=== PATIENT | female | born 1950 | race Caucasian/White ===

== ENCOUNTER → 2016-11-09 | Outpatient (CLI) | payer MEDICARE, MEDICAID ==
[2016-11-09 10:45] LABS: CHLORIDE,CL 104 mmol/L (98-110); SODIUM,NA 141 mmol/L (136-146)
--- NOTE | 2016-11-09 10:47 | CR ---
EXAMINATION: Two-view chest (PA and Lateral views). HISTORY: Shortness of breath. FINDINGS: The trachea is midline. The cardiomediastinal silhouette is within normal limits. No pulmonary infil trates, effusions or pneumothorax. Scoliosis hardware is noted. Previous right rib resection changes also present. IMPRESSION: No acute cardiopulmonary process.
== END | disposition home or self-care (01) ==
LOC: MW.CHFP 09:22
PROVIDERS: ATTEND Student in an Organized Health Care Education/Training Program
DX: R06.02 Shortness of breath (principal); R60.0 Localized edema; R07.89 Other chest pain
CPT/HCPCS: 36415; 71020; 71020-26; 80048; 93005; 99214

== ENCOUNTER → 2016-11-25 | Outpatient (CLI) | payer MEDICARE, MEDICAID | LOC: MW.CHIM 11:01 | PROVIDERS: ATTEND Internal Medicine | DX: I50.9 Heart failure, unspecified (principal); R32 Unspecified urinary incontinence; R60.0 Localized edema; J44.9 Chronic obstructive pulmonary disease, unspecified; E78.00 Pure hypercholesterolemia, unspecified; I10 Essential (primary) hypertension; Z72.0 Tobacco use | CPT/HCPCS: 81001; 99204; 99407 ==

== ENCOUNTER → 2016-12-07 | Outpatient (CLI) | payer MEDICARE, MEDICAID ==
--- NOTE | 2016-12-07 16:06 | US ---
EXAMINATION: CARLA HISTORY: Heart failure COMPARISON: None TECHNIQUE: Pressures obtained in the upper and lower extremities bilaterally. FINDINGS/IMPRESSION: Both the left and right CARLA are normal at 0.99.
--- NOTE | 2016-12-08 16:17 | ECHO ---
The echocardiogram report can be seen in this patient's EMR in the Reports section. JOY
== END ==
LOC: MW.US 13:24
PROVIDERS: ATTEND Internal Medicine
DX: I50.9 Heart failure, unspecified (principal); C81.90 Hodgkin lymphoma, unspecified, unspecified site
CPT/HCPCS: 93306; 93922; 93922-26

== ENCOUNTER → 2016-12-08 | Outpatient (CLI) | payer MEDICARE, MEDICAID | LOC: MW.CHNEURO 08:00 | PROVIDERS: ATTEND Psychiatry & Neurology Neuromuscular Medicine | DX: G60.3 Idiopathic progressive neuropathy (principal); G89.4 Chronic pain syndrome | CPT/HCPCS: 99214 ==

== ENCOUNTER → 2016-12-09 | Outpatient (CLI) | payer MEDICARE, MEDICAID ==
--- NOTE | 2016-12-09 13:49 | NM ---
EXAMINATION: Nuclear medicine myocardial perfusion study HISTORY: Shortness of breath. PROCEDURE: Following intravenous administration of 0.4 mg of Lexiscan and 27.4 mCi of technetium 99m sestamib i, stress SPECT images including gating imaging was performed. FINDINGS: Stress myocardial SPECT images demonstrates mildly decreased perfusion along the inferior wall. Review of gated images demonstrates normal wall motion, contractility and wall thickening. The left ventricular ejection fraction is 77 %. The left ventricular chamber size is normal. IMPRESSION: 1. Mildly decreased perfusion along the inferior wall, correlation with rest imaging may be benefici al. 2. Normal ventricular chamber size and function with ejection fraction of 77 %.
--- NOTE | 2016-12-10 17:51 | PCM.PRNOTE ---
- Free Text/Narrative Note: Lexiscan Indication chest pain Patient was supervised today during infusion portion of the stress test. The patient received Regadenoson 0.4 mg IV and nuclear agent using standard protocol. Sestamibi Tm99 25 Mci was gievn afterwards Baseline blood pressure is 119/54 with a heart rate 69 EKG sinus rhythm without ST abnormalities Vital signs at injection: Peak blood pressure 115/53 with a heart rate of 76 Vital signs at 4 minutes post injection: Peak blood pressure 121/52 with a heart rate of 77 EKG sinus rhythm without further ST changes Patient complains of abdominal cramps and headaches spontaneously resolved Adverse effects from Charlene scan none Test done due to end of protocol Impression 1. electrocardiographically nondiagnostic for ischemia due to chemical protocol 2. nuclear imaging pending
== END ==
LOC: MW.NM 07:18
PROVIDERS: ATTEND Internal Medicine
DX: R06.02 Shortness of breath (principal); R07.9 Chest pain, unspecified
CPT/HCPCS: 78451; 93017; A9500; J2785

== ENCOUNTER → 2016-12-13 | Outpatient (CLI) | payer MEDICARE, MEDICAID ==
[2016-12-13 09:58] LABS: CHLORIDE,CL 111 mmol/L (98-110); SODIUM,NA 144 mmol/L (136-146)
== END ==
LOC: MW.CHIM 09:07
PROVIDERS: ATTEND Internal Medicine
DX: I50.9 Heart failure, unspecified (principal); Z86.39 Personal history of other endocrine, nutritional and metabolic disease; E05.00 Thyrotoxicosis with diffuse goiter without thyrotoxic crisis or storm; R07.9 Chest pain, unspecified; E78.5 Hyperlipidemia, unspecified; R00.2 Palpitations; I10 Essential (primary) hypertension; Z71.6 Tobacco abuse counseling; F17.210 Nicotine dependence, cigarettes, uncomplicated
CPT/HCPCS: 36415; 80053; 80061; 83036; 83880; 84443; 99407; G0463

== ENCOUNTER 2016-12-17 10:28 | Emergency (ER) | payer MEDICARE, MEDICAID ==
--- NOTE | 2016-12-17 11:02 | EDM.PDOC ---
ED HPI GENERAL MEDICAL PROBLEM - General Chief Complaint: Headache Stated Complaint: AMBULANCE Time Seen by Provider: 12/17/16 10:40 Source of Information: Reports: Patient History Limitations: Reports: No limitations - History of Present Illness INITIAL COMMENTS - FREE TEXT/NARRATIVE: History of present illness: [66 show female presents with acute onset status post fall with a blow to her left forehead. Patient indicates that she doesn't know sure of consciousness, she doesn't exactly understand what happened, indicating that she does sometimes have numbness and loss of sensation to her bilateral lower extremities. Patient does have a history of several significant back surgery for kyphosis and has had chronic back issues with subsequent neuropathies.] Review of systems: As per history of present illness and below otherwise all systems reviewed and negative. Past medical history: As per history of present illness and as reviewed below otherwise noncontributory. Surgical history: As per history of present illness and as reviewed below otherwise noncontributory. Social history: No reported history of drug or alcohol abuse. Family history: As per history of present illness and as reviewed below otherwise noncontributory. Physical exam: HEENT: Atraumatic, normocephalic, pupils reactive, negative for conjunctival pallor or scleral icterus, mucous membranes moist, throat clear, neck supple, nontender, trachea midline. Lungs: Clear to auscultation, breath sounds equal bilaterally, chest nontender. Heart: S1S2, regular, negative for clicks, rubs, or JVD. Abdomen: Soft, nondistended, nontender. Negative for masses or hepatosplenomegaly. Negative for costovertebral tenderness. Pelvis: Stable nontender. Genitourinary: Deferred. Rectal: Deferred. Extremities: Atraumatic, negative for cords or calf pain. Neurovascular unremarkable. Neuro: Awake, alert, oriented. Cranial nerves II through XII unremarkable. Cerebellum unremarkable. Motor and sensory unremarkable throughout. Exam nonfocal. Global assessment was benign save an 80 hematoma to left present of scalp and forehead region. Localized swelling of approximately 2-3 cm x 3-4 cm Diagnostics: [BC, CMP, CT of head without contrast] Therapeutics: [] Impression: [contusion] Plan: [] Definitive disposition and diagnosis as appropriate pending reevaluation and review of above. back Pain Score (Numeric/FACES): 2 - Related Data Allergies Allergy/AdvReac Type Severity Reaction Status Date / Time cyclobenzaprine HCl Allergy Anaphylactic Verified 12/17/16 10:56 [From Flexeril] Shock ketorolac tromethamine Allergy Hives Verified 12/17/16 10:56 [From Toradol] Home Meds: Home Meds traZODone 150 mg PO BEDTIME 11/03/15 [History] Paliperidone [Invega] 6 mg PO DAILY 01/11/16 [History] DULoxetine [Cymbalta] 60 mg PO DAILY 06/07/16 [History] Pravastatin [Pravachol] 40 mg PO BEDTIME 06/07/16 [History] Pregabalin [Lyrica] 150 mg PO BID 06/07/16 [History] Propranolol [Inderal LA] 60 mg PO DAILY 06/07/16 [History] Furosemide [Lasix] 20 mg PO BID 12/17/16 [History] Prazosin [Minpress] 1 mg PO BEDTIME 12/17/16 [History] traMADol [Ultram] 50 mg PO BID 12/17/16 [History] Past Medical History HEENT History: Reports: Hard of hearing Other HEENT History: wears glasses, top and bottom partial Cardiovascular History: Reports: Heart Failure, Hypertension, Other (see below) Other Cardiovascular History: Mitral Valve Prolapse Respiratory History: Reports: COPD Other Respiratory History: hx TB at 18 yrs old Gastrointestinal History: Reports: None Genitourinary History: Reports: Other (see below) Other Genitourinary History: occasional urinary incontinence BRAZER RESISTANCE History: Reports: Other (see below) Other OB/BYN 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 Musculoskeletal History: Reports: None Other Musculoskeletal History: chronic neck pain Other Neuro History: possible MS Psychiatric History: Reports: Bipolar, Depression Other Psychiatric History: multiple personalities Hematologic History: Reports: Blood transfusion(s) Other Hematologic History: states had blood transfusion after back surgery Oncologic (Cancer) History: Reports: Cervix Other Oncologic History: had hysterectomy for cervix CA - Infectious Disease History Infectious Disease History: Reports: Measles, Mumps, Shingles, TB - Past Surgical History Head Surgeries/Procedures: Reports: None HEENT Surgical History: Reports: Tonsillectomy GI Surgical History: Reports: Appendectomy, Cholecystectomy Female Surgical History: Reports: Hysterectomy Other Musculoskeletal Surgeries/Procedures:: rouse alayna in back Social & Family History - Family History Family Medical History: Noncontributory HEENT: Reports: Macular degeneration Cardiac: Reports: None Respiratory: Reports: Asthma, COPD GI: Reports: None : Reports: None Musculoskeletal: Reports: Back pain, chronic Neurological: Reports: None Oncologic: Reports: Breast, Lung Other Oncologic Family History: parents both had Cancer - Tobacco Use Smoking Status *Q: Current Every Day Smoker Years of Tobacco use: 45 Packs/Tins Daily: 1 Used Tobacco, but Quit: No Month Tobacco Last Used: october Second Hand Smoke Exposure: Yes - Caffeine Use Caffeine Use: Reports: Coffee - Alcohol Use Days Per Week of Alcohol Use: 0 - Recreational Drug Use Recreational Drug Use: Yes Drug Use in Last 12 Months: Yes Recreational Drug Type: Reports: Xanax Recreational Drug Use Frequency: Daily ED ROS GENERAL - Review of Systems Review Of Systems: See Below (See history of present illness) ED EXAM, GENERAL - Physical Exam Exam: See Below (See history of present illness) Course - Vital Signs Last Recorded V/S: Last Vital Signs Temp 36.4 C 12/17/16 10:56 Pulse 93 12/17/16 10:56 Resp 20 12/17/16 10:56 BP 87/64 L 12/17/16 10:56 Pulse Ox 94 L 12/17/16 10:56 - Orders/Labs/Meds Labs: Laboratory Tests 12/17/16 12/17/16 Range/Units 11:14 11:14 WBC 9.01 (4.0-11.0) K/uL RBC 4.30 (4.30-5.90) M/uL Hgb 13.3 (12.0-16.0) g/dL Hct 40.2 (36.0-46.0) % MCV 93.5 (80.0-98.0) fL MCH 30.9 (27.0-32.0) pg MCHC 33.1 (31.0-37.0) g/dL RDW Std Deviation 43.3 (28.0-62.0) fl RDW Coeff of Jannette 13 (11.0-15.0) % Plt Count 154 (150-400) K/uL MPV 11.00 (7.40-12.00) fL Neut % (Auto) 74.1 (48.0-80.0) % Lymph % (Auto) 16.0 (16.0-40.0) % Andrews % (Auto) 9.0 (0.0-15.0) % Eos % (Auto) 0.6 (0.0-7.0) % Baso % (Auto) 0.3 (0.0-1.5) % Neut # (Auto) 6.7 H (1.4-5.7) K/uL Lymph # (Auto) 1.4 (0.6-2.4) K/uL Andrews # (Auto) 0.8 (0.0-0.8) K/uL Eos # (Auto) 0.1 (0.0-0.7) K/uL Baso # (Auto) 0.0 (0.0-0.1) K/uL Nucleated RBC % 0.0 /100WBC Nucleated RBCs # 0 K/uL Sodium 141 (136-146) mmol/L Potassium 4.0 (3.5-5.1) mmol/L Chloride 102 (98-110) mmol/L Carbon Dioxide 30 (21-31) mmol/L BUN 24 H (6.0-23.0) mg/dL Creatinine 1.1 (0.6-1.5) mg/dL Est Cr Clr Drug Dosing 43.44 mL/min Estimated GFR (MDRD) 49.7 ml/min Glucose 100 (60-110) mg/dL Calcium 9.2 (8.8-10.8) mg/dL Total Bilirubin 0.6 (0.1-1.5) mg/dL AST 20 (5-40) IU/L ALT 20 (8-54) IU/L Alkaline Phosphatase 134 (40-150) Total Protein 6.5 (6.0-8.0) g/dL Albumin 3.9 (3.4-4.8) g/dL Globulin 2.6 (2.0-3.5) g/dL Albumin/Globulin Ratio 1.5 (1.3-2.8) Departure - Departure Time of Disposition: 11:47 Disposition: Home, Self-Care 01 Condition: good Clinical Impression: Contusion Qualifiers: Encounter type: initial encounter Contusion area: head Contusion of head detail : scalp Qualified Code(s): S00.03XA - Contusion of scalp, initial encounter Referrals: PCP,None [Primary Care Provider] - Additional Instructions: The following information is given to patients seen in the emergency department who are being discharged to home. This information is to outline your options for follow-up care. We provide all patients seen in our emergency department with a follow-up referral. The need for follow-up, as well as the timing and circumstances, are variable depending upon the specifics of your emergency department visit. If you don't have a primary care physician on staff, we will provide you with a referral. We always advise you to contact your personal physician following an emergency department visit to inform them of the circumstance of the visit and for follow-up with them and/or the need for any referrals to a consulting specialist. The emergency department will also refer you to a specialist when appropriate. This referral assures that you have the opportunity for follow-up care with a specialist. All of these measure are taken in an effort to provide you with optimal care, which includes your follow-up. Under all circumstances we always encourage you to contact your private physician who remains a resource for coordinating your care. When calling for follow-up care, please make the office aware that this follow-up is from your recent emergency room visit. If for any reason you are refused follow-up, please contact the [facility] Emergency Department at and asked to speak to the emergency department charge nurse. Followup with primary care 1-2 days Turned ED as needed as discussed
--- NOTE | 2016-12-17 11:14 | CT ---
EXAMINATION: Non contrast CT head. Coronal and sagittal reformats. HISTORY: Pain FINDINGS: No evidence of intra or extra axial hemorrhage, mass, midline shift, hydrocephalus or edema. No hypoattenuation changes in the major vascular territories to suggest acute infarct. No abnormal intracranial calcifications are detected. No evidence of substantial vascular calcifica tions. The orbits and globes appear normal. Paranasal sinuses and mastoid air cells are well aerated without substantial findings. Pituitary fossa appears unremarkable. Degenerative changes are noted within the temporomandibular waldo ints. Calvarium is intact. No evidence of skull fracture. Small area of left supraorbital subcutaneous swe lling. IMPRESSION: 1. No acute intracranial findings.
[2016-12-17 12:14] VITALS: BP 119/53
== END 2016-12-17 12:13 | disposition home or self-care (01) ==
LOC: MW.ED 10:28
DX: S00.03XA Contusion of scalp, initial encounter (principal); I50.9 Heart failure, unspecified; I10 Essential (primary) hypertension; F31.9 Bipolar disorder, unspecified; F32.9 Major depressive disorder, single episode, unspecified; F17.210 Nicotine dependence, cigarettes, uncomplicated; Z85.41 Personal history of malignant neoplasm of cervix uteri; Z90.49 Acquired absence of other specified parts of digestive tract; Z98.890 Other specified postprocedural states; Z90.710 Acquired absence of both cervix and uterus; Z79.899 Other long term (current) drug therapy; Z88.8 Allergy status to other drugs, medicaments and biological substances; W19.XXXA Unspecified fall, initial encounter
CPT/HCPCS: 36415; 70450; 70450-26; 80053; 85025; 99282; 99284-25

== ENCOUNTER → 2017-01-04 | Outpatient (CLI) | payer MEDICARE, MEDICAID | LOC: MW.CHFP 08:00 | PROVIDERS: ATTEND Student in an Organized Health Care Education/Training Program | DX: I10 Essential (primary) hypertension (principal); M54.9 Dorsalgia, unspecified; G89.29 Other chronic pain; F41.8 Other specified anxiety disorders | CPT/HCPCS: 99214 ==

== ENCOUNTER → 2017-01-05 | Outpatient (CLI) | payer MEDICARE, MEDICAID | LOC: MW.CHIM 08:00 | PROVIDERS: ATTEND Internal Medicine | DX: J44.9 Chronic obstructive pulmonary disease, unspecified (principal); I10 Essential (primary) hypertension; E78.00 Pure hypercholesterolemia, unspecified; I50.9 Heart failure, unspecified; F17.210 Nicotine dependence, cigarettes, uncomplicated; Z71.6 Tobacco abuse counseling | CPT/HCPCS: 99214; 99407 ==

== ENCOUNTER → 2017-01-06 | Outpatient (CLI) | payer MEDICARE, MEDICAID ==
--- NOTE | 2017-02-15 18:06 | NM ---
EXAM DATE: 01/06/17 PATIENT'S AGE: 66 REPORT ADDENDUM Addendum: Additional images were obtained at rest following the administration of 25.6 mCi of technetium 99m labeled sestamibi. FINDINGS/IMPRESSION: The uptake pattern at rest is similar to the stress images. There is no definite evidence of myocardial ischemia. Ejection fraction at rest is 80%. Wall motion is otherwise normal. Addendum Dictated by: Ananth Castillo MD <Electronically signed by Ananth Castillo MD in OV> 01/06/17 1505 , 1504 , 1504 EXAMINATION: Nuclear medicine myocardial perfusion study HISTORY: Shortness of breath. PROCEDURE: Following intravenous administration of 0.4 mg of Lexiscan and 27.4 mCi of technetium 99m sestamibi, stress SPECT images including gating imaging was performed. FINDINGS: Stress myocardial SPECT images demonstrates mildly decreased perfusion along the inferior wall. Review of gated images demonstrates normal wall motion, contractility and wall thickening. The left ventricular ejection fraction is 77 %. The left ventricular chamber size is normal. IMPRESSION: 1. Mildly decreased perfusion along the inferior wall, correlation with rest imaging may be beneficial. 2. Normal ventricular chamber size and function with ejection fraction of 77 %. Dictated by: Ananth Castillo MD <Electronically signed by Ananth Castillo MD in OV> 12/09/16 at 1346 , 1345 , 1345 Doc Number: [id number] Copies To: María Bell MD; PCP,None~ MTDD
== END ==
LOC: MW.NM 08:02
PROVIDERS: ATTEND Internal Medicine
DX: I50.9 Heart failure, unspecified (principal)
CPT/HCPCS: 78451; A9500

== ENCOUNTER → 2017-01-13 | Outpatient (CLI) | payer MEDICARE, MEDICAID | LOC: MW.CHFP 10:55 | PROVIDERS: ATTEND Student in an Organized Health Care Education/Training Program | DX: R39.15 Urgency of urination (principal); R30.0 Dysuria; R35.8 Other polyuria | CPT/HCPCS: 81001; G0463 ==

== ENCOUNTER → 2017-01-31 | Outpatient (CLI) | payer MEDICARE, MEDICAID | LOC: MW.CHFP 08:00 | PROVIDERS: ATTEND Student in an Organized Health Care Education/Training Program | DX: J01.90 Acute sinusitis, unspecified (principal) | CPT/HCPCS: G0463 ==

== ENCOUNTER 2017-03-30 00:16 | Emergency (ER) | payer MEDICARE, MEDICAID ==
--- NOTE | 2017-03-30 00:26 | EDM.PDOC ---
ED HPI GENERAL MEDICAL PROBLEM - General Chief Complaint: Genitourinary Problem Stated Complaint: UTI? Time Seen by Provider: 03/30/17 00:25 Source of Information: Reports: Patient, EMS - History of Present Illness INITIAL COMMENTS - FREE TEXT/NARRATIVE: HISTORY AND PHYSICAL: History of present illness: Patient presents by ambulance with complaint of urinary retention no fever nausea vomiting chills sweats She states last urination was also 700 in the am, however immediately upon arrival she went to the bathroom and urinated without any difficulty however only 200 mL came out, bladder is either very large on exam or some bowel/ abdomen distention Again no fever nausea vomiting chills sweats Review of systems: As per history of present illness and below otherwise all systems reviewed and negative. Past medical history: As per history of present illness and as reviewed below otherwise noncontributory. Surgical history: As per history of present illness and as reviewed below otherwise noncontributory. Social history: No reported history of drug or alcohol abuse. Family history: As per history of present illness and as reviewed below otherwise noncontributory. Physical exam: HEENT: Atraumatic, normocephalic, pupils reactive, negative for conjunctival pallor or scleral icterus, mucous membranes moist, throat clear, neck supple, nontender, trachea midline. Lungs: Clear to auscultation, breath sounds equal bilaterally, chest nontender. Heart: S1S2, regular, negative for clicks, rubs, or JVD. Abdomen: Soft, patient has protruding protuberant abdomen with possible slight distention, nontender. Negative for masses or hepatosplenomegaly. Negative for costovertebral tenderness. Pelvis: Stable nontender. Genitourinary: Deferred. Rectal: Deferred. Extremities: Atraumatic, negative for cords or calf pain. Neurovascular unremarkable. Neuro: Awake, alert, oriented. Cranial nerves II through XII unremarkable. Cerebellum unremarkable. Motor and sensory unremarkable throughout. Exam nonfocal. Diagnostics: []CBC, CMP, UA Flat and upright Bladder scan bladder scan reveals 999 mL postvoid bladder contents, 1100 mL postvoid obtained in Valles bag Therapeutics: Indwelling catheter with leg bag Follow-up with urology ER referral sent Impression: []Urine retention- Chronic history of baseline Definitive disposition and diagnosis as appropriate pending reevaluation and review of above. lower abdominal area Pain Score (Numeric/FACES): 9 - Related Data Allergies Allergy/AdvReac Type Severity Reaction Status Date / Time cyclobenzaprine HCl Allergy Anaphylactic Verified 03/30/17 00:22 [From Flexeril] Shock ketorolac tromethamine Allergy Hives Verified 03/30/17 00:22 [From Toradol] Home Meds: Home Meds traZODone 150 mg PO BEDTIME 11/03/15 [History] Paliperidone [Invega] 6 mg PO DAILY 01/11/16 [History] DULoxetine [Cymbalta] 60 mg PO DAILY 06/07/16 [History] Pravastatin [Pravachol] 40 mg PO BEDTIME 06/07/16 [History] Pregabalin [Lyrica] 150 mg PO BID 06/07/16 [History] Propranolol [Inderal LA] 60 mg PO DAILY 06/07/16 [History] Furosemide [Lasix] 20 mg PO BID 12/17/16 [History] Prazosin [Minpress] 1 mg PO BEDTIME 12/17/16 [History] traMADol [Ultram] 50 mg PO BID 12/17/16 [History] Past Medical History - Past Health History Medical/Surgical History: Denies Medical/Surgical History HEENT History: Reports: Hard of Hearing Other HEENT History: wears glasses, top and bottom partial Cardiovascular History: Reports: Angina, Heart Failure, Hypertension, Other ( See Below) Other Cardiovascular History: Mitral Valve Prolapse Respiratory History: Reports: COPD Other Respiratory History: hx TB at 18 yrs old Gastrointestinal History: Reports: None Genitourinary History: Reports: Other (See Below) Other Genitourinary History: occasional urinary incontinence [employer] 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 Musculoskeletal History: Reports: Arthritis, Back Pain, Chronic, Fibromyalgia, Osteoarthritis Other Musculoskeletal History: chronic neck pain Other Neuro History: possible MS Psychiatric History: Reports: Bipolar, Depression Other Psychiatric History: multiple personalities Endocrine/Metabolic History: Reports: Hyperthyroidism Hematologic History: Reports: Blood Transfusion(s), Other (See Below) Other Hematologic History: states had blood transfusion after back surgery Oncologic (Cancer) History: Reports: Cervix Other Oncologic History: had hysterectomy for cervix CA - Infectious Disease History Infectious Disease History: Reports: Measles, Mumps, Shingles, TB - Past Surgical History Musculoskeletal Surgical History: Reports: Other (See Below) Social & Family History - Family History Family Medical History: Noncontributory HEENT: Reports: Macular Degeneration Cardiac: Reports: None Respiratory: Reports: Asthma, COPD GI: Reports: None : Reports: None Musculoskeletal: Reports: Back pain, Chronic Neurological: Reports: None Oncologic: Reports: Breast, Lung Other Oncologic Family History: parents both had Cancer - Tobacco Use Smoking Status *Q: Current Every Day Smoker Years of Tobacco use: 45 Packs/Tins Daily: 1 Used Tobacco, but Quit: No Month Tobacco Last Used: october Second Hand Smoke Exposure: Yes - Caffeine Use Caffeine Use: Reports: Coffee - Alcohol Use Days Per Week of Alcohol Use: 0 - Recreational Drug Use Recreational Drug Use: Yes Drug Use in Last 12 Months: Yes Recreational Drug Type: Reports: Xanax Recreational Drug Use Frequency: Daily ED ROS GENERAL - Review of Systems Review Of Systems: ROS reveals no pertinent complaints other than HPI. ED EXAM, GENERAL - Physical Exam Exam: See Below Course - Vital Signs Last Recorded V/S: Last Vital Signs Temp 36.1 C 03/30/17 00:24 Pulse 77 03/30/17 00:24 Resp 20 03/30/17 00:24 BP 112/56 L 03/30/17 00:24 Pulse Ox 94 L 03/30/17 00:24 - Orders/Labs/Meds Orders: Active Orders 24 hr Category Date Time Status Abdomen 2V AP Flat Upright [CR] Stat Exams 03/30/17 01:13 Ordered Labs: Laboratory Tests 03/30/17 03/30/17 03/30/17 Range/Units 00:46 00:46 00:50 WBC 7.89 (4.0-11.0) K/uL RBC 4.19 L (4.30-5.90) M/uL Hgb 12.8 (12.0-16.0) g/dL Hct 38.3 (36.0-46.0) % MCV 91.4 (80.0-98.0) fL MCH 30.5 (27.0-32.0) pg MCHC 33.4 (31.0-37.0) g/dL RDW Std Deviation 41.9 (28.0-62.0) fl RDW Coeff of Jannette 13 (11.0-15.0) % Plt Count 180 (150-400) K/uL MPV 10.50 (7.40-12.00) fL Neut % (Auto) 63.4 (48.0-80.0) % Lymph % (Auto) 26.2 (16.0-40.0) % [place] % (Auto) 9.3 (0.0-15.0) % Eos % (Auto) 0.8 (0.0-7.0) % Baso % (Auto) 0.3 (0.0-1.5) % Neut # (Auto) 5.0 (1.4-5.7) K/uL Lymph # (Auto) 2.1 (0.6-2.4) K/uL Gosper # (Auto) 0.7 (0.0-0.8) K/uL Eos # (Auto) 0.1 (0.0-0.7) K/uL Baso # (Auto) 0.0 (0.0-0.1) K/uL Sodium 136 (136-146) mmol/L Potassium 3.5 (3.5-5.1) mmol/L Chloride 101 (98-110) mmol/L Carbon Dioxide 28 (21-31) mmol/L BUN 19 (6.0-23.0) mg/dL Creatinine 1.0 (0.6-1.5) mg/dL Est Cr Clr Drug Dosing 45.78 mL/min Estimated GFR (MDRD) 55.5 ml/min Glucose 141 H (60-110) mg/dL Calcium 8.9 (8.8-10.8) mg/dL Total Bilirubin 0.5 (0.1-1.5) mg/dL AST 106 H (5-40) IU/L ALT 118 H (8-54) IU/L Alkaline Phosphatase 240 H (40-150) Total Protein 6.7 (6.0-8.0) g/dL Albumin 4.0 (3.4-4.8) g/dL Globulin 2.7 (2.0-3.5) g/dL Albumin/Globulin Ratio 1.5 (1.3-2.8) Urine Color YELLOW Urine Appearance CLEAR Urine pH 5.5 (5.0-8.0) Ur Specific [place] 1.010 (1.001-1.035) Urine Protein NEGATIVE (NEGATIVE) mg/dL Urine Glucose (UA) NEGATIVE (NEGATIVE) mg/dL Urine Ketones NEGATIVE (NEGATIVE) mg/dL Urine Occult Blood NEGATIVE (NEGATIVE) Urine Nitrite NEGATIVE (NEGATIVE) Urine Bilirubin NEGATIVE (NEGATIVE) Urine Urobilinogen 0.2 (<2.0) EU/dL Ur Leukocyte Esterase NEGATIVE (NEGATIVE) Urine RBC 0-1 (0-2/HPF) Urine WBC 0-2 (0-5/HPF) Ur Epithelial Cells FEW (NONE-FEW) Urine Bacteria FEW (NEGATIVE) Departure - Departure Time of Disposition: 01:01 Disposition: Home, Self-Care 01 Condition: Good Clinical Impression: Urine retention Clinical Impression: (Ruled Out): Worried well - Discharge Information Referrals: PCP,None [Primary Care Provider] - Forms: ED Department Discharge Additional Instructions: Indwelling catheter placed, leave in place until follow-up Follow-up with urologist ER referral provided Return if symptoms persist or worsen or fever nausea vomiting chills sweats should they develop Follow-up with urology as scheduled [facility] - [facility]rology [address] [place] [id number] The following information is given to patients seen in the emergency department who are being discharged to home. This information is to outline your options for follow-up care. We provide all patients seen in our emergency department with a follow-up referral. The need for follow-up, as well as the timing and circumstances, are variable depending upon the specifics of your emergency department visit. If you don't have a primary care physician on staff, we will provide you with a referral. We always advise you to contact your personal physician following an emergency department visit to inform them of the circumstance of the visit and for follow-up with them and/or the need for any referrals to a consulting specialist. The emergency department will also refer you to a specialist when appropriate. This referral assures that you have the opportunity for follow-up care with a specialist. All of these measure are taken in an effort to provide you with optimal care, which includes your follow-up. Under all circumstances we always encourage you to contact your private physician who remains a resource for coordinating your care. When calling for follow-up care, please make the office aware that this follow-up is from your recent emergency room visit. If for any reason you are refused follow-up, please contact the [facility] emergency department at and asked to speak to the emergency department charge nurse. - My Orders Last 24 Hours: My Active Orders 03/30/17 01:13 Abdomen 2V AP Flat Upright [CR] Stat - Assessment/Plan Last 24 Hours: My Active Orders 03/30/17 01:13 Abdomen 2V AP Flat Upright [CR] Stat
[2017-03-30 02:52] VITALS: BP 136/78
--- NOTE | 2017-03-30 10:57 | CR ---
EXAM DATE: 03/30/17 PATIENT'S AGE: 66 Patient: PORSCHE PATEL Facility: [place], [place] Site . Site : 1950 Study: XRay Abdomen/Pelvis [id number]/12/2017 2:05:36 AM Ordering Physician: Cedric Ventura Final Report: INDICATION: Urine retention. TECHNIQUE: Upright and supine views of the abdomen, total of 4 images. IMPRESSION : Thoracolumbar spinal hardware. Cholecystectomy surgical clips in right upper abdomen. Imaged lung bases clear. No free air. Moderate stool in the ascending colon. Bowel gas appears to extend distally to the rectum. No abnormal calcifications. No underlying bowel obstruction. Dictated by Rosas Rod MD @ 03/30/2017 2:33:44 AM Dictated by: Rosas Rod MD @ 03/30/2017 02:33:50 (Electronic Signature) Report Signed by Proxy. [id number]
== END 2017-03-30 02:45 | disposition home or self-care (01) ==
LOC: MW.ED 00:16
DX: R33.9 Retention of urine, unspecified (principal); I11.0 Hypertensive heart disease with heart failure; I50.9 Heart failure, unspecified; F17.210 Nicotine dependence, cigarettes, uncomplicated; J44.9 Chronic obstructive pulmonary disease, unspecified; M19.90 Unspecified osteoarthritis, unspecified site; E05.90 Thyrotoxicosis, unspecified without thyrotoxic crisis or storm; F32.9 Major depressive disorder, single episode, unspecified; Z90.710 Acquired absence of both cervix and uterus; Z79.899 Other long term (current) drug therapy; Z88.6 Allergy status to analgesic agent; Z88.8 Allergy status to other drugs, medicaments and biological substances
CPT/HCPCS: 36415; 51702; 74020; 74020-26; 80053; 81001; 85025; 99282; 99284; G0463

== ENCOUNTER 2017-04-01 18:14 | Emergency (ER) | payer MEDICARE, MEDICAID ==
[2017-04-01] MEDS ORDERED: Sodium Chloride 0.9% 10 ML Syringe FLUSH PRN (18:21)
[2017-04-01] MEDS ORDERED: Sodium Chloride 0.9% 2.5 ML Syringe FLUSH PRN (18:21)
--- NOTE | 2017-04-01 18:29 | EDM.PDOC ---
ED HPI GENERAL MEDICAL PROBLEM - General Chief Complaint: Genitourinary Problem Stated Complaint: PT HAS BLOOD IN URINE Time Seen by Provider: 04/01/17 18:15 Source of Information: Reports: Patient History Limitations: Reports: No Limitations - History of Present Illness INITIAL COMMENTS - FREE TEXT/NARRATIVE: History of present illness: [66 year old female comes in status post catheter placement by Dr. Guerrero. Patient indicates that starting this morning she started having bloody urine and was concerned and subsequently called 911] Review of systems: As per history of present illness and below otherwise all systems reviewed and negative. Past medical history: As per history of present illness and as reviewed below otherwise noncontributory. Surgical history: As per history of present illness and as reviewed below otherwise noncontributory. Social history: No reported history of drug or alcohol abuse. Family history: As per history of present illness and as reviewed below otherwise noncontributory. Physical exam: HEENT: Atraumatic, normocephalic, pupils reactive, negative for conjunctival pallor or scleral icterus, mucous membranes moist, throat clear, neck supple, nontender, trachea midline. Lungs: Clear to auscultation, breath sounds equal bilaterally, chest nontender. Heart: S1S2, regular, negative for clicks, rubs, or JVD. Abdomen: Soft, nondistended, nontender. Negative for masses or hepatosplenomegaly. Negative for costovertebral tenderness. Pelvis: Stable nontender. Genitourinary: Deferred. Rectal: Deferred. Extremities: Atraumatic, negative for cords or calf pain. Neurovascular unremarkable. Neuro: Awake, alert, oriented. Cranial nerves II through XII unremarkable. Cerebellum unremarkable. Motor and sensory unremarkable throughout. Exam nonfocal. Patient comes complaining of bloody urine status post Valles placement, and is short of breath. Diagnostics: [CBC, CMP, UA, chest x-ray] Therapeutics: [Duo neb] Impression: [UTI, COPD exacerbation secondary to med noncompliance] Plan: [Antibiotics] Definitive disposition and diagnosis as appropriate pending reevaluation and review of above. back Pain Score (Numeric/FACES): 7 - Related Data Allergies Allergy/AdvReac Type Severity Reaction Status Date / Time cyclobenzaprine HCl Allergy Anaphylactic Verified 04/01/17 18:19 [From Flexeril] Shock ketorolac tromethamine Allergy Hives Verified 04/01/17 18:19 [From Toradol] Home Meds: Home Meds traZODone 150 mg PO BEDTIME 11/03/15 [History] Paliperidone [Invega] 0 mg PO DAILY 01/11/16 [History] DULoxetine [Cymbalta] 60 mg PO DAILY 06/07/16 [History] Pravastatin [Pravachol] 40 mg PO BEDTIME 06/07/16 [History] Pregabalin [Lyrica] 150 mg PO BID 06/07/16 [History] Propranolol [Inderal LA] 60 mg PO DAILY 06/07/16 [History] Furosemide [Lasix] 20 mg PO BID 12/17/16 [History] Prazosin [Minpress] 1 mg PO BEDTIME 12/17/16 [History] traMADol [Ultram] 50 mg PO BID 12/17/16 [History] Lidocaine Patch DAILY 04/01/17 [History] Nitrofurantoin Monohyd/M-Cryst [Macrobid 100 mg Capsule] 100 mg PO BID #20 capsule 04/01/17 [Rx] Sulfamethoxazole/Trimethoprim [Bactrim Ds Tablet] 1 tab PO BID 04/01/17 [History ] Past Medical History - Past Health History Medical/Surgical History: Denies Medical/Surgical History HEENT History: Reports: Hard of Hearing Other HEENT History: wears glasses, top and bottom partial Cardiovascular History: Reports: Angina, Heart Failure, Hypertension, Other ( See Below) Other Cardiovascular History: Mitral Valve Prolapse Respiratory History: Reports: COPD Other Respiratory History: hx TB at 18 yrs old Gastrointestinal History: Reports: None Genitourinary History: Reports: Other (See Below) Other Genitourinary History: occasional urinary incontinence ASSOCIATE TRAINER 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 Musculoskeletal History: Reports: Arthritis, Back Pain, Chronic, Fibromyalgia, Osteoarthritis Other Musculoskeletal History: chronic neck pain Neurological History: Reports: MS Other Neuro History: possible MS Psychiatric History: Reports: Bipolar, Depression Other Psychiatric History: multiple personalities Endocrine/Metabolic History: Reports: Hyperthyroidism Hematologic History: Reports: Blood Transfusion(s), Other (See Below) Other Hematologic History: states had blood transfusion after back surgery Oncologic (Cancer) History: Reports: Cervix Other Oncologic History: had hysterectomy for cervix CA Dermatologic History: Reports: None - Infectious Disease History Infectious Disease History: Reports: Measles, Mumps, Shingles, TB - Past Surgical History Musculoskeletal Surgical History: Reports: Other (See Below) Social & Family History - Family History Family Medical History: Noncontributory HEENT: Reports: Macular Degeneration Cardiac: Reports: None Respiratory: Reports: Asthma, COPD GI: Reports: None : Reports: None Musculoskeletal: Reports: Back pain, Chronic Neurological: Reports: None Oncologic: Reports: Breast, Lung Other Oncologic Family History: parents both had Cancer - Tobacco Use Smoking Status *Q: Current Every Day Smoker Years of Tobacco use: 45 Packs/Tins Daily: 1 Used Tobacco, but Quit: No Month Tobacco Last Used: october Second Hand Smoke Exposure: Yes - Caffeine Use Caffeine Use: Reports: Coffee - Alcohol Use Days Per Week of Alcohol Use: 0 - Recreational Drug Use Recreational Drug Use: Yes Drug Use in Last 12 Months: Yes Recreational Drug Type: Reports: Xanax Recreational Drug Use Frequency: Daily ED ROS GENERAL - Review of Systems Review Of Systems: See Below (See history of present illness) ED EXAM, RENAL/ - Physical Exam Exam: See Below (See history of present illness) Course - Vital Signs Last Recorded V/S: Last Vital Signs Temp 36.4 C 04/01/17 20:22 Pulse 65 04/01/17 20:22 Resp 20 04/01/17 20:22 BP 133/59 L 04/01/17 20:22 Pulse Ox 95 04/01/17 20:22 - Orders/Labs/Meds Orders: Active Orders 24 hr Category Date Time Status EKG Documentation Completion [RC] STAT Care 04/01/17 18:21 Active RT Aerosol Therapy [RC] ASDIRECTED Care 04/01/17 18:44 Active Chest 1V Frontal [CR] Stat Exams 04/01/17 18:21 Taken CULTURE URINE [RM] Stat Lab 04/01/17 20:25 Uncollected Sodium Chloride 0.9% [Saline Flush] Med 04/01/17 18:21 Active 10 ml FLUSH ASDIRECTED PRN Sodium Chloride 0.9% [Saline Flush] Med 04/01/17 18:21 Active 2.5 ml FLUSH ASDIRECTED PRN Saline Lock Insert [OM.PC] Stat Oth 04/01/17 18:21 Ordered Medication Orders Sodium Chloride (Saline Flush) 10 ml FLUSH ASDIRECTED PRN PRN Reason: Keep Vein Open Last Admin: 04/01/17 19:22 Dose: 10 ml Sodium Chloride (Saline Flush) 2.5 ml FLUSH ASDIRECTED PRN PRN Reason: Keep Vein Open Last Admin: 04/01/17 19:23 Dose: 2.5 ml Labs: Laboratory Tests 04/01/17 04/01/17 04/01/17 Range/Units 18:28 18:28 18:28 WBC 7.15 (4.0-11.0) K/uL RBC 3.78 L (4.30-5.90) M/uL Hgb 11.5 L (12.0-16.0) g/dL Hct 34.2 L (36.0-46.0) % MCV 90.5 (80.0-98.0) fL MCH 30.4 (27.0-32.0) pg MCHC 33.6 (31.0-37.0) g/dL RDW Std Deviation 45.1 (28.0-62.0) fl RDW Coeff of Jannette 14 (11.0-15.0) % Plt Count 182 (150-400) K/uL MPV 10.60 (7.40-12.00) fL Neut % (Auto) 64.8 (48.0-80.0) % Lymph % (Auto) 24.5 (16.0-40.0) % [place] % (Auto) 9.7 (0.0-15.0) % Eos % (Auto) 0.6 (0.0-7.0) % Baso % (Auto) 0.4 (0.0-1.5) % Neut # (Auto) 4.6 (1.4-5.7) K/uL Lymph # (Auto) 1.8 (0.6-2.4) K/uL [place] # (Auto) 0.7 (0.0-0.8) K/uL Eos # (Auto) 0.0 (0.0-0.7) K/uL Baso # (Auto) 0.0 (0.0-0.1) K/uL Nucleated RBC % 0.0 /100WBC Nucleated RBCs # 0 K/uL Sodium 139 (136-146) mmol/L Potassium 3.6 (3.5-5.1) mmol/L Chloride 105 (98-110) mmol/L Carbon Dioxide 27 (21-31) mmol/L BUN 15 (6.0-23.0) mg/dL Creatinine 0.9 (0.6-1.5) mg/dL Est Cr Clr Drug Dosing TNP Estimated GFR (MDRD) > 60.0 ml/min Glucose 154 H (60-110) mg/dL Calcium 8.5 L (8.8-10.8) mg/dL Total Bilirubin 0.4 (0.1-1.5) mg/dL AST 26 (5-40) IU/L ALT 48 (8-54) IU/L Alkaline Phosphatase 183 H (40-150) Troponin I < 0.10 (0.0-0.29) NG/ML Total Protein 5.9 L (6.0-8.0) g/dL Albumin 3.5 (3.4-4.8) g/dL Globulin 2.4 (2.0-3.5) g/dL Albumin/Globulin Ratio 1.5 (1.3-2.8) Amylase 16 (10-90) U/L Lipase 26 (7-80) U/L Urine Color Urine Appearance Urine pH (5.0-8.0) Ur Specific [place] (1.001-1.035) Urine Protein (NEGATIVE) mg/dL Urine Glucose (UA) (NEGATIVE) mg/dL Urine Ketones (NEGATIVE) mg/dL Urine Occult Blood (NEGATIVE) Urine Nitrite (NEGATIVE) Urine Bilirubin (NEGATIVE) Urine Ictotest Urine Urobilinogen (<2.0) EU/dL Ur Leukocyte Esterase (NEGATIVE) Urine RBC (0-2/HPF) Urine WBC (0-5/HPF) Ur Epithelial Cells (NONE-FEW) Calcium Oxalate Crystal (NEGATIVE) Urine Bacteria (NEGATIVE) 04/01/17 Range/Units 19:45 WBC (4.0-11.0) K/uL RBC (4.30-5.90) M/uL Hgb (12.0-16.0) g/dL Hct (36.0-46.0) % MCV (80.0-98.0) fL MCH (27.0-32.0) pg MCHC (31.0-37.0) g/dL RDW Std Deviation (28.0-62.0) fl RDW Coeff of Jannette (11.0-15.0) % Plt Count (150-400) K/uL MPV (7.40-12.00) fL Neut % (Auto) (48.0-80.0) % Lymph % (Auto) (16.0-40.0) % [place] % (Auto) (0.0-15.0) % Eos % (Auto) (0.0-7.0) % Baso % (Auto) (0.0-1.5) % Neut # (Auto) (1.4-5.7) K/uL Lymph # (Auto) (0.6-2.4) K/uL [place] # (Auto) (0.0-0.8) K/uL Eos # (Auto) (0.0-0.7) K/uL Baso # (Auto) (0.0-0.1) K/uL Nucleated RBC % /100WBC Nucleated RBCs # K/uL Sodium (136-146) mmol/L Potassium (3.5-5.1) mmol/L Chloride (98-110) mmol/L Carbon Dioxide (21-31) mmol/L BUN (6.0-23.0) mg/dL Creatinine (0.6-1.5) mg/dL Est Cr Clr Drug Dosing Estimated GFR (MDRD) ml/min Glucose (60-110) mg/dL Calcium (8.8-10.8) mg/dL Total Bilirubin (0.1-1.5) mg/dL AST (5-40) IU/L ALT (8-54) IU/L Alkaline Phosphatase (40-150) Troponin I (0.0-0.29) NG/ML Total Protein (6.0-8.0) g/dL Albumin (3.4-4.8) g/dL Globulin (2.0-3.5) g/dL Albumin/Globulin Ratio (1.3-2.8) Amylase (10-90) U/L Lipase (7-80) U/L Urine Color BROWN Urine Appearance CLOUDY Urine pH 6.5 (5.0-8.0) Ur Specific [place] 1.025 (1.001-1.035) Urine Protein >=300 (NEGATIVE) mg/dL Urine Glucose (UA) NEGATIVE (NEGATIVE) mg/dL Urine Ketones TRACE H (NEGATIVE) mg/dL Urine Occult Blood LARGE H (NEGATIVE) Urine Nitrite POSITIVE H (NEGATIVE) Urine Bilirubin MODERATE H (NEGATIVE) Urine Ictotest NEGATIVE Urine Urobilinogen 2.0 H (<2.0) EU/dL Ur Leukocyte Esterase MODERATE (NEGATIVE) Urine RBC TOO NUMBEROUS TO CT H (0-2/HPF) Urine WBC 2-6 (0-5/HPF) Ur Epithelial Cells OCCASIONAL (NONE-FEW) Calcium Oxalate Crystal RARE (NEGATIVE) Urine Bacteria FEW (NEGATIVE) Meds: Medications Generic Name Dose Route Start Last Admin Trade Name Freq PRN Reason Stop Dose Admin Sodium Chloride 10 ml 04/01/17 18:21 04/01/17 19:22 Saline Flush FLUSH 10 ml ASDIRECTED PRN Administration Keep Vein Open Sodium Chloride 2.5 ml 04/01/17 18:21 04/01/17 19:23 Saline Flush FLUSH 2.5 ml ASDIRECTED PRN Administration Keep Vein Open Discontinued Medications Generic Name Dose Route Start Last Admin Trade Name Freq PRN Reason Stop Dose Admin Albuterol/Ipratropium 3 ml 04/01/17 18:44 04/01/17 18:50 Duoneb 3.0-0.5 Mg/3 Ml NEB 04/01/17 18:45 3 ml ONETIME ONE Administration Albuterol/Ipratropium Confirm 04/01/17 18:46 04/01/17 19:17 Duoneb 3.0-0.5 Mg/3 Ml Administered 04/01/17 18:47 Not Given Dose 3 ml .ROUTE .STK-MED ONE Sodium Chloride 1,000 mls @ 999 mls/hr 04/01/17 19:36 04/01/17 19:45 Normal Saline IV 04/01/17 20:36 999 mls/hr STAT ONE Administration Methylprednisolone Sodium Succinate 125 mg 04/01/17 19:11 04/01/17 19:20 Solu-Medrol IVPUSH 04/01/17 19:12 125 mg ONETIME ONE Administration Departure - Departure Time of Disposition: 20:44 Disposition: Home, Self-Care 01 Condition: Good Clinical Impression: UTI, Urinary tract infectious disease - Discharge Information Prescriptions: Nitrofurantoin Monohyd/M-Cryst [Macrobid 100 mg Capsule] 100 mg PO BID #20 capsule Forms: ED Department Discharge Additional Instructions: The following information is given to patients seen in the emergency department who are being discharged to home. This information is to outline your options for follow-up care. We provide all patients seen in our emergency department with a follow-up referral. The need for follow-up, as well as the timing and circumstances, are variable depending upon the specifics of your emergency department visit. If you don't have a primary care physician on staff, we will provide you with a referral. We always advise you to contact your personal physician following an emergency department visit to inform them of the circumstance of the visit and for follow-up with them and/or the need for any referrals to a consulting specialist. The emergency department will also refer you to a specialist when appropriate. This referral assures that you have the opportunity for follow-up care with a specialist. All of these measure are taken in an effort to provide you with optimal care, which includes your follow-up. Under all circumstances we always encourage you to contact your private physician who remains a resource for coordinating your care. When calling for follow-up care, please make the office aware that this follow-up is from your recent emergency room visit. If for any reason you are refused follow-up, please contact the Emergency Department at and asked to speak to the emergency department charge nurse. Take medication as directed Follow-up with PCP 1-2 days return to ED as needed as discussed - My Orders Last 24 Hours: My Active Orders 04/01/17 18:21 EKG Documentation Completion [RC] STAT Chest 1V Frontal [CR] Stat Sodium Chloride 0.9% [Saline Flush] 10 ml FLUSH ASDIRECTED PRN Sodium Chloride 0.9% [Saline Flush] 2.5 ml FLUSH ASDIRECTED PRN Saline Lock Insert [OM.PC] Stat 04/01/17 18:44 RT Aerosol Therapy [RC] ASDIRECTED 04/01/17 20:25 CULTURE URINE [RM] Stat - Assessment/Plan Last 24 Hours: My Active Orders 04/01/17 18:21 EKG Documentation Completion [RC] STAT Chest 1V Frontal [CR] Stat Sodium Chloride 0.9% [Saline Flush] 10 ml FLUSH ASDIRECTED PRN Sodium Chloride 0.9% [Saline Flush] 2.5 ml FLUSH ASDIRECTED PRN Saline Lock Insert [OM.PC] Stat 04/01/17 18:44 RT Aerosol Therapy [RC] ASDIRECTED 04/01/17 20:25 CULTURE URINE [RM] Stat
[2017-04-01] MEDS ORDERED: Albuterol/Ipratropium 3.0-0.5 MG/3 ML Neb Soln NEB ONE (18:44)
[2017-04-01] MEDS ORDERED: Albuterol/Ipratropium 3.0-0.5 MG/3 ML Neb Soln ONE (18:46)
[2017-04-01 19:04] LABS: CHLORIDE,CL 105 mmol/L (98-110); SODIUM,NA 139 mmol/L (136-146)
[2017-04-01] MEDS ORDERED: methylPREDNISolone Sodium Succinate 125 MG/2 ML SDV IVPUSH ONE (19:11)
[2017-04-01] MEDS ORDERED: Sodium Chloride 0.9% 1,000 ML IV ONE (19:36)
--- NOTE | 2017-04-01 20:29 | PCM.SN ---
- Free Text/Narrative Note: Called to ER for PIV and lab draw. 24g PIV started to Rt hand and 5mL blood obtained for lab.
[2017-04-01 20:51] VITALS: BP 142/61
--- NOTE | 2017-04-04 09:51 | CR ---
EXAM DATE: 04/01/17 PATIENT'S AGE: 66 Patient: PORSCHE PATEL Facility: [place], [place] Site . Site : 1950 Study: XRay Chest [id number]/14/2017 6:50:36 PM Ordering Physician: Doctor Becker Final Report: INDICATION: chest pain TECHNIQUE: Chest radiograph 1 view COMPARISON: 11/09/16 FINDINGS: Cardiovascular and mediastinum: The cardiac silhouette is normal in appearance and size. Mediastinum is within normal limits. Lungs and pleural space: Both lungs are unremarkable in appearance. No sign of pleural effusion. No pneumothorax is seen. Bones and soft tissues: No significant findings. Spinal stabilization surgery noted without change. IMPRESSION: 1. No acute cardiopulmonary disease seen. Dictated by: Sinan Guerin MD @ 04/01/2017 18:55:39 (Electronic Signature) Report Signed by Proxy. [facility]ona
== END 2017-04-01 21:01 | disposition home or self-care (01) ==
LOC: MW.ED 18:14
DX: N39.0 Urinary tract infection, site not specified (principal); J44.1 Chronic obstructive pulmonary disease with (acute) exacerbation; Z91.14 Patient's other noncompliance with medication regimen; I11.0 Hypertensive heart disease with heart failure; I50.9 Heart failure, unspecified; M19.90 Unspecified osteoarthritis, unspecified site; F31.9 Bipolar disorder, unspecified; G35 Multiple sclerosis; E05.90 Thyrotoxicosis, unspecified without thyrotoxic crisis or storm; F17.210 Nicotine dependence, cigarettes, uncomplicated; Z85.41 Personal history of malignant neoplasm of cervix uteri; Z90.710 Acquired absence of both cervix and uterus; Z79.899 Other long term (current) drug therapy; Z88.6 Allergy status to analgesic agent; Z88.8 Allergy status to other drugs, medicaments and biological substances
CPT/HCPCS: 36415; 71010; 80053; 81001; 82150; 83690; 84484; 85025; 87086; 93005; 94664; 96361; 96374; 99284; J2930; J7040; 36410

== ENCOUNTER 2017-04-21 09:01 | Observation (INO) | payer MEDICARE, MEDICAID ==
[2017-04-21] MEDS ORDERED: Sodium Chloride 0.9% 500 ML IV SCH (09:15)
[2017-04-21 09:58] LABS: CHLORIDE,CL 98 mmol/L (98-110); SODIUM,NA 141 mmol/L (136-146)
--- NOTE | 2017-04-21 10:12 | PCM.SN ---
- Free Text/Narrative Note: Please see T-sheet template for history physical and initial hospital course. 1025: Please note that on nursing performing straight catheter urine patient was able to bend knees and move about the bed and gently with equal strength. On my initial evaluation patient had lower extremity weakness which was equal bilaterally and she could not hold up her legs but dorsi and plantar flexion was 4/5 inclusive of the great toe bilaterally. Her burner technician strength is 4/5 and she had no drift in her upper extremities bilaterally. When the patient smiles she has a slight drop of the corner of her left mouth but when she is laying in bed sleeping it looks like the right side of her mouth has a slight droop. She also has a slight lid lag on the left. According to the cath lab radiology technician who draws or blood in outpatient lab she does have a history of a slight droop of the left face. The patient here does not act like anything is more weak than usual. The patient's mucous membranes are very dry and she says she is having difficulty speaking because of the dryness. The patient does live alone. I will reevaluate once I get the CAT scan of the head and the chest x-ray but all labs at this time are within normal limits including the drug screen. It is noted that when he called [facility] about this patient and to get her medication list he said that she was at their office 2 days ago and seemed very sluggish and somewhat diminished in mental status but she did not want to come to the hospital then. 1055: Patient's vitals are stable and she is breathing spontaneously with an O2 sat 98% on room air. She is very sluggish and arouses to voice and stimulation but is unclear the etiology of her drowsiness. Her labs are all within normal limits as is her CAT scan. She is not febrile. I will perform an ABG and plan on admission for further evaluation and care. 1104: Case was discussed with Dr. Tran/Lucia and they will come down to evaluate the patient for admission. The patient is aware that she is being admitted and is currently getting her ABG. 1112: Dr Tran is here and upon his arrival in the room the patient was smiling and very interactive with his questions.. 1124: Dr. Tran and Dr. Myers our here evaluating the patient. They would like telemetry observation admission and are going to hold her Vistaril and Lasix. I will follow-up in the ABG results and plan admission. Impression: Altered mental status, clinical dehydration Critical care time excluding procedures:31min
--- NOTE | 2017-04-21 10:37 | CT ---
EXAMINATION: Non contrast CT head. Coronal and sagittal reformats. HISTORY: Altered mental status FINDINGS: No evidence of intra or extra axial hemorrhage, mass, midline shift, hydrocephalus or edema. Mild s ubcortical white matter hypodensities noted. No hypoattenuation changes in the major vascular territories to suggest acute infarct. No abnormal intracranial calcifications are detected. No evidence of substantial vascular calcifica tions. Paranasal sinuses and mastoid air cells are well aerated without substantial findings. Pituitary fossa appears unremarkable. The orbits and globes are symmetric. Calvarium is intact. No evidence of skull fracture. IMPRESSION: 1. No acute intracranial findings. 2. Mild small vessel ischemic changes.
--- NOTE | 2017-04-21 10:45 | CR ---
EXAMINATION: Portable chest radiograph. HISTORY: Altered mental status. Comparison: 04/12/2017. FINDINGS: The trachea is midline. The cardiomediastinal silhouette is within normal limits. No pulmonary infil trates, effusions or pneumothorax. Scoliosis hardware again noted. IMPRESSION: No acute cardiopulmonary process.
[2017-04-21] MEDS: Sodium Chloride 0.9% 1,000 ML IV SCH ×2 (11:03→22:54)
[2017-04-21] MEDS ORDERED: Acetaminophen 325 MG Tab PO PRN (11:36)
[2017-04-21] MEDS ORDERED: Ondansetron 4 MG Tab.DIS PO PRN (11:36)
[2017-04-21] MEDS ORDERED: Docusate Sodium 100 MG Cap PO PRN (11:36)
[2017-04-21] MEDS ORDERED: Bisacodyl 5 MG Tab PO PRN (11:36)
[2017-04-21] MEDS ORDERED: Sodium Chloride 0.9% 1,000 ML IV SCH (11:45)
[2017-04-21] MEDS ORDERED: DICLOFENAC SODIUM TP SCH (12:00)
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
[2017-04-21] MEDS: Enoxaparin 40 MG/0.4 ML Syringe SUBCUT SCH (13:00)
[2017-04-21] MEDS: DICLOFENAC SODIUM TOP SCH (18:12)
[2017-04-21] MEDS ORDERED: Prazosin 1 MG Cap PO SCH (21:00)
[2017-04-21] MEDS ORDERED: Pravastatin 40 MG Tab PO SCH (21:00)
[2017-04-21] MEDS ORDERED: traMADol 50 MG Tab PO SCH (21:00)
[2017-04-21] MEDS: Pregabalin 75 MG Cap PO SCH (21:09)
[2017-04-21] MEDS: Ibuprofen 600 MG Tab PO PRN (22:34)
[2017-04-22] MEDS: DICLOFENAC SODIUM TOP SCH ×3 (00:30→13:43)
[2017-04-22 05:53] LABS: CHLORIDE,CL 108 mmol/L (98-110); SODIUM,NA 144 mmol/L (136-146)
[2017-04-22] MEDS: Sodium Chloride 0.9% 1,000 ML IV SCH (06:37)
[2017-04-22] MEDS: Pregabalin 75 MG Cap PO SCH (08:42)
[2017-04-22] MEDS: Enoxaparin 40 MG/0.4 ML Syringe SUBCUT SCH (08:43)
[2017-04-22] MEDS ORDERED: DULoxetine 60 MG Cap PO SCH (09:00)
[2017-04-22] MEDS ORDERED: Propranolol 60 MG Cap.ER PO SCH (09:00)
[2017-04-22] MEDS: Ibuprofen 600 MG Tab PO PRN (10:29)
--- NOTE | 2017-04-22 10:43 | PCM.DCSUM1 ---
<Julius Tran - Last Filed: 04/22/17 10:35> Discharge Summary - Hospital Course Free Text/Narrative:: Admission diagnoses: #1. Decreased level of consciousness #2. Clinical dehydration Discharge diagnoses: #1. Decreased level of consciousness, improved #2. Clinical dehydration, improved 66 year old female with a history of schizophrenia that was admitted with worsening decreased level of consciousness and clinical dehydration. CBC, BMP, urinalysis, urine drug screen, ethanol level, TSH, T4, head CT, chest x-ray were all unremarkable or within normal limits. Vital signs are stable during admission. Patient started on IV fluids secondary to clinical dehydration. Her home medication of Vistaril was held secondary to decreased level of consciousness. Home medication of Lasix was held secondary to clinical dehydration. Patient was placed on telemetry secondary to decreased level of consciousness and showed first degree AV block with a heart rate between 60-90. Patient has chronic low back pain and this bothered her during admission but she complained of no acute, new-onset pain. Secondary to the patient's decreased level of consciousness and history of taking other peoples medications apart from which she receives at [facility], I did speak with our psychiatrist Dr. North on the phone. He gave recommendations of stopping the patient's Vistaril and stopping her trazodone. He recommended continuing all other medications. Patient is being assessed by [facility] for placement at [facility] for a longer term stay. Dr. North agreed with this. The patient's guardian, Nathaly Pandya, also agrees with placement at [facility]. [facility] has accepted the patient. At the time of discharge, the patient was ambulating without assistance, voiding appropriately, tolerating oral intake, afebrile. She was alert and oriented x3. She was afebrile. Vital signs were normal. - Discharge Data Discharge Date: 04/22/17 Discharge Disposition: DC/Tfer to Psych Hosp/Unit 65 Condition: Fair - Discharge Diagnosis/Problem(s) (1) Decreased level of consciousness SNOMED Code(s): 679633057 ICD Code: R40.4 - TRANSIENT ALTERATION OF AWARENESS Status: Acute Priority: High Current Visit: Yes (2) Dehydration SNOMED Code(s): 10144572 ICD Code: E86.0 - DEHYDRATION Status: Acute Current Visit: Yes - Patient Summary/Data Consults: Consultations 04/21/17 11:36 Consult to Physician [CONS] Routine - Patient Instructions Diet: Usual Diet as Tolerated Activity: As Tolerated Driving: Do Not Drive Showering/Bathing: May Shower Notify Provider of: Fever, Increased Pain, Nausea and/or Vomiting - Discharge Plan Home Medications: Home Meds DULoxetine [Cymbalta] 60 mg PO DAILY 06/07/16 [History] Pravastatin [Pravachol] 40 mg PO BEDTIME 06/07/16 [History] Pregabalin [Lyrica] 150 mg PO BID 06/07/16 [History] Propranolol [Inderal LA] 60 mg PO DAILY 06/07/16 [History] Furosemide [Lasix] 20 mg PO BID 12/17/16 [History] Prazosin [Minpress] 1 mg PO BEDTIME 12/17/16 [History] traMADol [Ultram] 50 mg PO BID 12/17/16 [History] Diclofenac Sodium [Voltaren 1% Gel] 2 - 4 gm TP QID 04/21/17 [History] Paliperidone [Invega] 6 mg PO BEDTIME 04/21/17 [History] Patient Handouts: Dehydration, Adult, [id number] Referrals: PCP,None [Primary Care Provider] - - Discharge Summary/Plan Comment DC Time >30 min.: No Discharge Summary/Plan Comment: Admission diagnoses: #1. Decreased level of consciousness #2. Clinical dehydration Discharge diagnoses: #1. Decreased level of consciousness, improved #2. Clinical dehydration, improved 66 year old female with a history of schizophrenia that was admitted with worsening decreased level of consciousness and clinical dehydration. CBC, BMP, urinalysis, urine drug screen, ethanol level, TSH, T4, head CT, chest x-ray were all unremarkable or within normal limits. Vital signs are stable during admission. Patient started on IV fluids secondary to clinical dehydration. Her home medication of Vistaril was held secondary to decreased level of consciousness. Home medication of Lasix was held secondary to clinical dehydration. Patient was placed on telemetry secondary to decreased level of consciousness and showed first degree AV block with a heart rate between 60-90. Patient has chronic low back pain and this bothered her during admission but she complained of no acute, new-onset pain. Secondary to the patient's decreased level of consciousness and history of taking other peoples medications apart from which she receives at [facility], I did speak with our psychiatrist Dr. North on the phone. He gave recommendations of stopping the patient's Vistaril and stopping her trazodone. He recommended continuing all other medications. Patient was assessed by [facility] for placement at [facility] for a longer term stay. Dr. North agreed with this. The patient's guardian, Nathaly Pandya, also agrees with placement at [facility]. [facility] has accepted the patient. At the time of discharge, the patient was ambulating without assistance, voiding appropriately, tolerating oral intake, afebrile. She was alert and oriented x3. She was afebrile. Vital signs were normal. Discharge plan: #1. Patient is being discharged to [facility]. This is recommended by [facility], Dr. North (psychiatrist), and the patient's guardian, Nathaly Pandya. #2. Trazodone, Vistaril are being discontinued at the time of discharge. All other home medications are being resumed. - Patient Data Vitals - Most Recent: Last Vital Signs Temp 96.5 F 04/22/17 08:00 Pulse 71 04/22/17 08:00 Resp 22 H 04/22/17 08:00 BP 167/73 H 04/22/17 08:00 Pulse Ox 99 04/22/17 08:00 Weight - Most Recent: 95.1 kg I&O - Last 24 hours: Intake & Output 04/21/17 04/22/17 04/22/17 22:59 06:59 14:59 Intake Total 1000 1000 Balance 1000 1000 Lab Results - Last 24 hrs: Laboratory Results - last 24 hr 04/22/17 04/22/17 Range/Units 04:49 04:49 WBC 5.17 (4.0-11.0) K/uL RBC 4.07 L (4.30-5.90) M/uL Hgb 12.1 (12.0-16.0) g/dL Hct 38.4 (36.0-46.0) % MCV 94.3 (80.0-98.0) fL MCH 29.7 (27.0-32.0) pg MCHC 31.5 (31.0-37.0) g/dL RDW Std Deviation 48.5 (28.0-62.0) fl RDW Coeff of Jannette 14 (11.0-15.0) % Plt Count 188 (150-400) K/uL MPV 10.60 (7.40-12.00) fL Neut % (Auto) 52.0 (48.0-80.0) % Lymph % (Auto) 31.3 (16.0-40.0) % [place] % (Auto) 14.7 (0.0-15.0) % Eos % (Auto) 1.2 (0.0-7.0) % Baso % (Auto) 0.8 (0.0-1.5) % Neut # (Auto) 2.7 (1.4-5.7) K/uL Lymph # (Auto) 1.6 (0.6-2.4) K/uL [place] # (Auto) 0.8 (0.0-0.8) K/uL Eos # (Auto) 0.1 (0.0-0.7) K/uL Baso # (Auto) 0.0 (0.0-0.1) K/uL Nucleated RBC % 0.0 /100WBC Nucleated RBCs # 0 K/uL Sodium 144 (136-146) mmol/L Potassium 4.3 (3.5-5.1) mmol/L Chloride 108 (98-110) mmol/L Carbon Dioxide 28 (21-31) mmol/L BUN 16 (6.0-23.0) mg/dL Creatinine 0.7 (0.6-1.5) mg/dL Est Cr Clr Drug Dosing 65.40 mL/min Estimated GFR (MDRD) > 60.0 ml/min Glucose 119 H (60-110) mg/dL Calcium 8.5 L (8.8-10.8) mg/dL Med Orders - Current: Current Medications Acetaminophen (Tylenol) 650 mg PO Q4H PRN PRN Reason: Pain (Mild 1-3)/fever Bisacodyl (Dulcolax) 5 mg PO DAILY PRN PRN Reason: Constipation Docusate Sodium (Colace) 100 mg PO BID PRN PRN Reason: Constipation Last Admin: 04/21/17 13:01 Dose: 100 mg Duloxetine HCl (Cymbalta) 60 mg PO DAILY [facility] Last Admin: 04/22/17 08:42 Dose: 60 mg Enoxaparin Sodium (Lovenox) 40 mg SUBCUT DAILY [facility] Last Admin: 04/22/17 08:43 Dose: 40 mg Sodium Chloride (Normal Saline) 500 mls @ 500 mls/hr IV .BOLUS [facility] Last Admin: 04/21/17 10:31 Dose: 500 mls/hr Sodium Chloride (Normal Saline) 1,000 mls @ 125 mls/hr IV ASDIRECTED [facility] Last Admin: 04/22/17 06:37 Dose: 125 mls/hr Ibuprofen (Motrin) 600 mg PO Q4H PRN PRN Reason: Pain Last Admin: 04/22/17 10:29 Dose: 600 mg Ondansetron HCl (Zofran Odt) 4 mg PO Q4H PRN PRN Reason: nausea, able to take PO Paliperidone [Invega (] 6 Mg) 1 each PO BEDTIME [facility] Last Admin: 04/21/17 21:15 Dose: Not Given Diclofenac Sodium 0 (Gm (Voltaren Gel)) 2 - 4 each TOP QID [facility] Last Admin: 04/22/17 05:58 Dose: Not Given Pravastatin Sodium (Pravachol) 40 mg PO BEDTIME [facility] Last Admin: 04/21/17 21:09 Dose: 40 mg Prazosin HCl (Minpress) 1 mg PO BEDTIME [facility] Last Admin: 04/21/17 22:20 Dose: 1 mg Pregabalin (Lyrica) 150 mg PO BID [facility] Last Admin: 04/22/17 08:42 Dose: 150 mg Propranolol HCl (Inderal La) 60 mg PO DAILY [facility] Last Admin: 04/22/17 08:43 Dose: 60 mg Discontinued Medications Sodium Chloride (Normal Saline) 1,000 mls @ 125 mls/hr IV ASDIRECTED [facility] Last Admin: 04/21/17 14:47 Dose: 125 mls/hr Non-Formulary Medication (Diclofenac Sodium) 2 - 4 gm TP QID [facility] Last Admin: 04/21/17 14:16 Dose: Not Given Tramadol HCl (Ultram) 50 mg PO BID [facility] *Q Meaningful Use (DIS) - VTE *Q VTE Criteria *Q: - Stroke *Q Stroke Criteria *Q: - AMI *Q AMI Criteria *Q: <Stefan Orantes - Last Filed: 04/22/17 11:06> Discharge Summary - Patient Summary/Data Consults: Consultations 04/21/17 11:36 Consult to Physician [CONS] Routine - Patient Data Vitals - Most Recent: Last Vital Signs Temp 35.8 C 04/22/17 08:00 Pulse 71 04/22/17 08:00 Resp 22 H 04/22/17 08:00 BP 167/73 H 04/22/17 08:00 Pulse Ox 99 04/22/17 08:00 I&O - Last 24 hours: Intake & Output 04/21/17 04/22/17 04/22/17 22:59 06:59 14:59 Intake Total 1000 1000 Balance 1000 1000 Lab Results - Last 24 hrs: Laboratory Results - last 24 hr 04/22/17 04/22/17 Range/Units 04:49 04:49 WBC 5.17 (4.0-11.0) K/uL RBC 4.07 L (4.30-5.90) M/uL Hgb 12.1 (12.0-16.0) g/dL Hct 38.4 (36.0-46.0) % MCV 94.3 (80.0-98.0) fL MCH 29.7 (27.0-32.0) pg MCHC 31.5 (31.0-37.0) g/dL RDW Std Deviation 48.5 (28.0-62.0) fl RDW Coeff of Jannette 14 (11.0-15.0) % Plt Count 188 (150-400) K/uL MPV 10.60 (7.40-12.00) fL Neut % (Auto) 52.0 (48.0-80.0) % Lymph % (Auto) 31.3 (16.0-40.0) % [place] % (Auto) 14.7 (0.0-15.0) % Eos % (Auto) 1.2 (0.0-7.0) % Baso % (Auto) 0.8 (0.0-1.5) % Neut # (Auto) 2.7 (1.4-5.7) K/uL Lymph # (Auto) 1.6 (0.6-2.4) K/uL [place] # (Auto) 0.8 (0.0-0.8) K/uL Eos # (Auto) 0.1 (0.0-0.7) K/uL Baso # (Auto) 0.0 (0.0-0.1) K/uL Nucleated RBC % 0.0 /100WBC Nucleated RBCs # 0 K/uL Sodium 144 (136-146) mmol/L Potassium 4.3 (3.5-5.1) mmol/L Chloride 108 (98-110) mmol/L Carbon Dioxide 28 (21-31) mmol/L BUN 16 (6.0-23.0) mg/dL Creatinine 0.7 (0.6-1.5) mg/dL Est Cr Clr Drug Dosing 65.40 mL/min Estimated GFR (MDRD) > 60.0 ml/min Glucose 119 H (60-110) mg/dL Calcium 8.5 L (8.8-10.8) mg/dL Med Orders - Current: Current Medications Acetaminophen (Tylenol) 650 mg PO Q4H PRN PRN Reason: Pain (Mild 1-3)/fever Bisacodyl (Dulcolax) 5 mg PO DAILY PRN PRN Reason: Constipation Docusate Sodium (Colace) 100 mg PO BID PRN PRN Reason: Constipation Last Admin: 04/21/17 13:01 Dose: 100 mg Duloxetine HCl (Cymbalta) 60 mg PO DAILY [facility] Last Admin: 04/22/17 08:42 Dose: 60 mg Enoxaparin Sodium (Lovenox) 40 mg SUBCUT DAILY [facility] Last Admin: 04/22/17 08:43 Dose: 40 mg Sodium Chloride (Normal Saline) 500 mls @ 500 mls/hr IV .BOLUS [facility] Last Admin: 04/21/17 10:31 Dose: 500 mls/hr Sodium Chloride (Normal Saline) 1,000 mls @ 125 mls/hr IV ASDIRECTED [facility] Last Admin: 04/22/17 06:37 Dose: 125 mls/hr Ibuprofen (Motrin) 600 mg PO Q4H PRN PRN Reason: Pain Last Admin: 04/22/17 10:29 Dose: 600 mg Ondansetron HCl (Zofran Odt) 4 mg PO Q4H PRN PRN Reason: nausea, able to take PO Paliperidone [Invega (] 6 Mg) 1 each PO BEDTIME [facility] Last Admin: 08/03/17 21:15 Dose: Not Given Diclofenac Sodium 0 (Gm (Voltaren Gel)) 2 - 4 each TOP QID [facility] Last Admin: 04/22/17 05:58 Dose: Not Given Pravastatin Sodium (Pravachol) 40 mg PO BEDTIME [facility] Last Admin: 04/21/17 21:09 Dose: 40 mg Prazosin HCl (Minpress) 1 mg PO BEDTIME [facility] Last Admin: 04/21/17 22:20 Dose: 1 mg Pregabalin (Lyrica) 150 mg PO BID [facility] Last Admin: 04/22/17 08:42 Dose: 150 mg Propranolol HCl (Inderal La) 60 mg PO DAILY [facility] Last Admin: 04/22/17 08:43 Dose: 60 mg Discontinued Medications Sodium Chloride (Normal Saline) 1,000 mls @ 125 mls/hr IV ASDIRECTED [facility] Last Admin: 04/21/17 14:47 Dose: 125 mls/hr Non-Formulary Medication (Diclofenac Sodium) 2 - 4 gm TP QID [facility] Last Admin: 04/21/17 14:16 Dose: Not Given Tramadol HCl (Ultram) 50 mg PO BID [facility] *Q Meaningful Use (DIS) - VTE *Q VTE Criteria *Q: - Stroke *Q Stroke Criteria *Q: - AMI *Q AMI Criteria *Q: - Free Text/Narrative Note: I have witnessed conversation between the patient and Dr. Tran. We have discussed her condition and her progress and Dr. North's recommendations. I concur with Dr. Tran's plan and the transfer to [facility].
[2017-04-22 13:43] VITALS: BP 128/78
== END 2017-04-22 16:18 ==
LOC: MW.ED 09:01 → MW.MS 11:22 → UNDOADMOB 11:22
PROVIDERS: ADMIT Internal Medicine; ATTEND Internal Medicine
DX: R40.4 Transient alteration of awareness (principal); E86.0 Dehydration; I11.0 Hypertensive heart disease with heart failure; I50.9 Heart failure, unspecified; I34.1 Nonrheumatic mitral (valve) prolapse; J44.9 Chronic obstructive pulmonary disease, unspecified; M19.90 Unspecified osteoarthritis, unspecified site; M79.7 Fibromyalgia; F31.9 Bipolar disorder, unspecified; Z86.11 Personal history of tuberculosis; Z85.41 Personal history of malignant neoplasm of cervix uteri; Z86.19 Personal history of other infectious and parasitic diseases; Z79.899 Other long term (current) drug therapy; Z88.6 Allergy status to analgesic agent; Z88.8 Allergy status to other drugs, medicaments and biological substances; Z90.710 Acquired absence of both cervix and uterus
CPT/HCPCS: 36415; 36600; 70450; 71010; 80048; 80053; 80305; 81001; 82803; 84439; 84443; 84484; 85025; 85610; 93005; 96360; 96361; 96372; 99285; A9270; G0378; G0480; J1650; J7040; 99291

== ENCOUNTER 2017-07-19 17:01 | Emergency (ER) | payer MEDICARE, MEDICAID ==
[2017-07-19] MEDS ORDERED: Naloxone 0.4 MG/ML Syringe IVPUSH ONE (17:05)
[2017-07-19] MEDS ORDERED: Sodium Chloride 0.9% 10 ML Syringe FLUSH PRN (17:06)
[2017-07-19] MEDS ORDERED: Sodium Chloride 0.9% 2.5 ML Syringe FLUSH PRN (17:06)
[2017-07-19 18:54] LABS: CHLORIDE,CL 106 mmol/L (98-110); SODIUM,NA 133 mmol/L (136-146)
[2017-07-19] MEDS ORDERED: Sodium Chloride 0.9% 1,000 ML IV ONE ×3 (18:59→20:11)
--- NOTE | 2017-07-19 20:22 | EDM.PDOC ---
ED HPI GENERAL MEDICAL PROBLEM - General Chief Complaint: General Stated Complaint: LOSS OF CONSCIOUSNESS Time Seen by Provider: 07/19/17 17:17 Source of Information: Reports: Patient History Limitations: Reports: No Limitations - History of Present Illness INITIAL COMMENTS - FREE TEXT/NARRATIVE: History of present illness: [67-year-old female comes in with altered level of consciousness. 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 Patient lives in an adult home setting with her own apartment and she has a visiting nurse who medicates her secondary to patient's chronic history of overdosing on her own medication. Patient comes in slightly hypotensive arousable to noxious stimuli can communicate her needs and then falls back to sleep quite readily. Patient was given 2 doses of Narcan with minimal impaction noted.] Review of systems: As per history of present illness and below otherwise all systems reviewed and negative. Past medical history: As per history of present illness and as reviewed below otherwise noncontributory. Surgical history: As per history of present illness and as reviewed below otherwise noncontributory. Social history: No reported history of drug or alcohol abuse. Family history: As per history of present illness and as reviewed below otherwise noncontributory. Physical exam: HEENT: Atraumatic, normocephalic, pupils reactive, negative for conjunctival pallor or scleral icterus, mucous membranes moist, throat clear, neck supple, nontender, trachea midline. Lungs: Clear to auscultation, breath sounds equal bilaterally, chest nontender. Heart: S1S2, regular, negative for clicks, rubs, or JVD. Abdomen: Soft, nondistended, nontender. Negative for masses or hepatosplenomegaly. Negative for costovertebral tenderness. Pelvis: Stable nontender. Genitourinary: Deferred. Rectal: Deferred. Extremities: Atraumatic, negative for cords or calf pain. Neurovascular unremarkable. Neuro: Awake, alert, oriented. Cranial nerves II through XII unremarkable. Cerebellum unremarkable. Motor and sensory unremarkable throughout. Exam nonfocal. Diagnostics: [CBC, CMP, Actiq acid, blood cultures, UA, drug screen] Therapeutics: [2 L of normal saline bolus, Narcan 20.4 mg] Impression: [Mental status] Plan: [Transfer] Definitive disposition and diagnosis as appropriate pending reevaluation and review of above. - Related Data Allergies Allergy/AdvReac Type Severity Reaction Status Date / Time cyclobenzaprine HCl Allergy Anaphylactic Verified 05/20/17 12:57 [From Flexeril] Shock ketorolac tromethamine Allergy Hives Verified 05/20/17 12:57 [From Toradol] Home Meds: Home Meds DULoxetine [Cymbalta] 60 mg PO DAILY 06/07/16 [History] Pravastatin [Pravachol] 40 mg PO BEDTIME 06/07/16 [History] Pregabalin [Lyrica] 150 mg PO BID 06/07/16 [History] Propranolol [Inderal LA] 60 mg PO DAILY 06/07/16 [History] Furosemide [Lasix] 20 mg PO BID 12/17/16 [History] Prazosin [Minpress] 1 mg PO BEDTIME 12/17/16 [History] traMADol [Ultram] 50 mg PO BID 12/17/16 [History] Diclofenac Sodium [Voltaren 1% Gel] 2 - 4 gm TP QID 04/21/17 [History] Paliperidone [Invega] 6 mg PO BEDTIME 04/21/17 [History] Past Medical History - Past Health History Medical/Surgical History: Denies Medical/Surgical History HEENT History: Reports: Hard of Hearing Other HEENT History: wears glasses, top and bottom partial Cardiovascular History: Reports: Angina, Heart Failure, Hypertension, Other ( See Below) Other Cardiovascular History: Mitral Valve Prolapse Respiratory History: Reports: COPD Other Respiratory History: hx TB at 18 yrs old Gastrointestinal History: Reports: None Genitourinary History: Reports: Other (See Below) Other Genitourinary History: occasional urinary incontinence FINISHED [employer] 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 Musculoskeletal History: Reports: Arthritis, Back Pain, Chronic, Fibromyalgia, Osteoarthritis Other Musculoskeletal History: chronic neck pain Neurological History: Reports: MS Other Neuro History: possible MS Psychiatric History: Reports: Bipolar, Depression Other Psychiatric History: multiple personalities Endocrine/Metabolic History: Reports: Hyperthyroidism Hematologic History: Reports: Blood Transfusion(s), Other (See Below) Other Hematologic History: states had blood transfusion after back surgery Oncologic (Cancer) History: Reports: Cervix Other Oncologic History: had hysterectomy for cervix CA Dermatologic History: Reports: None - Infectious Disease History Infectious Disease History: Reports: Measles, Mumps, Shingles, TB - Past Surgical History Head Surgeries/Procedures: Reports: None Musculoskeletal Surgical History: Reports: Other (See Below) Social & Family History - Family History Family Medical History: Noncontributory HEENT: Reports: Macular Degeneration Cardiac: Reports: None Respiratory: Reports: Asthma, COPD GI: Reports: None : Reports: None Musculoskeletal: Reports: Back pain, Chronic Neurological: Reports: None Oncologic: Reports: Breast, Lung Other Oncologic Family History: parents both had Cancer - Tobacco Use Smoking Status *Q: Current Status Unknown Years of Tobacco use: 45 Packs/Tins Daily: 1 Used Tobacco, but Quit: No Month Tobacco Last Used: october Second Hand Smoke Exposure: Yes - Caffeine Use Caffeine Use: Reports: Other - Alcohol Use Days Per Week of Alcohol Use: 0 - Recreational Drug Use Recreational Drug Use: No Drug Use in Last 12 Months: Yes Recreational Drug Type: Reports: Xanax Recreational Drug Use Frequency: Daily ED ROS GENERAL - Review of Systems Review Of Systems: See Below (History of present illness) ED EXAM, GENERAL - Physical Exam Exam: See Below (History of present illness) Course - Vital Signs Last Recorded V/S: Last Vital Signs Temp Pulse 76 07/19/17 19:55 Resp 19 07/19/17 19:55 BP 98/45 L 07/19/17 19:55 Pulse Ox 100 07/19/17 19:55 - Orders/Labs/Meds Orders: Active Orders 24 hr Category Date Time Status Patient Status [ADT] Stat ADT 07/19/17 20:15 Ordered Cardiac Monitoring [RC] . DIRECTED Care 07/19/17 17:06 Active EKG Documentation Completion [RC] STAT Care 07/19/17 17:06 Active Chest 1V Frontal [CR] Stat Exams 07/19/17 17:06 Taken CULTURE BLOOD [BC] Stat Lab 07/19/17 20:11 Ordered CULTURE BLOOD [BC] Stat Lab 07/19/17 20:11 Ordered LACTIC ACID,WHOLE BLOOD [BG] Stat Lab 07/19/17 20:09 Ordered Sodium Chloride 0.9% [Normal Saline] 1,000 ml Med 07/19/17 20:11 Active IV .Bolus Sodium Chloride 0.9% [Saline Flush] Med 07/19/17 17:06 Active 10 ml FLUSH ASDIRECTED PRN Sodium Chloride 0.9% [Saline Flush] Med 07/19/17 17:06 Active 2.5 ml FLUSH ASDIRECTED PRN Blood Culture x2 Reflex Set [OM.PC] Stat Oth 07/19/17 20:11 Ordered Saline Lock Insert [OM.PC] Stat Ot 07/19/17 17:06 Ordered Medication Orders Sodium Chloride (Normal Saline) 1,000 mls @ 999 mls/hr IV .Bolus ONE Stop: 07/19/17 21:11 Last Admin: 07/19/17 20:12 Dose: 999 mls/hr Sodium Chloride (Saline Flush) 10 ml FLUSH ASDIRECTED PRN PRN Reason: Keep Vein Open Sodium Chloride (Saline Flush) 2.5 ml FLUSH ASDIRECTED PRN PRN Reason: Keep Vein Open Labs: Laboratory Tests 07/19/17 07/19/17 07/19/17 Range/Units 18:11 18:11 18:32 WBC 13.76 H (4.0-11.0) K/uL RBC 3.94 L (4.30-5.90) M/uL Hgb 12.0 (12.0-16.0) g/dL Hct 35.7 L (36.0-46.0) % MCV 90.6 (80.0-98.0) fL MCH 30.5 (27.0-32.0) pg MCHC 33.6 (31.0-37.0) g/dL RDW Std Deviation 47.3 (28.0-62.0) fl RDW Coeff of Jannette 14 (11.0-15.0) % Plt Count 216 (150-400) K/uL MPV 10.80 (7.40-12.00) fL Neut % (Auto) 69.0 (48.0-80.0) % Lymph % (Auto) 18.3 (16.0-40.0) % [place] % (Auto) 12.6 (0.0-15.0) % Eos % (Auto) 0.0 (0.0-7.0) % Baso % (Auto) 0.1 (0.0-1.5) % Neut # (Auto) 9.5 H (1.4-5.7) K/uL Lymph # (Auto) 2.5 H (0.6-2.4) K/uL [place] # (Auto) 1.7 H (0.0-0.8) K/uL Eos # (Auto) 0.0 (0.0-0.7) K/uL Baso # (Auto) 0.0 (0.0-0.1) K/uL Nucleated RBC % 0.0 /100WBC Nucleated RBCs # 0 K/uL Sodium 133 L (136-146) mmol/L Potassium 4.2 (3.5-5.1) mmol/L Chloride 106 (98-110) mmol/L Carbon Dioxide 17 L (21-31) mmol/L BUN 41 H (6.0-23.0) mg/dL Creatinine 2.3 H (0.6-1.5) mg/dL Est Cr Clr Drug Dosing TNP Estimated GFR (MDRD) 21.2 ml/min Glucose 115 H (60-110) mg/dL Calcium 8.3 L (8.8-10.8) mg/dL Total Bilirubin 0.8 (0.1-1.5) mg/dL AST 16 (5-40) IU/L ALT 9 (8-54) IU/L Alkaline Phosphatase 114 (40-150) Troponin I < 0.10 (0.0-0.29) NG/ML Total Protein 5.8 L (6.0-8.0) g/dL Albumin 3.4 (3.4-4.8) g/dL Globulin 2.4 (2.0-3.5) g/dL Albumin/Globulin Ratio 1.4 (1.3-2.8) Amylase 15 (10-90) U/L Lipase 11 (7-80) U/L Urine Color YELLOW Urine Appearance CLEAR Urine pH 5.0 (5.0-8.0) Ur Specific [place] 1.025 (1.001-1.035) Urine Protein NEGATIVE (NEGATIVE) mg/dL Urine Glucose (UA) NEGATIVE (NEGATIVE) mg/dL Urine Ketones TRACE H (NEGATIVE) mg/dL Urine Occult Blood NEGATIVE (NEGATIVE) Urine Nitrite NEGATIVE (NEGATIVE) Urine Bilirubin NEGATIVE (NEGATIVE) Urine Urobilinogen 0.2 (<2.0) EU/dL Ur Leukocyte Esterase NEGATIVE (NEGATIVE) Urine RBC 0-2 (0-2/HPF) Urine WBC 0-2 (0-5/HPF) Ur Epithelial Cells FEW (NONE-FEW) Calcium Oxalate Crystal MODERATE (NEGATIVE) Urine Bacteria FEW (NEGATIVE) Hyaline Casts 0-2 (0-2/LPF) Urine Mucus LIGHT (NONE-MOD) Urine Opiates Screen (NEGATIVE) Ur Oxycodone Screen (NEGATIVE) Urine Methadone Screen (NEGATIVE) Ur Barbiturates Screen (NEGATIVE) Ur Phencyclidine Scrn (NEGATIVE) Ur Amphetamine Screen (NEGATIVE) U Methamphetamines Scrn (NEGATIVE) U Benzodiazepines Scrn (NEGATIVE) U Cocaine Metab Screen (NEGATIVE) U Marijuana (THC) Screen (NEGATIVE) 07/19/17 Range/Units 18:32 WBC (4.0-11.0) K/uL RBC (4.30-5.90) M/uL Hgb (12.0-16.0) g/dL Hct (36.0-46.0) % MCV (80.0-98.0) fL MCH (27.0-32.0) pg MCHC (31.0-37.0) g/dL RDW Std Deviation (28.0-62.0) fl RDW Coeff of Jannette (11.0-15.0) % Plt Count (150-400) K/uL MPV (7.40-12.00) fL Neut % (Auto) (48.0-80.0) % Lymph % (Auto) (16.0-40.0) % [place] % (Auto) (0.0-15.0) % Eos % (Auto) (0.0-7.0) % Baso % (Auto) (0.0-1.5) % Neut # (Auto) (1.4-5.7) K/uL Lymph # (Auto) (0.6-2.4) K/uL [place] # (Auto) (0.0-0.8) K/uL Eos # (Auto) (0.0-0.7) K/uL Baso # (Auto) (0.0-0.1) K/uL Nucleated RBC % /100WBC Nucleated RBCs # K/uL Sodium (136-146) mmol/L Potassium (3.5-5.1) mmol/L Chloride (98-110) mmol/L Carbon Dioxide (21-31) mmol/L BUN (6.0-23.0) mg/dL Creatinine (0.6-1.5) mg/dL Est Cr Clr Drug Dosing Estimated GFR (MDRD) ml/min Glucose (60-110) mg/dL Calcium (8.8-10.8) mg/dL Total Bilirubin (0.1-1.5) mg/dL AST (5-40) IU/L ALT (8-54) IU/L Alkaline Phosphatase (40-150) Troponin I (0.0-0.29) NG/ML Total Protein (6.0-8.0) g/dL Albumin (3.4-4.8) g/dL Globulin (2.0-3.5) g/dL Albumin/Globulin Ratio (1.3-2.8) Amylase (10-90) U/L Lipase (7-80) U/L Urine Color Urine Appearance Urine pH (5.0-8.0) Ur Specific [place] (1.001-1.035) Urine Protein (NEGATIVE) mg/dL Urine Glucose (UA) (NEGATIVE) mg/dL Urine Ketones (NEGATIVE) mg/dL Urine Occult Blood (NEGATIVE) Urine Nitrite (NEGATIVE) Urine Bilirubin (NEGATIVE) Urine Urobilinogen (<2.0) EU/dL Ur Leukocyte Esterase (NEGATIVE) Urine RBC (0-2/HPF) Urine WBC (0-5/HPF) Ur Epithelial Cells (NONE-FEW) Calcium Oxalate Crystal (NEGATIVE) Urine Bacteria (NEGATIVE) Hyaline Casts (0-2/LPF) Urine Mucus (NONE-MOD) Urine Opiates Screen NEGATIVE (NEGATIVE) Ur Oxycodone Screen NEGATIVE (NEGATIVE) Urine Methadone Screen NEGATIVE (NEGATIVE) Ur Barbiturates Screen NEGATIVE (NEGATIVE) Ur Phencyclidine Scrn NEGATIVE (NEGATIVE) Ur Amphetamine Screen NEGATIVE (NEGATIVE) U Methamphetamines Scrn NEGATIVE (NEGATIVE) U Benzodiazepines Scrn NEGATIVE (NEGATIVE) U Cocaine Metab Screen NEGATIVE (NEGATIVE) U Marijuana (THC) Screen NEGATIVE (NEGATIVE) Meds: Medications Generic Name Dose Route Start Last Admin Trade Name Freq PRN Reason Stop Dose Admin Sodium Chloride 1,000 mls @ 999 mls/hr 07/19/17 20:11 07/19/17 20:12 Normal Saline IV 07/19/17 21:11 999 mls/hr .Bolus ONE Administration Sodium Chloride 10 ml 07/19/17 17:06 Saline Flush FLUSH ASDIRECTED PRN Keep Vein Open Sodium Chloride 2.5 ml 07/19/17 17:06 Saline Flush FLUSH ASDIRECTED PRN Keep Vein Open Discontinued Medications Generic Name Dose Route Start Last Admin Trade Name Stevenson PRN Reason Stop Dose Admin Sodium Chloride 1,000 mls @ 999 mls/hr 07/19/17 18:59 07/19/17 17:10 Normal Saline IV 07/19/17 19:59 999 mls/hr .BOLUS ONE Administration Sodium Chloride 1,000 mls @ 999 mls/hr 07/19/17 19:09 07/19/17 19:15 Normal Saline IV 07/19/17 20:09 999 mls/hr .Bolus ONE Administration Naloxone HCl 0.4 mg 07/19/17 17:05 07/19/17 17:10 Narcan IVPUSH 07/19/17 17:06 0.4 mg ONETIME ONE Administration Departure - Departure Time of Disposition: 20:22 Disposition: DC/Tfer to Acute Hospital 02 Condition: Good Clinical Impression: Altered mental status Qualifiers: Altered mental status type: unspecified Qualified Code(s): R41.82 - Altered mental status, unspecified - Discharge Information Referrals: PCP,None [Primary Care Provider] - - My Orders Last 24 Hours: My Active Orders 07/19/17 17:06 Cardiac Monitoring [RC] . DIRECTED EKG Documentation Completion [RC] STAT Chest 1V Frontal [CR] Stat Sodium Chloride 0.9% [Saline Flush] 10 ml FLUSH ASDIRECTED PRN Sodium Chloride 0.9% [Saline Flush] 2.5 ml FLUSH ASDIRECTED PRN Saline Lock Insert [OM.PC] Stat 07/19/17 20:09 LACTIC ACID,WHOLE BLOOD [BG] Stat 07/19/17 20:11 CULTURE BLOOD [BC] Stat CULTURE BLOOD [BC] Stat Sodium Chloride 0.9% [Normal Saline] 1,000 ml IV .Bolus Blood Culture x2 Reflex Set [OM.PC] Stat 07/19/17 20:15 Patient Status [ADT] Stat - Assessment/Plan Last 24 Hours: My Active Orders 07/19/17 17:06 Cardiac Monitoring [RC] . DIRECTED EKG Documentation Completion [RC] STAT Chest 1V Frontal [CR] Stat Sodium Chloride 0.9% [Saline Flush] 10 ml FLUSH ASDIRECTED PRN Sodium Chloride 0.9% [Saline Flush] 2.5 ml FLUSH ASDIRECTED PRN Saline Lock Insert [OM.PC] Stat 07/19/17 20:09 LACTIC ACID,WHOLE BLOOD [BG] Stat 07/19/17 20:11 CULTURE BLOOD [BC] Stat CULTURE BLOOD [BC] Stat Sodium Chloride 0.9% [Normal Saline] 1,000 ml IV .Bolus Blood Culture x2 Reflex Set [OM.PC] Stat 07/19/17 20:15 Patient Status [ADT] Stat
[2017-07-19 21:25] VITALS: BP 89/43
--- NOTE | 2017-07-20 10:54 | CR ---
EXAM DATE: 07/19/17 PATIENT'S AGE: 67 Patient: PORSCHE PATEL Facility: [place], [place] Site . Site : [id number] Study: XRay Chest [id number]/31/2017 6:33:05 PM Ordering Physician: Doctor Becker Final Report: Indication: Chest pain Technique: Chest 1 view Comparison: 04/21/2017. Findings/Impression: Cardiovascular and mediastinum: Stable cardiomediastinal silhouette. Lungs and pleural space: Expiratory study. No consolidation or pleural effusions. Bones and soft tissues: Spinal rods again seen. Dictated by Trevor Merrill MD @ 07/19/2017 7:20:03 PM Dictated by: Trevor Merrill MD @ 07/19/2017 19:20:36 (Electronic Signature) Report Signed by Proxy. [email or web address]
== END 2017-07-19 21:22 ==
LOC: MW.ED 17:01
DX: R41.82 Altered mental status, unspecified (principal); I11.0 Hypertensive heart disease with heart failure; I50.9 Heart failure, unspecified; F32.9 Major depressive disorder, single episode, unspecified; Z85.41 Personal history of malignant neoplasm of cervix uteri; Z90.710 Acquired absence of both cervix and uterus; Z79.899 Other long term (current) drug therapy; Z88.6 Allergy status to analgesic agent; Z88.8 Allergy status to other drugs, medicaments and biological substances; K92.1 Melena; R10.9 Unspecified abdominal pain
CPT/HCPCS: 36415; 71010; 80053; 80305; 81001; 82150; 83605; 83690; 84484; 85025; 87040; 93005; 96361; 96374; 99285; A9270; G0463; J7040; 99284

== ENCOUNTER 2018-01-07 12:38 | Emergency (ER) | payer MEDICARE, MEDICAID ==
--- NOTE | 2018-01-07 12:57 | EDM.PDOC ---
ED HPI GENERAL MEDICAL PROBLEM - General Chief Complaint: General Stated Complaint: AMBULANCE Time Seen by Provider: 01/07/18 12:56 Source of Information: Reports: Patient History Limitations: Reports: No Limitations - History of Present Illness INITIAL COMMENTS - FREE TEXT/NARRATIVE: HISTORY AND PHYSICAL: []67-year-old female brought in by ambulance History of Present Illness: []She was found with a bottle next to her cyclobenzaprine and they're not sure if she took this/patient is well-known to the emergency room staff She is acting appropriate for her general mentation. Over the bottle of medications brought in a cyclobenzaprine which is listed as an allergy, with anaphylactic shock. Review of Systems: As per history of present illness and below otherwise all systems reviewed and negative. Past medical history: As per history of present illness and as reviewed below otherwise noncontributory. Surgical history: As per history of present illness and as reviewed below otherwise noncontributory. Social history: No reported history of drug or alcohol abuse. Family history: As per history of present illness and as reviewed below otherwise noncontributory. Physical exam: HEENT: Atraumatic, normocehpalic, pupils reactive, negative for conjunctival pallor or scleral icterus, mucous membranes moist, throat clear, neck supple, nontender, trachea midline. Lungs: Clear to auscultation, breath sounds equal bilaterally, chest non tender. Heart: S1S2, regular, negative for clicks, rubs, or JVD. Abdomen: Soft, nondistended, nontender. Negative for masses or hepatossplenmegaly. Negative for costovertebral tenderness. Pelvis: Stable nontender. Genitourinary: Deferred. Rectal: Deferred Extremities: Atraumatic, negative for cords or calf pain. Neurovascular unremarkable. Neuro: Awake, alert, oriented. Cranial nerves II through XII unremarkable. Cerebellum unremarkable. Motor and sensory unremarkable throughout. Exam nonfocal. Patient tolerated all her procedures well has had normal vital signs and spontaneousresponds to her normal mentation Diagnostics: []CBC CMP UA urine drug screen Therapeutics: []1 L normal saline Oxygen per nasal cannula Impression: []Worried well Plan: []Discharge home Follow up with your primary care Definitive disposition and diagnosis as appropriate pending reevaluation and review of above. Onset: Unknown/Unsure back Pain Score (Numeric/FACES): 6 - Related Data Allergies Allergy/AdvReac Type Severity Reaction Status Date / Time cyclobenzaprine HCl Allergy Anaphylactic Verified 01/07/18 12:49 [From Flexeril] Shock ketorolac tromethamine Allergy Hives Verified 01/07/18 12:49 [From Toradol] Home Meds: Home Meds DULoxetine [Cymbalta] 60 mg PO DAILY 06/07/16 [History] Pregabalin [Lyrica] 150 mg PO BID 06/07/16 [History] Paliperidone [Invega] 6 mg PO BEDTIME 04/21/17 [History] Furosemide [Lasix] 40 mg PO DAILY 01/07/18 [History] OLANZapine [Olanzapine] 10 mg PO BID 01/07/18 [History] Olopatadine [Pataday 0.2% Ophth Soln] 1 drop OP DAILY 01/07/18 [History] Pravastatin Sodium 10 mg PO BEDTIME 01/07/18 [History] Propranolol [Inderal] 20 mg PO DAILY 01/07/18 [History] hydrOXYzine Pamoate [Hydroxyzine Pamoate] 25 mg PO BEDTIME 01/07/18 [History] tiZANidine [Zanaflex] 4 mg PO BID PRN 01/07/18 [History] traZODone HCl [Trazodone HCl] 150 mg PO BEDTIME 01/07/18 [History] Past Medical History - Past Health History Medical/Surgical History: Denies Medical/Surgical History HEENT History: Reports: Hard of Hearing Other HEENT History: wears glasses, top and bottom partial Cardiovascular History: Reports: Angina, Heart Failure, Hypertension, Other ( See Below) Other Cardiovascular History: Mitral Valve Prolapse Respiratory History: Reports: COPD Other Respiratory History: hx TB at 18 yrs old Gastrointestinal History: Reports: None Genitourinary History: Reports: Other (See Below) Other Genitourinary History: occasional urinary incontinence 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 Musculoskeletal History: Reports: Arthritis, Back Pain, Chronic, Fibromyalgia, Osteoarthritis Other Musculoskeletal History: chronic neck pain Neurological History: Reports: MS Other Neuro History: possible MS Psychiatric History: Reports: Bipolar, Depression Other Psychiatric History: multiple personalities Endocrine/Metabolic History: Reports: Hyperthyroidism Hematologic History: Reports: Blood Transfusion(s), Other (See Below) Other Hematologic History: states had blood transfusion after back surgery Oncologic (Cancer) History: Reports: Cervix Other Oncologic History: had hysterectomy for cervix CA Dermatologic History: Reports: None - Infectious Disease History Infectious Disease History: Reports: Measles, Mumps, Shingles, TB - Past Surgical History Head Surgeries/Procedures: Reports: None Musculoskeletal Surgical History: Reports: Other (See Below) Social & Family History - Family History Family Medical History: Noncontributory HEENT: Reports: Macular Degeneration Cardiac: Reports: None Respiratory: Reports: Asthma, COPD GI: Reports: None : Reports: None Musculoskeletal: Reports: Back pain, Chronic Neurological: Reports: None Oncologic: Reports: Breast, Lung Other Oncologic Family History: parents both had Cancer - Tobacco Use Smoking Status *Q: Unknown Ever Smoked Years of Tobacco use: 45 Packs/Tins Daily: 1 Used Tobacco, but Quit: No Month/Year Tobacco Last Used: october Second Hand Smoke Exposure: No - Caffeine Use Caffeine Use: Reports: None - Alcohol Use Days Per Week of Alcohol Use: 0 - Recreational Drug Use Recreational Drug Use: No Drug Use in Last 12 Months: Yes Recreational Drug Type: Reports: Xanax Recreational Drug Use Frequency: Daily ED ROS GENERAL - Review of Systems Review Of Systems: ROS reveals no pertinent complaints other than HPI. ED EXAM, GENERAL - Physical Exam Exam: See Below (See dictation) Course - Vital Signs Last Recorded V/S: Last Vital Signs Temp 36.0 C 01/07/18 12:42 Pulse 65 01/07/18 14:52 Resp 18 01/07/18 14:52 BP 125/60 01/07/18 14:52 Pulse Ox 98 01/07/18 14:52 - Orders/Labs/Meds Orders: Active Orders 24 hr Category Date Time Status EKG Documentation Completion [RC] STAT Care 01/07/18 13:05 Active DRUG SCREEN, URINE [URCHEM] Stat Lab 01/07/18 15:12 Ordered UA W/MICROSCOPIC [URIN] Stat Lab 01/07/18 15:12 Ordered Sodium Chloride 0.9% [Saline Flush] Med 01/07/18 13:03 Active 10 ml FLUSH ASDIRECTED PRN Sodium Chloride 0.9% [Saline Flush] Med 01/07/18 13:03 Active 2.5 ml FLUSH ASDIRECTED PRN Saline Lock Insert [OM.PC] Stat [facility] 01/07/18 13:03 Ordered Medication Orders Sodium Chloride (Saline Flush) 10 ml FLUSH ASDIRECTED PRN PRN Reason: Keep Vein Open Sodium Chloride (Saline Flush) 2.5 ml FLUSH ASDIRECTED PRN PRN Reason: Keep Vein Open Labs: Laboratory Tests 01/07/18 01/07/18 01/07/18 Range/Units 13:44 13:44 15:12 WBC 7.71 (4.0-11.0) K/uL RBC 4.38 (4.30-5.90) M/uL Hgb 13.4 (12.0-16.0) g/dL Hct 39.4 (36.0-46.0) % MCV 90.0 (80.0-98.0) fL MCH 30.6 (27.0-32.0) pg MCHC 34.0 (31.0-37.0) g/dL RDW Std Deviation 45.4 (28.0-62.0) fl RDW Coeff of Jannette 14 (11.0-15.0) % Plt Count 210 (150-400) K/uL MPV 10.30 (7.40-12.00) fL Neut % (Auto) 69.9 (48.0-80.0) % Lymph % (Auto) 23.5 (16.0-40.0) % [place] % (Auto) 6.5 (0.0-15.0) % Eos % (Auto) 0.0 (0.0-7.0) % Baso % (Auto) 0.1 (0.0-1.5) % Neut # (Auto) 5.4 (1.4-5.7) K/uL Lymph # (Auto) 1.8 (0.6-2.4) K/uL [place] # (Auto) 0.5 (0.0-0.8) K/uL Eos # (Auto) 0.0 (0.0-0.7) K/uL Baso # (Auto) 0.0 (0.0-0.1) K/uL Nucleated RBC % 0.0 /100WBC Nucleated RBCs # 0 K/uL Sodium 142 (136-145) mmol/L Potassium 3.5 (3.5-5.1) mmol/L Chloride 106 (98-107) mmol/L Carbon Dioxide 29.2 (21.0-32.0) mmol/L BUN 18 (7.0-18.0) mg/dL Creatinine 0.9 (0.6-1.0) mg/dL Est Cr Clr Drug Dosing 58.99 mL/min Estimated GFR (MDRD) > 60.0 ml/min Glucose 98 (74-106) mg/dL Calcium 9.0 (8.5-10.1) mg/dL Total Bilirubin 0.7 (0.2-1.0) mg/dL AST 29 (15-37) IU/L ALT 22 (14-63) IU/L Alkaline Phosphatase 140 H (46-116) U/L Total Protein 6.8 (6.4-8.2) g/dL Albumin 3.6 (3.4-5.0) g/dL Globulin 3.2 (2.0-3.5) g/dL Albumin/Globulin Ratio 1.1 L (1.3-2.8) Urine Color YELLOW Urine Appearance CLEAR Urine pH 5.5 (5.0-8.0) Ur Specific [place] >= 1.030 (1.001-1.035) Urine Protein NEGATIVE (NEGATIVE) mg/dL Urine Glucose (UA) NEGATIVE (NEGATIVE) mg/dL Urine Ketones NEGATIVE (NEGATIVE) mg/dL Urine Occult Blood NEGATIVE (NEGATIVE) Urine Nitrite NEGATIVE (NEGATIVE) Urine Bilirubin NEGATIVE (NEGATIVE) Urine Urobilinogen 1.0 (<2.0) EU/dL Ur Leukocyte Esterase NEGATIVE (NEGATIVE) Urine RBC 2-4 (0-2/HPF) Urine WBC 1-3 (0-5/HPF) Ur Epithelial Cells FEW (NONE-FEW) Urine Bacteria FEW (NEGATIVE) Urine Mucus MODERATE (NONE-MOD) Urine Opiates Screen (NEGATIVE) Ur Oxycodone Screen (NEGATIVE) Urine Methadone Screen (NEGATIVE) Ur Barbiturates Screen (NEGATIVE) Ur Phencyclidine Scrn (NEGATIVE) Ur Amphetamine Screen (NEGATIVE) U Methamphetamines Scrn (NEGATIVE) U Benzodiazepines Scrn (NEGATIVE) U Cocaine Metab Screen (NEGATIVE) U Marijuana (THC) Screen (NEGATIVE) 01/07/18 Range/Units 15:12 WBC (4.0-11.0) K/uL RBC (4.30-5.90) M/uL Hgb (12.0-16.0) g/dL Hct (36.0-46.0) % MCV (80.0-98.0) fL MCH (27.0-32.0) pg MCHC (31.0-37.0) g/dL RDW Std Deviation (28.0-62.0) fl RDW Coeff of Jannette (11.0-15.0) % Plt Count (150-400) K/uL MPV (7.40-12.00) fL Neut % (Auto) (48.0-80.0) % Lymph % (Auto) (16.0-40.0) % [place] % (Auto) (0.0-15.0) % Eos % (Auto) (0.0-7.0) % Baso % (Auto) (0.0-1.5) % Neut # (Auto) (1.4-5.7) K/uL Lymph # (Auto) (0.6-2.4) K/uL [place] # (Auto) (0.0-0.8) K/uL Eos # (Auto) (0.0-0.7) K/uL Baso # (Auto) (0.0-0.1) K/uL Nucleated RBC % /100WBC Nucleated RBCs # K/uL Sodium (136-145) mmol/L Potassium (3.5-5.1) mmol/L Chloride (98-107) mmol/L Carbon Dioxide (21.0-32.0) mmol/L BUN (7.0-18.0) mg/dL Creatinine (0.6-1.0) mg/dL Est Cr Clr Drug Dosing mL/min Estimated GFR (MDRD) ml/min Glucose (74-106) mg/dL Calcium (8.5-10.1) mg/dL Total Bilirubin (0.2-1.0) mg/dL AST (15-37) IU/L ALT (14-63) IU/L Alkaline Phosphatase (46-116) U/L Total Protein (6.4-8.2) g/dL Albumin (3.4-5.0) g/dL Globulin (2.0-3.5) g/dL Albumin/Globulin Ratio (1.3-2.8) Urine Color Urine Appearance Urine pH (5.0-8.0) Ur Specific [place] (1.001-1.035) Urine Protein (NEGATIVE) mg/dL Urine Glucose (UA) (NEGATIVE) mg/dL Urine Ketones (NEGATIVE) mg/dL Urine Occult Blood (NEGATIVE) Urine Nitrite (NEGATIVE) Urine Bilirubin (NEGATIVE) Urine Urobilinogen (<2.0) EU/dL Ur Leukocyte Esterase (NEGATIVE) Urine RBC (0-2/HPF) Urine WBC (0-5/HPF) Ur Epithelial Cells (NONE-FEW) Urine Bacteria (NEGATIVE) Urine Mucus (NONE-MOD) Urine Opiates Screen POSITIVE (NEGATIVE) Ur Oxycodone Screen NEGATIVE (NEGATIVE) Urine Methadone Screen NEGATIVE (NEGATIVE) Ur Barbiturates Screen NEGATIVE (NEGATIVE) Ur Phencyclidine Scrn NEGATIVE (NEGATIVE) Ur Amphetamine Screen NEGATIVE (NEGATIVE) U Methamphetamines Scrn NEGATIVE (NEGATIVE) U Benzodiazepines Scrn NEGATIVE (NEGATIVE) U Cocaine Metab Screen NEGATIVE (NEGATIVE) U Marijuana (THC) Screen NEGATIVE (NEGATIVE) Meds: Medications Generic Name Dose Route Start Last Admin Trade Name Freq PRN Reason Stop Dose Admin Sodium Chloride 10 ml 01/07/18 13:03 Saline Flush FLUSH ASDIRECTED PRN Keep Vein Open Sodium Chloride 2.5 ml 01/07/18 13:03 Saline Flush FLUSH ASDIRECTED PRN Keep Vein Open Discontinued Medications Generic Name Dose Route Start Last Admin Trade Name Freq PRN Reason Stop Dose Admin Diphenhydramine HCl 50 mg 01/07/18 13:06 Benadryl IVPUSH 01/07/18 13:07 ONETIME ONE Sodium Chloride 1,000 mls @ 999 mls/hr 01/07/18 13:05 01/07/18 13:25 Normal Saline IV 01/07/18 14:05 999 mls/hr STAT ONE Administration Departure - Departure Time of Disposition: 16:12 Disposition: Home, Self-Care 01 Condition: Good Clinical Impression: Worried well - Discharge Information Forms: ED Department Discharge Additional Instructions: The following information is given to patients seen in the emergency department who are being discharged to home. This information is to outline your options for follow-up care. We provide all patients seen in our emergency department with a follow-up referral. The need for follow-up, as well as the timing and circumstances, are variable depending upon the specifics of your emergency department visit. If you don't have a primary care physician on staff, we will provide you with a referral. We always advise you to contact your personal physician following an emergency department visit to inform them of the circumstance of the visit and for follow-up with them and/or the need for any referrals to a consulting specialist. The emergency department will also refer you to a specialist when appropriate. This referral assures that you have the opportunity for followup care with a specialist. All of these measure are taken in an effort to provide you with optimal care, which includes your followup. Under all circumstances we always encourage you to contact your private physician who remains a resource for coordinating your care. When calling for followup care, please make the office aware that this follow-up is from your recent emergency room visit. If for any reason you are refused follow-up, please contact the [facility] emergency department at and asked to speak to the emergency department charge nurse. No gross abnormalities were noted on your examination today please follow-up with your primary care provider in 2 days - My Orders Last 24 Hours: My Active Orders 01/07/18 13:03 Sodium Chloride 0.9% [Saline Flush] 10 ml FLUSH ASDIRECTED PRN Sodium Chloride 0.9% [Saline Flush] 2.5 ml FLUSH ASDIRECTED PRN Saline Lock Insert [OM.PC] Stat 01/07/18 13:05 EKG Documentation Completion [RC] STAT 01/07/18 15:12 DRUG SCREEN, URINE [URCHEM] Stat UA W/MICROSCOPIC [URIN] Stat - Assessment/Plan Last 24 Hours: My Active Orders 01/07/18 13:03 Sodium Chloride 0.9% [Saline Flush] 10 ml FLUSH ASDIRECTED PRN Sodium Chloride 0.9% [Saline Flush] 2.5 ml FLUSH ASDIRECTED PRN Saline Lock Insert [OM.PC] Stat 01/07/18 13:05 EKG Documentation Completion [RC] STAT 01/07/18 15:12 DRUG SCREEN, URINE [URCHEM] Stat UA W/MICROSCOPIC [URIN] Stat
[2018-01-07] MEDS ORDERED: Sodium Chloride 0.9% 2.5 ML Syringe FLUSH PRN (13:03)
[2018-01-07] MEDS ORDERED: Sodium Chloride 0.9% 10 ML Syringe FLUSH PRN (13:03)
[2018-01-07] MEDS ORDERED: Sodium Chloride 0.9% 1,000 ML IV ONE (13:05)
[2018-01-07] MEDS ORDERED: diphenhydrAMINE 50 MG/ML SDV IVPUSH ONE (13:06)
[2018-01-07 14:14] LABS: CHLORIDE,CL 106 mmol/L (98-107); SODIUM,NA 142 mmol/L (136-145)
[2018-01-07 20:28] VITALS: BP 108/61
== END 2018-01-07 19:50 | disposition home or self-care (01) ==
LOC: MW.ED 12:38
DX: Z71.1 Person with feared health complaint in whom no diagnosis is made (principal); I11.0 Hypertensive heart disease with heart failure; I50.9 Heart failure, unspecified; J44.9 Chronic obstructive pulmonary disease, unspecified; Z79.899 Other long term (current) drug therapy; Z88.6 Allergy status to analgesic agent; Z88.8 Allergy status to other drugs, medicaments and biological substances
CPT/HCPCS: 36415; 80053; 80305; 81001; 85025; 93005; 99284; J7040; 99283

== ENCOUNTER 2018-01-12 09:02 | Emergency (ER) | payer MEDICARE, MEDICAID ==
[~2018-01-12 09:02] MED LIST: Etomidate 2 MG/ML 20 ML SDV IVPUSH ONE
[2018-01-12] MEDS ORDERED: Sodium Chloride 0.9% 2.5 ML Syringe FLUSH PRN (09:20)
[2018-01-12] MEDS ORDERED: Sodium Chloride 0.9% 10 ML Syringe FLUSH PRN (09:20)
[2018-01-12] MEDS ORDERED: Sodium Chloride 0.9% 1,000 ML IV ONE ×2 (09:20)
[2018-01-12] MEDS ORDERED: Rocuronium 10 MG/ML 10 ML Syringe IVPUSH ONE (09:27)
--- NOTE | 2018-01-12 09:36 | CR ---
EXAMINATION: Portable chest radiograph. HISTORY: Shortness of breath. FINDINGS: The trachea is midline. The cardiomediastinal silhouette is within normal limits. No pulmonary infilt rates, effusions or pneumothorax. Prominence of the central vasculature. Scoliosis hardware is noted. IMPRESSION: Prominence of the central vasculature, this may suggest pulmonary vascular congestion.
--- NOTE | 2018-01-12 09:40 | PCM.SN ---
- Free Text/Narrative Note: Anesthesia Note: Called to ER for a suspected overdose arriving per EMS. Upon arrival, pt has a Haider airway in place with positive etCO2. Belly is grossly distended. Emesis surrounding her on bedding. After attaching to ER monitors, pt's vitals noted as stable (see nurses charting) and report of ketamine and 100mg of Rocuronium in the field. Pt given 16mg Etomidate via IO line. Haider airway removed and pt aggressively suctioned as a pool of vomit is resting in her throat. DL x1 Grade I +etCO2 +BBS (although course throughout). 7.0 ETT secured at 21cm. OG placed with copious amounts of brown emesis removed. Inline suction removes the same emesis from lungs - saline used to lavage and sat's improve from 92% to 99%. RT and nursing staff in attendance until flight team arrives for transport. Vitals have been stable throughout - see nursing notes.
--- NOTE | 2018-01-12 09:40 | EDM.PDOC ---
ED HPI GENERAL MEDICAL PROBLEM - General Stated Complaint: AMBULANCE Time Seen by Provider: 01/12/18 09:19 - History of Present Illness INITIAL COMMENTS - FREE TEXT/NARRATIVE: HISTORY AND PHYSICAL: History of present illness: The patient is a 67-year-old female who is well known to our emergency department for psychiatric issues and polypharmacy issues and arrives via EMS after they were called to her assisted living residential for unresponsiveness. According to EMS she was last seen at 1 AM no one is entirely sure if she took in overdose or something else happened. [place] to EMS no pills or bottles were found in the surround and the patient did have some vomiting during their transport but it looked like food and did not like any pills were present. According to the history in the computer the patient was seen here on Tuesday for possibly taking an overdose of Flexeril that was not her pills and she was observed and discharged home. She denied that at that time. The patient here in the ED is unable to offer any history. Because of her agonal respirations EMS placed a Haider airway prior to arrival and interosseous line in her right shoulder. Patient was unresponsive here and has no spontaneous movements or spontaneous breathing and cannot offer any history. The only history we have is as above. Please also note that EMS gave Narcan 4 mg because of a history of potential access to Suboxone and that did not change her mental status. The patient has a long list of medications which have been reviewed by me and again it is unclear if she was able to access any of these medications or took any of these medications. According to EMS there was no trauma with this event that they could identify on their arrival. Review of systems: As per history of present illness and below otherwise all systems reviewed and negative. Past medical history: As per history of present illness and as reviewed below otherwise noncontributory. Surgical history: As per history of present illness and as reviewed below otherwise noncontributory. Social history: No reported history of drug or alcohol abuse. Family history: As per history of present illness and as reviewed below otherwise noncontributory. Physical exam: General: On arrival the patient is a Haider airway and is being bagged and her abdomen is grossly distended. The patient has no spontaneous movements or spontaneous breath sounds and vital signs are noted by me. The patient is warm throughout all extremities and the core HEENT: Atraumatic, normocephalic, pupils are mid range about 4 mm and sluggish negative for conjunctival pallor or scleral icterus, mucous membranes are dry and there is some vomit seen at the mouth area throat clear, neck supple, nontender, trachea midline. Please note that the patient's corneas were very dry appearing Lungs: Clear to auscultation with scattered coarse breath sounds with bagging via the Haider airway, breath sounds equal bilaterally, chest nontender. There are old scars seen on the patient's breasts Heart: S1S2, regular, negative for clicks, rubs, or JVD. Abdomen: Soft, abdomen was initially distended due to the intubation attempts in the field nontender. Negative for masses or hepatosplenomegaly. Bowel sounds are hypoactive. After the abdomen was decompressed it is soft and nondistended Pelvis: Stable nontender. Genitourinary: Deferred. Rectal: Deferred. Extremities: Atraumatic appearing without any soft tissue swelling bony deformities or bruising or ecchymosis . An intraosseous line is identified at the right upper humerus area Neuro: Unable to be assessed as the patient is unresponsive and exam cannot be performed Back: There are no midline step-offs or defects of the cervical thoracic or lumbar spine and there is no evidence of any bruising abrasions ecchymosis erythema or breakdown appreciated. Skin: There is no evidence of any overt rashes or lesions and no traumatic injuries are grossly identified. Turgor is within normal limits and she is not diaphoretic Diagnostics: EKG ABG CBC CMP INR Tylenol and aspirin levels alcohol level troponin TSH UA UDS chest x-ray I will defer CT to the receiving facility Therapeutics: IV O2 monitor IV fluids 0921: Case was discussed with Dr. Cortes in the ER at [facility] who accepts the patient. We were subsequently called after this conversation and were told that the patient would go to the ICU directly with Dr. Coello as the ICU physician. Anesthesia was present on patient's arrival and after decompression of the abdomen the Haider airway was replaced with an ET tube without any difficulty. Good breath sounds were appreciated and a chest x-ray was performed. The patient was given medication both by EMS prior to arrival for Haider airway placement and by anesthesia here but the patient was not having any spontaneous breathing or movements. See anesthesia's note for further details of this procedure. Procedure note: A triple-lumen central line was placed in the right femoral vein as the intraosseous line was tenuous on arrival. The area was prepped with Betadine and draped in a semi-sterile fashion and the right femoral vein was accessed on the first attempt. Using modified Seldinger technique a triple lumen line was placed without difficulty and flushed easily. Was sutured in place by me. Dressing was applied. There are no complications and the patient tolerated the procedure well. Flight team is here at bedside at 09 37 to transport patient to [facility]. I will follow-up on all lab tests results and refer that information to the receiving hospital. Portable chest x-ray has a ready been performed and reviewed by me which shows airway in good position and no evidence of any pneumothorax and NG tube is in the stomach. I will follow-up on the formal reading. Patient currently is stable with stable vitals and will be transferred to [facility]. Please note that when I discussed this case with Dr. Cortes in the ER he was physically told that a CT scan of the head was not performed and that that will need to be addressed on arrival to their hospital as the circumstances around this case are unclear. Critical care time excluding procedures:31min Impression: Altered mental status/obtundation etiology unclear suspected overdose Definitive disposition and diagnosis as appropriate pending reevaluation and review of above. - Related Data Allergies Allergy/AdvReac Type Severity Reaction Status Date / Time cyclobenzaprine HCl Allergy Anaphylactic Verified 01/07/18 12:49 [From Flexeril] Shock ketorolac tromethamine Allergy Hives Verified 01/07/18 12:49 [From Toradol] Home Meds: Home Meds DULoxetine [Cymbalta] 60 mg PO DAILY 06/07/16 [History] Pregabalin [Lyrica] 150 mg PO BID 06/07/16 [History] Paliperidone [Invega] 6 mg PO BEDTIME 04/21/17 [History] Furosemide [Lasix] 40 mg PO DAILY 01/07/18 [History] OLANZapine [Olanzapine] 10 mg PO BID 01/07/18 [History] Olopatadine [Pataday 0.2% Ophth Soln] 1 drop OP DAILY 01/07/18 [History] Pravastatin Sodium 10 mg PO BEDTIME 01/07/18 [History] Propranolol [Inderal] 20 mg PO DAILY 01/07/18 [History] hydrOXYzine Pamoate [Hydroxyzine Pamoate] 25 mg PO BEDTIME 01/07/18 [History] tiZANidine [Zanaflex] 4 mg PO BID PRN 01/07/18 [History] traZODone HCl [Trazodone HCl] 150 mg PO BEDTIME 01/07/18 [History] Past Medical History - Past Health History Medical/Surgical History: Denies Medical/Surgical History HEENT History: Reports: Hard of Hearing Other HEENT History: wears glasses, top and bottom partial Cardiovascular History: Reports: Angina, Heart Failure, Hypertension, Other ( See Below) Other Cardiovascular History: Mitral Valve Prolapse Respiratory History: Reports: COPD Other Respiratory History: hx TB at 18 yrs old Gastrointestinal History: Reports: None Genitourinary History: Reports: Other (See Below) Other Genitourinary History: occasional urinary incontinence 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 Musculoskeletal History: Reports: Arthritis, Back Pain, Chronic, Fibromyalgia, Osteoarthritis Other Musculoskeletal History: chronic neck pain Neurological History: Reports: MS Other Neuro History: possible MS Psychiatric History: Reports: Bipolar, Depression Other Psychiatric History: multiple personalities Endocrine/Metabolic History: Reports: Hyperthyroidism Hematologic History: Reports: Blood Transfusion(s), Other (See Below) Other Hematologic History: states had blood transfusion after back surgery Oncologic (Cancer) History: Reports: Cervix Other Oncologic History: had hysterectomy for cervix CA Dermatologic History: Reports: None - Infectious Disease History Infectious Disease History: Reports: Measles, Mumps, Shingles, TB - Past Surgical History Head Surgeries/Procedures: Reports: None Musculoskeletal Surgical History: Reports: Other (See Below) Social & Family History - Family History Family Medical History: Noncontributory HEENT: Reports: Macular Degeneration Cardiac: Reports: None Respiratory: Reports: Asthma, COPD GI: Reports: None : Reports: None Musculoskeletal: Reports: Back pain, Chronic Neurological: Reports: None Oncologic: Reports: Breast, Lung Other Oncologic Family History: parents both had Cancer - Tobacco Use Smoking Status *Q: Unknown Ever Smoked Years of Tobacco use: 45 Packs/Tins Daily: 1 Used Tobacco, but Quit: No Month/Year Tobacco Last Used: october Second Hand Smoke Exposure: No - Caffeine Use Caffeine Use: Reports: None - Alcohol Use Days Per Week of Alcohol Use: 0 - Recreational Drug Use Recreational Drug Use: No Drug Use in Last 12 Months: Yes Recreational Drug Type: Reports: Xanax Recreational Drug Use Frequency: Daily ED ROS GENERAL - Review of Systems Review Of Systems: ROS reveals no pertinent complaints other than HPI. ED EXAM, GENERAL - Physical Exam Exam: See Below (See dictation) Course - Orders/Labs/Meds Orders: Active Orders 24 hr Category Date Time Status Blood Glucose Check, Bedside [RC] ONETIME Care 01/12/18 09:19 Active Cardiac Monitoring [RC] . DIRECTED Care 01/12/18 09:19 Active EKG Documentation Completion [RC] STAT Care 01/12/18 09:19 Active Oxygen Therapy, ED [RC] ASDIRECTED Care 01/12/18 09:19 Active Pulse Oximetry [RC] ASDIRECTED Care 01/12/18 09:19 Active Chest 1V Frontal [CR] Stat Exams 01/12/18 09:20 Ordered ACETAMINOPHEN [CHEM] Stat Lab 01/12/18 09:19 Ordered BLOOD GAS ARTERIAL [BG] Stat Lab 01/12/18 09:20 Ordered CBC WITH AUTO DIFF [HEME] Stat Lab 01/12/18 09:19 Ordered COMPREHENSIVE METABOLIC PN,CMP [CHEM] Stat Lab 01/12/18 09:19 Ordered DRUG SCREEN, URINE [URCHEM] Stat Lab 01/12/18 09:20 Ordered ETHANOL BLOOD MEDICAL [CHEM] Stat Lab 01/12/18 09:19 Ordered INR,PT,PROTHROMBIN TIME [COAG] Stat Lab 01/12/18 09:19 Ordered SALICYLATE [CHEM] Stat Lab 01/12/18 09:19 Ordered TROPONIN I [CHEM] Stat Lab 01/12/18 09:19 Ordered TSH [CHEM] Stat Lab 01/12/18 09:19 Ordered UA W/MICROSCOPIC [URIN] Stat Lab 01/12/18 09:20 Ordered Sodium Chloride 0.9% [Normal Saline] 1,000 ml Med 01/12/18 09:20 Active IV STAT Sodium Chloride 0.9% [Saline Flush] Med 01/12/18 09:20 Active 10 ml FLUSH ASDIRECTED PRN Sodium Chloride 0.9% [Saline Flush] Med 01/12/18 09:20 Active 2.5 ml FLUSH ASDIRECTED PRN Saline Lock Insert [OM.PC] Stat Oth 01/12/18 09:19 Ordered Medication Orders Sodium Chloride (Normal Saline) 1,000 mls @ 999 mls/hr IV STAT ONE Stop: 01/12/18 10:20 Sodium Chloride (Saline Flush) 10 ml FLUSH ASDIRECTED PRN PRN Reason: Keep Vein Open Sodium Chloride (Saline Flush) 2.5 ml FLUSH ASDIRECTED PRN PRN Reason: Keep Vein Open Meds: Medications Generic Name Dose Route Start Last Admin Trade Name Freq PRN Reason Stop Dose Admin Sodium Chloride 1,000 mls @ 999 mls/hr 01/12/18 09:20 Normal Saline IV 01/12/18 10:20 STAT ONE Sodium Chloride 10 ml 01/12/18 09:20 Saline Flush FLUSH ASDIRECTED PRN Keep Vein Open Sodium Chloride 2.5 ml 01/12/18 09:20 Saline Flush FLUSH ASDIRECTED PRN Keep Vein Open Departure - Departure Time of Disposition: 09:40 Disposition: DC/Tfer to Acute Hospital 02 Condition: Fair Clinical Impression: Altered mental status Qualifiers: Altered mental status type: coma Overdose Qualifiers: Encounter type: subsequent encounter Injury intent: undetermined intent Qualified Code(s): T50.904D - Poisoning by unspecified drugs, medicaments and biological substances, undetermined, subsequent encounter - Discharge Information Referrals: PCP,None [Primary Care Provider] - - My Orders Last 24 Hours: My Active Orders 01/12/18 09:19 Blood Glucose Check, Bedside [RC] ONETIME Cardiac Monitoring [RC] . DIRECTED EKG Documentation Completion [RC] STAT Oxygen Therapy, ED [RC] ASDIRECTED Pulse Oximetry [RC] ASDIRECTED ACETAMINOPHEN [CHEM] Stat CBC WITH AUTO DIFF [HEME] Stat COMPREHENSIVE METABOLIC PN,CMP [CHEM] Stat ETHANOL BLOOD MEDICAL [CHEM] Stat INR,PT,PROTHROMBIN TIME [COAG] Stat SALICYLATE [CHEM] Stat TROPONIN I [CHEM] Stat TSH [CHEM] Stat Saline Lock Insert [OM.PC] Stat 01/12/18 09:20 Chest 1V Frontal [CR] Stat BLOOD GAS ARTERIAL [BG] Stat DRUG SCREEN, URINE [URCHEM] Stat UA W/MICROSCOPIC [URIN] Stat Sodium Chloride 0.9% [Normal Saline] 1,000 ml IV STAT Sodium Chloride 0.9% [Saline Flush] 10 ml FLUSH ASDIRECTED PRN Sodium Chloride 0.9% [Saline Flush] 2.5 ml FLUSH ASDIRECTED PRN - Assessment/Plan Last 24 Hours: My Active Orders 01/12/18 09:19 Blood Glucose Check, Bedside [RC] ONETIME Cardiac Monitoring [RC] . DIRECTED EKG Documentation Completion [RC] STAT Oxygen Therapy, ED [RC] ASDIRECTED Pulse Oximetry [RC] ASDIRECTED ACETAMINOPHEN [CHEM] Stat CBC WITH AUTO DIFF [HEME] Stat COMPREHENSIVE METABOLIC PN,CMP [CHEM] Stat ETHANOL BLOOD MEDICAL [CHEM] Stat INR,PT,PROTHROMBIN TIME [COAG] Stat SALICYLATE [CHEM] Stat TROPONIN I [CHEM] Stat TSH [CHEM] Stat Saline Lock Insert [OM.PC] Stat 01/12/18 09:20 Chest 1V Frontal [CR] Stat BLOOD GAS ARTERIAL [BG] Stat DRUG SCREEN, URINE [URCHEM] Stat UA W/MICROSCOPIC [URIN] Stat Sodium Chloride 0.9% [Normal Saline] 1,000 ml IV STAT Sodium Chloride 0.9% [Saline Flush] 10 ml FLUSH ASDIRECTED PRN Sodium Chloride 0.9% [Saline Flush] 2.5 ml FLUSH ASDIRECTED PRN
[2018-01-12 09:56] LABS: CHLORIDE,CL 105 mmol/L (98-107); SODIUM,NA 145 mmol/L (136-145)
== END 2018-01-12 10:38 ==
LOC: MW.ED 09:02
DX: R40.20 Unspecified coma (principal); T50.904D Poisoning by unspecified drugs, medicaments and biological substances, undetermined, subsequent encounter; J44.9 Chronic obstructive pulmonary disease, unspecified; Z88.6 Allergy status to analgesic agent; Z88.8 Allergy status to other drugs, medicaments and biological substances; Z79.899 Other long term (current) drug therapy
CPT/HCPCS: 36415; 36600; 71045; 80053; 80305; 81001; 82803; 82962; 83605; 84443; 84484; 85025; 85610; 87086; 93005; 96360; 99291; 99292; G0480; J7040

== ENCOUNTER 2018-06-05 14:43 | Emergency (ER) | payer MEDICARE, MEDICAID ==
--- NOTE | 2018-06-05 15:08 | EDM.PDOC ---
ED HPI GENERAL MEDICAL PROBLEM - General Stated Complaint: WOUND REOPEN Time Seen by Provider: 06/05/18 14:59 Source of Information: Reports: Patient History Limitations: Reports: No Limitations - History of Present Illness INITIAL COMMENTS - FREE TEXT/NARRATIVE: HISTORY AND PHYSICAL: []68-year-old female well-known to the emergency department presents with a wound that is open History of Present Illness: []Admission has an area in the abdominal fold that has a duodenum and old dressing Patient has been seen in the security specialist at [facility]. The security specialist has been off for this last week. Wound has not been taking care of Review of Systems: As per history of present illness and below otherwise all systems reviewed and negative. Past medical history: As per history of present illness and as reviewed below otherwise noncontributory. Surgical history: As per history of present illness and as reviewed below otherwise noncontributory. Social history: No reported history of drug or alcohol abuse. Family history: As per history of present illness and as reviewed below otherwise noncontributory. Physical exam: HEENT: Atraumatic, normocehpalic, pupils reactive, negative for conjunctival pallor or scleral icterus, mucous membranes moist, throat clear, neck supple, nontender, trachea midline. Lungs: Clear to auscultation, breath sounds equal bilaterally, chest non tender. Heart: S1S2, regular, negative for clicks, rubs, or JVD. Abdomen: Soft, nondistended, Quite malodorous Skin surrounding the 2.5 cm opening is mildly erythematous. Granulations skin is present wound actually looks quite clean. mildly tender. Negative for masses or hepatossplenmegaly. Negative for costovertebral tenderness. Pelvis: Stable nontender. Genitourinary: Deferred. Rectal: Deferred Extremities: Atraumatic, negative for cords or calf pain. Neurovascular unremarkable. Neuro: Awake, alert, oriented. Cranial nerves II through XII unremarkable. Cerebellum unremarkable. Motor and sensory unremarkable throughout. Exam nonfocal. Diagnostics: [] Therapeutics: []Washed the wound Wet-to-dry dressings Change dressing daily Worsening of symptoms return to the emergency department Follow-up with your primary care provider in 3 days Impression: []Wound dressing changed Plan: []Discharge Change wet-to-dry dressings daily Washed the wound Wet-to-dry dressings Change dressing daily Worsening of symptoms return to the emergency department Follow-up with your primary care provider in 3 days Definitive disposition and diagnosis as appropriate pending reevaluation and review of above. Onset: Today, Sudden - Related Data Allergies Allergy/AdvReac Type Severity Reaction Status Date / Time cyclobenzaprine HCl Allergy Anaphylactic Verified 06/05/18 15:05 [From Flexeril] Shock ketorolac tromethamine Allergy Hives Verified 06/05/18 15:05 [From Toradol] Home Meds: Home Meds DULoxetine [Cymbalta] 60 mg PO DAILY 06/07/16 [History] Pregabalin [Lyrica] 150 mg PO BID 06/07/16 [History] Paliperidone [Invega] 6 mg PO BEDTIME 04/21/17 [History] Furosemide [Lasix] 40 mg PO DAILY 01/07/18 [History] OLANZapine [Olanzapine] 10 mg PO BID 01/07/18 [History] Olopatadine [Pataday 0.2% Ophth Soln] 1 drop OP DAILY 01/07/18 [History] Pravastatin Sodium 10 mg PO BEDTIME 01/07/18 [History] Propranolol [Inderal] 20 mg PO DAILY 01/07/18 [History] hydrOXYzine pamoate [Hydroxyzine Pamoate] 25 mg PO BEDTIME 01/07/18 [History] tiZANidine [Zanaflex] 4 mg PO BID PRN 01/07/18 [History] traZODone HCl [Trazodone HCl] 150 mg PO BEDTIME 01/07/18 [History] Past Medical History - Past Health History Medical/Surgical History: Denies Medical/Surgical History HEENT History: Reports: Hard of Hearing Other HEENT History: wears glasses, top and bottom partial Cardiovascular History: Reports: Angina, Heart Failure, Hypertension, Other ( See Below) Other Cardiovascular History: Mitral Valve Prolapse Respiratory History: Reports: COPD Other Respiratory History: hx TB at 18 yrs old Gastrointestinal History: Reports: None Genitourinary History: Reports: Other (See Below) Other Genitourinary History: occasional urinary incontinence 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 Musculoskeletal History: Reports: Arthritis, Back Pain, Chronic, Fibromyalgia, Osteoarthritis Other Musculoskeletal History: chronic neck pain Neurological History: Reports: MS Other Neuro History: possible MS Psychiatric History: Reports: Bipolar, Depression Other Psychiatric History: multiple personalities Endocrine/Metabolic History: Reports: Hyperthyroidism Hematologic History: Reports: Blood Transfusion(s), Other (See Below) Other Hematologic History: states had blood transfusion after back surgery Oncologic (Cancer) History: Reports: Cervix Other Oncologic History: had hysterectomy for cervix CA Dermatologic History: Reports: None - Infectious Disease History Infectious Disease History: Reports: Measles, Mumps, Shingles, TB - Past Surgical History Head Surgeries/Procedures: Reports: None Musculoskeletal Surgical History: Reports: Other (See Below) Social & Family History - Family History Family Medical History: Noncontributory HEENT: Reports: Macular Degeneration Cardiac: Reports: None Respiratory: Reports: Asthma, COPD GI: Reports: None : Reports: None Musculoskeletal: Reports: Back pain, Chronic Neurological: Reports: None Oncologic: Reports: Breast, Lung Other Oncologic Family History: parents both had Cancer - Caffeine Use Caffeine Use: Reports: None ED ROS GENERAL - Review of Systems Review Of Systems: ROS reveals no pertinent complaints other than HPI. ED EXAM, SKIN/RASH Exam: See Below (See dictation) Course - Vital Signs Last Recorded V/S: Last Vital Signs Temp 36.1 C 06/05/18 15:01 Pulse 88 06/05/18 15:01 Resp 18 06/05/18 15:01 BP 165/75 H 06/05/18 15:01 Pulse Ox 98 06/05/18 15:01 Departure - Departure Time of Disposition: 15:10 Disposition: Home, Self-Care 01 Condition: Good Clinical Impression: Encounter for wound care - Discharge Information Referrals: PCP,None [Primary Care Provider] - Additional Instructions: The following information is given to patients seen in the emergency department who are being discharged to home. This information is to outline your options for follow-up care. We provide all patients seen in our emergency department with a follow-up referral. The need for follow-up, as well as the timing and circumstances, are variable depending upon the specifics of your emergency department visit. If you don't have a primary care physician on staff, we will provide you with a referral. We always advise you to contact your personal physician following an emergency department visit to inform them of the circumstance of the visit and for follow-up with them and/or the need for any referrals to a consulting specialist. The emergency department will also refer you to a specialist when appropriate. This referral assures that you have the opportunity for followup care with a specialist. All of these measure are taken in an effort to provide you with optimal care, which includes your followup. Under all circumstances we always encourage you to contact your private physician who remains a resource for coordinating your care. When calling for followup care, please make the office aware that this follow-up is from your recent emergency room visit. If for any reason you are refused follow-up, please contact the [facility] emergency department at and asked to speak to the emergency department charge nurse. Discharge Change wet-to-dry dressings daily Washed the wound Wet-to-dry dressings Change dressing daily Worsening of symptoms return to the emergency department Follow-up with your primary care provider in 3 days
[2018-06-05 15:45] VITALS: BP 153/65
== END 2018-06-05 15:25 | disposition home or self-care (01) ==
LOC: MW.ED 14:43
DX: Z48.00 Encounter for change or removal of nonsurgical wound dressing (principal); I11.0 Hypertensive heart disease with heart failure; I50.9 Heart failure, unspecified; J44.9 Chronic obstructive pulmonary disease, unspecified; F31.9 Bipolar disorder, unspecified; Z88.8 Allergy status to other drugs, medicaments and biological substances; Z79.899 Other long term (current) drug therapy
CPT/HCPCS: 99282

== ENCOUNTER 2018-09-28 11:38 | Emergency (ER) | payer MEDICARE, MEDICAID ==
[2018-09-28] MEDS ORDERED: Sodium Chloride 0.9% 1,000 ML IV ONE ×2 (11:41→14:22)
[2018-09-28] MEDS ORDERED: Sodium Chloride 0.9% 2.5 ML Syringe FLUSH PRN (11:41)
[2018-09-28] MEDS ORDERED: Sodium Chloride 0.9% 10 ML Syringe FLUSH PRN (11:41)
--- NOTE | 2018-09-28 11:52 | EDM.PDOC ---
ED HPI GENERAL MEDICAL PROBLEM - General Stated Complaint: CHEST PAIN Time Seen by Provider: 09/28/18 11:39 Source of Information: Reports: Patient History Limitations: Reports: No Limitations - History of Present Illness INITIAL COMMENTS - FREE TEXT/NARRATIVE: History of present illness: []She was playing [employer] at 9:00 developed substernal chest pain associated with sweatiness and chills. She denies any shortness of breath, dizziness, lightheadedness or syncope. Patient also states that she has had 13 days of mucousy, orange diarrhea approximately 5 episodes per day for the last 13 days. He denies any vomiting, fevers or abdominal pain. She does not like to drink water and only drinks energy drinks. Review of systems: As per history of present illness and below otherwise all systems reviewed and negative. Past medical history: As per history of present illness and as reviewed below otherwise noncontributory. Surgical history: As per history of present illness and as reviewed below otherwise noncontributory. Social history: No reported history of drug or alcohol abuse. Family history: As per history of present illness and as reviewed below otherwise noncontributory. Physical exam: General: Well developed, well nourished in NAD HEENT: Atraumatic, normocephalic, pupils reactive, negative for conjunctival pallor or scleral icterus, mucous membranes moist, throat clear, neck supple, nontender, trachea midline. Lungs: Clear to auscultation, breath sounds equal bilaterally, chest nontender. Heart: S1S2, regular, negative for clicks, rubs, or JVD. Abdomen: NABS, Soft, nondistended, nontender. Negative for masses or hepatosplenomegaly. Negative for costovertebral tenderness. Pelvis: Stable nontender. Genitourinary: Deferred. Rectal: Deferred. Extremities: Atraumatic, negative for cords or calf pain. Neurovascular unremarkable. Neuro: Awake, alert, oriented. Cranial nerves II through XII unremarkable. Cerebellum unremarkable. Motor and sensory unremarkable throughout. Exam nonfocal. Skin:warm and dry Diagnostics: CBC, chemistry, troponin Therapeutics: IV hydration 2 L and tolerated a meal ED Course: Improved Impression: Dehydration Prescriptions: None Plan: Patient was going to be admitted for observation for chest pain but refused. She is alert and oriented and understands the risk of possible and still wishes to go home. Definitive disposition and diagnosis as appropriate pending reevaluation and review of above. - Related Data Allergies Allergy/AdvReac Type Severity Reaction Status Date / Time cyclobenzaprine HCl Allergy Anaphylactic Verified 09/28/18 12:13 [From Flexeril] Shock ketorolac tromethamine Allergy Hives Verified 09/28/18 12:13 [From Toradol] Home Meds: Home Meds DULoxetine [Cymbalta] 60 mg PO BID 06/07/16 [History] Paliperidone [Invega] 6 mg PO BEDTIME 04/21/17 [History] Furosemide [Lasix] 40 mg PO DAILY 01/07/18 [History] OLANZapine [Olanzapine] 10 mg PO BEDTIME 01/07/18 [History] Pravastatin Sodium 10 mg PO BEDTIME 01/07/18 [History] Propranolol [Inderal] 20 mg PO BID 01/07/18 [History] hydrOXYzine pamoate [Hydroxyzine Pamoate] 25 mg PO BEDTIME 01/07/18 [History] Gabapentin [Neurontin] 600 mg PO TID 09/28/18 [History] Mirtazapine 15 mg PO BEDTIME 09/28/18 [History] OLANZapine [Olanzapine] 10 mg PO BEDTIME 09/28/18 [History] Potassium Chloride [Klor-Con M20] 20 meq PO DAILY 09/28/18 [History] metFORMIN [Glucophage] 500 mg PO BIDMEALS 09/28/18 [History] Past Medical History - Past Health History Medical/Surgical History: Denies Medical/Surgical History HEENT History: Reports: Hard of Hearing Other HEENT History: wears glasses, top and bottom partial Cardiovascular History: Reports: Angina, Heart Failure, Hypertension, Other ( See Below) Other Cardiovascular History: Mitral Valve Prolapse Respiratory History: Reports: COPD Other Respiratory History: hx TB at 18 yrs old Gastrointestinal History: Reports: None Genitourinary History: Reports: Other (See Below) Other Genitourinary History: occasional urinary incontinence ENGINEERING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 Musculoskeletal History: Reports: Arthritis, Back Pain, Chronic, Fibromyalgia, Osteoarthritis Other Musculoskeletal History: chronic neck pain Neurological History: Reports: MS Other Neuro History: possible MS Psychiatric History: Reports: Bipolar, Depression Other Psychiatric History: multiple personalities Endocrine/Metabolic History: Reports: Hyperthyroidism Hematologic History: Reports: Blood Transfusion(s), Other (See Below) Other Hematologic History: states had blood transfusion after back surgery Oncologic (Cancer) History: Reports: Cervix Other Oncologic History: had hysterectomy for cervix CA Dermatologic History: Reports: None - Infectious Disease History Infectious Disease History: Reports: Measles, Mumps, Shingles, TB - Past Surgical History Head Surgeries/Procedures: Reports: None Musculoskeletal Surgical History: Reports: Other (See Below) Social & Family History - Family History Family Medical History: Noncontributory HEENT: Reports: Macular Degeneration Cardiac: Reports: None Respiratory: Reports: Asthma, COPD GI: Reports: None : Reports: None Musculoskeletal: Reports: Back pain, Chronic Neurological: Reports: None Oncologic: Reports: Breast, Lung Other Oncologic Family History: parents both had Cancer - Caffeine Use Caffeine Use: Reports: None ED ROS GENERAL - Review of Systems Review Of Systems: ROS reveals no pertinent complaints other than HPI. ED EXAM, GENERAL - Physical Exam Exam: See Below (The history of present illness) Course - Vital Signs Last Recorded V/S: Last Vital Signs Temp 97.3 F 09/28/18 12:13 Pulse 74 09/28/18 12:13 Resp 16 09/28/18 12:13 BP 149/89 H 09/28/18 12:13 Pulse Ox 97 09/28/18 12:13 - Orders/Labs/Meds Orders: Active Orders 24 hr Category Date Time Status Patient Status [ADT] Stat ADT 09/28/18 15:41 Active EKG Documentation Completion [RC] STAT Care 09/28/18 11:40 Active Sodium Chloride 0.9% [Saline Flush] Med 09/28/18 11:41 Active 10 ml FLUSH ASDIRECTED PRN Sodium Chloride 0.9% [Saline Flush] Med 09/28/18 11:41 Active 2.5 ml FLUSH ASDIRECTED PRN Saline Lock Insert [OM.PC] Stat Oth 09/28/18 11:40 Ordered Medication Orders Sodium Chloride (Saline Flush) 10 ml FLUSH ASDIRECTED PRN PRN Reason: Keep Vein Open Sodium Chloride (Saline Flush) 2.5 ml FLUSH ASDIRECTED PRN PRN Reason: Keep Vein Open Labs: Laboratory Tests 09/28/18 09/28/18 09/28/18 Range/Units 12:14 14:14 15:15 WBC 8.07 (4.0-11.0) K/uL RBC 5.38 (4.30-5.90) M/uL Hgb 16.1 H (12.0-16.0) g/dL Hct 47.0 H (36.0-46.0) % MCV 87.4 (80.0-98.0) fL MCH 29.9 (27.0-32.0) pg MCHC 34.3 (31.0-37.0) g/dL RDW Std Deviation 40.2 (28.0-62.0) fl RDW Coeff of Jannette 13 (11.0-15.0) % Plt Count 222 (150-400) K/uL MPV 10.50 (7.40-12.00) fL Neut % (Auto) 58.5 (48.0-80.0) % Lymph % (Auto) 30.0 (16.0-40.0) % [place] % (Auto) 10.5 (0.0-15.0) % Eos % (Auto) 0.4 (0.0-7.0) % Baso % (Auto) 0.6 (0.0-1.5) % Neut # (Auto) 4.7 (1.4-5.7) K/uL Lymph # (Auto) 2.4 (0.6-2.4) K/uL [place] # (Auto) 0.9 H (0.0-0.8) K/uL Eos # (Auto) 0.0 (0.0-0.7) K/uL Baso # (Auto) 0.1 (0.0-0.1) K/uL Sodium 142 (136-145) mmol/L Potassium 4.4 (3.5-5.1) mmol/L Chloride 108 H (98-107) mmol/L Carbon Dioxide 25.1 (21.0-32.0) mmol/L BUN 14 (7.0-18.0) mg/dL Creatinine 0.8 (0.6-1.0) mg/dL Est Cr Clr Drug Dosing 55.68 mL/min Estimated GFR (MDRD) > 60.0 ml/min Glucose 101 (74-106) mg/dL Calcium 9.0 (8.5-10.1) mg/dL Total Bilirubin 0.4 (0.2-1.0) mg/dL AST 21 (15-37) IU/L ALT 27 (14-63) IU/L Alkaline Phosphatase 145 H (46-116) U/L Troponin I < 0.050 (0.000-0.056) ng/mL Total Protein 6.9 (6.4-8.2) g/dL Albumin 3.7 (3.4-5.0) g/dL Globulin 3.2 (2.6-4.0) g/dL Albumin/Globulin Ratio 1.2 (0.9-1.6) Urine Color YELLOW Urine Appearance CLEAR Urine pH 6.0 (5.0-8.0) Ur Specific [place] 1.010 (1.001-1.035) Urine Protein NEGATIVE (NEGATIVE) mg/dL Urine Glucose (UA) NEGATIVE (NEGATIVE) mg/dL Urine Ketones NEGATIVE (NEGATIVE) mg/dL Urine Occult Blood NEGATIVE (NEGATIVE) Urine Nitrite NEGATIVE (NEGATIVE) Urine Bilirubin NEGATIVE (NEGATIVE) Urine Urobilinogen 0.2 (<2.0) EU/dL Ur Leukocyte Esterase NEGATIVE (NEGATIVE) Urine RBC NONE SEEN (0-2/HPF) Urine WBC 0-1 (0-5/HPF) Ur Epithelial Cells NOT SEEN (NONE-FEW) Urine Bacteria RARE (NEGATIVE) Meds: Medications Generic Name Dose Route Start Last Admin Trade Name Freq PRN Reason Stop Dose Admin Sodium Chloride 10 ml 09/28/18 11:41 Saline Flush FLUSH ASDIRECTED PRN Keep Vein Open Sodium Chloride 2.5 ml 09/28/18 11:41 Saline Flush FLUSH ASDIRECTED PRN Keep Vein Open Discontinued Medications Generic Name Dose Route Start Last Admin Trade Name Freq PRN Reason Stop Dose Admin Sodium Chloride 1,000 mls @ 999 mls/hr 09/28/18 11:41 09/28/18 12:08 Normal Saline IV 09/28/18 12:41 500 mls/hr .Bolus ONE Administration Sodium Chloride 1,000 mls @ 999 mls/hr 09/28/18 14:22 09/28/18 14:22 Normal Saline IV 09/28/18 15:22 750 mls/hr .Bolus ONE Administration Departure - Departure Time of Disposition: 16:00 Disposition: Against Medical Advice 07 Condition: Good Clinical Impression: Dehydration Referrals: PCP,None [Primary Care Provider] - Additional Instructions: The following information is given to patients seen in the emergency department who are being discharged to home. This information is to outline your options for follow-up care. We provide all patients seen in our emergency department with a follow-up referral. The need for follow-up, as well as the timing and circumstances, are variable depending upon the specifics of your emergency department visit. If you don't have a primary care physician on staff, we will provide you with a referral. We always advise you to contact your personal physician following an emergency department visit to inform them of the circumstance of the visit and for follow-up with them and/or the need for any referrals to a consulting specialist. The emergency department will also refer you to a specialist when appropriate. This referral assures that you have the opportunity for follow-up care with a specialist. All of these measure are taken in an effort to provide you with optimal care, which includes your follow-up. Under all circumstances we always encourage you to contact your private physician who remains a resource for coordinating your care. When calling for follow-up care, please make the office aware that this follow-up is from your recent emergency room visit. If for any reason you are refused follow-up, please contact the [facility] Emergency Department at and asked to speak to the emergency department charge nurse. [facility] Primary [facility] [address] [place] [id number] - My Orders Last 24 Hours: My Active Orders 09/28/18 11:40 EKG Documentation Completion [RC] STAT Saline Lock Insert [OM.PC] Stat 09/28/18 11:41 Sodium Chloride 0.9% [Saline Flush] 10 ml FLUSH ASDIRECTED PRN Sodium Chloride 0.9% [Saline Flush] 2.5 ml FLUSH ASDIRECTED PRN 09/28/18 15:41 Patient Status [ADT] Stat - Assessment/Plan Last 24 Hours: My Active Orders 09/28/18 11:40 EKG Documentation Completion [RC] STAT Saline Lock Insert [OM.PC] Stat 09/28/18 11:41 Sodium Chloride 0.9% [Saline Flush] 10 ml FLUSH ASDIRECTED PRN Sodium Chloride 0.9% [Saline Flush] 2.5 ml FLUSH ASDIRECTED PRN 09/28/18 15:41 Patient Status [ADT] Stat
--- NOTE | 2018-09-28 12:57 | CR ---
EXAMINATION: Portable chest radiograph. HISTORY: Shortness of breath. FINDINGS: The trachea is midline. The cardiomediastinal silhouette is within normal limits. No pulmonary infiltrates, effusions or pneumothorax. Osseous structures appear unremarkable. Scoliosis hardware again noted. IMPRESSION: No acute cardiopulmonary process.
[2018-09-28 14:46] LABS: CHLORIDE,CL 108 mmol/L (98-107); SODIUM,NA 142 mmol/L (136-145)
[2018-09-28 17:45] VITALS: BP 169/80
== END 2018-09-28 16:05 | disposition left against medical advice (07) ==
LOC: MW.ED 11:38
DX: E86.0 Dehydration (principal); R07.2 Precordial pain; I11.0 Hypertensive heart disease with heart failure; I50.9 Heart failure, unspecified; F32.9 Major depressive disorder, single episode, unspecified; Z79.84 Long term (current) use of oral hypoglycemic drugs; Z79.899 Other long term (current) drug therapy; Z90.710 Acquired absence of both cervix and uterus; Z88.6 Allergy status to analgesic agent; Z88.8 Allergy status to other drugs, medicaments and biological substances
CPT/HCPCS: 36415; 71045; 80053; 81001; 84484; 85025; 93005; 96360; 96361; 99285; J7040

== ENCOUNTER 2019-01-23 12:42 | Emergency (ER) | payer MEDICARE, MEDICAID ==
[2019-01-23] MEDS ORDERED: Aspirin 81 MG Tab.Chew PO ONE (12:57)
--- NOTE | 2019-01-23 12:57 | EDM.PDOC ---
ED HPI GENERAL MEDICAL PROBLEM - General Chief Complaint: General Stated Complaint: SPOKE TO NURSE Time Seen by Provider: 01/23/19 12:43 Source of Information: Reports: Patient History Limitations: Reports: No Limitations - History of Present Illness INITIAL COMMENTS - FREE TEXT/NARRATIVE: HISTORY AND PHYSICAL: History of present illness: Patient is a 68-year-old female who presents to the emergency room with complaints of chest pain that occurred last evening. Patient reports that she had pain to her mid sternal chest and tingling of the right arm that lasted approximately 15-30 seconds. She states this woke her up from sleep. She took one tablet of nitroglycerin and fell back asleep. Woke up this morning without any complaints or concerns. She had told a family member about the episode of chest pain last evening; and they encouraged her to come to the emergency room for evaluation. She declined. Just prior to arrival to the emergency room she was talking with her landlord and states that she "felt funny and was having an out of body experience". The landlord called EMS and instructed her that she needed to come to the emergency room for evaluation. Patient states she is asymptomatic and does not really recall telling anyone about the "out of body experience". Patient denies any fever, chills, headache, change in vision, syncope or near syncope. Denies any current chest pain, back pain, shortness of breath or cough. Denies any abdominal pain, nausea, vomiting, diarrhea, constipation or dysuria. Has not noted any blood in urine or stool. Patient has been eating and drinking appropriately. Review of systems: As per history of present illness and below otherwise all systems reviewed and negative. Past medical history: As per history of present illness and as reviewed below otherwise noncontributory. Surgical history: As per history of present illness and as reviewed below otherwise noncontributory. Social history: See social history for further information Family history: As per history of present illness and as reviewed below otherwise noncontributory. Physical exam: General: Well-developed and well-nourished 68 her old female. Alert and oriented. Nontoxic appearing and in no acute distress. HEENT: Atraumatic, normocephalic, pupils equal and reactive bilaterally, negative for conjunctival pallor or scleral icterus, mucous membranes moist, TMs normal bilaterally, throat clear, neck supple, nontender, trachea midline. No drooling or trismus noted. No meningeal signs. No hot potato voice noted. Lungs: Clear to auscultation, breath sounds equal bilaterally, chest nontender. Heart: S1S2, regular rate and rhythm without overt murmur Abdomen: Soft, nondistended, nontender. Negative for masses. Negative for costovertebral tenderness. Pelvis: Stable nontender. Genitourinary: Deferred. Rectal: Deferred. Skin: Intact, warm, dry. No lesions or rashes noted. Extremities: Atraumatic, moves all extremities per self without difficulty or deficits, negative for cords or calf pain. Neurovascular unremarkable. Neuro: Awake, alert, oriented. Cranial nerves II through XII unremarkable. Cerebellum unremarkable. Motor and sensory unremarkable throughout. Exam nonfocal. Notes: Diagnostics were unremarkable. Patient wants to be discharged to home. Admission was offered, she declined. Continues to be pain-free and asymptomatic. Vital signs remain stable. Supportive care measures were reviewed and discussed. Voices understanding and is agreeable to plan of care. Denies any further questions or concerns at this time. Diagnostics: CBC, CMP, UA, troponin, chest x-ray, EKG Therapeutics: Aspirin Prescription: None Impression: Chest pain, resolved Plan: 1. Please follow-up with your primary care provider as we discussed. 2. Continue taking all your home medications as directed. 3. Return to the ED as needed and as discussed. Definitive disposition and diagnosis as appropriate pending reevaluation and review of above. - Related Data Allergies Allergy/AdvReac Type Severity Reaction Status Date / Time cyclobenzaprine HCl Allergy Anaphylactic Verified 01/23/19 13:00 [From Flexeril] Shock ketorolac tromethamine Allergy Hives Verified 01/23/19 13:00 [From Toradol] Home Meds: Home Meds DULoxetine [Cymbalta] 60 mg PO BID 06/07/16 [History] Paliperidone [Invega] 6 mg PO BEDTIME 04/21/17 [History] Furosemide [Lasix] 40 mg PO DAILY 01/07/18 [History] OLANZapine [Olanzapine] 10 mg PO BEDTIME 01/07/18 [History] Pravastatin Sodium 10 mg PO BEDTIME 01/07/18 [History] Propranolol [Inderal] 20 mg PO BID 01/07/18 [History] hydrOXYzine pamoate [Hydroxyzine Pamoate] 25 mg PO BEDTIME 01/07/18 [History] Gabapentin [Neurontin] 600 mg PO TID 09/28/18 [History] Mirtazapine 15 mg PO BEDTIME 09/28/18 [History] OLANZapine [Olanzapine] 10 mg PO BEDTIME 09/28/18 [History] Potassium Chloride [Klor-Con M20] 20 meq PO DAILY 09/28/18 [History] Past Medical History - Past Health History Medical/Surgical History: Denies Medical/Surgical History HEENT History: Reports: Hard of Hearing Other HEENT History: wears glasses, top and bottom partial Cardiovascular History: Reports: Angina, Heart Failure, Hypertension, Other ( See Below) Other Cardiovascular History: Mitral Valve Prolapse Respiratory History: Reports: COPD Other Respiratory History: hx TB at 18 yrs old Gastrointestinal History: Reports: None Genitourinary History: Reports: Other (See Below) Other Genitourinary History: occasional urinary incontinence ENTERTAINMENT MANAGER History: Reports: Other (See Below) Other ENTERTAINMENT MANAGER 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 Musculoskeletal History: Reports: Arthritis, Back Pain, Chronic, Fibromyalgia, Osteoarthritis Other Musculoskeletal History: chronic neck pain Neurological History: Reports: MS Other Neuro History: possible MS Psychiatric History: Reports: Bipolar, Depression Other Psychiatric History: multiple personalities Endocrine/Metabolic History: Reports: Hyperthyroidism Hematologic History: Reports: Blood Transfusion(s), Other (See Below) Other Hematologic History: states had blood transfusion after back surgery Oncologic (Cancer) History: Reports: Cervix Other Oncologic History: had hysterectomy for cervix CA Dermatologic History: Reports: None - Infectious Disease History Infectious Disease History: Reports: Measles, Mumps, Shingles, TB - Past Surgical History Head Surgeries/Procedures: Reports: None Musculoskeletal Surgical History: Reports: Other (See Below) Social & Family History - Family History Family Medical History: Noncontributory HEENT: Reports: Macular Degeneration Cardiac: Reports: None Respiratory: Reports: Asthma, COPD GI: Reports: None : Reports: None Musculoskeletal: Reports: Back pain, Chronic Neurological: Reports: None Oncologic: Reports: Breast, Lung Other Oncologic Family History: parents both had Cancer - Caffeine Use Caffeine Use: Reports: None ED ROS GENERAL - Review of Systems Review Of Systems: ROS reveals no pertinent complaints other than HPI. ED EXAM, GENERAL - Physical Exam Exam: See Below (See dictation) Course - Vital Signs Last Recorded V/S: Last Vital Signs Temp 96.9 F 01/23/19 13:03 Pulse 55 L 01/23/19 13:03 Resp 16 01/23/19 13:03 BP 106/47 L 01/23/19 13:03 Pulse Ox 96 01/23/19 13:03 - Orders/Labs/Meds Orders: Active Orders 24 hr Category Date Time Status EKG Documentation Completion [RC] STAT Care 01/23/19 12:44 Active Labs: Laboratory Tests 01/23/19 01/23/19 Range/Units 13:22 13:22 WBC 6.49 (4.0-11.0) K/uL RBC 4.69 (4.30-5.90) M/uL Hgb 13.7 (12.0-16.0) g/dL Hct 42.4 (36.0-46.0) % MCV 90.4 (80.0-98.0) fL MCH 29.2 (27.0-32.0) pg MCHC 32.3 (31.0-37.0) g/dL RDW Std Deviation 46.0 (28.0-62.0) fl RDW Coeff of Jannette 14 (11.0-15.0) % Plt Count 206 (150-400) K/uL MPV 10.70 (7.40-12.00) fL Neut % (Auto) 62.1 (48.0-80.0) % Lymph % (Auto) 26.0 (16.0-40.0) % [place] % (Auto) 11.4 (0.0-15.0) % Eos % (Auto) 0.0 (0.0-7.0) % Baso % (Auto) 0.5 (0.0-1.5) % Neut # (Auto) 4.0 (1.4-5.7) K/uL Lymph # (Auto) 1.7 (0.6-2.4) K/uL [place] # (Auto) 0.7 (0.0-0.8) K/uL Eos # (Auto) 0.0 (0.0-0.7) K/uL Baso # (Auto) 0.0 (0.0-0.1) K/uL Nucleated RBC % 0.0 /100WBC Nucleated RBCs # 0 K/uL Sodium 143 (136-145) mmol/L Potassium 4.6 (3.5-5.1) mmol/L Chloride 109 H (98-107) mmol/L Carbon Dioxide 26.4 (21.0-32.0) mmol/L BUN 20 H (7.0-18.0) mg/dL Creatinine 0.9 (0.6-1.0) mg/dL Est Cr Clr Drug Dosing 49.49 mL/min Estimated GFR (MDRD) > 60.0 ml/min Glucose 120 H (74-106) mg/dL Calcium 9.0 (8.5-10.1) mg/dL Total Bilirubin 0.3 (0.2-1.0) mg/dL AST 15 (15-37) IU/L ALT 19 (14-63) IU/L Alkaline Phosphatase 119 H (46-116) U/L Troponin I < 0.050 (0.000-0.056) ng/mL Total Protein 6.7 (6.4-8.2) g/dL Albumin 3.5 (3.4-5.0) g/dL Globulin 3.2 (2.6-4.0) g/dL Albumin/Globulin Ratio 1.1 (0.9-1.6) Meds: Medications Discontinued Medications Generic Name Dose Route Start Last Admin Trade Name Stevenson PRN Reason Stop Dose Admin Aspirin 324 mg 01/23/19 12:57 01/23/19 13:15 Aspirin PO 01/23/19 12:58 324 mg ONETIME ONE Administration Departure - Departure Time of Disposition: 14:15 Disposition: Home, Self-Care 01 Clinical Impression: Nonspecific chest pain - Discharge Information Instructions: Nonspecific Chest Pain, [id number] Referrals: PCP,Unknown [Primary Care Provider] - Forms: ED Department Discharge Additional Instructions: The following information is given to patients seen in the emergency department who are being discharged to home. This information is to outline your options for follow-up care. We provide all patients seen in our emergency department with a follow-up referral. The need for follow-up, as well as the timing and circumstances, are variable depending upon the specifics of your emergency department visit. If you don't have a primary care physician on staff, we will provide you with a referral. We always advise you to contact your personal physician following an emergency department visit to inform them of the circumstance of the visit and for follow-up with them and/or the need for any referrals to a consulting specialist. The emergency department will also refer you to a specialist when appropriate. This referral assures that you have the opportunity for follow-up care with a specialist. All of these measure are taken in an effort to provide you with optimal care, which includes your follow-up. Under all circumstances we always encourage you to contact your private physician who remains a resource for coordinating your care. When calling for follow-up care, please make the office aware that this follow-up is from your recent emergency room visit. If for any reason you are refused follow-up, please contact the [facility] Emergency Department at and asked to speak to the emergency department charge nurse. [facility] Primary Care [address] [place], [place] [id number] [place] [address] 1. Please follow-up with your primary care provider as we discussed. 2. Continue taking all your home medications as directed. 3. Return to the ED as needed and as discussed. - My Orders Last 24 Hours: My Active Orders 01/23/19 12:44 EKG Documentation Completion [RC] STAT - Assessment/Plan Last 24 Hours: My Active Orders 01/23/19 12:44 EKG Documentation Completion [RC] STAT
[2019-01-23 14:09] LABS: CHLORIDE,CL 109 mmol/L (98-107); SODIUM,NA 143 mmol/L (136-145)
--- NOTE | 2019-01-23 14:09 | CR ---
EXAMINATION: Portable chest radiograph. HISTORY: Chest pain. FINDINGS: The trachea is midline. The cardiomediastinal silhouette is within normal limits. No pulmonary infiltrates, effusions or pneumothorax. Osseous structures appear unremarkable. Bilateral scoliosis hardware noted. IMPRESSION: No acute cardiopulmonary process.
[2019-01-23 14:44] VITALS: BP 111/54
== END 2019-01-23 14:25 | disposition home or self-care (01) ==
LOC: MW.ED 12:42
DX: R07.9 Chest pain, unspecified (principal); I11.0 Hypertensive heart disease with heart failure; I50.9 Heart failure, unspecified; E05.90 Thyrotoxicosis, unspecified without thyrotoxic crisis or storm; M19.90 Unspecified osteoarthritis, unspecified site; F32.9 Major depressive disorder, single episode, unspecified; Z88.6 Allergy status to analgesic agent; Z88.8 Allergy status to other drugs, medicaments and biological substances; Z79.899 Other long term (current) drug therapy; Z90.710 Acquired absence of both cervix and uterus
CPT/HCPCS: 36415; 71045; 80053; 84484; 85025; 93005; 99285; A9270; 99283

== ENCOUNTER 2019-03-08 20:09 | Emergency (ER) | payer MEDICARE, MEDICAID ==
--- NOTE | 2019-03-08 20:15 | EDM.PDOC ---
ED HPI GENERAL MEDICAL PROBLEM - General Chief Complaint: Genitourinary Problem Stated Complaint: CAN'T VOID Time Seen by Provider: 03/08/19 20:12 - History of Present Illness INITIAL COMMENTS - FREE TEXT/NARRATIVE: HISTORY AND PHYSICAL: History of present illness: Patient is a 68-year-old white female presents with a concern of urinary retention she states she's had this problem intermittently in the past but this more severe. No fever chills nausea vomiting no back pain numbness weakness or other complaints. Review of systems: As per history of present illness and below otherwise all systems reviewed and negative. Past medical history: As per history of present illness and as reviewed below otherwise noncontributory. Surgical history: As per history of present illness and as reviewed below otherwise noncontributory. Social history: No reported history of drug or alcohol abuse. Family history: As per history of present illness and as reviewed below otherwise noncontributory. Physical exam: HEENT: Atraumatic, normocephalic, pupils reactive, negative for conjunctival pallor or scleral icterus, mucous membranes moist, throat clear, neck supple, nontender, trachea midline. Lungs: Clear to auscultation, breath sounds equal bilaterally, chest nontender. Heart: S1S2, regular, negative for clicks, rubs, or JVD. Abdomen: Soft, suprapubic fullness with mild tenderness consistent with distended bladder. Negative for masses or hepatosplenomegaly. Negative for costovertebral tenderness. Pelvis: Stable nontender. Genitourinary: Deferred. Rectal: Deferred. Extremities: Atraumatic, negative for cords or calf pain. Neurovascular unremarkable. Neuro: Awake, alert, oriented. Cranial nerves II through XII unremarkable. Cerebellum unremarkable. Motor and sensory unremarkable throughout. Exam nonfocal. Diagnostics: CBC CMP UA Therapeutics: Valles catheter leg bag Impression: # 1 urinary retention Definitive disposition and diagnosis as appropriate pending reevaluation and review of above. urinary Pain Score (Numeric/FACES): 9 - Related Data Allergies Allergy/AdvReac Type Severity Reaction Status Date / Time cyclobenzaprine HCl Allergy Anaphylactic Verified 03/08/19 20:13 [From Flexeril] Shock ketorolac tromethamine Allergy Hives Verified 03/08/19 20:13 [From Toradol] Home Meds: Home Meds DULoxetine [Cymbalta] 60 mg PO BID 06/07/16 [History] Paliperidone [Invega] 6 mg PO BEDTIME 04/21/17 [History] Furosemide [Lasix] 40 mg PO DAILY 01/07/18 [History] OLANZapine [Olanzapine] 10 mg PO BEDTIME 01/07/18 [History] Pravastatin Sodium 10 mg PO BEDTIME 01/07/18 [History] Propranolol [Inderal] 20 mg PO BID 01/07/18 [History] hydrOXYzine pamoate [Hydroxyzine Pamoate] 25 mg PO BEDTIME 01/07/18 [History] Gabapentin [Neurontin] 600 mg PO TID 09/28/18 [History] Mirtazapine 15 mg PO BEDTIME 09/28/18 [History] OLANZapine [Olanzapine] 10 mg PO BEDTIME 09/28/18 [History] Potassium Chloride [Klor-Con M20] 20 meq PO DAILY 09/28/18 [History] Past Medical History - Past Health History Medical/Surgical History: Denies Medical/Surgical History HEENT History: Reports: Hard of Hearing Other HEENT History: wears glasses, top and bottom partial Cardiovascular History: Reports: Angina, Heart Failure, Hypertension, Other ( See Below) Other Cardiovascular History: Mitral Valve Prolapse Respiratory History: Reports: COPD Other Respiratory History: hx TB at 18 yrs old Gastrointestinal History: Reports: None Genitourinary History: Reports: Other (See Below) Other Genitourinary History: occasional urinary incontinence IT GENERALIST History: Reports: Other (See Below) Other IT GENERALIST 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 Musculoskeletal History: Reports: Arthritis, Back Pain, Chronic, Fibromyalgia, Osteoarthritis Other Musculoskeletal History: chronic neck pain Neurological History: Reports: MS Other Neuro History: possible MS Psychiatric History: Reports: Bipolar, Depression Other Psychiatric History: multiple personalities Endocrine/Metabolic History: Reports: Hyperthyroidism Hematologic History: Reports: Blood Transfusion(s), Other (See Below) Other Hematologic History: states had blood transfusion after back surgery Oncologic (Cancer) History: Reports: Cervix Other Oncologic History: had hysterectomy for cervix CA Dermatologic History: Reports: None - Infectious Disease History Infectious Disease History: Reports: Measles, Mumps, Shingles, TB - Past Surgical History Head Surgeries/Procedures: Reports: None Musculoskeletal Surgical History: Reports: Other (See Below) Social & Family History - Family History Family Medical History: Noncontributory HEENT: Reports: Macular Degeneration Cardiac: Reports: None Respiratory: Reports: Asthma, COPD GI: Reports: None : Reports: None Musculoskeletal: Reports: Back pain, Chronic Neurological: Reports: None Oncologic: Reports: Breast, Lung Other Oncologic Family History: parents both had Cancer - Caffeine Use Caffeine Use: Reports: None ED ROS GENERAL - Review of Systems Review Of Systems: ROS reveals no pertinent complaints other than HPI. ED EXAM, GENERAL - Physical Exam Exam: See Below (The dictation) Course - Vital Signs Last Recorded V/S: Last Vital Signs Temp 35.9 C 03/08/19 20:10 Pulse 102 H 03/08/19 20:10 Resp 18 03/08/19 20:10 BP 120/76 03/08/19 20:10 Pulse Ox 94 L 03/08/19 20:10 - Orders/Labs/Meds Orders: Active Orders 24 hr Category Date Time Status Insert Valles Catheter [Insert Urinary Catheter] [OM.PC] Care 03/08/19 20:26 Ordered Stat Urinary Catheter Assessment [RC] ASDIRECTED Care 03/08/19 20:27 Active Labs: Laboratory Tests 03/08/19 03/08/19 03/08/19 Range/Units 20:30 20:30 20:30 WBC 7.73 (4.0-11.0) K/uL RBC 4.39 (4.30-5.90) M/uL Hgb 13.0 (12.0-16.0) g/dL Hct 38.5 (36.0-46.0) % MCV 87.7 (80.0-98.0) fL MCH 29.6 (27.0-32.0) pg MCHC 33.8 (31.0-37.0) g/dL RDW Std Deviation 42.2 (28.0-62.0) fl RDW Coeff of Jannette 13 (11.0-15.0) % Plt Count 185 (150-400) K/uL MPV 10.60 (7.40-12.00) fL Neut % (Auto) 59.0 (48.0-80.0) % Lymph % (Auto) 29.0 (16.0-40.0) % [place] % (Auto) 11.5 (0.0-15.0) % Eos % (Auto) 0.1 (0.0-7.0) % Baso % (Auto) 0.4 (0.0-1.5) % Neut # (Auto) 4.6 (1.4-5.7) K/uL Lymph # (Auto) 2.2 (0.6-2.4) K/uL [place] # (Auto) 0.9 H (0.0-0.8) K/uL Eos # (Auto) 0.0 (0.0-0.7) K/uL Baso # (Auto) 0.0 (0.0-0.1) K/uL Nucleated RBC % 0.0 /100WBC Nucleated RBCs # 0 K/uL Sodium 131 L (136-145) mmol/L Potassium 3.7 (3.5-5.1) mmol/L Chloride 100 (98-107) mmol/L Carbon Dioxide 24.6 (21.0-32.0) mmol/L BUN 21 H (7.0-18.0) mg/dL Creatinine 1.0 (0.6-1.0) mg/dL Est Cr Clr Drug Dosing 44.54 mL/min Estimated GFR (MDRD) 55.1 ml/min Glucose 181 H (74-106) mg/dL Calcium 8.3 L (8.5-10.1) mg/dL Total Bilirubin 0.4 (0.2-1.0) mg/dL AST 126 H (15-37) IU/L ALT 195 H (14-63) IU/L Alkaline Phosphatase 215 H (46-116) U/L Total Protein 6.3 L (6.4-8.2) g/dL Albumin 3.3 L (3.4-5.0) g/dL Globulin 3.0 (2.6-4.0) g/dL Albumin/Globulin Ratio 1.1 (0.9-1.6) Urine Color DARK YELLOW Urine Appearance CLEAR Urine pH 5.0 (5.0-8.0) Ur Specific Corinne >= 1.030 (1.001-1.035) Urine Protein NEGATIVE (NEGATIVE) mg/dL Urine Glucose (UA) NEGATIVE (NEGATIVE) mg/dL Urine Ketones NEGATIVE (NEGATIVE) mg/dL Urine Occult Blood NEGATIVE (NEGATIVE) Urine Nitrite NEGATIVE (NEGATIVE) Urine Bilirubin NEGATIVE (NEGATIVE) Urine Urobilinogen 0.2 (<2.0) EU/dL Ur Leukocyte Esterase NEGATIVE (NEGATIVE) Departure - Departure Time of Disposition: 21:13 Disposition: Home, Self-Care 01 Condition: Good Clinical Impression: Encounter for medical screening examination, Elevated liver function tests - Discharge Information Forms: ED Department Discharge Additional Instructions: The following information is given to patients seen in the emergency department who are being discharged to home. This information is to outline your options for follow-up care. We provide all patients seen in our emergency department with a follow-up referral. The need for follow-up, as well as the timing and circumstances, are variable depending upon the specifics of your emergency department visit. If you don't have a primary care physician on staff, we will provide you with a referral. We always advise you to contact your personal physician following an emergency department visit to inform them of the circumstance of the visit and for follow-up with them and/or the need for any referrals to a consulting specialist. The emergency department will also refer you to a specialist when appropriate. This referral assures that you have the opportunity for followup care with a specialist. All of these measure are taken in an effort to provide you with optimal care, which includes your followup. Under all circumstances we always encourage you to contact your private physician who remains a resource for coordinating your care. When calling for followup care, please make the office aware that this follow-up is from your recent emergency room visit. If for any reason you are refused follow-up, please contact the [facility] emergency department at and asked to speak to the emergency department charge nurse. Follow-up private medical doctor for reevaluation of elevated liver function tests call to schedule appointment follow-up 3 days for lab draw reevaluation liver function test return as needed as discussed - My Orders Last 24 Hours: My Active Orders 03/08/19 20:26 Insert Valles Catheter [Insert Urinary Catheter] [OM.PC] Stat 03/08/19 20:27 Urinary Catheter Assessment [RC] ASDIRECTED - Assessment/Plan Last 24 Hours: My Active Orders 03/08/19 20:26 Insert Valels Catheter [Insert Urinary Catheter] [OM.PC] Stat 03/08/19 20:27 Urinary Catheter Assessment [RC] ASDIRECTED
[2019-03-08 22:10] VITALS: BP 142/56
== END 2019-03-08 21:45 | disposition home or self-care (01) ==
LOC: MW.ED 20:09
DX: R33.9 Retention of urine, unspecified (principal); J44.9 Chronic obstructive pulmonary disease, unspecified; I10 Essential (primary) hypertension; E05.90 Thyrotoxicosis, unspecified without thyrotoxic crisis or storm; Z88.6 Allergy status to analgesic agent; Z88.8 Allergy status to other drugs, medicaments and biological substances; Z79.899 Other long term (current) drug therapy
CPT/HCPCS: 36415; 51702; 80053; 81003; 85025; 99283; 99284

== ENCOUNTER 2019-10-24 17:15 | Emergency (ER) | payer MEDICARE, MEDICAID ==
[2019-10-24] MEDS ORDERED: Sodium Chloride 0.9% 2.5 ML Syringe FLUSH PRN (17:29)
[2019-10-24] MEDS ORDERED: Sodium Chloride 0.9% 10 ML Syringe FLUSH PRN (17:29)
[2019-10-24] MEDS ORDERED: Sodium Chloride 0.9% 10 ML SDV IV PRN (17:29)
[2019-10-24] MEDS ORDERED: Sodium Chloride 0.9% 1,000 ML IV ONE ×2 (17:50→18:20)
--- NOTE | 2019-10-24 17:54 | CT ---
INDICATION: Stroke TECHNIQUE: Non-contrast CT of the head is submitted. Compared to prior study from April 21, 2017 FINDINGS: The ventricles, sulci and gyri are of normal size, shape and contour. Midline structures are centrally located. No convincing evidence of intra- or extra-axial fluid collections. IMPRESSION: 1. No radiographic evidence of acute intracranial abnormalities. Dictated by Jamin Fry MD @ 10/24/2019 5:53:39 PM Please note that all CT scans at this facility use dose modulation, iterative reconstruction, and/or weight-based dosing when appropriate to reduce radiation dose to as low as reasonably achievable. Dictated by: Jamin Fry MD @ 10/24/2019 17:53:47 (Electronically Signed)
--- NOTE | 2019-10-24 18:01 | EDM.PDOC ---
ED HPI GENERAL MEDICAL PROBLEM - General Chief Complaint: Chest Pain Stated Complaint: HIGH BLOOD PRESSURE Time Seen by Provider: 10/24/19 17:25 Source of Information: Reports: Patient History Limitations: Reports: Altered Mental Status - History of Present Illness INITIAL COMMENTS - FREE TEXT/NARRATIVE: HISTORY AND PHYSICAL: History of present illness: Patient is a 69-year-old female who presents to the ED today initially with concern of chest pain. Shortly after arrival, patient states the chest pain has subsided. Patient states she did take 2 clonidine prior to coming to the ED. Patient is slightly altered but able to follow commands and answer simple questions upon arrival. Slight facial drooping noted by nursing staff so stroke code called in triage. No notable drooping on my exam. Did express to nurse that took norco as well. Review of systems: As per history of present illness and below otherwise all systems reviewed and negative. Past medical history: As per history of present illness and as reviewed below otherwise noncontributory. Surgical history: As per history of present illness and as reviewed below otherwise noncontributory. Social history: See social history for further information Family history: As per history of present illness and as reviewed below otherwise noncontributory. Physical exam: General: Patient is alert, oriented, and in no acute distress. Patient laying comfortably on exam table responding to simple questions and following simple commands. HEENT: Atraumatic, normocephalic, pupils equal and reactive bilaterally, negative for conjunctival pallor or scleral icterus, mucous membranes moist, TMs normal bilaterally, throat clear, neck supple, nontender, trachea midline. No drooling or trismus noted. No meningeal signs. No hot potato voice noted. Lungs: Clear to auscultation, breath sounds equal bilaterally, chest nontender. Heart: S1S2, regular rate and rhythm without overt murmur Abdomen: Soft, nondistended, nontender. Negative for masses or hepatosplenomegaly. Negative for costovertebral tenderness. Pelvis: Stable nontender. Genitourinary: Deferred. Rectal: Deferred. Skin: Intact, warm, dry. No lesions or rashes noted. Extremities: Atraumatic, negative for cords or calf pain. Neurovascular unremarkable. Neuro: Awake, alert, oriented to person, and time but not place. Cranial nerves II through XII unremarkable. Notes: Dr. Franklin directly involved in patient care. Shortly after initial exam, patient becomes less arousable and not protecting airway. Intubation performed for airway protection. Patients blood pressure, and vitals post intubation did show some improvement. Dr. Palm, [facility], consulted on patient and accepting of transfer. Flight arranged. Voices understanding and is agreeable to plan of care. Denies any further questions or concerns at this time. Diagnostics: CBC, CMP, UA, EKG, chest x-ray, troponin, head CT, TSH, magnesium, urine drug screen, ethanol level, Pt/INR, PTT Therapeutics: NS, Narcan, Etomidate, Succs, Casey Impression: Altered mental status Hypotension Plan: Transfer to Dr. Palm, [facility], via flight Definitive disposition and diagnosis as appropriate pending reevaluation and review of above. - Related Data Allergies Allergy/AdvReac Type Severity Reaction Status Date / Time cyclobenzaprine HCl Allergy Anaphylactic Verified 10/24/19 17:54 [From Flexeril] Shock ketorolac tromethamine Allergy Hives Verified 10/24/19 17:54 [From Toradol] Home Meds: Home Meds DULoxetine [Cymbalta] 60 mg PO BID 06/07/16 [History] Paliperidone [Invega] 6 mg PO BEDTIME 04/21/17 [History] Furosemide [Lasix] 40 mg PO DAILY 01/07/18 [History] OLANZapine [Olanzapine] 10 mg PO BEDTIME 01/07/18 [History] Pravastatin Sodium 10 mg PO BEDTIME 01/07/18 [History] Propranolol [Inderal] 20 mg PO BID 01/07/18 [History] hydrOXYzine pamoate [Hydroxyzine Pamoate] 25 mg PO BEDTIME 01/07/18 [History] Gabapentin [Neurontin] 600 mg PO TID 09/28/18 [History] Mirtazapine 15 mg PO BEDTIME 09/28/18 [History] OLANZapine [Olanzapine] 10 mg PO BEDTIME 09/28/18 [History] Potassium Chloride [Klor-Con M20] 20 meq PO DAILY 09/28/18 [History] Past Medical History - Past Health History Medical/Surgical History: Denies Medical/Surgical History HEENT History: Reports: Hard of Hearing Other HEENT History: wears glasses, top and bottom partial Cardiovascular History: Reports: Angina, Heart Failure, Hypertension, Other ( See Below) Other Cardiovascular History: Mitral Valve Prolapse Respiratory History: Reports: COPD Other Respiratory History: hx TB at 18 yrs old Gastrointestinal History: Reports: None Genitourinary History: Reports: Other (See Below) Other Genitourinary History: occasional urinary incontinence [employer]ORD[employer]ATOR History: Reports: Other (See Below) Other [employer] EM[employer]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 Musculoskeletal History: Reports: Arthritis, Back Pain, Chronic, Fibromyalgia, Osteoarthritis Other Musculoskeletal History: chronic neck pain Neurological History: Reports: MS Other Neuro History: possible MS Psychiatric History: Reports: Bipolar, Depression Other Psychiatric History: multiple personalities Endocrine/Metabolic History: Reports: Hyperthyroidism Hematologic History: Reports: Blood Transfusion(s), Other (See Below) Other Hematologic History: states had blood transfusion after back surgery Oncologic (Cancer) History: Reports: Cervix Other Oncologic History: had hysterectomy for cervix CA Dermatologic History: Reports: None - Infectious Disease History Infectious Disease History: Reports: Measles, Mumps, Shingles, TB - Past Surgical History Head Surgeries/Procedures: Reports: None Musculoskeletal Surgical History: Reports: Other (See Below) Social & Family History - Family History Family Medical History: Noncontributory HEENT: Reports: Macular Degeneration Cardiac: Reports: None Respiratory: Reports: Asthma, COPD GI: Reports: None : Reports: None Musculoskeletal: Reports: Back pain, Chronic Neurological: Reports: None Oncologic: Reports: Breast, Lung Other Oncologic Family History: parents both had Cancer - Caffeine Use Caffeine Use: Reports: None ED ROS GENERAL - Review of Systems Review Of Systems: Comprehensive ROS is negative, except as noted in HPI. ED EXAM, GENERAL - Physical Exam Exam: See Below (see dictation) ED GENERAL MEDICAL PROCEDURES - Endotracheal Intubation Time of Intubation: 19:16 ET Intubation Indication: Airway Protection Preparation: Suction, Balloon Tested, BVM Set Up Pre-Oxygenation: Assisted with BVM, 100% FiO2 Anesthesia Meds: Etomidate, Propofol, Rocuronium, Succinylcholine Placement: Orotracheal, Cuffed, Uncomplicated Placement Cords Visualized: Yes ETT Size In mm: 7.5 Number of Attempts: 1 Confirmed By: CO2 Indicator, Bilateral Breath Sounds, Chest Xray Tube Secured By: By RT Course - Vital Signs Last Recorded V/S: Last Vital Signs Temp 96.2 F 10/24/19 17:50 Pulse 57 L 02/05/20 17:50 Resp 12 10/24/19 17:50 BP 86/43 L 10/24/19 17:50 Pulse Ox 96 10/24/19 17:50 - Orders/Labs/Meds Orders: Active Orders 24 hr Category Date Time Status Assess Neurological Status [RC] ASDIRECTED Care 10/24/19 17:29 Active Bedrest [RC] ASDIRECTED Care 10/24/19 17:29 Active Blood Glucose Check, Bedside [RC] ONETIME Care 10/24/19 17:29 Active Cardiac Monitoring [RC] . DIRECTED Care 10/24/19 17:29 Active EKG Documentation Completion [RC] STAT Care 10/24/19 17:29 Active EKG Documentation Completion [RC] STAT Care 10/24/19 17:31 Inactive Height and Weight [RC] UPON Care 10/24/19 17:29 Active Initiate Acute Stroke Protocol [RC] STAT Care 10/24/19 17:29 Active NIH Stroke Scale [RC] ASDIRECTED Care 10/24/19 17:29 Active Nursing Bedside Swallow Screen [RC] ASDIRECTED Care 10/24/19 17:29 Active Oxygen Therapy [RC] ASDIRECTED Care 10/24/19 17:29 Active RASS Sedation Scale [RC] ASDIRECTED Care 10/24/19 18:51 Active Stroke Education, General [RC] Click to Edit Care 10/24/19 17:29 Active Vital Signs [RC] Q15M Care 10/24/19 17:29 Active Sodium Chloride 0.9% [Normal Saline] Med 10/24/19 17:29 Active 10 ml IV ASDIRECTED PRN Sodium Chloride 0.9% [Saline Flush] Med 10/24/19 17:29 Active 10 ml FLUSH ASDIRECTED PRN Sodium Chloride 0.9% [Saline Flush] Med 10/24/19 17:29 Active 2.5 ml FLUSH ASDIRECTED PRN propofoL [Diprivan 100 ML] 100 ml Med 10/24/19 19:00 Pending IV TITRATE Desired Level of Sedation (RASS) [AST] Click To Edit Ot 10/24/19 18:51 Ordered Peripheral IV Insertion Adult [OM.PC] Stat Oth 10/24/19 17:29 Ordered Peripheral IV Insertion Adult [OM.PC] Stat Oth 10/24/19 17:29 Ordered Medication Orders Propofol (Diprivan 100 Ml) 100 mls @ 0 mls/hr IV TITRATE SHARIFA; Protocol Sodium Chloride (Saline Flush) 10 ml FLUSH ASDIRECTED PRN PRN Reason: Keep Vein Open Sodium Chloride (Saline Flush) 2.5 ml FLUSH ASDIRECTED PRN PRN Reason: Keep Vein Open Sodium Chloride (Normal Saline) 10 ml IV ASDIRECTED PRN PRN Reason: IV Use Labs: Laboratory Tests 10/24/19 10/24/19 10/24/19 Range/Units 17:30 17:30 17:30 WBC 6.11 (4.0-11.0) K/uL RBC 4.87 (4.30-5.90) M/uL Hgb 14.7 (12.0-16.0) g/dL Hct 42.6 (36.0-46.0) % MCV 87.5 (80.0-98.0) fL MCH 30.2 (27.0-32.0) pg MCHC 34.5 (31.0-37.0) g/dL RDW Std Deviation 41.9 (28.0-62.0) fl RDW Coeff of Jannette 13 (11.0-15.0) % Plt Count 211 (150-400) K/uL MPV 11.00 (7.40-12.00) fL Neut % (Auto) 54.1 (48.0-80.0) % Lymph % (Auto) 35.7 (16.0-40.0) % [place] % (Auto) 9.7 (0.0-15.0) % Eos % (Auto) 0.2 (0.0-7.0) % Baso % (Auto) 0.3 (0.0-1.5) % Neut # (Auto) 3.3 (1.4-5.7) K/uL Lymph # (Auto) 2.2 (0.6-2.4) K/uL [place] # (Auto) 0.6 (0.0-0.8) K/uL Eos # (Auto) 0.0 (0.0-0.7) K/uL Baso # (Auto) 0.0 (0.0-0.1) K/uL Nucleated RBC % 0.0 /100WBC Nucleated RBCs # 0 K/uL INR 0.96 APTT 30.1 (18.6-31.3) SEC Sodium 144 (136-145) mmol/L Potassium 4.9 (3.5-5.1) mmol/L Chloride 108 H (98-107) mmol/L Carbon Dioxide 24.1 (21.0-32.0) mmol/L BUN 16 (7.0-18.0) mg/dL Creatinine 1.0 (0.6-1.0) mg/dL Est Cr Clr Drug Dosing TNP Estimated GFR (MDRD) 55.0 ml/min Glucose 124 H (74-106) mg/dL Calcium 8.8 (8.5-10.1) mg/dL Total Bilirubin 0.3 (0.2-1.0) mg/dL AST 21 (15-37) IU/L ALT 27 (14-63) IU/L Alkaline Phosphatase 182 H (46-116) U/L Troponin I < 0.050 (0.000-0.056) ng/mL Total Protein 6.5 (6.4-8.2) g/dL Albumin 3.5 (3.4-5.0) g/dL Globulin 3.0 (2.6-4.0) g/dL Albumin/Globulin Ratio 1.2 (0.9-1.6) TSH 3rd Generation 1.14 (0.36-3.74) uIU/mL Urine Color Urine Appearance Urine pH (5.0-8.0) Ur Specific [place] (1.001-1.035) Urine Protein (NEGATIVE) mg/dL Urine Glucose (UA) (NEGATIVE) mg/dL Urine Ketones (NEGATIVE) mg/dL Urine Occult Blood (NEGATIVE) Urine Nitrite (NEGATIVE) Urine Bilirubin (NEGATIVE) Urine Urobilinogen (<2.0) EU/dL Ur Leukocyte Esterase (NEGATIVE) Urine RBC (0-2/HPF) Urine WBC (0-5/HPF) Ur Epithelial Cells (NONE-FEW) Urine Bacteria (NEGATIVE) Urine Mucus (NONE-MOD) Urine Opiates Screen (NEGATIVE) Ur Oxycodone Screen (NEGATIVE) Urine Methadone Screen (NEGATIVE) Ur Barbiturates Screen (NEGATIVE) Ur Phencyclidine Scrn (NEGATIVE) Ur Amphetamine Screen (NEGATIVE) U Methamphetamines Scrn (NEGATIVE) U Benzodiazepines Scrn (NEGATIVE) U Cocaine Metab Screen (NEGATIVE) U Marijuana (THC) Screen (NEGATIVE) Ethyl Alcohol <3 mg/dL 10/24/19 10/24/19 Range/Units 18:18 18:18 WBC (4.0-11.0) K/uL RBC (4.30-5.90) M/uL Hgb (12.0-16.0) g/dL Hct (36.0-46.0) % MCV (80.0-98.0) fL MCH (27.0-32.0) pg MCHC (31.0-37.0) g/dL RDW Std Deviation (28.0-62.0) fl RDW Coeff of Jannette (11.0-15.0) % Plt Count (150-400) K/uL MPV (7.40-12.00) fL Neut % (Auto) (48.0-80.0) % Lymph % (Auto) (16.0-40.0) % [place] % (Auto) (0.0-15.0) % Eos % (Auto) (0.0-7.0) % Baso % (Auto) (0.0-1.5) % Neut # (Auto) (1.4-5.7) K/uL Lymph # (Auto) (0.6-2.4) K/uL [place] # (Auto) (0.0-0.8) K/uL Eos # (Auto) (0.0-0.7) K/uL Baso # (Auto) (0.0-0.1) K/uL Nucleated RBC % /100WBC Nucleated RBCs # K/uL INR APTT (18.6-31.3) SEC Sodium (136-145) mmol/L Potassium (3.5-5.1) mmol/L Chloride (98-107) mmol/L Carbon Dioxide (21.0-32.0) mmol/L BUN (7.0-18.0) mg/dL Creatinine (0.6-1.0) mg/dL Est Cr Clr Drug Dosing Estimated GFR (MDRD) ml/min Glucose (74-106) mg/dL Calcium (8.5-10.1) mg/dL Total Bilirubin (0.2-1.0) mg/dL AST (15-37) IU/L ALT (14-63) IU/L Alkaline Phosphatase (46-116) U/L Troponin I (0.000-0.056) ng/mL Total Protein (6.4-8.2) g/dL Albumin (3.4-5.0) g/dL Globulin (2.6-4.0) g/dL Albumin/Globulin Ratio (0.9-1.6) TSH 3rd Generation (0.36-3.74) uIU/mL Urine Color YELLOW Urine Appearance SLT CLOUDY Urine pH 6.0 (5.0-8.0) Ur Specific [place] >= 1.030 (1.001-1.035) Urine Protein TRACE H (NEGATIVE) mg/dL Urine Glucose (UA) 250 H (NEGATIVE) mg/dL Urine Ketones NEGATIVE (NEGATIVE) mg/dL Urine Occult Blood NEGATIVE (NEGATIVE) Urine Nitrite NEGATIVE (NEGATIVE) Urine Bilirubin NEGATIVE (NEGATIVE) Urine Urobilinogen 0.2 (<2.0) EU/dL Ur Leukocyte Esterase NEGATIVE (NEGATIVE) Urine RBC 0-3 (0-2/HPF) Urine WBC 0-2 (0-5/HPF) Ur Epithelial Cells FEW (NONE-FEW) Urine Bacteria FEW (NEGATIVE) Urine Mucus HEAVY (NONE-MOD) Urine Opiates Screen NEGATIVE (NEGATIVE) Ur Oxycodone Screen POSITIVE (NEGATIVE) Urine Methadone Screen NEGATIVE (NEGATIVE) Ur Barbiturates Screen NEGATIVE (NEGATIVE) Ur Phencyclidine Scrn NEGATIVE (NEGATIVE) Ur Amphetamine Screen NEGATIVE (NEGATIVE) U Methamphetamines Scrn NEGATIVE (NEGATIVE) U Benzodiazepines Scrn NEGATIVE (NEGATIVE) U Cocaine Metab Screen NEGATIVE (NEGATIVE) U Marijuana (THC) Screen POSITIVE (NEGATIVE) Ethyl Alcohol mg/dL Meds: Medications Generic Name Dose Route Start Last Admin Trade Name Freq PRN Reason Stop Dose Admin Propofol 100 mls @ 0 mls/hr 10/24/19 19:00 Diprivan 100 Ml IV TITRATE SHARIFA Protocol 5 MCG/KG/MIN Sodium Chloride 10 ml 10/24/19 17:29 Saline Flush FLUSH ASDIRECTED PRN Keep Vein Open Sodium Chloride 2.5 ml 10/24/19 17:29 Saline Flush FLUSH ASDIRECTED PRN Keep Vein Open Sodium Chloride 10 ml 10/24/19 17:29 Normal Saline IV ASDIRECTED PRN IV Use Discontinued Medications Generic Name Dose Route Start Last Admin Trade Name Freq PRN Reason Stop Dose Admin Propofol Confirm 10/24/19 18:45 Diprivan 100 Ml Administered 10/24/19 18:46 Dose 100 mls @ as directed .ROUTE .STK-MED ONE Naloxone HCl 0.4 mg 10/24/19 18:06 Narcan IVPUSH 10/24/19 18:07 ONETIME ONE Propofol 50 mg 10/24/19 18:51 Diprivan 20 Ml IVPUSH 10/24/19 18:52 ONETIME ONE Departure - Departure Time of Disposition: 19:17 Disposition: DC/Tfer to Acute Hospital 02 Clinical Impression: Altered mental status Qualifiers: Altered mental status type: stupor Qualified Code(s): R40.1 - Stupor Hypotension Qualifiers: Hypotension type: unspecified hypotension type Qualified Code(s): I95.9 - Hypotension, unspecified - Discharge Information Referrals: Darlene Kaplan PA-C [Primary Care Provider] - Forms: ED Department Discharge Sepsis Event Note - Evaluation Sepsis Screening Result: No Definite Risk - Focused Exam Vital Signs: Vital Signs Temp Pulse Resp BP Pulse Ox 10/24/19 17:50 96.2 F 57 L 12 86/43 L 96 Date Exam was Performed: 10/24/19 Time Exam was Performed: 19:14 - My Orders Last 24 Hours: My Active Orders 10/24/19 17:29 Assess Neurological Status [RC] ASDIRECTED Bedrest [RC] ASDIRECTED Blood Glucose Check, Bedside [RC] ONETIME Cardiac Monitoring [RC] . DIRECTED EKG Documentation Completion [RC] STAT Height and Weight [RC] UPON Initiate Acute Stroke Protocol [RC] STAT NIH Stroke Scale [RC] ASDIRECTED Nursing Bedside Swallow Screen [RC] ASDIRECTED Oxygen Therapy [RC] ASDIRECTED Stroke Education, General [RC] Click to Edit Vital Signs [RC] Q15M Sodium Chloride 0.9% [Normal Saline] 10 ml IV ASDIRECTED PRN Sodium Chloride 0.9% [Saline Flush] 10 ml FLUSH ASDIRECTED PRN Sodium Chloride 0.9% [Saline Flush] 2.5 ml FLUSH ASDIRECTED PRN Peripheral IV Insertion Adult [OM.PC] Stat Peripheral IV Insertion Adult [OM.PC] Stat 10/24/19 17:31 EKG Documentation Completion [RC] STAT - Assessment/Plan Last 24 Hours: My Active Orders 10/24/19 17:29 Assess Neurological Status [RC] ASDIRECTED Bedrest [RC] ASDIRECTED Blood Glucose Check, Bedside [RC] ONETIME Cardiac Monitoring [RC] . DIRECTED EKG Documentation Completion [RC] STAT Height and Weight [RC] UPON Initiate Acute Stroke Protocol [RC] STAT NIH Stroke Scale [RC] ASDIRECTED Nursing Bedside Swallow Screen [RC] ASDIRECTED Oxygen Therapy [RC] ASDIRECTED Stroke Education, General [RC] Click to Edit Vital Signs [RC] Q15M Sodium Chloride 0.9% [Normal Saline] 10 ml IV ASDIRECTED PRN Sodium Chloride 0.9% [Saline Flush] 10 ml FLUSH ASDIRECTED PRN Sodium Chloride 0.9% [Saline Flush] 2.5 ml FLUSH ASDIRECTED PRN Peripheral IV Insertion Adult [OM.PC] Stat Peripheral IV Insertion Adult [OM.PC] Stat 10/24/19 17:31 EKG Documentation Completion [RC] STAT
[2019-10-24] MEDS ORDERED: Naloxone 0.4 MG/ML Syringe IVPUSH ONE (18:06)
--- NOTE | 2019-10-24 18:10 | CR ---
Indication: Stroke code. Technique: Single AP portable view of the chest. Comparison: None Findings: The heart is normal in size. Postoperative changes of the thoracic spine are identified. The right hemidiaphragm is elevated. The lungs are clear. No infiltrate or pneumothorax is identified. Impression: No acute cardiopulmonary process. Dictated by Deepthi Silverman MD @ Oct 24 2019 6:07PM Signed by Dr. Deepthi Silverman @ Oct 24 2019 6:08PM
[2019-10-24 18:38] LABS: BLOOD UREA NITROGEN,BUN 16 mg/dL (7.0-18.0); CARBON DIOXIDE,CO2 24.1 mmol/L (21.0-32.0); CHLORIDE,CL 108 mmol/L (98-107); GLUCOSE RANDOM 124 mg/dL (74-106); POTASSIUM,K 4.9 mmol/L (3.5-5.1); SODIUM,NA 144 mmol/L (136-145)
[2019-10-24] MEDS ORDERED: Etomidate 2 MG/ML 20 ML SDV IVPUSH ONE (18:42)
[2019-10-24] MEDS ORDERED: Rocuronium 100 MG/10 ML Syringe IVPUSH ONE (18:43)
[2019-10-24] MEDS ORDERED: propofoL 100 ML ONE (18:45)
[2019-10-24] MEDS ORDERED: Propofol 200 MG/20 ML SDV IVPUSH ONE (18:51)
[2019-10-24] MEDS ORDERED: propofoL 100 ML IV SCH (19:00)
--- NOTE | 2019-10-24 19:13 | CR ---
Indication: Post intubation Technique: Chest 1 view Comparison: 10/24/2019 at 5:51 p.m. Findings/Impression: An endotracheal tube with the tip approximately 2.6 cm above the vladimir. A nasogastric tube with tip below the diaphragm. Stable cardiomediastinal silhouette. No lobar consolidation or pleural effusions. Postsurgical changes again seen in the thoracic and upper lumbar spine. Dictated by Trevor Merrill MD @ 10/24/2019 7:10:49 PM Dictated by: Trevor Merrill MD @ 10/24/2019 19:11:43 (Electronically Signed)
[2019-10-24 22:19] VITALS: PULSE 51
[2019-10-24 22:22] VITALS: BP 105/63
== END 2019-10-24 19:44 ==
LOC: MW.ED 17:15
DX: I95.9 Hypotension, unspecified (principal); R40.1 Stupor; I11.0 Hypertensive heart disease with heart failure; I50.9 Heart failure, unspecified; J44.9 Chronic obstructive pulmonary disease, unspecified; F32.9 Major depressive disorder, single episode, unspecified; Z79.899 Other long term (current) drug therapy; Z88.6 Allergy status to analgesic agent; Z88.8 Allergy status to other drugs, medicaments and biological substances
CPT/HCPCS: 31500; 70450; 71045; 80053; 80305; 81001; 84443; 84484; 85025; 85610; 85730; 93005; 99285; A9270; G0480; J0330; J2704; J3490; J7030

== ENCOUNTER 2019-11-05 11:43 | Emergency (ER) | payer MEDICARE, MEDICAID ==
--- NOTE | 2019-11-05 12:18 | EDM.PDOC ---
ED HPI GENERAL MEDICAL PROBLEM - General Chief Complaint: Back Pain or Injury Stated Complaint: FELL Time Seen by Provider: 11/05/19 12:07 Source of Information: Reports: Patient - History of Present Illness INITIAL COMMENTS - FREE TEXT/NARRATIVE: Patient states that she fell from a standing height when she got up off her couch, took a few steps, and then slipped on a wet floor in her living room. She complains of pain in her neck and in her low back. Denies any loss of bladder or bowel control, apart from stress incontinence which she says is not new for her. No lower extremity numbness. Not lose consciousness or hit her head. No preceding chest pain or palpitations. Back pain Pain Score (Numeric/FACES): 8 - Related Data Allergies Allergy/AdvReac Type Severity Reaction Status Date / Time cyclobenzaprine HCl Allergy Anaphylactic Verified 11/05/19 11:50 [From Flexeril] Shock ketorolac tromethamine Allergy Hives Verified 11/05/19 11:50 [From Toradol] Home Meds: Home Meds DULoxetine [Cymbalta] 60 mg PO BID 06/07/16 [History] Paliperidone [Invega] 6 mg PO BEDTIME 04/21/17 [History] Furosemide [Lasix] 40 mg PO DAILY 01/07/18 [History] OLANZapine [Olanzapine] 10 mg PO BEDTIME 01/07/18 [History] Pravastatin Sodium 10 mg PO BEDTIME 01/07/18 [History] Propranolol [Inderal] 20 mg PO BID 01/07/18 [History] hydrOXYzine pamoate [Hydroxyzine Pamoate] 25 mg PO BEDTIME 01/07/18 [History] Gabapentin [Neurontin] 600 mg PO TID 09/28/18 [History] Mirtazapine 15 mg PO BEDTIME 09/28/18 [History] OLANZapine [Olanzapine] 10 mg PO BEDTIME 09/28/18 [History] Potassium Chloride [Klor-Con M20] 20 meq PO DAILY 09/28/18 [History] Past Medical History - Past Health History Medical/Surgical History: Denies Medical/Surgical History HEENT History: Reports: Hard of Hearing Other HEENT History: wears glasses, top and bottom partial Cardiovascular History: Reports: Angina, Heart Failure, Hypertension, Other ( See Below) Other Cardiovascular History: Mitral Valve Prolapse Respiratory History: Reports: COPD Other Respiratory History: hx TB at 18 yrs old Gastrointestinal History: Reports: None Genitourinary History: Reports: Other (See Below) Other Genitourinary History: occasional urinary incontinence 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 Musculoskeletal History: Reports: Arthritis, Back Pain, Chronic, Fibromyalgia, Osteoarthritis Other Musculoskeletal History: chronic neck pain Neurological History: Reports: MS Other Neuro History: possible MS Psychiatric History: Reports: Bipolar, Depression Other Psychiatric History: multiple personalities Endocrine/Metabolic History: Reports: Hyperthyroidism Hematologic History: Reports: Blood Transfusion(s), Other (See Below) Other Hematologic History: states had blood transfusion after back surgery Oncologic (Cancer) History: Reports: Cervix Other Oncologic History: had hysterectomy for cervix CA Dermatologic History: Reports: None - Infectious Disease History Infectious Disease History: Reports: None - Past Surgical History Head Surgeries/Procedures: Reports: None Musculoskeletal Surgical History: Reports: Other (See Below) Social & Family History - Family History Family Medical History: Noncontributory HEENT: Reports: Macular Degeneration Cardiac: Reports: None Respiratory: Reports: Asthma, COPD GI: Reports: None : Reports: None Musculoskeletal: Reports: Back pain, Chronic Neurological: Reports: None Oncologic: Reports: Breast, Lung Other Oncologic Family History: parents both had Cancer - Tobacco Use Smoking Status *Q: Unknown Ever Smoked - Caffeine Use Caffeine Use: Reports: None ED ROS GENERAL - Review of Systems Review Of Systems: See Below Constitutional: Denies: Fever, Malaise, Weakness HEENT: Denies: Vertigo Cardiovascular: Denies: Chest Pain, Palpitations GI/Abdominal: Denies: Nausea, Vomiting Musculoskeletal: Reports: Neck Pain, Back Pain Neurological: Denies: Numbness, Paresthesia, Seizure, Syncope, Tingling, Tremors , Trouble Speaking, Difficulty Walking, Change in Speech ED EXAM,LOWER BACK PAIN/INJURY - Physical Exam Exam: See Below Text/Narrative:: General: alert, well appearing, no acute distress HEENT: Atraumatic, normocephalic, pupils reactive, negative for conjunctival pallor or scleral icterus, mucous membranes moist, throat clear, handling oral secretions well. Neck: No step-off, crepitus, deformity. No point tenderness. Trachea midline. Back: There is midline tenderness in the lumbar region. There is bilateral paraspinal lumbar region tenderness. Negative straight leg raise bilaterally. Lungs: Clear to auscultation, breath sounds equal bilaterally, chest nontender. Heart: S1S2, regular, negative for clicks, rubs, or JVD. Abdomen: Soft, nondistended, nontender. Negative for masses or hepatosplenomegaly. Skin: warm, dry, good turgor. Pelvis: Stable, nontender. Musculoskeletal: soft compartments. Extremities: Atraumatic, negative for cords or calf pain. No bony tenderness or deformity of the extremities. Neuro: Awake, alert, oriented. Cranial nerves II through XII unremarkable. Motor and sensory unremarkable throughout. 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 4 out of 5 power in the extremities. Course - Vital Signs Text/Narrative:: CT C spine: no acute fx; + scoliosis L spine CT: no acute fx or sublux EK bpm sinus bradycardia normal axis prolonged GA interval, first-degree AV block is present, normal QRS, normal QTC; no acute ST changes 2:16pm Patient and his mentioned that the patient had this happen after he ate jalapenos. He has been advised not to eat any more jalapenos. Advised patient of results. There is no acute fracture, so c-collar has been removed and patient is appropriate for discharge. We will give her some acetaminophen prior to discharge. She is asked to follow-up with the medicine clinic or with her family doctor within the next 3 days. Return here for new, changing, or worsening symptoms. Last Recorded V/S: Last Vital Signs Temp 97.9 F 11/05/19 11:50 Pulse 79 11/05/19 14:45 Resp 20 11/05/19 11:50 BP 89/58 L 11/05/19 14:45 Pulse Ox 97 11/05/19 14:45 - Orders/Labs/Meds Orders: Active Orders 24 hr Category Date Time Status Communication Order [RC] STAT Care 11/05/19 12:15 Active EKG 12 Lead [EKG Documentation Completion] [RC] ROUTINE Care 11/05/19 12:32 Active Ready for Discharge [RC] PER UNIT ROUTINE Care 11/05/19 14:06 Active Meds: Medications Discontinued Medications Generic Name Dose Route Start Last Admin Trade Name Freq PRN Reason Stop Dose Admin Acetaminophen 500 mg 11/05/19 14:05 11/05/19 19:51 Tylenol Extra Strength PO 11/05/19 14:06 Not Given ONETIME ONE Departure - Departure Time of Disposition: 14:07 Disposition: Home, Self-Care 01 Condition: Good Clinical Impression: Neck pain Chronic back pain Qualifiers: Back pain location: low back pain Back pain laterality: bilateral Sciatica presence: without sciatica Qualified Code(s): M54.5 - Low back pain - Discharge Information Instructions: Back Exercises, Cervical Strain and Sprain Rehab-SportsMed, Chronic Pain, Adult Referrals: PCP,Unobtain [Primary Care Provider] - 3 Days ([facility] [address] [place] [id number] ) Forms: ED Department Discharge Additional Instructions: The following information is given to patients seen in the emergency department who are being discharged to home. This information is to outline your options for follow-up care. We provide all patients seen in our emergency department with a follow-up referral. The need for follow-up, as well as the timing and circumstances, are variable depending upon the specifics of your emergency department visit. If you don't have a primary care physician on staff, we will provide you with a referral. We always advise you to contact your personal physician following an emergency department visit to inform them of the circumstance of the visit and for follow-up with them and/or the need for any referrals to a consulting specialist. The emergency department will also refer you to a specialist when appropriate. This referral assures that you have the opportunity for follow-up care with a specialist. All of these measure are taken in an effort to provide you with optimal care, which includes your follow-up. Under all circumstances we always encourage you to contact your private physician who remains a resource for coordinating your care. When calling for follow-up care, please make the office aware that this follow-up is from your recent emergency room visit. If for any reason you are refused follow-up, please contact the [facility] Emergency Department at and ask to speak to the emergency department charge nurse. Sepsis Event Note - Evaluation Sepsis Screening Result: No Definite Risk - Focused Exam Vital Signs: Vital Signs Temp Pulse Resp BP Pulse Ox 11/05/19 14:45 79 89/58 L 97 11/05/19 11:50 97.9 F 56 L 20 103/57 L 90 L Date Exam was Performed: 11/05/19 Time Exam was Performed: 20:22 - My Orders Last 24 Hours: My Active Orders 11/05/19 12:15 Communication Order [RC] STAT 11/05/19 12:32 EKG 12 Lead [EKG Documentation Completion] [RC] ROUTINE 11/05/19 14:06 Ready for Discharge [RC] PER UNIT ROUTINE - Assessment/Plan Last 24 Hours: My Active Orders 11/05/19 12:15 Communication Order [RC] STAT 11/05/19 12:32 EKG 12 Lead [EKG Documentation Completion] [RC] ROUTINE 11/05/19 14:06 Ready for Discharge [RC] PER UNIT ROUTINE
--- NOTE | 2019-11-05 13:45 | CT ---
CT lumbar spine Technique: Multiple axial sections through the lumbar spine were obtained. Reconstructed coronal and sagittal images were obtained. Findings: Severe disc space narrowing noted at L2-3 with endplate sclerosis and vacuum phenomena. Posterior osteophytes and anterior osteophytes are seen. Severe disc space narrowing with vacuum disc phenomena is noted at L3-4 with posterior osteophytes and anterior osteophytes. Severe disc space narrowing is noted L4-5 with vacuum disc phenomena. Posterior osteophytes are noted as well as anterior osteophytes. Severe disc space narrowing is noted at L5-S1 with vacuum phenomena and posterior and anterior osteophytes. Diffuse degenerative apophyseal change is appreciated. Artifact is noted within the thoracic spine that is seen from spinal fixation rods. No fracture is seen within the lumbar spine. Vacuum phenomena is seen within the sacroiliac joints. No abnormal subluxation is seen within the thoracic spine. Scoliosis is present. Impression: 1. Degenerative change as noted above with scoliosis. 2. Artifact within the lower thoracic spine from spinal fixation rods. 3. No acute fracture or abnormal subluxation is appreciated. Diagnostic code #2 This report was dictated in [place] Standard Time
--- NOTE | 2019-11-05 13:45 | CT ---
CT cervical spine Comparison: No prior cervical spine imaging. Findings: Scoliosis and diffuse degenerative change is noted throughout the cervical spine. No acute fracture or acute subluxation is seen. Impression: 1. Scoliosis and diffuse degenerative change. 2. Nothing acute is appreciated on CT study of the cervical spine. Diagnostic code #2 This report was dictated in [place] Standard Time
[2019-11-05] MEDS ORDERED: Acetaminophen 500 MG Tab PO ONE (14:05)
[2019-11-05 15:07] VITALS: BP 89/58; PULSE 79
== END 2019-11-05 15:07 | disposition home or self-care (01) ==
LOC: MW.ED 11:43
DX: M54.2 Cervicalgia (principal); M54.5 Low back pain; I11.0 Hypertensive heart disease with heart failure; I50.9 Heart failure, unspecified; F31.9 Bipolar disorder, unspecified; E05.90 Thyrotoxicosis, unspecified without thyrotoxic crisis or storm; Z79.899 Other long term (current) drug therapy; Z88.6 Allergy status to analgesic agent
CPT/HCPCS: 72125; 72125-26; 72131; 72131-26; 93005; 99283; 99284-25

== ENCOUNTER 2020-04-24 15:01 | Observation (INO) | payer MEDICARE, MEDICAID, OTHER ==
[2020-04-24] MEDS ORDERED: Sodium Chloride 0.9% 2.5 ML Syringe FLUSH PRN (15:36)
[2020-04-24] MEDS ORDERED: Sodium Chloride 0.9% 10 ML Syringe FLUSH PRN (15:36)
--- NOTE | 2020-04-24 15:43 | EDM.PDOC ---
ED HPI GENERAL MEDICAL PROBLEM - General Chief Complaint: General Stated Complaint: STROKE SYMPTOMS Time Seen by Provider: 04/24/20 15:02 Source of Information: Reports: Patient, Old Records History Limitations: Reports: No Limitations - Related Data Allergies Allergy/AdvReac Type Severity Reaction Status Date / Time cyclobenzaprine HCl Allergy Anaphylactic Verified 04/24/20 15:05 [From Flexeril] Shock ketorolac tromethamine Allergy Hives Verified 04/24/20 15:05 [From Toradol] Home Meds: Home Meds DULoxetine [Cymbalta] 60 mg PO BID 06/07/16 [History] Paliperidone [Invega] 6 mg PO BEDTIME 04/21/17 [History] Furosemide [Lasix] 40 mg PO DAILY 01/07/18 [History] OLANZapine [Olanzapine] 10 mg PO BEDTIME 01/07/18 [History] Pravastatin Sodium 10 mg PO BEDTIME 01/07/18 [History] Propranolol [Inderal] 20 mg PO BID 01/07/18 [History] hydrOXYzine pamoate [Hydroxyzine Pamoate] 25 mg PO BEDTIME 01/07/18 [History] Gabapentin [Neurontin] 600 mg PO TID 09/28/18 [History] Mirtazapine 15 mg PO BEDTIME 09/28/18 [History] OLANZapine [Olanzapine] 10 mg PO BEDTIME 09/28/18 [History] Potassium Chloride [Klor-Con M20] 20 meq PO DAILY 09/28/18 [History] Past Medical History - Past Health History Medical/Surgical History: Denies Medical/Surgical History HEENT History: Reports: Hard of Hearing Other HEENT History: wears glasses, top and bottom partial Cardiovascular History: Reports: Angina, Heart Failure, Hypertension, Other (See Below) Other Cardiovascular History: Mitral Valve Prolapse Respiratory History: Reports: COPD Other Respiratory History: hx TB at 18 yrs old Gastrointestinal History: Reports: None Genitourinary History: Reports: Other (See Below) Other Genitourinary History: occasional urinary incontinence 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 Musculoskeletal History: Reports: Arthritis, Back Pain, Chronic, Fibromyalgia, Osteoarthritis Other Musculoskeletal History: chronic neck pain Neurological History: Reports: MS Other Neuro History: possible MS Psychiatric History: Reports: Bipolar, Depression Other Psychiatric History: multiple personalities Endocrine/Metabolic History: Reports: Hyperthyroidism Hematologic History: Reports: Blood Transfusion(s), Other (See Below) Other Hematologic History: states had blood transfusion after back surgery Immunologic History: Reports: None Oncologic (Cancer) History: Reports: Cervix Other Oncologic History: had hysterectomy for cervix [place] Dermatologic History: Reports: None - Infectious Disease History Infectious Disease History: Reports: Measles, TB - Past Surgical History Head Surgeries/Procedures: Reports: None HEENT Surgical History: Reports: None Cardiovascular Surgical History: Reports: None Respiratory Surgical History: Reports: None GI Surgical History: Reports: None Female Surgical History: Reports: None Neurological Surgical History: Reports: None Musculoskeletal Surgical History: Reports: Other (See Below) Oncologic Surgical History: Reports: None Dermatological Surgical History: Reports: None Social & Family History - Family History Family Medical History: Noncontributory HEENT: Reports: Macular Degeneration Cardiac: Reports: None Respiratory: Reports: Asthma, COPD GI: Reports: None : Reports: None Musculoskeletal: Reports: Back pain, Chronic Neurological: Reports: None Oncologic: Reports: Breast, Lung Other Oncologic Family History: parents both had Cancer - Tobacco Use Smoking Status *Q: Current Every Day Smoker Years of Tobacco use: 50 Packs/Tins Daily: 1 - Caffeine Use Caffeine Use: Reports: None - Recreational Drug Use Recreational Drug Use: No Course - Vital Signs Last Recorded V/S: Last Vital Signs Temp 35.9 C L 04/24/20 15:03 Pulse 89 04/24/20 15:03 Resp 17 04/24/20 15:03 BP 132/45 L 04/24/20 15:03 Pulse Ox 94 L 04/24/20 15:03 - Orders/Labs/Meds Orders: Active Orders 24 hr Category Date Time Status Cardiac Monitoring [RC] . DIRECTED Care 04/24/20 15:36 Active EKG Documentation Completion [RC] STAT Care 04/24/20 15:36 Active POC Glucose [Blood Glucose Check, Bedside] [RC] ONETIME Care 04/24/20 15:05 Active Pulse Oximetry [RC] ASDIRECTED Care 04/24/20 15:36 Active Ang Head [CT] Stat Exams 04/24/20 15:36 Ordered Ang Neck [CT] Stat Exams 04/24/20 15:36 Ordered CBC WITH AUTO DIFF [HEME] Stat Lab 04/24/20 15:37 Ordered COMPREHENSIVE METABOLIC PN,CMP [CHEM] Stat Lab 04/24/20 15:36 Ordered DRUG SCREEN, URINE [URCHEM] Stat Lab 04/24/20 15:40 Ordered ETHANOL BLOOD MEDICAL [CHEM] Stat Lab 04/24/20 15:36 Ordered INR,PT,PROTHROMBIN TIME [COAG] Stat Lab 04/24/20 15:36 Ordered TROPONIN I [CHEM] Stat Lab 04/24/20 15:36 Ordered Sodium Chloride 0.9% [Saline Flush] Med 04/24/20 15:36 Active 10 ml FLUSH ASDIRECTED PRN Sodium Chloride 0.9% [Saline Flush] Med 04/24/20 15:36 Active 2.5 ml FLUSH ASDIRECTED PRN Saline Lock Insert [OM.PC] Stat Oth 04/24/20 15:36 Ordered Medication Orders Sodium Chloride (Saline Flush) 10 ml FLUSH ASDIRECTED PRN PRN Reason: Keep Vein Open Sodium Chloride (Saline Flush) 2.5 ml FLUSH ASDIRECTED PRN PRN Reason: Keep Vein Open Meds: Medications Generic Name Dose Route Start Last Admin Trade Name Freq PRN Reason Stop Dose Admin Sodium Chloride 10 ml 04/24/20 15:36 Saline Flush FLUSH ASDIRECTED PRN Keep Vein Open Sodium Chloride 2.5 ml 04/24/20 15:36 Saline Flush FLUSH ASDIRECTED PRN Keep Vein Open Departure - Discharge Information Referrals: [facility] [Primary Care Provider] - Sepsis Event Note (ED) - Evaluation Sepsis Screening Result: No Definite Risk - Focused Exam Vital Signs: Vital Signs Temp Pulse Resp BP Pulse Ox 04/24/20 15:03 35.9 C L 89 17 132/45 L 94 L - My Orders Last 24 Hours: My Active Orders 04/24/20 15:05 POC Glucose [Blood Glucose Check, Bedside] [RC] ONETIME 04/24/20 15:36 Cardiac Monitoring [RC] . DIRECTED EKG Documentation Completion [RC] STAT Pulse Oximetry [RC] ASDIRECTED Ang Head [CT] Stat Ang Neck [CT] Stat COMPREHENSIVE METABOLIC PN,CMP [CHEM] Stat ETHANOL BLOOD MEDICAL [CHEM] Stat INR,PT,PROTHROMBIN TIME [COAG] Stat TROPONIN I [CHEM] Stat Sodium Chloride 0.9% [Saline Flush] 10 ml FLUSH ASDIRECTED PRN Sodium Chloride 0.9% [Saline Flush] 2.5 ml FLUSH ASDIRECTED PRN Saline Lock Insert [OM.PC] Stat 04/24/20 15:37 CBC WITH AUTO DIFF [HEME] Stat 04/24/20 15:40 DRUG SCREEN, URINE [URCHEM] Stat - Assessment/Plan Last 24 Hours: My Active Orders 04/24/20 15:05 POC Glucose [Blood Glucose Check, Bedside] [RC] ONETIME 04/24/20 15:36 Cardiac Monitoring [RC] . DIRECTED EKG Documentation Completion [RC] STAT Pulse Oximetry [RC] ASDIRECTED Ang Head [CT] Stat Ang Neck [CT] Stat COMPREHENSIVE METABOLIC PN,CMP [CHEM] Stat ETHANOL BLOOD MEDICAL [CHEM] Stat INR,PT,PROTHROMBIN TIME [COAG] Stat TROPONIN I [CHEM] Stat Sodium Chloride 0.9% [Saline Flush] 10 ml FLUSH ASDIRECTED PRN Sodium Chloride 0.9% [Saline Flush] 2.5 ml FLUSH ASDIRECTED PRN Saline Lock Insert [OM.PC] Stat 04/24/20 15:37 CBC WITH AUTO DIFF [HEME] Stat 04/24/20 15:40 DRUG SCREEN, URINE [URCHEM] Stat
[2020-04-24] MEDS ORDERED: Aspirin 81 MG Tab.Chew PO ONE (16:15)
[2020-04-24 16:18] LABS: BLOOD UREA NITROGEN,BUN 22 mg/dL (7.0-18.0); CARBON DIOXIDE,CO2 27.7 mmol/L (21.0-32.0); CHLORIDE,CL 103 mmol/L (98-107); GLUCOSE RANDOM 114 mg/dL (74-106); POTASSIUM,K 5.3 mmol/L (3.5-5.1); SODIUM,NA 137 mmol/L (136-145)
--- NOTE | 2020-04-24 16:19 | EDM.PDOC ---
ED HPI GENERAL MEDICAL PROBLEM - General Chief Complaint: General Stated Complaint: STROKE SYMPTOMS Time Seen by Provider: 04/24/20 15:02 Source of Information: Reports: Patient, Old Records History Limitations: Reports: No Limitations - History of Present Illness INITIAL COMMENTS - FREE TEXT/NARRATIVE: 69-year-old female past medical history of hypertension, hyperlipidemia, chronic back pain, COPD presenting with concern for stroke symptoms. Patient states that around 4:30 PM yesterday (approximately 25 hours ago), she was visiting a friend who thought that the patient had slurred speech and thought that 1 side of her face was drooped (unsure which side). The patient did not seek medical attention at that time and states that her slurred speech and facial droop went away at some point yesterday. The patient decided to come to the emergency department this afternoon for evaluation. At this point she complains of some mild left-sided facial numbness. She states that she did have a headache yesterday but this went away. She denies any visual disturbance, neck pain or stiffness, dysphasia, gait changes, coordination changes, extremity numbness or weakness, or recent head trauma. No anticoagulation or antiplatelet medication usage. No history of CVA or TIA per patient, although ischemic CVA is charted on her EMR problem list, she has no knowledge of this. She denies any pre-existing neurologic deficits. - Related Data Allergies Allergy/AdvReac Type Severity Reaction Status Date / Time cyclobenzaprine HCl Allergy Anaphylactic Verified 04/24/20 15:05 [From Flexeril] Shock ketorolac tromethamine Allergy Hives Verified 04/24/20 15:05 [From Toradol] Home Meds: Home Meds DULoxetine [Cymbalta] 60 mg PO BID 06/07/16 [History] Paliperidone [Invega] 6 mg PO BEDTIME 04/21/17 [History] Furosemide [Lasix] 40 mg PO DAILY 01/07/18 [History] OLANZapine [Olanzapine] 10 mg PO BEDTIME 01/07/18 [History] Pravastatin Sodium 10 mg PO BEDTIME 01/07/18 [History] Propranolol [Inderal] 20 mg PO BID 01/07/18 [History] hydrOXYzine pamoate [Hydroxyzine Pamoate] 25 mg PO BEDTIME 01/07/18 [History] Gabapentin [Neurontin] 600 mg PO TID 09/28/18 [History] Mirtazapine 15 mg PO BEDTIME 09/28/18 [History] OLANZapine [Olanzapine] 10 mg PO BEDTIME 09/28/18 [History] Potassium Chloride [Klor-Con M20] 20 meq PO DAILY 09/28/18 [History] Past Medical History HEENT History: Reports: Hard of Hearing Other HEENT History: wears glasses, top and bottom partial Cardiovascular History: Reports: Angina, Heart Failure, Hypertension, Other (See Below) Other Cardiovascular History: Mitral Valve Prolapse Respiratory History: Reports: COPD Other Respiratory History: hx TB at 18 yrs old Gastrointestinal History: Reports: None Genitourinary History: Reports: Other (See Below) Other Genitourinary History: occasional urinary incontinence [employer] History: Reports: Other (See Below) Other [employer] 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 Musculoskeletal History: Reports: Arthritis, Back Pain, Chronic, Fibromyalgia, Osteoarthritis Other Musculoskeletal History: chronic neck pain Neurological History: Reports: MS Other Neuro History: possible MS Psychiatric History: Reports: Bipolar, Depression Other Psychiatric History: multiple personalities Endocrine/Metabolic History: Reports: Hyperthyroidism Hematologic History: Reports: Blood Transfusion(s), Other (See Below) Other Hematologic History: states had blood transfusion after back surgery Immunologic History: Reports: None Oncologic (Cancer) History: Reports: Cervix Other Oncologic History: had hysterectomy for cervix CA Dermatologic History: Reports: None - Infectious Disease History Infectious Disease History: Reports: Measles, TB - Past Surgical History Head Surgeries/Procedures: Reports: None HEENT Surgical History: Reports: None Cardiovascular Surgical History: Reports: None Respiratory Surgical History: Reports: None GI Surgical History: Reports: None Female Surgical History: Reports: None Neurological Surgical History: Reports: None Musculoskeletal Surgical History: Reports: Other (See Below) Oncologic Surgical History: Reports: None Dermatological Surgical History: Reports: None Social & Family History - Family History Family Medical History: Noncontributory HEENT: Reports: Macular Degeneration Cardiac: Reports: None Respiratory: Reports: Asthma, COPD GI: Reports: None : Reports: None Musculoskeletal: Reports: Back pain, Chronic Neurological: Reports: None Oncologic: Reports: Breast, Lung Other Oncologic Family History: parents both had Cancer - Tobacco Use Smoking Status *Q: Current Every Day Smoker Years of Tobacco use: 50 Packs/Tins Daily: 1 - Caffeine Use Caffeine Use: Reports: None - Recreational Drug Use Recreational Drug Use: No ED ROS GENERAL - Review of Systems Review Of Systems: See Below ED EXAM, NEURO - Physical Exam Exam: See Below Text/Narrative:: Vital signs reviewed. Nursing notes reviewed. Constitutional: Awake, alert, non-distressed. Head: Normocephalic, atraumatic. Eyes: EOMI, conjunctiva normal, no discharge, no scleral icterus. PERRL @3mm bilaterally. Ears, Nose, Throat: External ears and nose normal, moist oral mucosa. Cardiovascular: 2+ radial pulse, capillary refill less than 2 seconds. Pulmonary: normal work of breathing, no accessory muscle use. Abdomen/GI: Soft, nontender, nondistended, no guarding or rigidity, no masses. Musculoskeletal: No deformities. Integumentary: Appropriate color for ethnicity, warm, dry, no pallor or jaundice, no rash. Neurologic: Awake, alert, and oriented x3. Cranial nerves II through XII intact . There does appear to be right-sided facial droop while face is resting, but none with asked to smile. Difficulty repeating complex sentences (uses wrong words). No temporal artery tenderness. Supple neck with normal range of motion. No pronator drift. Normal [id number] and [id number]. No dysdiadochokinesia. 5/5 strength in all extremities. Sensation intact to light touch x4. Normal visual cheng, no field cuts. Able to sit, stand, and ambulate without assistance. Psychiatric: Appropriate mood and affect, normal thought process. EKG INTERPRETATION EKG Interpretation Comments: 12-Lead ECG Interpretation Acquired: 3:50 PM Rhythm: Sinus rhythm Rate: 80 bpm [place]: Normal Intervals: First-degree AV block Ectopy: None RV Strain: No obvious RV strain pattern. ST Segments/T-Waves: T wave inversions in lead I, aVL Compared to 11/05/2019, new T wave inversions in lead I and deeper T wave inversions in lead aVL, otherwise no acute findings. Course - Vital Signs Text/Narrative:: Patient hemodynamically stable, afebrile, well-appearing, looks nontoxic. Differential diagnosis includes but is not limited to: CVA, hepatic or hypertensive encephalopathy, hypo-/hyperglycemia, hypo-/hyperthermia, opiate overdose, alcohol intoxication, electrolyte abnormality, uremia, traumatic injury, toxic substances, intracerebral tumor, thyrotoxicosis, infection, psychiatric condition, seizure, sepsis, and many others. On exam, NIH stroke scale of 2 for mild dysarthria and right-sided facial droop. Symptoms are subacute in nature, 25 hours prior to arrival was the onset. Patient is not a candidate for systemic thrombolysis and her presentation is not consistent with a large vessel occlusion/LVO. IV access was established and labs were sent off. Mild hyperkalemia at 5.3. Mild renal insufficiency. Negative troponin. Drug screen positive for opiates. Negative Tylenol. Twelve-lead EKG shows new T wave inversions in lead I, otherwise no acute findings. We pursued CT imaging of the head and neck with angiography. This showed no intracranial hemorrhage, or evidence of stroke, or other abnormality. Patient was given full dose aspirin. Given neurologic deficits, there is some concern for ischemic stroke even though imaging is negative at this point. Patient will need MR imaging, telemetry, possible neurology consultation in the morning. We will plan to admit to observation status under the hospitalist. I spoke with the hospitalist Dr. San who agrees to admit. Last Recorded V/S: Last Vital Signs Temp 35.9 C L 04/24/20 15:03 Pulse 85 04/24/20 18:05 Resp 16 04/24/20 18:05 BP 126/69 04/24/20 18:05 Pulse Ox 94 L 04/24/20 18:05 - Orders/Labs/Meds Orders: Active Orders 24 hr Category Date Time Status Admission Status [Patient Status] [ADT] Stat ADT 04/24/20 18:05 Active Assess Neurological Status [RC] CONTINUOUS Care 04/24/20 16:16 Active Cardiac Monitoring [RC] . DIRECTED Care 04/24/20 15:36 Active Communication Order [RC] STAT Care 04/24/20 16:16 Active EKG Documentation Completion [RC] STAT Care 04/24/20 15:36 Active Height and Weight [RC] UPON Care 04/24/20 16:16 Active NIH Stroke Scale [RC] STAT Care 04/24/20 16:16 Active Nursing Bedside Swallow Screen [RC] STAT Care 04/24/20 16:16 Active POC Glucose [Blood Glucose Check, Bedside] [RC] ONETIME Care 04/24/20 15:05 Active Pulse Oximetry [RC] ASDIRECTED Care 04/24/20 15:36 Active Vital Signs [RC] Q15M Care 04/24/20 16:16 Active Head wo Cont [CT] Routine Exams 04/24/20 Ordered CORONAVIRUS COVID-19 PCR PHL Stat Lab 04/24/20 18:06 Ordered Sodium Chloride 0.9% [Saline Flush] Med 04/24/20 15:36 Active 10 ml FLUSH ASDIRECTED PRN Sodium Chloride 0.9% [Saline Flush] Med 04/24/20 15:36 Active 2.5 ml FLUSH ASDIRECTED PRN Saline Lock Insert [OM.PC] Stat Oth 04/24/20 15:36 Ordered Medication Orders Sodium Chloride (Saline Flush) 10 ml FLUSH ASDIRECTED PRN PRN Reason: Keep Vein Open Sodium Chloride (Saline Flush) 2.5 ml FLUSH ASDIRECTED PRN PRN Reason: Keep Vein Open Labs: Laboratory Tests 04/24/20 04/24/20 04/24/20 Range/Units 15:50 15:50 15:50 WBC 5.79 (4.0-11.0) K/uL RBC 4.28 L (4.30-5.90) M/uL Hgb 12.8 (12.0-16.0) g/dL Hct 39.6 (36.0-46.0) % MCV 92.5 (80.0-98.0) fL MCH 29.9 (27.0-32.0) pg MCHC 32.3 (31.0-37.0) g/dL RDW Std Deviation 48.4 (28.0-62.0) fl RDW Coeff of Jannette 14 (11.0-15.0) % Plt Count 250 (150-400) K/uL MPV 10.40 (7.40-12.00) fL Neut % (Auto) 57.2 (48.0-80.0) % Lymph % (Auto) 29.7 (16.0-40.0) % [place] % (Auto) 12.4 (0.0-15.0) % Eos % (Auto) 0.2 (0.0-7.0) % Baso % (Auto) 0.5 (0.0-1.5) % Neut # (Auto) 3.3 (1.4-5.7) K/uL Lymph # (Auto) 1.7 (0.6-2.4) K/uL [place] # (Auto) 0.7 (0.0-0.8) K/uL Eos # (Auto) 0.0 (0.0-0.7) K/uL Baso # (Auto) 0.0 (0.0-0.1) K/uL Nucleated RBC % 0.0 /100WBC Nucleated RBCs # 0 K/uL INR 0.99 APTT (18.6-31.3) SEC Sodium 137 (136-145) mmol/L Potassium 5.3 H (3.5-5.1) mmol/L Chloride 103 (98-107) mmol/L Carbon Dioxide 27.7 (21.0-32.0) mmol/L BUN 22 H (7.0-18.0) mg/dL Creatinine 1.1 H (0.6-1.0) mg/dL Est Cr Clr Drug Dosing 39.93 mL/min Estimated GFR (MDRD) 49.2 ml/min Glucose 114 H (74-106) mg/dL Calcium 8.4 L (8.5-10.1) mg/dL Total Bilirubin 0.2 (0.2-1.0) mg/dL AST 84 H (15-37) IU/L ALT 164 H (14-63) IU/L Alkaline Phosphatase 295 H (46-116) U/L Troponin I < 0.050 (0.000-0.056) ng/mL Total Protein 7.2 (6.4-8.2) g/dL Albumin 3.7 (3.4-5.0) g/dL Globulin 3.5 (2.6-4.0) g/dL Albumin/Globulin Ratio 1.1 (0.9-1.6) Urine Opiates Screen (NEGATIVE) Ur Oxycodone Screen (NEGATIVE) Urine Methadone Screen (NEGATIVE) Ur Barbiturates Screen (NEGATIVE) Ur Phencyclidine Scrn (NEGATIVE) Ur Amphetamine Screen (NEGATIVE) U Methamphetamines Scrn (NEGATIVE) U Benzodiazepines Scrn (NEGATIVE) U Cocaine Metab Screen (NEGATIVE) U Marijuana (THC) Screen (NEGATIVE) Ethyl Alcohol < 3.0 mg/dL 04/24/20 04/24/20 Range/Units 15:50 17:38 WBC (4.0-11.0) K/uL RBC (4.30-5.90) M/uL Hgb (12.0-16.0) g/dL Hct (36.0-46.0) % MCV (80.0-98.0) fL MCH (27.0-32.0) pg MCHC (31.0-37.0) g/dL RDW Std Deviation (28.0-62.0) fl RDW Coeff of Jannette (11.0-15.0) % Plt Count (150-400) K/uL MPV (7.40-12.00) fL Neut % (Auto) (48.0-80.0) % Lymph % (Auto) (16.0-40.0) % [place] % (Auto) (0.0-15.0) % Eos % (Auto) (0.0-7.0) % Baso % (Auto) (0.0-1.5) % Neut # (Auto) (1.4-5.7) K/uL Lymph # (Auto) (0.6-2.4) K/uL [place] # (Auto) (0.0-0.8) K/uL Eos # (Auto) (0.0-0.7) K/uL Baso # (Auto) (0.0-0.1) K/uL Nucleated RBC % /100WBC Nucleated RBCs # K/uL INR APTT 27.5 (18.6-31.3) SEC Sodium (136-145) mmol/L Potassium (3.5-5.1) mmol/L Chloride (98-107) mmol/L Carbon Dioxide (21.0-32.0) mmol/L BUN (7.0-18.0) mg/dL Creatinine (0.6-1.0) mg/dL Est Cr Clr Drug Dosing mL/min Estimated GFR (MDRD) ml/min Glucose (74-106) mg/dL Calcium (8.5-10.1) mg/dL Total Bilirubin (0.2-1.0) mg/dL AST (15-37) IU/L ALT (14-63) IU/L Alkaline Phosphatase (46-116) U/L Troponin I (0.000-0.056) ng/mL Total Protein (6.4-8.2) g/dL Albumin (3.4-5.0) g/dL Globulin (2.6-4.0) g/dL Albumin/Globulin Ratio (0.9-1.6) Urine Opiates Screen POSITIVE (NEGATIVE) Ur Oxycodone Screen NEGATIVE (NEGATIVE) Urine Methadone Screen NEGATIVE (NEGATIVE) Ur Barbiturates Screen NEGATIVE (NEGATIVE) Ur Phencyclidine Scrn NEGATIVE (NEGATIVE) Ur Amphetamine Screen NEGATIVE (NEGATIVE) U Methamphetamines Scrn NEGATIVE (NEGATIVE) U Benzodiazepines Scrn NEGATIVE (NEGATIVE) U Cocaine Metab Screen NEGATIVE (NEGATIVE) U Marijuana (THC) Screen NEGATIVE (NEGATIVE) Ethyl Alcohol mg/dL Meds: Medications Generic Name Dose Route Start Last Admin Trade Name Freq PRN Reason Stop Dose Admin Sodium Chloride 10 ml 04/24/20 15:36 Saline Flush FLUSH ASDIRECTED PRN Keep Vein Open Sodium Chloride 2.5 ml 04/24/20 15:36 Saline Flush FLUSH ASDIRECTED PRN Keep Vein Open Discontinued Medications Generic Name Dose Route Start Last Admin Trade Name Freq PRN Reason Stop Dose Admin Aspirin 324 mg 04/24/20 16:15 04/24/20 17:25 Aspirin PO 04/24/20 16:16 324 mg ONETIME ONE Administration Lactated Ringer's 1,000 mls @ 999 mls/hr 04/24/20 16:22 04/24/20 17:25 Ringers, Lactated IV 04/24/20 17:22 999 mls/hr .BOLUS ONE Administration Departure - Departure Time of Disposition: 18:40 Disposition: Refer to Observation Condition: Good Clinical Impression: Ischemic stroke - Discharge Information Referrals: [facility] [Primary Care Provider] - Forms: ED Department Discharge Sepsis Event Note (ED) - Evaluation Sepsis Screening Result: No Definite Risk - Focused Exam Vital Signs: Vital Signs Temp Pulse Resp BP Pulse Ox 04/24/20 18:05 85 16 126/69 94 L 04/24/20 17:05 93 16 131/53 L 96 04/24/20 16:05 79 16 115/54 L 98 04/24/20 15:30 76 17 132/45 L 98 04/24/20 15:03 35.9 C L 89 17 132/45 L 94 L - My Orders Last 24 Hours: My Active Orders 04/24/20 Head wo Cont [CT] Routine 04/24/20 15:05 POC Glucose [Blood Glucose Check, Bedside] [RC] ONETIME 04/24/20 15:36 Cardiac Monitoring [RC] . DIRECTED EKG Documentation Completion [RC] STAT Pulse Oximetry [RC] ASDIRECTED Sodium Chloride 0.9% [Saline Flush] 10 ml FLUSH ASDIRECTED PRN Sodium Chloride 0.9% [Saline Flush] 2.5 ml FLUSH ASDIRECTED PRN Saline Lock Insert [OM.PC] Stat 04/24/20 16:16 Assess Neurological Status [RC] CONTINUOUS Communication Order [RC] STAT Height and Weight [RC] UPON NIH Stroke Scale [RC] STAT Nursing Bedside Swallow Screen [RC] STAT Vital Signs [RC] Q15M 04/24/20 18:05 Admission Status [Patient Status] [ADT] Stat 04/24/20 18:06 CORONAVIRUS COVID-19 PCR PHL Stat - Assessment/Plan Last 24 Hours: My Active Orders 04/24/20 Head wo Cont [CT] Routine 04/24/20 15:05 POC Glucose [Blood Glucose Check, Bedside] [RC] ONETIME 04/24/20 15:36 Cardiac Monitoring [RC] . DIRECTED EKG Documentation Completion [RC] STAT Pulse Oximetry [RC] ASDIRECTED Sodium Chloride 0.9% [Saline Flush] 10 ml FLUSH ASDIRECTED PRN Sodium Chloride 0.9% [Saline Flush] 2.5 ml FLUSH ASDIRECTED PRN Saline Lock Insert [OM.PC] Stat 04/24/20 16:16 Assess Neurological Status [RC] CONTINUOUS Communication Order [RC] STAT Height and Weight [RC] UPON NIH Stroke Scale [RC] STAT Nursing Bedside Swallow Screen [RC] STAT Vital Signs [RC] Q15M 04/24/20 18:05 Admission Status [Patient Status] [ADT] Stat 04/24/20 18:06 CORONAVIRUS COVID-19 PCR PHL Stat
[2020-04-24] MEDS ORDERED: Lactated Ringers 1,000 ML IV ONE (16:22)
--- NOTE | 2020-04-24 17:33 | CT ---
CT angiogram of brain Technique: Multiple axial sections through the brain were obtained. Intravenous contrast was given during the arterial phase. Multiple MIP images were obtained. Findings: Distal internal carotid arteries are patent into the anterior and middle cerebral arteries. Both distal vertebral arteries are patent to the basilar and into the posterior cerebral arteries. There is no focal occlusion or stenosis being seen. No discrete aneurysm is appreciated. Impression: 1. No abnormality is identified on CT angiogram study of the brain. Diagnostic code #1 This report was dictated in MDT
--- NOTE | 2020-04-24 17:47 | CT ---
CT angiogram of neck Technique: Multiple axial sections through the neck were obtained. Intravenous contrast initially not utilized. Intravenous contrast then given repeat imaging through the neck obtained during the arterial phase. Findings: Common carotid arteries appear to be patent. Internal carotid arteries appear to be patent. Proximal external carotid arteries appear patent. Vertebral arteries appear patent into the basilar artery. No focal occlusion, significant stenosis or dissection seen. Impression: 1. No abnormality is seen on CT angiogram study of the neck. Diagnostic code #1 This report was dictated in MDT
[2020-04-24] MEDS ORDERED: Ondansetron 4 MG Tab.DIS PO PRN (19:02)
[2020-04-24] MEDS ORDERED: Ondansetron 4 MG/2 ML SDV IVPUSH PRN (19:02)
[2020-04-24] MEDS ORDERED: Acetaminophen 325 MG Tab PO PRN (19:02)
--- NOTE | 2020-04-24 19:13 | PCM.HP.2 ---
<Damaso Peraza M - Last Filed: 04/24/20 20:00> H&P History of Present Illness - General Date of Service: 04/24/20 Admit Problem/Dx: Admission Diagnosis/Problem Admission Diagnosis/Problem Ischemic stroke Source of Information: Patient History Limitations: Reports: No Limitations - History of Present Illness Initial Comments - Free Text/Narative: 69-year-old female presents complaining of facial droop and slurred speech. She has a PMH of HTN, COPD, CHF, DM type I, MS and chronic back pain. She reports yesterday at around 4 PM, her roommate noticed that she had a bit of a facial droop and was slurring her words. Patient reports that this may have lasted for about 4 hours approximately. She is unsure which side her facial droop was on. She had a mild headache afterwards that resolved spontaneously. She also had some mild left forearm numbness that was on and off and does not have it currently. She never had such symptoms before. Patient is unsure if she noticed the facial droop today and thinks she looks normal and has not noticed any s peech difficulty. Patient does not have dentures so she reports that it is hard to tell if her face normally droops. She denies having any fevers, chills, blurry vision, sore throat, cough, SOB, chest pain, nausea, vomiting, abdominal pain, diarrhea, blood in stool or blood in urine. In the ER, CTA head and CTA neck were unremarkable. CBC unremarkable. CMP revealed mild hypokalemia 5.3, creatinine 1.1, AST 84, ALT 164 and alk-phos 295. Troponin was negative. COVID19 test negative. UDS positive for opiates. Patient given aspirin 325 mg and IV LR 1 L bolus. Patient admitted for further evaluat ion and treatment. - Related Data Allergies/Adverse Reactions: Allergies Allergy/AdvReac Type Severity Reaction Status Date / Time cyclobenzaprine HCl Allergy Anaphylactic Verified 04/24/20 15:05 [From Flexeril] Shock ketorolac tromethamine Allergy Hives Verified 04/24/20 15:05 [From Toradol] Home Medications: Home Meds DULoxetine [Cymbalta] 60 mg PO BID 06/07/16 [History] Paliperidone [Invega] 6 mg PO BEDTIME 04/21/17 [History] Furosemide [Lasix] 40 mg PO DAILY 01/07/18 [History] OLANZapine [Olanzapine] 10 mg PO BEDTIME 01/07/18 [History] Propranolol [Inderal] 20 mg PO BID 01/07/18 [History] hydrOXYzine pamoate [Hydroxyzine Pamoate] 25 mg PO BEDTIME 01/07/18 [History] Gabapentin [Neurontin] 600 mg PO TID 09/28/18 [History] Mirtazapine 15 mg PO BEDTIME 09/28/18 [History] OLANZapine [Olanzapine] 10 mg PO BEDTIME 09/28/18 [History] Potassium Chloride [Klor-Con M20] 20 meq PO DAILY 09/28/18 [History] Aspirin 81 mg PO DAILY 30 Days #30 tab.chew 04/25/20 [Rx] Pravastatin [Pravachol] 40 mg PO BEDTIME 30 Days #30 tablet 04/25/20 [Rx] Past Medical History HEENT History: Reports: Hard of Hearing Other HEENT History: wears glasses, top and bottom partial Cardiovascular History: Reports: Angina, Heart Failure, Hypertension, Other (See Below) Other Cardiovascular History: Mitral Valve Prolapse Respiratory History: Reports: COPD Other Respiratory History: hx TB at 18 yrs old Gastrointestinal History: Reports: None Genitourinary History: Reports: Other (See Below) Other Genitourinary History: occasional urinary incontinence MOLECULAR PATHOLOGIST 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 Musculoskeletal History: Reports: Arthritis, Back Pain, Chronic, Fibromyalgia, Osteoarthritis Other Musculoskeletal History: chronic neck pain Neurological History: Reports: MS Other Neuro History: possible MS Psychiatric History: Reports: Bipolar, Depression Other Psychiatric History: multiple personalities Endocrine/Metabolic History: Reports: Hyperthyroidism Hematologic History: Reports: Blood Transfusion(s), Other (See Below) Other Hematologic History: states had blood transfusion after back surgery Immunologic History: Reports: None Oncologic (Cancer) History: Reports: Cervix Other Oncologic History: had hysterectomy for cervix CA Dermatologic History: Reports: None - Infectious Disease History Infectious Disease History: Reports: Measles, TB - Past Surgical History Head Surgeries/Procedures: Reports: None HEENT Surgical History: Reports: None Cardiovascular Surgical History: Reports: None Respiratory Surgical History: Reports: None GI Surgical History: Reports: None Female Surgical History: Reports: None Neurological Surgical History: Reports: None Musculoskeletal Surgical History: Reports: Other (See Below) Oncologic Surgical History: Reports: None Dermatological Surgical History: Reports: None Social & Family History - Family History Family Medical History: Noncontributory HEENT: Reports: Macular Degeneration Cardiac: Reports: None Respiratory: Reports: Asthma, COPD GI: Reports: None : Reports: None Musculoskeletal: Reports: Back pain, Chronic Neurological: Reports: None Oncologic: Reports: Breast, Lung Other Oncologic Family History: parents both had Cancer - Tobacco Use Smoking Status *Q: Current Every Day Smoker Years of Tobacco use: 50 Packs/Tins Daily: 1 - Caffeine Use Caffeine Use: Reports: None - Recreational Drug Use Recreational Drug Use: No H&P Review of Systems - Review of Systems: Review Of Systems: Comprehensive ROS is negative, except as noted in HPI. Exam - Exam Exam: See Below - Vital Signs Vital Signs: Last Vital Signs Temp 35.9 C L 04/24/20 15:03 Pulse 85 04/24/20 18:05 Resp 16 04/24/20 18:05 BP 126/69 04/24/20 18:05 Pulse Ox 94 L 04/24/20 18:05 Weight: 83.915 kg - Exam HEENT: Conjunctiva Clear, EOMI, Posterior Pharynx Clear, Pupils Equal, Pupils Reactive, Other (mild right-sided facial droop appreciated.) Neck: Supple, Trachea Midline Lungs: Clear to Auscultation, Normal Respiratory Effort Cardiovascular: Regular Rate, Regular Rhythm GI/Abdominal Exam: Normal Bowel Sounds, Soft, Non-Tender, No Distention Extremities: Normal Inspection, No Pedal Edema Peripheral Pulses: 2+: Radial (L), Radial (R) Skin: Warm, Dry, Intact Neurological: Cranial Nerves Intact, Strength Equal Bilateral, Normal Gait, Normal Tone, Sensation Intact, Other (slight slurring of speech appreciated. no pronator drift. normal heel to aceves b/l. no dysdiadochokinesia b/l.) Neuro Extensive - Mental Status: Alert, Oriented x3, Normal Mood/Affect Psychiatric: Alert, Normal Affect, Normal Mood - Patient Data Lab Results Last 24 hrs: Laboratory Results - last 24 hr 04/24/20 04/24/20 04/24/20 Range/Units 15:50 15:50 15:50 WBC 5.79 (4.0-11.0) K/uL RBC 4.28 L (4.30-5.90) M/uL Hgb 12.8 (12.0-16.0) g/dL Hct 39.6 (36.0-46.0) % MCV 92.5 (80.0-98.0) fL MCH 29.9 (27.0-32.0) pg MCHC 32.3 (31.0-37.0) g/dL RDW Std Deviation 48.4 (28.0-62.0) fl RDW Coeff of Jannette 14 (11.0-15.0) % Plt Count 250 (150-400) K/uL MPV 10.40 (7.40-12.00) fL Neut % (Auto) 57.2 (48.0-80.0) % Lymph % (Auto) 29.7 (16.0-40.0) % [place] % (Auto) 12.4 (0.0-15.0) % Eos % (Auto) 0.2 (0.0-7.0) % Baso % (Auto) 0.5 (0.0-1.5) % Neut # (Auto) 3.3 (1.4-5.7) K/uL Lymph # (Auto) 1.7 (0.6-2.4) K/uL Dup[place] # (Auto) 0.7 (0.0-0.8) K/uL Eos # (Auto) 0.0 (0.0-0.7) K/uL Baso # (Auto) 0.0 (0.0-0.1) K/uL Nucleated RBC % 0.0 /100WBC Nucleated RBCs # 0 K/uL INR 0.99 APTT (18.6-31.3) SEC Sodium 137 (136-145) mmol/L Potassium 5.3 H (3.5-5.1) mmol/L Chloride 103 (98-107) mmol/L Carbon Dioxide 27.7 (21.0-32.0) mmol/L BUN 22 H (7.0-18.0) mg/dL Creatinine 1.1 H (0.6-1.0) mg/dL Est Cr Clr Drug Dosing 39.93 mL/min Estimated GFR (MDRD) 49.2 ml/min Glucose 114 H (74-106) mg/dL Calcium 8.4 L (8.5-10.1) mg/dL Total Bilirubin 0.2 (0.2-1.0) mg/dL AST 84 H (15-37) IU/L ALT 164 H (14-63) IU/L Alkaline Phosphatase 295 H (46-116) U/L Troponin I < 0.050 (0.000-0.056) ng/mL Total Protein 7.2 (6.4-8.2) g/dL Albumin 3.7 (3.4-5.0) g/dL Globulin 3.5 (2.6-4.0) g/dL Albumin/Globulin Ratio 1.1 (0.9-1.6) Urine Opiates Screen (NEGATIVE) Ur Oxycodone Screen (NEGATIVE) Urine Methadone Screen (NEGATIVE) Ur Barbiturates Screen (NEGATIVE) Ur Phencyclidine Scrn (NEGATIVE) Ur Amphetamine Screen (NEGATIVE) U Methamphetamines Scrn (NEGATIVE) U Benzodiazepines Scrn (NEGATIVE) U Cocaine Metab Screen (NEGATIVE) U Marijuana (THC) Screen (NEGATIVE) Ethyl Alcohol < 3.0 mg/dL 04/24/20 04/24/20 Range/Units 15:50 17:38 WBC (4.0-11.0) K/uL RBC (4.30-5.90) M/uL Hgb (12.0-16.0) g/dL Hct (36.0-46.0) % MCV (80.0-98.0) fL MCH (27.0-32.0) pg MCHC (31.0-37.0) g/dL RDW Std Deviation (28.0-62.0) fl RDW Coeff of Jannette (11.0-15.0) % Plt Count (150-400) K/uL MPV (7.40-12.00) fL Neut % (Auto) (48.0-80.0) % Lymph % (Auto) (16.0-40.0) % [place] % (Auto) (0.0-15.0) % Eos % (Auto) (0.0-7.0) % Baso % (Auto) (0.0-1.5) % Neut # (Auto) (1.4-5.7) K/uL Lymph # (Auto) (0.6-2.4) K/uL Dupage # (Auto) (0.0-0.8) K/uL Eos # (Auto) (0.0-0.7) K/uL Baso # (Auto) (0.0-0.1) K/uL Nucleated RBC % /100WBC Nucleated RBCs # K/uL INR APTT 27.5 (18.6-31.3) SEC Sodium (136-145) mmol/L Potassium (3.5-5.1) mmol/L Chloride (98-107) mmol/L Carbon Dioxide (21.0-32.0) mmol/L BUN (7.0-18.0) mg/dL Creatinine (0.6-1.0) mg/dL Est Cr Clr Drug Dosing mL/min Estimated GFR (MDRD) ml/min Glucose (74-106) mg/dL Calcium (8.5-10.1) mg/dL Total Bilirubin (0.2-1.0) mg/dL AST (15-37) IU/L ALT (14-63) IU/L Alkaline Phosphatase (46-116) U/L Troponin I (0.000-0.056) ng/mL Total Protein (6.4-8.2) g/dL Albumin (3.4-5.0) g/dL Globulin (2.6-4.0) g/dL Albumin/Globulin Ratio (0.9-1.6) Urine Opiates Screen POSITIVE (NEGATIVE) Ur Oxycodone Screen NEGATIVE (NEGATIVE) Urine Methadone Screen NEGATIVE (NEGATIVE) Ur Barbiturates Screen NEGATIVE (NEGATIVE) Ur Phencyclidine Scrn NEGATIVE (NEGATIVE) Ur Amphetamine Screen NEGATIVE (NEGATIVE) U Methamphetamines Scrn NEGATIVE (NEGATIVE) U Benzodiazepines Scrn NEGATIVE (NEGATIVE) U Cocaine Metab Screen NEGATIVE (NEGATIVE) U Marijuana (THC) Screen NEGATIVE (NEGATIVE) Ethyl Alcohol mg/dL Result Diagrams: 04/24/20 15:50 04/24/20 15:50 Sepsis Event Note - Evaluation Sepsis Screening Result: No Definite Risk - Focused Exam Vital Signs: Vital Signs Temp Pulse Resp BP Pulse Ox 04/24/20 18:05 85 16 126/69 94 L 04/24/20 17:05 93 16 131/53 L 96 04/24/20 16:05 79 16 115/54 L 98 04/24/20 15:30 76 17 132/45 L 98 04/24/20 15:03 35.9 C L 89 17 132/45 L 94 L Date Exam was Performed: 04/24/20 Time Exam was Performed: 20:00 Problem List Initiated/Reviewed/Updated: Yes Orders Last 24hrs: Active Orders 24 hr Category Date Time Status Admission Status [Patient Status] [ADT] Stat ADT 04/24/20 18:05 Active Accu Check [Blood Glucose Check, Bedside] [RC] TIDAC Care 04/24/20 19:06 Active Antiembolic Devices [RC] PER UNIT ROUTINE Care 04/24/20 19:03 Active Cardiac Monitoring [RC] . DIRECTED Care 04/24/20 15:36 Active Cardiac Monitoring [RC] . DIRECTED Care 04/24/20 19:09 Active Communication Order [RC] STAT Care 04/24/20 16:16 Active EKG Documentation Completion [RC] STAT Care 04/24/20 15:36 Active Height and Weight [RC] UPON Care 04/24/20 16:16 Active Neuro Check [RC] Q4H Care 04/24/20 19:07 Active Nursing Bedside Swallow Screen [RC] ASDIRECTED Care 04/24/20 19:05 Active Oxygen Therapy [RC] PRN Care 04/24/20 19:02 Active POC Glucose [Blood Glucose Check, Bedside] [RC] ONETIME Care 04/24/20 15:05 Active Pulse Oximetry [RC] ASDIRECTED Care 04/24/20 15:36 Active Up ad Nisha [RC] ASDIRECTED Care 04/24/20 19:02 Active VTE/DVT Education [RC] PER UNIT ROUTINE Care 04/24/20 19:02 Active Vital Signs [RC] Q4H Care 04/24/20 19:[address] [place] [employer] Diet [DIET] Diet 04/24/20 Dinner Active Fluid Restriction [DIET] Diet 04/24/20 Dinner Active Sodium Restricted Diet [DIET] Diet 04/24/20 Dinner Active Brain wo Cont [MR] Urgent Exams 04/24/20 19:10 Ordered Echo Comp wo Cont [US] Urgent Exams 04/24/20 19:09 Ordered Head wo Cont [CT] Routine Exams 04/24/20 Ordered CBC WITH AUTO DIFF [HEME] AM Lab 04/25/20 05:11 Ordered COMPREHENSIVE METABOLIC PN,CMP [CHEM] AM Lab 04/25/20 05:11 Ordered CORONAVIRUS COVID-19 RAPID [MOLEC] Stat Lab 04/24/20 18:42 Received GLYCOSYLATED HEMOGLOBIN,HGBA1C [CHEM] AM Lab 04/25/20 05:11 Ordered LIPID PANEL [CHEM] AM Lab 04/25/20 05:11 Ordered TSH [CHEM] AM Lab 04/25/20 05:11 Ordered UA RFX HEIDI AND CULT IF INDIC [URIN] Routine Lab 04/24/20 19:07 Ordered Acetaminophen [Tylenol] Med 04/24/20 19:02 Active 650 mg PO Q4H PRN Aspirin Med 04/25/20 09:00 Active 81 mg PO DAILY Insulin Aspart [NovoLOG] Med 04/25/20 07:30 Active See Protocol SUBCUT TIDAC Ondansetron [Zofran ODT] Med 04/24/20 19:02 Active 4 mg PO Q4H PRN Ondansetron [Zofran] Med 04/24/20 19:02 Active 4 mg IVPUSH Q4H PRN Sodium Chloride 0.9% [Saline Flush] Med 04/24/20 15:36 Active 10 ml FLUSH ASDIRECTED PRN Sodium Chloride 0.9% [Saline Flush] Med 04/24/20 15:36 Active 2.5 ml FLUSH ASDIRECTED PRN atorvaSTATin [Lipitor] Med 04/24/20 21:00 Active 40 mg PO BEDTIME Saline Lock Insert [OM.PC] Stat Oth 04/24/20 15:36 Ordered Sequential Compression Device [OM.PC] Per Unit Routine Oth 04/24/20 19:03 Ordered Resuscitation Status Routine Resus Stat 04/24/20 19:02 Ordered Medication Orders Acetaminophen (Tylenol) 650 mg PO Q4H PRN PRN Reason: Pain (Mild 1-3)/fever Aspirin (Aspirin) 81 mg PO DAILY SHARIFA Atorvastatin Calcium (Lipitor) 40 mg PO BEDTIME SHARIFA Insulin Aspart (Novolog) 0 unit SUBCUT TIDAC SHARIFA; Protocol Ondansetron HCl (Zofran Odt) 4 mg PO Q4H PRN PRN Reason: nausea, able to take PO Ondansetron HCl (Zofran) 4 mg IVPUSH Q4H PRN PRN Reason: Nausea Sodium Chloride (Saline Flush) 10 ml FLUSH ASDIRECTED PRN PRN Reason: Keep Vein Open Sodium Chloride (Saline Flush) 2.5 ml FLUSH ASDIRECTED PRN PRN Reason: Keep Vein Open Assessment/Plan Comment:: Assessment and Plan: 1. CVA: - Admit to med/surg. Patient on telemetry. Will order MRI brain and ECHO. Will start aspirin 81 mg qd and increase pravastatin dose to 40 mg qd. Will check lipid panel and HgbA1C. Will do neuro-checks q4h and bedside swallow evaluation. CTA head and CTA neck unremarkable. 2. Hyperkalemia, mild: - Will recheck with AM labs. Patient received 1L IV fluid bolus. 3. ROBERTO: - Patient received 1L IV fluids bolus, will recheck with AM labs. 4. Transaminitis: - Patient hepatitis panel from 2019 was negative. Liver U/S from 2019 showed fatty liver. 5. Diabetes mellitus type II: - ADA diet, sliding scale insulin and blood glucose checks TIDAC. 6. DVT prophylaxis: SCD's. 7. Past medical history of CHF, HTN, COPD, MS and chronic back pain: - Will resume home mediations with the exception of any anti-hypertensives. <Marv San - Last Filed: 04/26/20 13:21> H&P History of Present Illness - General Admit Problem/Dx: Admission Diagnosis/Problem Admission Diagnosis/Problem Ischemic stroke - History of Present Illness Initial Comments - Free Text/Narative: I performed a history and physical exam of the patient and discussed management with resident. I have reviewed the residents note and agree with documented findings and plan unless otherwise specified in my note. Exam - Vital Signs Vital Signs: Last Vital Signs Temp 36.6 C 04/25/20 12:29 Pulse 68 04/25/20 12:29 Resp 16 04/25/20 12:29 BP 139/53 L 04/25/20 12:29 Pulse Ox 96 04/25/20 12:29 - Patient Data Result Diagrams: 04/25/20 05:56 04/25/20 05:56 Sepsis Event Note - Focused Exam Date Exam was Performed: 04/26/20 Time Exam was Performed: 13:19
[2020-04-24] MEDS ORDERED: Iopamidol 755 MG/ML 500 ML Multipack Bottle IVPUSH STA (19:15)
[2020-04-24] MEDS ORDERED: Pravastatin 40 MG Tab PO SCH ×2 (21:00)
[2020-04-24] MEDS ORDERED: atorvaSTATin 40 MG Tab PO SCH (21:00)
[2020-04-24] MEDS ORDERED: hydrOXYzine Pamoate 25 MG Cap PO SCH (21:00)
[2020-04-24] MEDS ORDERED: OLANZapine 5 MG Tab PO SCH (21:00)
[2020-04-24] MEDS ORDERED: Mirtazapine 15 MG Tab PO SCH (21:00)
[2020-04-24] MEDS: DULoxetine 60 MG Cap PO SCH (21:34)
[2020-04-24] MEDS ORDERED: Non-Formulary Medication 1 Each (Gabapentin 600 MG) PO SCH (22:00)
[2020-04-24] MEDS ORDERED: Azithromycin 500 MG in Sodium Chloride 0.9% 250 ML IV SCH (22:44)
[2020-04-24] MEDS: Gabapentin 300 MG Cap PO SCH (23:20)
[2020-04-25] MEDS: Gabapentin 300 MG Cap PO SCH (05:15)
[2020-04-25 06:44] LABS: BLOOD UREA NITROGEN,BUN 19 mg/dL (7.0-18.0); CARBON DIOXIDE,CO2 29.1 mmol/L (21.0-32.0); CHLORIDE,CL 104 mmol/L (98-107); GLUCOSE RANDOM 156 mg/dL (74-106); POTASSIUM,K 4.4 mmol/L (3.5-5.1); SODIUM,NA 139 mmol/L (136-145)
[2020-04-25 06:47] LABS: HEMOGLOBIN A1C 6.9 % (4.5-6.2)
[2020-04-25] MEDS ORDERED: Insulin Aspart 100 Units/ML 3 ML Pen SUBCUT SCH (07:30)
--- NOTE | 2020-04-25 08:23 | MR ---
MRI brain Technique: T1 sagittal and coronal; T1, T2, FLAIR and diffusion axial; Comparison: Prior head CT study of 04/24/20. Limitations: Motion artifact is present. Findings: Ventricles along with basal cisterns and sulci over the convexities appear within normal limits for the patient's age. No acute diffusion abnormalities are appreciated. Minimal area of increased signal is seen within the periventricular white matter within the posterior left parietal region. No other abnormal signal is seen within the brain parenchyma. No midline shift or mass-effect is seen. Normal signal void is seen within the major cerebral arteries within the skull base. Mild there is mucosal thickening is seen within the inferior maxillary sinuses. Impression: 1. Single area of increased signal within the periventricular white matter within the left posterior parietal region. This is likely incidental as this is the only area of abnormal signal being seen. 2. No acute diffusion abnormalities are appreciated. Diagnostic code #2 This report was dictated in MDT
[2020-04-25] MEDS ORDERED: Aspirin 81 MG Tab.Chew PO SCH (09:00)
[2020-04-25] MEDS ORDERED: Propranolol 20 MG Tab PO SCH (09:00)
[2020-04-25] MEDS ORDERED: Furosemide 40 MG Tab PO SCH (09:00)
[2020-04-25] MEDS ORDERED: Furosemide 20 MG Tab ONE (09:20)
[2020-04-25] MEDS: DULoxetine 60 MG Cap PO SCH (09:25)
--- NOTE | 2020-04-25 12:51 | CT ---
Head CT Technique: Multiple axial sections through the brain were obtained. Intravenous contrast was not utilized. Comparison: No prior intracranial imaging is available. Findings: Ventricles along with basal cisterns and sulci over the convexities appear within normal limits for the patient's age. No abnormal parenchymal densities are seen. No evidence of intracranial hemorrhage. No midline shift or mass-effect is seen. Bone window settings were reviewed. Mild mucosal thickening is seen within the maxillary sinuses. Mastoid sinus show nothing acute. No acute calvarial finding is seen. Impression: 1. Minimal sinus findings believed to be chronic and pre-existing. 2. No acute intracranial abnormality is appreciated. Diagnostic code #2 This report was dictated in MDT MTDD
--- NOTE | 2020-04-25 13:44 | PCM.DCSUM1 ---
<Damaso Peraza M - Last Filed: 04/25/20 13:38> Discharge Summary - Hospital Course Free Text/Narrative:: 69-year-old female admitted for CVA. She has a PMH of HTN, HLD, COPD, chronic back pain, CHF, MS and type 2 DM. Patient presented to hospital approximately 24 hours after being told her face looked like it was drooping and she was slurring her words. Patient reports that her symptoms had resolved later that evening the day before coming to hospital. CTA head and CTA neck were unremarkable. MRI brain was unremarkable. UDS positive for opiates. Troponin was negative and COVID19 test negative. Patient had no reported events on telemetry overnight. She was discharged in stable condition and started on aspirin 81 mg qd and her dose of pravastatin was increased to 40 mg qd. Advised to follow-up with her PCP. - Discharge Data Discharge Date: 04/25/20 Discharge Disposition: Home, Self-Care 01 Condition: Stable - Referral to Home Health Primary [facility] Physician: [facility] - Patient Instructions Diet: Low Sodium, Fluid Restriction, Diabetic Diet Fluid Restriction: 2000 mL Activity: As Tolerated Notify Provider of: Fever, Increased Pain, Swelling and Redness, Drainage, Nausea and/or Vomiting - Discharge Plan *PRESCRIPTION DRUG MONITORING PROGRAM REVIEWED*: Not Applicable *COPY OF PRESCRIPTION DRUG MONITORING REPORT IN PATIENT HOWARD: Not Applicable Prescriptions/Med Rec: Aspirin 81 mg PO DAILY 30 Days #30 tab.chew Pravastatin [Pravachol] 40 mg PO BEDTIME 30 Days #30 tablet Home Medications: Home Meds DULoxetine [Cymbalta] 60 mg PO BID 06/07/16 [History] Paliperidone [Invega] 6 mg PO BEDTIME 04/21/17 [History] Furosemide [Lasix] 40 mg PO DAILY 01/07/18 [History] OLANZapine [Olanzapine] 10 mg PO BEDTIME 01/07/18 [History] Propranolol [Inderal] 20 mg PO BID 01/07/18 [History] hydrOXYzine pamoate [Hydroxyzine Pamoate] 25 mg PO BEDTIME 01/07/18 [History] Gabapentin [Neurontin] 600 mg PO TID 09/28/18 [History] Mirtazapine 15 mg PO BEDTIME 09/28/18 [History] OLANZapine [Olanzapine] 10 mg PO BEDTIME 09/28/18 [History] Potassium Chloride [Klor-Con M20] 20 meq PO DAILY 09/28/18 [History] Aspirin 81 mg PO DAILY 30 Days #30 tab.chew 04/25/20 [Rx] Pravastatin [Pravachol] 40 mg PO BEDTIME 30 Days #30 tablet 04/25/20 [Rx] Oxygen Therapy Mode: Room Air Patient Handouts: Pravastatin tablets, Transient Ischemic Attack, [id number], Acetaminophen tablets or caplets Referrals: [facility] [Primary Care Provider] - 05/21/20 10:00 am - Discharge Summary/Plan Comment DC Time >30 min.: No - Patient Data Vitals - Most Recent: Last Vital Signs Temp 36.6 C 04/25/20 11:00 Pulse 66 04/25/20 11:00 Resp 16 04/25/20 11:00 BP 142/51 H 04/25/20 11:00 Pulse Ox 95 04/25/20 03:55 Weight - Most Recent: 83.915 kg I&O - Last 24 hours: Intake & Output 04/24/20 04/25/20 04/25/20 22:59 06:59 14:59 Intake Total 350 Output Total 550 Balance -200 Lab Results - Last 24 hrs: Laboratory Results - last 24 hr 04/24/20 04/24/20 04/24/20 Range/Units 15:50 15:50 15:50 WBC 5.79 (4.0-11.0) K/uL RBC 4.28 L (4.30-5.90) M/uL Hgb 12.8 (12.0-16.0) g/dL Hct 39.6 (36.0-46.0) % MCV 92.5 (80.0-98.0) fL MCH 29.9 (27.0-32.0) pg MCHC 32.3 (31.0-37.0) g/dL RDW Std Deviation 48.4 (28.0-62.0) fl RDW Coeff of Jannette 14 (11.0-15.0) % Plt Count 250 (150-400) K/uL MPV 10.40 (7.40-12.00) fL Neut % (Auto) 57.2 (48.0-80.0) % Lymph % (Auto) 29.7 (16.0-40.0) % Bond % (Auto) 12.4 (0.0-15.0) % Eos % (Auto) 0.2 (0.0-7.0) % Baso % (Auto) 0.5 (0.0-1.5) % Neut # (Auto) 3.3 (1.4-5.7) K/uL Lymph # (Auto) 1.7 (0.6-2.4) K/uL Bond # (Auto) 0.7 (0.0-0.8) K/uL Eos # (Auto) 0.0 (0.0-0.7) K/uL Baso # (Auto) 0.0 (0.0-0.1) K/uL Nucleated RBC % 0.0 /100WBC Nucleated RBCs # 0 K/uL INR 0.99 APTT (18.6-31.3) SEC Sodium 137 (136-145) mmol/L Potassium 5.3 H (3.5-5.1) mmol/L Chloride 103 (98-107) mmol/L Carbon Dioxide 27.7 (21.0-32.0) mmol/L BUN 22 H (7.0-18.0) mg/dL Creatinine 1.1 H (0.6-1.0) mg/dL Est Cr Clr Drug Dosing 39.93 mL/min Estimated GFR (MDRD) 49.2 ml/min Glucose 114 H (74-106) mg/dL POC Glucose (60-110) mg/dL Hemoglobin A1c (4.5-6.2) % Calcium 8.4 L (8.5-10.1) mg/dL Total Bilirubin 0.2 (0.2-1.0) mg/dL AST 84 H (15-37) IU/L ALT 164 H (14-63) IU/L Alkaline Phosphatase 295 H (46-116) U/L Troponin I < 0.050 (0.000-0.056) ng/mL Total Protein 7.2 (6.4-8.2) g/dL Albumin 3.7 (3.4-5.0) g/dL Globulin 3.5 (2.6-4.0) g/dL Albumin/Globulin Ratio 1.1 (0.9-1.6) Triglycerides (0-200) mg/dL Cholesterol (50-200) mg/dL LDL Cholesterol, Calc (60-180) mg/dL VLDL Cholesterol (5-55) mg/dL HDL Cholesterol (40-60) mg/dL Cholesterol/HDL Ratio (3.3-6.0) TSH 3rd Generation (0.36-3.74) uIU/mL Urine Color Urine Appearance Urine pH (5.0-8.0) Ur Specific [place] (1.001-1.035) Urine Protein (NEGATIVE) mg/dL Urine Glucose (UA) (NEGATIVE) mg/dL Urine Ketones (NEGATIVE) mg/dL Urine Occult Blood (NEGATIVE) Urine Nitrite (NEGATIVE) Urine Bilirubin (NEGATIVE) Urine Urobilinogen (<2.0) EU/dL Ur Leukocyte Esterase (NEGATIVE) Urine Opiates Screen (NEGATIVE) Ur Oxycodone Screen (NEGATIVE) Urine Methadone Screen (NEGATIVE) Ur Barbiturates Screen (NEGATIVE) Ur Phencyclidine Scrn (NEGATIVE) Ur Amphetamine Screen (NEGATIVE) U Methamphetamines Scrn (NEGATIVE) U Benzodiazepines Scrn (NEGATIVE) U Cocaine Metab Screen (NEGATIVE) U Marijuana (THC) Screen (NEGATIVE) Ethyl Alcohol < 3.0 mg/dL COVID-19 (SAADIA) (NEGATIVE) 04/24/20 04/24/20 04/24/20 Range/Units 15:50 17:36 17:38 WBC (4.0-11.0) K/uL RBC (4.30-5.90) M/uL Hgb (12.0-16.0) g/dL Hct (36.0-46.0) % MCV (80.0-98.0) fL MCH (27.0-32.0) pg MCHC (31.0-37.0) g/dL RDW Std Deviation (28.0-62.0) fl RDW Coeff of Jannette (11.0-15.0) % Plt Count (150-400) K/uL MPV (7.40-12.00) fL Neut % (Auto) (48.0-80.0) % Lymph % (Auto) (16.0-40.0) % Bond % (Auto) (0.0-15.0) % Eos % (Auto) (0.0-7.0) % Baso % (Auto) (0.0-1.5) % Neut # (Auto) (1.4-5.7) K/uL Lymph # (Auto) (0.6-2.4) K/uL Bond # (Auto) (0.0-0.8) K/uL Eos # (Auto) (0.0-0.7) K/uL Baso # (Auto) (0.0-0.1) K/uL Nucleated RBC % /100WBC Nucleated RBCs # K/uL INR APTT 27.5 (18.6-31.3) SEC Sodium (136-145) mmol/L Potassium (3.5-5.1) mmol/L Chloride (98-107) mmol/L Carbon Dioxide (21.0-32.0) mmol/L BUN (7.0-18.0) mg/dL Creatinine (0.6-1.0) mg/dL Est Cr Clr Drug Dosing mL/min Estimated GFR (MDRD) ml/min Glucose (74-106) mg/dL POC Glucose (60-110) mg/dL Hemoglobin A1c (4.5-6.2) % Calcium (8.5-10.1) mg/dL Total Bilirubin (0.2-1.0) mg/dL AST (15-37) IU/L ALT (14-63) IU/L Alkaline Phosphatase (46-116) U/L Troponin I (0.000-0.056) ng/mL Total Protein (6.4-8.2) g/dL Albumin (3.4-5.0) g/dL Globulin (2.6-4.0) g/dL Albumin/Globulin Ratio (0.9-1.6) Triglycerides (0-200) mg/dL Cholesterol (50-200) mg/dL LDL Cholesterol, Calc (60-180) mg/dL VLDL Cholesterol (5-55) mg/dL HDL Cholesterol (40-60) mg/dL Cholesterol/HDL Ratio (3.3-6.0) TSH 3rd Generation (0.36-3.74) uIU/mL Urine Color YELLOW Urine Appearance CLEAR Urine pH 6.0 (5.0-8.0) Ur Specific [place] 1.020 (1.001-1.035) Urine Protein NEGATIVE (NEGATIVE) mg/dL Urine Glucose (UA) NEGATIVE (NEGATIVE) mg/dL Urine Ketones NEGATIVE (NEGATIVE) mg/dL Urine Occult Blood NEGATIVE (NEGATIVE) Urine Nitrite NEGATIVE (NEGATIVE) Urine Bilirubin NEGATIVE (NEGATIVE) Urine Urobilinogen 1.0 (<2.0) EU/dL Ur Leukocyte Esterase NEGATIVE (NEGATIVE) Urine Opiates Screen POSITIVE (NEGATIVE) Ur Oxycodone Screen NEGATIVE (NEGATIVE) Urine Methadone Screen NEGATIVE (NEGATIVE) Ur Barbiturates Screen NEGATIVE (NEGATIVE) Ur Phencyclidine Scrn NEGATIVE (NEGATIVE) Ur Amphetamine Screen NEGATIVE (NEGATIVE) U Methamphetamines Scrn NEGATIVE (NEGATIVE) U Benzodiazepines Scrn NEGATIVE (NEGATIVE) U Cocaine Metab Screen NEGATIVE (NEGATIVE) U Marijuana (THC) Screen NEGATIVE (NEGATIVE) Ethyl Alcohol mg/dL COVID-19 ([facility]) (NEGATIVE) 04/24/20 04/25/20 04/25/20 Range/Units 18:42 05:56 05:56 WBC 4.86 (4.0-11.0) K/uL RBC 3.97 L (4.30-5.90) M/uL Hgb 11.9 L (12.0-16.0) g/dL Hct 36.9 (36.0-46.0) % MCV 92.9 (80.0-98.0) fL MCH 30.0 (27.0-32.0) pg MCHC 32.2 (31.0-37.0) g/dL RDW Std Deviation 48.4 (28.0-62.0) fl RDW Coeff of Jannette 14 (11.0-15.0) % Plt Count 217 (150-400) K/uL MPV 10.20 (7.40-12.00) fL Neut % (Auto) 53.5 (48.0-80.0) % Lymph % (Auto) 35.2 (16.0-40.0) % Bond % (Auto) 10.7 (0.0-15.0) % Eos % (Auto) 0.0 (0.0-7.0) % Baso % (Auto) 0.6 (0.0-1.5) % Neut # (Auto) 2.6 (1.4-5.7) K/uL Lymph # (Auto) 1.7 (0.6-2.4) K/uL Bond # (Auto) 0.5 (0.0-0.8) K/uL Eos # (Auto) 0.0 (0.0-0.7) K/uL Baso # (Auto) 0.0 (0.0-0.1) K/uL Nucleated RBC % 0.0 /100WBC Nucleated RBCs # 0 K/uL INR APTT (18.6-31.3) SEC Sodium 139 (136-145) mmol/L Potassium 4.4 (3.5-5.1) mmol/L Chloride 104 (98-107) mmol/L Carbon Dioxide 29.1 (21.0-32.0) mmol/L BUN 19 H (7.0-18.0) mg/dL Creatinine 0.8 (0.6-1.0) mg/dL Est Cr Clr Drug Dosing 54.90 mL/min Estimated GFR (MDRD) > 60.0 ml/min Glucose 156 H (74-106) mg/dL POC Glucose (60-110) mg/dL Hemoglobin A1c (4.5-6.2) % Calcium 8.2 L (8.5-10.1) mg/dL Total Bilirubin 0.3 (0.2-1.0) mg/dL AST 43 H (15-37) IU/L ALT 115 H (14-63) IU/L Alkaline Phosphatase 248 H (46-116) U/L Troponin I (0.000-0.056) ng/mL Total Protein 6.5 (6.4-8.2) g/dL Albumin 3.4 (3.4-5.0) g/dL Globulin 3.1 (2.6-4.0) g/dL Albumin/Globulin Ratio 1.1 (0.9-1.6) Triglycerides 176 (0-200) mg/dL Cholesterol 115 (50-200) mg/dL LDL Cholesterol, Calc 50 L (60-180) mg/dL VLDL Cholesterol 35 (5-55) mg/dL HDL Cholesterol 30 L (40-60) mg/dL Cholesterol/HDL Ratio 3.8 (3.3-6.0) TSH 3rd Generation 0.22 L (0.36-3.74) uIU/mL Urine Color Urine Appearance Urine pH (5.0-8.0) Ur Specific [place] (1.001-1.035) Urine Protein (NEGATIVE) mg/dL Urine Glucose (UA) (NEGATIVE) mg/dL Urine Ketones (NEGATIVE) mg/dL Urine Occult Blood (NEGATIVE) Urine Nitrite (NEGATIVE) Urine Bilirubin (NEGATIVE) Urine Urobilinogen (<2.0) EU/dL Ur Leukocyte Esterase (NEGATIVE) Urine Opiates Screen (NEGATIVE) Ur Oxycodone Screen (NEGATIVE) Urine Methadone Screen (NEGATIVE) Ur Barbiturates Screen (NEGATIVE) Ur Phencyclidine Scrn (NEGATIVE) Ur Amphetamine Screen (NEGATIVE) U Methamphetamines Scrn (NEGATIVE) U Benzodiazepines Scrn (NEGATIVE) U Cocaine Metab Screen (NEGATIVE) U Marijuana (THC) Screen (NEGATIVE) Ethyl Alcohol mg/dL COVID-19 ([facility]ADIA) NEGATIVE (NEGATIVE) 04/25/20 04/25/20 04/25/20 Range/Units 05:56 06:34 11:47 WBC (4.0-11.0) K/uL RBC (4.30-5.90) M/uL Hgb (12.0-16.0) g/dL Hct (36.0-46.0) % MCV (80.0-98.0) fL MCH (27.0-32.0) pg MCHC (31.0-37.0) g/dL RDW Std Deviation (28.0-62.0) fl RDW Coeff of Jannette (11.0-15.0) % Plt Count (150-400) K/uL MPV (7.40-12.00) fL Neut % (Auto) (48.0-80.0) % Lymph % (Auto) (16.0-40.0) % Bond % (Auto) (0.0-15.0) % Eos % (Auto) (0.0-7.0) % Baso % (Auto) (0.0-1.5) % Neut # (Auto) (1.4-5.7) K/uL Lymph # (Auto) (0.6-2.4) K/uL Bond # (Auto) (0.0-0.8) K/uL Eos # (Auto) (0.0-0.7) K/uL Baso # (Auto) (0.0-0.1) K/uL Nucleated RBC % /100WBC Nucleated RBCs # K/uL INR APTT (18.6-31.3) SEC Sodium (136-145) mmol/L Potassium (3.5-5.1) mmol/L Chloride (98-107) mmol/L Carbon Dioxide (21.0-32.0) mmol/L BUN (7.0-18.0) mg/dL Creatinine (0.6-1.0) mg/dL Est Cr Clr Drug Dosing mL/min Estimated GFR (MDRD) ml/min Glucose (74-106) mg/dL POC Glucose 128 H 168 H (60-110) mg/dL Hemoglobin A1c 6.9 H (4.5-6.2) % Calcium (8.5-10.1) mg/dL Total Bilirubin (0.2-1.0) mg/dL AST (15-37) IU/L ALT (14-63) IU/L Alkaline Phosphatase (46-116) U/L Troponin I (0.000-0.056) ng/mL Total Protein (6.4-8.2) g/dL Albumin (3.4-5.0) g/dL Globulin (2.6-4.0) g/dL Albumin/Globulin Ratio (0.9-1.6) Triglycerides (0-200) mg/dL Cholesterol (50-200) mg/dL LDL Cholesterol, Calc (60-180) mg/dL VLDL Cholesterol (5-55) mg/dL HDL Cholesterol (40-60) mg/dL Cholesterol/HDL Ratio (3.3-6.0) TSH 3rd Generation (0.36-3.74) uIU/mL Urine Color Urine Appearance Urine pH (5.0-8.0) Ur Specific [place] (1.001-1.035) Urine Protein (NEGATIVE) mg/dL Urine Glucose (UA) (NEGATIVE) mg/dL Urine Ketones (NEGATIVE) mg/dL Urine Occult Blood (NEGATIVE) Urine Nitrite (NEGATIVE) Urine Bilirubin (NEGATIVE) Urine Urobilinogen (<2.0) EU/dL Ur Leukocyte Esterase (NEGATIVE) Urine Opiates Screen (NEGATIVE) Ur Oxycodone Screen (NEGATIVE) Urine Methadone Screen (NEGATIVE) Ur Barbiturates Screen (NEGATIVE) Ur Phencyclidine Scrn (NEGATIVE) Ur Amphetamine Screen (NEGATIVE) U Methamphetamines Scrn (NEGATIVE) U Benzodiazepines Scrn (NEGATIVE) U Cocaine Metab Screen (NEGATIVE) U Marijuana (THC) Screen (NEGATIVE) Ethyl Alcohol mg/dL COVID-19 ([facility]) (NEGATIVE) Med Orders - Current: Current Medications Acetaminophen (Tylenol) 650 mg PO Q4H PRN PRN Reason: Pain (Mild 1-3)/fever Aspirin (Aspirin) 81 mg PO DAILY [facility] Last Admin: 04/25/20 09:26 Dose: 81 mg Documented by: Duloxetine HCl (Cymbalta) 60 mg PO BID [facility] Last Admin: 04/25/20 09:25 Dose: 60 mg Documented by: Furosemide (Lasix) 40 mg PO DAILY [facility] Last Admin: 04/25/20 09:26 Dose: 40 mg Documented by: Gabapentin (Neurontin) 600 mg PO TID [facility] Last Admin: 04/25/20 05:15 Dose: 600 mg Documented by: Hydroxyzine Pamoate (Vistaril) 25 mg PO BEDTIME [facility] Last Admin: 04/25/20 00:06 Dose: Not Given Documented by: Insulin Aspart (Novolog) 0 unit SUBCUT TIDAC [facility]; Protocol Last Admin: 04/25/20 06:39 Dose: Not Given Documented by: Mirtazapine (Remeron) 15 mg PO BEDTIME [facility] Last Admin: 04/25/20 00:06 Dose: Not Given Documented by: Olanzapine (Zyprexa) 10 mg PO BEDTIME [facility] Last Admin: 04/25/20 00:05 Dose: Not Given Documented by: Ondansetron HCl (Zofran Odt) 4 mg PO Q4H PRN PRN Reason: nausea, able to take PO Ondansetron HCl (Zofran) 4 mg IVPUSH Q4H PRN PRN Reason: Nausea Paliperidone [Invega (] 6 Mg) 0 each PO BEDTIME [facility] Pravastatin Sodium (Pravachol) 40 mg PO BEDTIME [facility] Last Admin: 04/24/20 21:34 Dose: 40 mg Documented by: Pravastatin Sodium (Pravachol) 10 mg PO BEDTIME [facility] Last Admin: 04/25/20 00:06 Dose: Not Given Documented by: Propranolol HCl (Inderal) 20 mg PO BID [facility] Last Admin: 04/25/20 09:25 Dose: 20 mg Documented by: Sodium Chloride (Saline Flush) 10 ml FLUSH ASDIRECTED PRN PRN Reason: Keep Vein Open Sodium Chloride (Saline Flush) 2.5 ml FLUSH ASDIRECTED PRN PRN Reason: Keep Vein Open Discontinued Medications Aspirin (Aspirin) 324 mg PO ONETIME ONE Stop: 04/24/20 16:16 Last Admin: 04/24/20 17:25 Dose: 324 mg Documented by: Atorvastatin Calcium (Lipitor) 40 mg PO BEDTIME [facility] Furosemide (Lasix) Confirm Administered Dose 40 mg .ROUTE .STK-MED ONE Stop: 04/25/20 09:21 Last Admin: 04/25/20 09:30 Dose: Not Given Documented by: Lactated Ringer's (Ringers, Lactated) 1,000 mls @ 999 mls/hr IV .BOLUS ONE Stop: 04/24/20 17:22 Last Admin: 04/24/20 17:25 Dose: 999 mls/hr Documented by: Iopamidol (Isovue Multipack-370 (76%)) 100 ml IVPUSH ONETIME STA Stop: 04/24/20 19:16 Last Admin: 04/24/20 19:17 Dose: 100 ml Documented by: Non-Formulary Medication (Gabapentin) 600 mg PO TID [facility] Last Admin: 04/24/20 23:25 Dose: Not Given Documented by: <Marv San - Last Filed: 04/25/20 22:49> Discharge Summary - Hospital Course Free Text/Narrative:: I have seen and evaluated the patient and agree with the residents note unless specified in my note - Referral to Home Health [facility] Phys[facility]: [facility] - Patient Data Vitals - Most Recent: Last Vital Signs Temp 36.6 C 04/25/20 12:29 Pulse 68 04/25/20 12:29 Resp 16 04/25/20 12:29 BP 139/53 L 04/25/20 12:29 Pulse Ox 96 04/25/20 12:29 I&O - Last 24 hours: Intake & Output 04/25/20 04/25/20 04/25/20 06:59 14:59 22:59 Intake Total 350 Output Total 550 Balance -200 Lab Results - Last 24 hrs: Laboratory Results - last 24 hr 04/25/20 04/25/20 04/25/20 Range/Units 05:56 05:56 05:56 WBC 4.86 (4.0-11.0) K/uL RBC 3.97 L (4.30-5.90) M/uL Hgb 11.9 L (12.0-16.0) g/dL Hct 36.9 (36.0-46.0) % MCV 92.9 (80.0-98.0) fL MCH 30.0 (27.0-32.0) pg MCHC 32.2 (31.0-37.0) g/dL RDW Std Deviation 48.4 (28.0-62.0) fl RDW Coeff of Jannette 14 (11.0-15.0) % Plt Count 217 (150-400) K/uL MPV 10.20 (7.40-12.00) fL Neut % (Auto) 53.5 (48.0-80.0) % Lymph % (Auto) 35.2 (16.0-40.0) % Bond % (Auto) 10.7 (0.0-15.0) % Eos % (Auto) 0.0 (0.0-7.0) % Baso % (Auto) 0.6 (0.0-1.5) % Neut # (Auto) 2.6 (1.4-5.7) K/uL Lymph # (Auto) 1.7 (0.6-2.4) K/uL Bond # (Auto) 0.5 (0.0-0.8) K/uL Eos # (Auto) 0.0 (0.0-0.7) K/uL Baso # (Auto) 0.0 (0.0-0.1) K/uL Nucleated RBC % 0.0 /100WBC Nucleated RBCs # 0 K/uL Sodium 139 (136-145) mmol/L Potassium 4.4 (3.5-5.1) mmol/L Chloride 104 (98-107) mmol/L Carbon Dioxide 29.1 (21.0-32.0) mmol/L BUN 19 H (7.0-18.0) mg/dL Creatinine 0.8 (0.6-1.0) mg/dL Est Cr Clr Drug Dosing 54.90 mL/min Estimated GFR (MDRD) > 60.0 ml/min Glucose 156 H (74-106) mg/dL POC Glucose (60-110) mg/dL Hemoglobin A1c 6.9 H (4.5-6.2) % Calcium 8.2 L (8.5-10.1) mg/dL Total Bilirubin 0.3 (0.2-1.0) mg/dL AST 43 H (15-37) IU/L ALT 115 H (14-63) IU/L Alkaline Phosphatase 248 H (46-116) U/L Total Protein 6.5 (6.4-8.2) g/dL Albumin 3.4 (3.4-5.0) g/dL Globulin 3.1 (2.6-4.0) g/dL Albumin/Globulin Ratio 1.1 (0.9-1.6) Triglycerides 176 (0-200) mg/dL Cholesterol 115 (50-200) mg/dL LDL Cholesterol, Calc 50 L (60-180) mg/dL VLDL Cholesterol 35 (5-55) mg/dL HDL Cholesterol 30 L (40-60) mg/dL Cholesterol/HDL Ratio 3.8 (3.3-6.0) TSH 3rd Generation 0.22 L (0.36-3.74) uIU/mL 04/25/20 04/25/20 Range/Units 06:34 11:47 WBC (4.0-11.0) K/uL RBC (4.30-5.90) M/uL Hgb (12.0-16.0) g/dL Hct (36.0-46.0) % MCV (80.0-98.0) fL MCH (27.0-32.0) pg MCHC (31.0-37.0) g/dL RDW Std Deviation (28.0-62.0) fl RDW Coeff of Jannette (11.0-15.0) % Plt Count (150-400) K/uL MPV (7.40-12.00) fL Neut % (Auto) (48.0-80.0) % Lymph % (Auto) (16.0-40.0) % Bond % (Auto) (0.0-15.0) % Eos % (Auto) (0.0-7.0) % Baso % (Auto) (0.0-1.5) % Neut # (Auto) (1.4-5.7) K/uL Lymph # (Auto) (0.6-2.4) K/uL Bond # (Auto) (0.0-0.8) K/uL Eos # (Auto) (0.0-0.7) K/uL Baso # (Auto) (0.0-0.1) K/uL Nucleated RBC % /100WBC Nucleated RBCs # K/uL Sodium (136-145) mmol/L Potassium (3.5-5.1) mmol/L Chloride (98-107) mmol/L Carbon Dioxide (21.0-32.0) mmol/L BUN (7.0-18.0) mg/dL Creatinine (0.6-1.0) mg/dL Est Cr Clr Drug Dosing mL/min Estimated GFR (MDRD) ml/min Glucose (74-106) mg/dL POC Glucose 128 H 168 H (60-110) mg/dL Hemoglobin A1c (4.5-6.2) % Calcium (8.5-10.1) mg/dL Total Bilirubin (0.2-1.0) mg/dL AST (15-37) IU/L ALT (14-63) IU/L Alkaline Phosphatase (46-116) U/L Total Protein (6.4-8.2) g/dL Albumin (3.4-5.0) g/dL Globulin (2.6-4.0) g/dL Albumin/Globulin Ratio (0.9-1.6) Triglycerides (0-200) mg/dL Cholesterol (50-200) mg/dL LDL Cholesterol, Calc (60-180) mg/dL VLDL Cholesterol (5-55) mg/dL HDL Cholesterol (40-60) mg/dL Cholesterol/HDL Ratio (3.3-6.0) TSH 3rd Generation (0.36-3.74) uIU/mL Med Orders - Current: Current Medications Discontinued Medications Acetaminophen (Tylenol) 650 mg PO Q4H PRN PRN Reason: Pain (Mild 1-3)/fever Aspirin (Aspirin) 324 mg PO ONETIME ONE Stop: 04/24/20 16:16 Last Admin: 04/24/20 17:25 Dose: 324 mg Documented by: Aspirin (Aspirin) 81 mg PO DAILY [facility] Last Admin: 04/25/20 09:26 Dose: 81 mg Documented by: Atorvastatin Calcium (Lipitor) 40 mg PO BEDTIME [facility] Duloxetine HCl (Cymbalta) 60 mg PO BID [facility] Last Admin: 04/25/20 09:25 Dose: 60 mg Documented by: Furosemide (Lasix) 40 mg PO DAILY [facility] Last Admin: 04/25/20 09:26 Dose: 40 mg Documented by: Furosemide (Lasix) Confirm Administered Dose 40 mg .ROUTE .STK-MED ONE Stop: 04/25/20 09:21 Last Admin: 04/25/20 09:30 Dose: Not Given Documented by: Gabapentin (Neurontin) 600 mg PO TID [facility] Last Admin: 04/25/20 05:15 Dose: 600 mg Documented by: Hydroxyzine Pamoate (Vistaril) 25 mg PO BEDTIME [facility] Last Admin: 04/25/20 00:06 Dose: Not Given Documented by: Lactated Ringer's (Ringers, Lactated) 1,000 mls @ 999 mls/hr IV .BOLUS ONE Stop: 04/24/20 17:22 Last Admin: 04/24/20 17:25 Dose: 999 mls/hr Documented by: Insulin Aspart (Novolog) 0 unit SUBCUT TIDAC [facility]; Protocol Last Admin: 04/25/20 06:39 Dose: Not Given Documented by: Iopamidol (Isovue Multipack-370 (76%)) 100 ml IVPUSH ONETIME STA Stop: 04/24/20 19:16 Last Admin: 04/24/20 19:17 Dose: 100 ml Documented by: Mirtazapine (Remeron) 15 mg PO BEDTIME [facility] Last Admin: 04/25/20 00:06 Dose: Not Given Documented by: Non-Formulary Medication (Gabapentin) 600 mg PO TID [facility] Last Admin: 04/24/20 23:25 Dose: Not Given Documented by: Olanzapine (Zyprexa) 10 mg PO BEDTIME [facility] Last Admin: 04/25/20 00:05 Dose: Not Given Documented by: Ondansetron HCl (Zofran Odt) 4 mg PO Q4H PRN PRN Reason: nausea, able to take PO Ondansetron HCl (Zofran) 4 mg IVPUSH Q4H PRN PRN Reason: Nausea Paliperidone [Invega (] 6 Mg) 0 each PO BEDTIME [facility] Pravastatin Sodium (Pravachol) 40 mg PO BEDTIME [facility] Last Admin: 04/24/20 21:34 Dose: 40 mg Documented by: Pravastatin Sodium (Pravachol) 10 mg PO BEDTIME [facility] Last Admin: 04/25/20 00:06 Dose: Not Given Documented by: Propranolol HCl (Inderal) 20 mg PO BID [facility] Last Admin: 04/25/20 09:25 Dose: 20 mg Documented by: Sodium Chloride (Saline Flush) 10 ml FLUSH ASDIRECTED PRN PRN Reason: Keep Vein Open Sodium Chloride (Saline Flush) 2.5 ml FLUSH ASDIRECTED PRN PRN Reason: Keep Vein Open
[2020-04-25 13:47] VITALS: BP 139/53; PULSE 68
== END 2020-04-25 12:35 | disposition home or self-care (01) ==
LOC: MW.ED 15:01 → MW.MS 19:32
PROVIDERS: ADMIT Student in an Organized Health Care Education/Training Program; ATTEND Student in an Organized Health Care Education/Training Program
DX: I63.9 Cerebral infarction, unspecified (principal); I11.0 Hypertensive heart disease with heart failure; I50.9 Heart failure, unspecified; J44.9 Chronic obstructive pulmonary disease, unspecified; F32.9 Major depressive disorder, single episode, unspecified; E05.90 Thyrotoxicosis, unspecified without thyrotoxic crisis or storm; R82.5 Elevated urine levels of drugs, medicaments and biological substances; F17.210 Nicotine dependence, cigarettes, uncomplicated; G89.29 Other chronic pain; M54.9 Dorsalgia, unspecified; E87.5 Hyperkalemia; E78.5 Hyperlipidemia, unspecified; N17.9 Acute kidney failure, unspecified; R74.0 Nonspecific elevation of levels of transaminase and lactic acid dehydrogenase [LDH]; E11.9 Type 2 diabetes mellitus without complications; G35 Multiple sclerosis; Z20.828 Contact with and (suspected) exposure to other viral communicable diseases; Z79.899 Other long term (current) drug therapy; Z88.6 Allergy status to analgesic agent; Z88.8 Allergy status to other drugs, medicaments and biological substances; Z79.82 Long term (current) use of aspirin
CPT/HCPCS: 36415; 70450; 70496; 70498; 70551; 80053; 80061; 80305; 80307; 81003; 82962; 83036; 84443; 84484; 85025; 85610; 85730; 93005; 99285; A9270; G0378; J7120; Q9967; U0002; 99284

== ENCOUNTER 2020-08-16 04:45 | Emergency (ER) | payer MEDICARE, MEDICAID ==
[2020-08-16] MEDS ORDERED: Sodium Chloride 0.9% 10 ML Syringe FLUSH PRN (04:47)
[2020-08-16] MEDS ORDERED: Sodium Chloride 0.9% 2.5 ML Syringe FLUSH PRN (04:47)
[2020-08-16] MEDS ORDERED: Sodium Chloride 0.9% 10 ML SDV IV PRN (04:47)
--- NOTE | 2020-08-16 05:01 | EDM.PDOC ---
ED HPI GENERAL MEDICAL PROBLEM - General Stated Complaint: AMB. Time Seen by Provider: 08/16/20 04:48 - History of Present Illness INITIAL COMMENTS - FREE TEXT/NARRATIVE: History of present illness: [] Patient had a facial droop and difficulty speaking intermittently for 1 week. She was in [place] with her roommate who had some sort of procedure or evaluation there. 1 hour ago she became unable to use her right leg and walk. She also had more difficulty with words and speech. The patient has no headache. She has no history of bleeding in the head or from the GI tract of significance. 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 She says she is not done for home thrombolytics would be contraindicated and that she clearly started to be worse especially with use of her right leg and speech 1 hour ago. Review of systems: As per history of present illness and below otherwise all systems reviewed and negative. Past medical history: As per history of present illness and as reviewed below otherwise noncontributory. Surgical history: As per history of present illness and as reviewed below otherwise noncontributory. Social history: No reported history of drug or alcohol abuse. Family history: As per history of present illness and as reviewed below otherwise noncontributory. Physical exam: Constitutional - well developed, well-nourished and in no acute distress HEENT - normocephalic, no evidence of trauma - external nose and mouth normal - no mass in neck and no JVD - mucosae moist EYES - full EOM, PERRL, no icterus - no evidence of inflammation, injection, or drainage Respiratory - no respiratory distress, equal bilateral expansion, lungs clear to auscultation and no abnormal lung sounds Cardiovascular - Regular Rhythm with S1 and S2 appreciated and no murmur, gallop or rub. GI - abdomen soft without distension or organomegaly - normal bowel sounds - no guard or rebound Musculoskeletal no gross deformity of long bones or joints - no tenderness, swelling or edema Neurologic - Alert and oriented times four - CN II-XII grossly intact at the right facial droop and failure to gaze to the right.- motor sensory she has some peripheral numbness in the right lower extremity and does not resist gravity with the right lower extremity. She has weakness of both upper extremities but no significant asymmetric droop. She has failure of extraocular motion to the right. Her visual cheng are not adequate but she sees well enough to guess the number of fingers in all visual cheng that were tested by confrontation. She has a significant right facial droop and this in peds the have her speech production but her words flow smoothly and she complete sentences. Psychiatric - appropriate mood and affect with normal thought content Hematologic - No petechiae or purpura - mucosa appropriate color and sclera not pale - normal nail bed color and refill Integument - no rash or evidence of trauma - normal turgor Diagnostics: [] Therapeutics: [] Impression: [] Plan: [] Definitive disposition and diagnosis as appropriate pending reevaluation and review of above. - Related Data Allergies Allergy/AdvReac Type Severity Reaction Status Date / Time cyclobenzaprine HCl Allergy Anaphylactic Verified 08/16/20 06:03 [From Flexeril] Shock ketorolac tromethamine Allergy Hives Verified 08/16/20 06:03 [From Toradol] Home Meds: Home Meds DULoxetine [Cymbalta] 120 mg PO BID 06/07/16 [History] Paliperidone [Invega] 9 mg PO BEDTIME 04/21/17 [History] Furosemide [Lasix] 40 mg PO DAILY 01/07/18 [History] Propranolol [Inderal] 40 mg PO BID 01/07/18 [History] hydrOXYzine pamoate [Hydroxyzine Pamoate] 25 mg PO BEDTIME 01/07/18 [History] Gabapentin [Neurontin] 600 mg PO TID 09/28/18 [History] Mirtazapine 7.5 mg PO BEDTIME 09/28/18 [History] OLANZapine [Olanzapine] 10 mg PO BEDTIME 09/28/18 [History] Potassium Chloride [Klor-Con M20] 20 meq PO DAILY 09/28/18 [History] Aspirin 81 mg PO DAILY 30 Days #30 tab.chew 04/25/20 [Rx] Pravastatin [Pravachol] 40 mg PO BEDTIME 30 Days #30 tablet 04/25/20 [Rx] Clopidogrel Bisulfate [Clopidogrel] 75 mg PO DAILY #30 tablet 08/16/20 [Rx] Diclofenac Sodium 75 mg PO BID 08/16/20 [History] Imipramine HCl [Imipramine] 75 mg PO BEDTIME 08/16/20 [History] Isosorbide Dinitrate 20 mg PO BEDTIME 11/28/20 [History] Meloxicam [Mobic] 15 mg PO DAILY 08/16/20 [History] Topiramate [Topamax] 50 mg PO BID 08/16/20 [History] amLODIPine [Norvasc] 10 mg PO DAILY 08/16/20 [History] glipiZIDE [Glipizide ER] 2.5 mg PO DAILY 08/16/20 [History] tiZANidine [Zanaflex] 8 mg PO TID 08/16/20 [History] Past Medical History HEENT History: Reports: Hard of Hearing Other HEENT History: wears glasses, top and bottom partial Cardiovascular History: Reports: Angina, Heart Failure, Hypertension, Other (See Below) Other Cardiovascular History: Mitral Valve Prolapse Respiratory History: Reports: COPD Other Respiratory History: hx TB at 18 yrs old Gastrointestinal History: Reports: None Genitourinary History: Reports: Other (See Below) Other Genitourinary History: occasional urinary incontinence TONE REGULATOR History: Reports: Other (See Below) Other TONE REGUL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 Musculoskeletal History: Reports: Arthritis, Back Pain, Chronic, Fibromyalgia, Osteoarthritis Other Musculoskeletal History: chronic neck pain Neurological History: Reports: MS Other Neuro History: possible MS Psychiatric History: Reports: Bipolar, Depression Other Psychiatric History: multiple personalities Endocrine/Metabolic History: Reports: Hyperthyroidism Hematologic History: Reports: Blood Transfusion(s), Other (See Below) Other Hematologic History: states had blood transfusion after back surgery Immunologic History: Reports: None Oncologic (Cancer) History: Reports: Cervix Other Oncologic History: had hysterectomy for cervix CA Dermatologic History: Reports: None - Infectious Disease History Infectious Disease History: Reports: Measles, TB - Past Surgical History Head Surgeries/Procedures: Reports: None HEENT Surgical History: Reports: None Cardiovascular Surgical History: Reports: None Respiratory Surgical History: Reports: None GI Surgical History: Reports: None Female Surgical History: Reports: None Neurological Surgical History: Reports: None Musculoskeletal Surgical History: Reports: Other (See Below) Oncologic Surgical History: Reports: None Dermatological Surgical History: Reports: None Social & Family History - Family History Family Medical History: No Pertinent Family History HEENT: Reports: Macular Degeneration Cardiac: Reports: None Respiratory: Reports: Asthma, COPD GI: Reports: None : Reports: None Musculoskeletal: Reports: Back pain, Chronic Neurological: Reports: None Oncologic: Reports: Breast, Lung Other Oncologic Family History: parents both had Cancer - Caffeine Use Caffeine Use: Reports: None ED ROS GENERAL - Review of Systems Review Of Systems: Comprehensive ROS is negative, except as noted in HPI. ED EXAM, GENERAL - Physical Exam Exam: See Below Free Text/Narrative:: My physical exam is in the HPI #1 Interpretation EKG Interpretation Comments: EKG done 08/16/2020 at 5:41 AM and interpreted at 545. Sinus rhythm with a prolonged NM. Heart rate 64 and NM interval 253. [place] -4 and the QT duration is 428. The QRS is essentially normal and the ST and T have some minor variations. When compared to the EKG done most recently at this institution there is some minor variations in ST and T configuration but nothing that reaches the point of obvious acute ischemia or injury. Impression no acute injury Course - Vital Signs Text/Narrative:: 02 15 I was having a discussion with Dr. Waters the neurologist at [facility]. Based on the circumstances with the fluctuations in the 1 week of symptoms as well as the base and psychiatric diagnoses and medications he felt she should be given Plavix at this time and have a CT angio of the head and neck. If the angio does not show any pathology then he wanted her observed and thought we could observe her here and put her on Plavix. If the angio was not normal then he wanted to be consulted again for possible emergent transfer. Oh 5:[address] unenhanced has been the radiologist and he agrees there is no bleed or infarct that is visible at this time. IV access is being obtained with difficulty so that we can get a CT angio. Plavix will be administered. 701 the patient remained neurologically intact and was discussed with Dr. Waters again and he wanted the patient to be sent home on Plavix and continue her baby aspirin. Because of elevation of transaminases she is to see her psychiatrist and her primary doctor and have them adjust her medicines accordingly. Last Recorded V/S: Last Vital Signs Temp 35.9 C L 08/16/20 04:45 Pulse 55 L 08/16/20 04:45 Resp 16 08/16/20 04:45 BP 129/67 08/16/20 04:45 Pulse Ox 95 08/16/20 04:45 - Orders/Labs/Meds Orders: Active Orders 24 hr Category Date Time Status Assess Neurological Status [RC] ASDIRECTED Care 08/16/20 04:50 Active Bedrest [RC] ASDIRECTED Care 08/16/20 04:50 Active Blood Glucose Check, Bedside [RC] STAT Care 08/16/20 04:50 Active Cardiac Monitoring [RC] . DIRECTED Care 08/16/20 04:50 Active EKG Documentation Completion [RC] STAT Care 08/16/20 04:50 Active Height and Weight [RC] UPON Care 08/16/20 04:50 Active Initiate Acute Stroke Protocol [RC] STAT Care 08/16/20 04:50 Active NIH Stroke Scale [RC] ASDIRECTED Care 08/16/20 04:50 Active Nursing Bedside Swallow Screen [RC] ASDIRECTED Care 08/16/20 04:50 Active Oxygen Therapy [RC] ASDIRECTED Care 08/16/20 04:50 Active Stroke Education, General [RC] Click to Edit Care 08/16/20 04:50 Active Vital Signs [RC] Q15M Care 08/16/20 04:50 Active CBC WITH AUTO DIFF [HEME] Stat Lab 08/16/20 04:50 Ordered CORONAVIRUS COVID-19 SAADIA [MOLEC] Stat Lab 08/16/20 06:42 Received DRUG SCREEN, URINE [URCHEM] Stat Lab 08/16/20 04:51 Ordered INR,PT,PROTHROMBIN TIME [COAG] Stat Lab 08/16/20 04:50 Ordered PTT,PARTIAL THROMBOPLSTIN TIME [COAG] Stat Lab 08/16/20 04:50 Ordered Clopidogrel [Plavix] Med 08/16/20 05:30 Active 75 mg PO DAILY Sodium Chloride 0.9% [Normal Saline] Med 08/16/20 04:47 Active 10 ml IV ASDIRECTED PRN Sodium Chloride 0.9% [Saline Flush] Med 08/16/20 04:47 Active 10 ml FLUSH ASDIRECTED PRN Sodium Chloride 0.9% [Saline Flush] Med 08/16/20 04:47 Active 2.5 ml FLUSH ASDIRECTED PRN Peripheral IV Insertion Adult [OM.PC] Stat Oth 08/16/20 04:50 Ordered Peripheral IV Insertion Adult [OM.PC] Stat Oth 08/16/20 04:50 Ordered Resuscitation Status Stat Resus Stat 08/16/20 04:47 Ordered Medication Orders Clopidogrel Bisulfate (Plavix) 75 mg PO DAILY SHARIFA Last Admin: 08/16/20 06:23 Dose: 75 mg Documented by: SAE Sodium Chloride (Saline Flush) 10 ml FLUSH ASDIRECTED PRN PRN Reason: Keep Vein Open Sodium Chloride (Saline Flush) 2.5 ml FLUSH ASDIRECTED PRN PRN Reason: Keep Vein Open Sodium Chloride (Normal Saline) 10 ml IV ASDIRECTED PRN PRN Reason: IV Use Labs: Laboratory Tests 08/16/20 08/16/20 Range/Units 05:18 05:20 Sodium 134 L (136-145) mmol/L Potassium 4.0 (3.5-5.1) mmol/L Chloride 100 (98-107) mmol/L Carbon Dioxide 28.1 (21.0-32.0) mmol/L BUN 23 H (7.0-18.0) mg/dL Creatinine 1.1 H (0.6-1.0) mg/dL Est Cr Clr Drug Dosing TNP Estimated GFR (MDRD) 49.1 ml/min Glucose 130 H (74-106) mg/dL POC Glucose 130 H (60-110) mg/dL Calcium 8.7 (8.5-10.1) mg/dL Total Bilirubin 1.0 (0.2-1.0) mg/dL AST 232 H (15-37) IU/L ALT 289 H (14-63) IU/L Alkaline Phosphatase 361 H (46-116) U/L Troponin I < 0.050 (0.000-0.056) ng/mL Total Protein 6.7 (6.4-8.2) g/dL Albumin 3.5 (3.4-5.0) g/dL Globulin 3.2 (2.6-4.0) g/dL Albumin/Globulin Ratio 1.1 (0.9-1.6) TSH 3rd Generation 0.58 (0.36-3.74) uIU/mL Ethyl Alcohol <3 mg/dL Meds: Medications Generic Name Dose Route Start Last Admin Trade Name Freq PRN Reason Stop Dose Admin Clopidogrel Bisulfate 75 mg 08/16/20 05:30 08/16/20 06:23 Plavix PO 75 mg DAILY SHARIFA Administration Sodium Chloride 10 ml 08/16/20 04:47 Saline Flush FLUSH ASDIRECTED PRN Keep Vein Open Sodium Chloride 2.5 ml 08/16/20 04:47 Saline Flush FLUSH ASDIRECTED PRN Keep Vein Open Sodium Chloride 10 ml 08/16/20 04:47 Normal Saline IV ASDIRECTED PRN IV Use Discontinued Medications Generic Name Dose Route Start Last Admin Trade Name Stevenson PRN Reason Stop Dose Admin Iopamidol 100 ml 08/16/20 06:13 08/16/20 06:26 Isovue-370 (76%) IVPUSH 08/16/20 06:14 100 ml ONETIME STA Administration Departure - Departure Time of Disposition: 07:06 Disposition: Home, Self-Care 01 Condition: Good Clinical Impression: TIA (transient ischemic attack) - Discharge Information Instructions: Transient Ischemic Attack, [id number] Referrals: PCP,None [Primary Care Provider] - Additional Instructions: [facility] - Neu[facility] Professional Building [address] [place] [address], [address] [place] [address] [facility] [address] [place] [id number] [address] You should have your psychiatrist and your medical doctor evaluate your medications because her liver function things are getting a little worse. The following information is given to patients seen in the emergency department who are being discharged to home. This information is to outline your options for follow-up care. We provide all patients seen in our emergency department with a follow-up referral. The need for follow-up, as well as the timing and circumstances, are variable depending upon the specifics of your emergency department visit. If you don't have a primary care physician on staff, we will provide you with a referral. We always advise you to contact your personal physician following an emergency department visit to inform them of the circumstance of the visit and for follow-up with them and/or the need for any referrals to a consulting specialist. The emergency department will also refer you to a specialist when appropriate. This referral assures that you have the opportunity for follow-up care with a specialist. All of these measure are taken in an effort to provide you with optimal care, which includes your follow-up. Under all circumstances we always encourage you to contact your private physician who remains a resource for coordinating your care. When calling for follow-up care, please make the office aware that this follow-up is from your recent emergency room visit. If for any reason you are refused follow-up, please contact the [facility] Emergency Department at and asked to speak to the emergency department charge nurse. Sepsis Event Note (ED) - Focused Exam Vital Signs: Vital Signs Temp Pulse Resp BP Pulse Ox 08/16/20 04:45 35.9 C L 55 L 16 129/67 95 - My Orders Last 24 Hours: My Active Orders 08/16/20 04:47 Sodium Chloride 0.9% [Normal Saline] 10 ml IV ASDIRECTED PRN Sodium Chloride 0.9% [Saline Flush] 10 ml FLUSH ASDIRECTED PRN Sodium Chloride 0.9% [Saline Flush] 2.5 ml FLUSH ASDIRECTED PRN Resuscitation Status Stat 08/16/20 04:50 Assess Neurological Status [RC] ASDIRECTED Bedrest [RC] ASDIRECTED Blood Glucose Check, Bedside [RC] STAT Cardiac Monitoring [RC] . DIRECTED EKG Documentation Completion [RC] STAT Height and Weight [RC] UPON Initiate Acute Stroke Protocol [RC] STAT NIH Stroke Scale [RC] ASDIRECTED Nursing Bedside Swallow Screen [RC] ASDIRECTED Oxygen Therapy [RC] ASDIRECTED Stroke Education, General [RC] Click to Edit Vital Signs [RC] Q15M CBC WITH AUTO DIFF [HEME] Stat INR,PT,PROTHROMBIN TIME [COAG] Stat PTT,PARTIAL THROMBOPLSTIN TIME [COAG] Stat Peripheral IV Insertion Adult [OM.PC] Stat Peripheral IV Insertion Adult [OM.PC] Stat 08/16/20 04:51 DRUG SCREEN, URINE [URCHEM] Stat 08/16/20 05:30 Clopidogrel [Plavix] 75 mg PO DAILY 08/16/20 06:42 CORONAVIRUS COVID-19 SAADIA [MOLEC] Stat - Assessment/Plan Last 24 Hours: My Active Orders 08/16/20 04:47 Sodium Chloride 0.9% [Normal Saline] 10 ml IV ASDIRECTED PRN Sodium Chloride 0.9% [Saline Flush] 10 ml FLUSH ASDIRECTED PRN Sodium Chloride 0.9% [Saline Flush] 2.5 ml FLUSH ASDIRECTED PRN Resuscitation Status Stat 08/16/20 04:50 Assess Neurological Status [RC] ASDIRECTED Bedrest [RC] ASDIRECTED Blood Glucose Check, Bedside [RC] STAT Cardiac Monitoring [RC] . DIRECTED EKG Documentation Completion [RC] STAT Height and Weight [RC] UPON Initiate Acute Stroke Protocol [RC] STAT NIH Stroke Scale [RC] ASDIRECTED Nursing Bedside Swallow Screen [RC] ASDIRECTED Oxygen Therapy [RC] ASDIRECTED Stroke Education, General [RC] Click to Edit Vital Signs [RC] Q15M CBC WITH AUTO DIFF [HEME] Stat INR,PT,PROTHROMBIN TIME [COAG] Stat PTT,PARTIAL THROMBOPLSTIN TIME [COAG] Stat Peripheral IV Insertion Adult [OM.PC] Stat Peripheral IV Insertion Adult [OM.PC] Stat 08/16/20 04:51 DRUG SCREEN, URINE [URCHEM] Stat 08/16/20 05:30 Clopidogrel [Plavix] 75 mg PO DAILY 08/16/20 06:42 CORONAVIRUS COVID-19 SAADIA [MOLEC] Stat
--- NOTE | 2020-08-16 05:16 | CT ---
INDICATION: Stroke symptoms TECHNIQUE: CT head without contrast. COMPARISON: 04/24/2020 FINDINGS: CSF spaces: Within normal limits for age. Brain parenchyma: The cisse-white differentiation is normal. No sign of mass, hemorrhage, or midline shift. Skull base and calvarium: The visualized paranasal sinuses and mastoid air cells demonstrate no acute or significant findings. The visualized orbits are grossly unremarkable. No skull fractures. IMPRESSION: Unremarkable noncontrast head CT. Please note that all CT scans at this facility use dose modulation, iterative reconstruction, and/or weight-based dosing when appropriate to reduce radiation dose to as low as reasonably achievable. Dictated by Dwight Gutierres MD @ Aug 16 2020 5:08AM Signed by Dr. Dwight Gutierres @ Aug 16 2020 5:15AM
[2020-08-16] MEDS ORDERED: Clopidogrel 75 MG Tab PO SCH (05:30)
[2020-08-16 05:51] LABS: BLOOD UREA NITROGEN,BUN 23 mg/dL (7.0-18.0); CARBON DIOXIDE,CO2 28.1 mmol/L (21.0-32.0); CHLORIDE,CL 100 mmol/L (98-107); GLUCOSE RANDOM 130 mg/dL (74-106); SODIUM,NA 134 mmol/L (136-145)
--- NOTE | 2020-08-16 05:54 | CR ---
INDICATION: Stroke TECHNIQUE: Chest 1 view. COMPARISON: 10/24/2019 FINDINGS: Cardiovascular and mediastinum: Heart size and vasculature are normal in caliber and appearance. Mediastinum is within normal limits. Lungs and pleural space: Lungs are clear. No sign of infiltrate or mass. No sign of pleural effusion. No pneumothorax. Bones and soft tissues: Spinal fixation hardware thoracolumbar spine. IMPRESSION: Unremarkable chest. Dictated by Dwight Gutierres MD @ Aug 16 2020 5:54AM Signed by Dr. Dwight Gutierres @ Aug 16 2020 5:54AM
[2020-08-16] MEDS ORDERED: Iopamidol 755 Mg/ML 100 ML Bottle IVPUSH STA (06:13)
--- NOTE | 2020-08-16 06:35 | CT ---
DATE: 08/16/2020. CLINICAL HISTORY: Patient with acute neurological deficit. TECHNIQUE: Standard helical CT image acquisition through the head and neck was performed after intravenous contrast bolus enhancement. Multiplanar reconstructed images were performed and interpreted. COMPARISON: 04/24/2020. FINDINGS: The origins of the great vessels from the aortic arch are patent. The origins of the right and left vertebral arteries are patent. The common carotid arteries are patent. Atherosclerosis of the right carotid bifurcation extending into the proximal internal carotid artery results in mild luminal stenosis (less than 50 percent stenosis by NASCET criteria) of the proximal internal carotid artery. There is no significant stenosis at the origin of the left internal carotid artery. The rest of the cervical segments of the internal carotid arteries are patent up to their intracranial segments. The intracranial segments of the internal carotid arteries are patent. The cervical segments of the vertebral arteries are patent. The intracranial segments of the vertebral arteries are patent. The anterior and middle cerebral arteries are patent. The anterior communicating artery is visualized and within normal limits. The basilar trunk and posterior cerebral arteries are patent. There is normal opacification of major intracranial venous structures. The visualized lung apices are unremarkable. The thyroid gland is unremarkable. Degenerative changes of the cervical spine. Partial visualization of postsurgical changes related to thoracic spinal fusion. IMPRESSION: 1. No intracranial proximal large vessel occlusion or flow-limiting luminal stenosis. 2. Mild luminal stenosis of the proximal right internal carotid artery (less than 50 percent stenosis by NASCET criteria) secondary to atherosclerosis. Please note that all CT scans at this facility use dose modulation, iterative reconstruction, and/or weight-based dosing when appropriate to reduce radiation dose to as low as reasonably achievable. Dictated by Kj Devine MD @ Aug 16 2020 12:14PM Signed by Dr. Kj Devine @ Aug 16 2020 12:25PM
[2020-08-16 08:01] VITALS: BP 128/61; PULSE 60
== END 2020-08-16 07:38 | disposition home or self-care (01) ==
LOC: MW.ED 04:45
DX: G45.9 Transient cerebral ischemic attack, unspecified (principal); I11.0 Hypertensive heart disease with heart failure; I50.9 Heart failure, unspecified; J44.9 Chronic obstructive pulmonary disease, unspecified; M19.90 Unspecified osteoarthritis, unspecified site; F31.9 Bipolar disorder, unspecified; E05.90 Thyrotoxicosis, unspecified without thyrotoxic crisis or storm; Z88.8 Allergy status to other drugs, medicaments and biological substances; Z79.82 Long term (current) use of aspirin; Z79.02 Long term (current) use of antithrombotics/antiplatelets; Z79.899 Other long term (current) drug therapy; Z20.828 Contact with and (suspected) exposure to other viral communicable diseases
CPT/HCPCS: 36415; 70450; 70496; 70498; 71045; 80053; 80307; 82962; 84443; 84484; 93005; 99285; A9270; Q9967; U0002; 93010; 99283

== ENCOUNTER 2020-11-19 06:17 | Day surgery (SDC) | payer MEDICARE, MEDICAID ==
[~2020-11-19 06:17] MED LIST changes: -Etomidate 2 MG/ML 20 ML SDV IVPUSH ONE; +Lactated Ringers 1,000 ML IV SCH; +Lidocaine 2% 5 ML SDV ONE; +Midazolam 1 MG/ML 2 ML SDV ONE; +Ondansetron 4 MG/2 ML SDV ONE; +Propofol 200 MG/20 ML SDV ONE; +Sodium Chloride 0.9% 10 ML SDV IV PRN; +Sodium Chloride 0.9% 10 ML Syringe FLUSH PRN; +Sodium Chloride 0.9% 2.5 ML Syringe FLUSH PRN; +Succinylcholine/Sod PF 100 MG/5 ML SYRINGE IV ONE; +ceFAZolin 2 GM in Premix Bag 1 BAG IV ONE; +fentaNYL 100 MCG/2 ML SDV ONE
--- NOTE | 2020-11-19 07:19 | PCM.PREANE ---
Preanesthetic Assessment - Anesthesia/Transfusion/Family Hx Anesthesia History: Prior Anesthesia Without Reaction Family History of Anesthesia Reaction: No Transfusion History: Prior Transfusion Without Reaction Intubation History: Unknown - Review of Systems General: No Symptoms Pulmonary: No Symptoms Cardiovascular: No Symptoms Gastrointestinal: No Symptoms Neurological: No Symptoms Other: Reports: None - Physical Assessment Vital Signs: Last Vital Signs Temp 36.1 C 11/19/20 06:48 Pulse 78 11/19/20 06:48 Resp 16 11/19/20 06:48 BP 134/65 11/19/20 06:48 Pulse Ox 96 11/19/20 06:48 Height: 5 ft 3 in Weight: 83.461 kg ASA Class: 3 Mental Status: Alert & Oriented x3 Airway Class: Mallampati = 2 Dentition: Reports: Dentures (upper and lower) Thyro-Mental Finger Breadths: 3 Mouth Opening Finger Breadths: 2 ROM/Head Extension: Limited/Partial Lungs: Clear to Auscultation, Normal Respiratory Effort Cardiovascular: Regular Rate, Regular Rhythm, Murmurs (mitral valve ) - Allergies Allergies/Adverse Reactions: Allergies Allergy/AdvReac Type Severity Reaction Status Date / Time cyclobenzaprine HCl Allergy Stomach Verified 11/13/20 10:07 [From Flexeril] Upset ketorolac tromethamine Allergy Stomach Verified 11/13/20 10:07 [From Toradol] Upset - Blood Blood Available: No - Anesthesia Plan Pre-Op Medication Ordered: None - Acknowledgements Anesthesia Type Planned: General Anesthesia Pt an Appropriate Candidate for the Planned Anesthesia: Yes Alternatives and Risks of Anesthesia Discussed w Pt/Guardian: Yes Pt/Guardian Understands and Agrees with Anesthesia Plan: Yes PreAnesthesia Questionnaire - Past Health History Medical/Surgical History: Denies Medical/Surgical History HEENT History: Reports: Allergic Rhinitis, Cataract, Glaucoma, Hard of Hearing, Macular Degeneration, Other (See Below) Other HEENT History: wears glasses, top and bottom denture, dry eyes, "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" Cardiovascular History: Reports: Angina, Heart Failure, High Cholesterol, Hypertension, Other (See Below) Other Cardiovascular History: Mitral Valve Prolapse, ECHO 12/03 EF 60-65% Respiratory History: Reports: Bronchitis, Recurrent, COPD (moderate per patient), TB Other Respiratory History: hx TB at 19 yrs old, was on tx for this for 1 year, getting sleep study done on January 04 Gastrointestinal History: Reports: Chronic Constipation, GERD, Hiatal Hernia Other Gastrointestinal History: fatty liver Genitourinary History: Reports: UTI, Recurrent, Other (See Below) Other Genitourinary History: occasional urinary incontinence 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: Musculoskeletal History: Reports: Arthritis, Back Pain, Chronic Other Musculoskeletal History: DDD Neurological History: Reports: Neuropathy, Peripheral Psychiatric History: Reports: Anxiety, Bipolar, Suicidal Ideation Endocrine/Metabolic History: Reports: Diabetes, Type II, Obesity/BMI 30+ (BMI 32.6) Hematologic History: Reports: Blood Transfusion(s), Other (See Below) Other Hematologic History: states had blood transfusion after back surgery Immunologic History: Reports: None Oncologic (Cancer) History: Reports: Cervix Other Oncologic History: had hysterectomy for cervix [place] Dermatologic History: Reports: None - Infectious Disease History Infectious Disease History: Reports: Chicken Pox, Measles, Mumps, TB - Past Surgical History Head Surgeries/Procedures: Reports: None HEENT Surgical History: Reports: Tonsillectomy, Other (See Below) Other HEENT Surgeries/Procedures: Stapendectomy Cardiovascular Surgical History: Reports: None Respiratory Surgical History: Reports: None GI Surgical History: Reports: Appendectomy, Cholecystectomy, Colonoscopy, Other (See Below) (gastric by-pass) Female Surgical History: Reports: Breast Biopsy, Hysterectomy Endocrine Surgical History: Reports: None Neurological Surgical History: Reports: Spinal Fusion Other Neurological Surgeries/Procedures: 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 Musculoskeletal Surgical History: Reports: Other (See Below) Other Musculoskeletal Surgeries/Procedures:: rt rib resection for bone grafing Oncologic Surgical History: Reports: None Dermatological Surgical History: Reports: Skin Graft - SUBSTANCE USE Tobacco Use Status *Q: Former Tobacco User (quit 3 months ago) Tobacco Use Within Last Twelve Months: Cigarettes - HOME MEDS Home Medications: Home Meds DULoxetine [Cymbalta] 120 mg PO DAILY 06/07/16 [History] Paliperidone [Invega] 9 mg PO BEDTIME 04/21/17 [History] Furosemide [Lasix] 40 mg PO DAILY 01/07/18 [History] Propranolol [Inderal] 40 mg PO BID 01/07/18 [History] Gabapentin [Neurontin] 600 mg PO QID 09/28/18 [History] Mirtazapine 7.5 mg PO BEDTIME 09/28/18 [History] Potassium Chloride [Klor-Con M20] 20 meq PO DAILY 09/28/18 [History] Aspirin 81 mg PO DAILY 30 Days #30 tab.chew 04/25/20 [Rx] Pravastatin [Pravachol] 40 mg PO BEDTIME 30 Days #30 tablet 04/25/20 [Rx] Clopidogrel Bisulfate [Clopidogrel] 75 mg PO DAILY #30 tablet 08/16/20 [Rx] Imipramine HCl [Imipramine] 75 mg PO BEDTIME 08/16/20 [History] Isosorbide Dinitrate 20 mg PO BEDTIME 08/16/20 [History] amLODIPine [Norvasc] 10 mg PO DAILY 08/16/20 [History] glipiZIDE [Glipizide ER] 2.5 mg PO DAILY 08/16/20 [History] tiZANidine [Zanaflex] 8 mg PO TID PRN 08/16/20 [History] Albuterol Sulfate [Proair Hfa] 1 - 2 puff INH ASDIRECTED PRN 11/13/20 [History] Budesonide/Formoterol Fumarate [Symbicort 160-4.5 Mcg Inhaler] 2 puff INH BID 11/13/20 [History] Losartan Potassium 50 mg PO BEDTIME 11/13/20 [History] Nitroglycerin 0.4 mg SL ASDIRECTED PRN 11/13/20 [History] OLANZapine [ZyPREXA] 10 mg PO BEDTIME 11/13/20 [History] Topiramate [Topiramate ER] 50 mg PO BID 11/13/20 [History] traZODone HCl [Trazodone HCl] 50 mg PO BEDTIME 11/13/20 [History] - CURRENT (IN HOUSE) MEDS Current Meds: Current Medications Lactated Ringer's (Ringers, Lactated) 1,000 mls @ 125 mls/hr IV ASDIRECTED SHARIFA Last Admin: 11/19/20 06:55 Dose: 125 mls/hr Documented by: Sodium Chloride (Normal Saline) 10 ml IV ASDIRECTED PRN PRN Reason: IV Use Sodium Chloride (Saline Flush) 2.5 ml FLUSH ASDIRECTED PRN PRN Reason: Keep Vein Open Discontinued Medications Fentanyl (Sublimaze) Confirm Administered Dose 100 mcg .ROUTE .STK-MED ONE Stop: 11/19/20 06:15 Cefazolin Sodium/Dextrose 2 gm (/ Premix) 50 mls @ 100 mls/hr IV ONETIME ONE Stop: 11/17/20 09:42 Cefazolin Sodium/Dextrose (Ancef 2 Gm/50 Ml) Confirm Administered Dose 50 mls @ as directed .ROUTE .STK-MED ONE Stop: 11/19/20 06:11 Lidocaine (Xylocaine-Mpf 2%) Confirm Administered Dose 5 ml .ROUTE .STK-MED ONE Stop: 11/19/20 06:12 Midazolam HCl (Versed 1 Mg/Ml) Confirm Administered Dose 2 mg .ROUTE .STK-MED ONE Stop: 11/19/20 06:18 Ondansetron HCl (Zofran) Confirm Administered Dose 4 mg .ROUTE .STK-MED ONE Stop: 11/19/20 06:12 Propofol (Diprivan 20 Ml) Confirm Administered Dose 200 mg .ROUTE .STK-MED ONE Stop: 11/19/20 06:18
[2020-11-19] MEDS ORDERED: Propofol 200 MG/20 ML SDV ONE ×3 (07:28→10:22)
[2020-11-19] MEDS ORDERED: Gabapentin 300 MG Cap PO SCH (07:30)
[2020-11-19] MEDS ORDERED: Bupivacaine 0.5% 10 ML SDV ONE (07:42)
[2020-11-19] MEDS ORDERED: Heparin Sodium 100 Units/ML 3 ML Syringe ONE (07:42)
[2020-11-19] MEDS ORDERED: Octyl 2-Cyanoacrylate 1 Tube ONE (07:42)
[2020-11-19] MEDS ORDERED: Lidocaine 1% 20 ML MDV ONE (07:42)
[2020-11-19] MEDS ORDERED: Albuterol 6.7 GM Inhaler INH ONE (08:16)
[2020-11-19] MEDS ORDERED: Rocuronium Bromide 50 MG/5 ML Syringe ONE (08:16)
[2020-11-19] MEDS ORDERED: Dexamethasone 4 MG/ML 5 ML MDV ONE (08:20)
[2020-11-19] MEDS ORDERED: fentaNYL 100 MCG/2 ML SDV IVPUSH PRN (08:29)
[2020-11-19] MEDS ORDERED: Glycopyrrolate 0.2 MG/ML SDV ONE (08:45)
[2020-11-19] MEDS ORDERED: Morphine PF 10 MG/10 ML SDV ONE (09:55)
[2020-11-19] MEDS ORDERED: Ondansetron 4 MG/2 ML SDV ONE (09:55)
[2020-11-19] MEDS ORDERED: Oxytocin 10 Units/1 ML SDV ONE (09:58)
[2020-11-19] MEDS ORDERED: Sugammadex Sodium 200 MG/2 ML VIAL ONE (10:01)
[2020-11-19] MEDS ORDERED: Acetaminophen 325 MG Tab PO PRN (11:03)
--- NOTE | 2020-11-19 11:22 | PCM.OPNOTE ---
<Adarsh Rollins - Last Filed: 11/19/20 11:18> - General Post-Op/Procedure Note Date of Surgery/Procedure: 11/19/20 Operative Procedure(s): Left subclavian port a catheter placement. Findings: Unable to obtainright internal jugular left subclavian access. Successful placement of left subclavian port a cath. Pre Op Diagnosis: Difficult venous access Post-Op Diagnosis: Same Anesthesia Technique: General ET Tube Primary Surgeon: Aneta Manzo Risk Intern: Adarsh Rollins Fluid Replacement, Intraop: 750 EBL in mLs: 40 Condition: Good Free Text/Narrative:: Intake & Output 11/18/20 11/19/20 11/19/20 22:59 06:59 14:59 Intake Total 750 Balance 750 <Aneta Manzo - Last Filed: 11/19/20 12:30> - General Post-Op/Procedure Note Findings: Unable to place a right subclavian, right internal jugular or left internal jugular port a cath. Left internal jugular vein dilated and accessed, however unable to obtain return of venous access. Catheter removed and pressure held for 10 minutes with no bleeding or hematoma afterwards. Able to successfully cannulate dilate and place left subclavian port. Free Text/Narrative:: Intake & Output 11/18/20 11/19/20 11/19/20 22:59 06:59 14:59 Intake Total 1500 Balance 1500
--- NOTE | 2020-11-19 11:29 | PCM.POSTAN ---
POST ANESTHESIA ASSESSMENT - MENTAL STATUS Mental Status: Alert, Oriented - VITAL SIGNS Vital Signs: Last Vital Signs Temp 36.4 C 11/19/20 10:45 Pulse 66 11/19/20 11:15 Resp 14 11/19/20 11:15 BP 118/50 L 11/19/20 11:15 Pulse Ox 96 11/19/20 11:15 - RESPIRATORY Respiratory Status: Respiratory Rate WNL, Airway Patent, O2 Saturation Stable - CARDIOVASCULAR CV Status: Pulse Rate WNL, Blood Pressure Stable - GASTROINTESTINAL GI Status: No Symptoms - PAIN Pain Score: 2 - POST OP HYDRATION Hydration Status: Adequate & Stable - OBSERVATIONS Free Text/Narrative:: No anesthesia problems
--- NOTE | 2020-11-19 11:59 | CR ---
INDICATION: Line placement. IMPRESSION: Infusion port over the lateral upper left chest with catheter through the presumed subclavian vein with tip lower SVC. No pneumothorax. No mediastinal widening. Thin fixation rods and pedicle hooks throughout the thoracic spine. Dictated by Baron Graham MD @ Nov 19 2020 11:57AM Signed by Dr. Baron Graham @ Nov 19 2020 11:57AM
[2020-11-19] MEDS ORDERED: Albuterol 0.083% 2.5 MG/3 ML Neb Soln NEB SCH (12:00)
[2020-11-19] MEDS: Ketorolac 10 MG Tab PO PRN ×2 (13:28→19:05)
--- NOTE | 2020-11-19 14:31 | PCM.CONS ---
H&P History of Present Illness - General Date of Service: 11/19/20 Admit Problem/Dx: Admission Diagnosis/Problem Admission Diagnosis/Problem Poor venous access Source of Information: Patient History Limitations: Reports: No Limitations - History of Present Illness Initial Comments - Free Text/Narative: 70-year-old female admitted for after having port-a-cath placement earlier today. She has a PMH of HTN, COPD, CHF, DM type 2, MS, chronic pain, TIA and HLD. Patient had port-a-cath placed as she has a history of having very poor IV access. Medical team consulted to assist with medical management. Patient was seen at bedside today with no complaints. She denies having any pain, fevers, chills, sore throat, cough, SOB, chest pain, nausea, vomiting, abdominal pain, blood in stool, blood in urine, numbness or tingling in extremities. Back Pain Score (Numeric/FACES): 6 - Related Data Allergies/Adverse Reactions: Allergies Allergy/AdvReac Type Severity Reaction Status Date / Time cyclobenzaprine HCl Allergy Stomach Verified 11/19/20 15:59 [From Flexeril] Upset tramadol Allergy Stomach Verified 11/19/20 15:59 Upset Home Medications: Home Meds DULoxetine [Cymbalta] 120 mg PO DAILY 06/07/16 [History] Furosemide [Lasix] 40 mg PO DAILY 01/07/18 [History] Propranolol [Inderal] 40 mg PO BID 01/07/18 [History] Gabapentin [Neurontin] 600 mg PO QID 09/28/18 [History] Mirtazapine 7.5 mg PO BEDTIME 09/28/18 [History] Potassium Chloride [Klor-Con M20] 20 meq PO DAILY 09/28/18 [History] Aspirin 81 mg PO DAILY 30 Days #30 tab.chew 04/25/20 [Rx] Pravastatin [Pravachol] 40 mg PO BEDTIME 30 Days #30 tablet 04/25/20 [Rx] Clopidogrel Bisulfate [Clopidogrel] 75 mg PO DAILY #30 tablet 08/16/20 [Rx] Imipramine HCl [Imipramine] 75 mg PO BEDTIME 08/16/20 [History] amLODIPine [Norvasc] 10 mg PO DAILY 08/16/20 [History] glipiZIDE [Glipizide ER] 2.5 mg PO DAILY 08/16/20 [History] tiZANidine [Zanaflex] 8 mg PO Q8H PRN 08/16/20 [History] Albuterol Sulfate [Proair Hfa] 1 - 2 puff INH ASDIRECTED PRN 11/13/20 [History] Budesonide/Formoterol Fumarate [Symbicort 160-4.5 Mcg Inhaler] 2 puff INH BID 11/13/20 [History] Losartan Potassium 50 mg PO BEDTIME 11/13/20 [History] Nitroglycerin 0.4 mg SL ASDIRECTED PRN 11/13/20 [History] OLANZapine [ZyPREXA] 10 mg PO BEDTIME 11/13/20 [History] Topiramate [Topiramate ER] 50 mg PO BID 11/13/20 [History] traZODone HCl [Trazodone HCl] 100 mg PO BEDTIME 11/13/20 [History] Dorzolamide HCl/Timolol Maleat [Dorzolamide-Timolol Eye Drops] 1 drop EYEBOTH BID 11/19/20 [History] Isosorbide Mononitrate 20 mg PO BEDTIME 11/19/20 [History] Losartan [Cozaar] 25 mg PO DAILY 11/19/20 [History] Paliperidone [Invega] 9 mg PO BEDTIME 11/19/20 [History] Past Medical History - Past Health History Medical/Surgical History: Denies Medical/Surgical History HEENT History: Reports: Allergic Rhinitis, Cataract, Glaucoma, Hard of Hearing, Macular Degeneration, Other (See Below) Other HEENT History: wears glasses, top and bottom denture, dry eyes, "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" Cardiovascular History: Reports: Angina, Heart Failure, High Cholesterol, Hypertension, Other (See Below) Other Cardiovascular History: Mitral Valve Prolapse, ECHO 12/03 EF 60-65% Respiratory History: Reports: Bronchitis, Recurrent, COPD, TB Other Respiratory History: hx TB at 19 yrs old, was on tx for this for 1 year, getting sleep study done on January 04 Gastrointestinal History: Reports: Chronic Constipation, GERD, Hiatal Hernia Other Gastrointestinal History: fatty liver Genitourinary History: Reports: UTI, Recurrent, Other (See Below) Other Genitourinary History: occasional urinary incontinence [employer]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: Musculoskeletal History: Reports: Arthritis, Back Pain, Chronic Other Musculoskeletal History: DDD Neurological History: Reports: Neuropathy, Peripheral Psychiatric History: Reports: Anxiety, Bipolar, Suicidal Ideation Endocrine/Metabolic History: Reports: Diabetes, Type II, Obesity/BMI 30+ Hematologic History: Reports: Blood Transfusion(s), Other (See Below) Other Hematologic History: states had blood transfusion after back surgery Immunologic History: Reports: None Oncologic (Cancer) History: Reports: Cervix Other Oncologic History: had hysterectomy for cervix [place] Dermatologic History: Reports: None - Infectious Disease History Infectious Disease History: Reports: Chicken Pox, Measles, Mumps, TB - Past Surgical History Head Surgeries/Procedures: Reports: None HEENT Surgical History: Reports: Tonsillectomy, Other (See Below) Other HEENT Surgeries/Procedures: Stapendectomy Cardiovascular Surgical History: Reports: None Respiratory Surgical History: Reports: None GI Surgical History: Reports: Appendectomy, Cholecystectomy, Colonoscopy, Other (See Below) Female Surgical History: Reports: Breast Biopsy, Hysterectomy Endocrine Surgical History: Reports: None Neurological Surgical History: Reports: Spinal Fusion Other Neurological Surgeries/Procedures: 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 Musculoskeletal Surgical History: Reports: Other (See Below) Other Musculoskeletal Surgeries/Procedures:: rt rib resection for bone grafing Oncologic Surgical History: Reports: None Dermatological Surgical History: Reports: Skin Graft Social & Family History - Family History Family Medical History: No Pertinent Family History HEENT: Reports: Macular Degeneration Cardiac: Reports: None Respiratory: Reports: Asthma, COPD GI: Reports: None : Reports: None Musculoskeletal: Reports: Back pain, Chronic Neurological: Reports: None Oncologic: Reports: Breast, Lung Other Oncologic Family History: parents both had Cancer - Tobacco Use Tobacco Use Status *Q: Former Tobacco User Years of Tobacco use: 50 Used Tobacco, but Quit: Yes Month/Year Tobacco Last Used: 09/2020 - Caffeine Use Caffeine Use: Reports: Coffee - Recreational Drug Use Recreational Drug Use: No Drug Use in Last 12 Months: No H&P Review of Systems - Review of Systems: Review Of Systems: Comprehensive ROS is negative, except as noted in HPI. Exam - Exam Exam: See Below - Vital Signs Vital Signs: Last Vital Signs Temp 36.1 C 11/19/20 13:45 Pulse 76 11/19/20 13:45 Resp 15 11/19/20 13:45 BP 142/63 H 11/19/20 13:45 Pulse Ox 96 11/19/20 13:45 Weight: 81.647 kg - Exam General: Alert, Oriented, Cooperative, Other (NAD) HEENT: Conjunctiva Clear, EOMI, Hearing Intact, Pupils Equal, Pupils Reactive Neck: Supple, Trachea Midline Lungs: Clear to Auscultation, Normal Respiratory Effort Cardiovascular: Regular Rate, Regular Rhythm GI/Abdominal Exam: Normal Bowel Sounds, Soft, Non-Tender, No Distention Extremities: Normal Inspection, No Pedal Edema Peripheral Pulses: 2+: Radial (L), Radial (R) Skin: Warm, Dry, Intact Neurological: Cranial Nerves Intact, Strength Equal Bilateral, Normal Speech, Normal Tone Neuro Extensive - Mental Status: Alert, Oriented x3, Normal Mood/Affect Psychiatric: Alert, Normal Affect, Normal Mood Sepsis Event Note - Evaluation Sepsis Screening Result: No Definite Risk - Focused Exam Vital Signs: Vital Signs Temp Pulse Resp BP Pulse Ox 11/19/20 13:45 36.1 C 76 15 142/63 H 96 11/19/20 13:15 76 14 115/78 95 11/19/20 12:45 82 14 121/72 96 11/19/20 12:30 72 13 149/67 H 95 11/19/20 12:15 68 14 129/60 96 11/19/20 12:00 36.3 C 71 14 133/56 L 96 11/19/20 11:45 36.3 C 72 13 138/59 L 96 11/19/20 11:15 66 14 118/50 L 96 11/19/20 11:10 67 15 124/63 95 11/19/20 11:05 67 15 129/59 L 96 11/19/20 11:00 69 17 128/59 L 95 11/19/20 10:55 69 17 130/51 L 94 L 11/19/20 10:50 69 19 128/47 L 94 L 11/19/20 10:45 36.4 C 70 12 125/46 L 97 11/19/20 06:48 36.1 C 78 16 134/65 96 Consult PN Assessment/Plan POD#: 0 Procedures: Procedures ACUTE HEPATITIS PANEL (03/16/19) AGENT NOS ASSAY W/OPTIC (11/23/18) AIRWAY INHALATION TREATMENT (11/03/15) ASSAY CARBOXYHB QUANT (06/10/16) ASSAY GLUCOSE BLOOD QUANT (11/19/19) ASSAY OF AMMONIA (06/10/16) ASSAY OF AMYLASE (07/19/17) ASSAY OF CK (CPK) (11/21/15) ASSAY OF ETHANOL (01/17/14) ASSAY OF FREE THYROXINE (04/21/17) ASSAY OF LACTIC ACID (01/12/18) ASSAY OF LIPASE (07/19/17) ASSAY OF MAGNESIUM (06/10/16) ASSAY OF NATRIURETIC PEPTIDE (06/21/19) ASSAY OF TOTAL THYROXINE (09/17/14) ASSAY OF TROPONIN QUANT (08/16/20) ASSAY THYROID STIM HORMONE (08/16/20) BEHAV CHNG SMOKING > 10 MIN (01/11/17) BLOOD CULTURE FOR BACTERIA (07/19/17) BLOOD GASES ANY COMBINATION (01/12/18) BREAST TOMOSYNTHESIS BI (07/20/18) C-REACTIVE PROTEIN (06/10/16) CARDIOLIPIN ANTIBODY EA IG (02/26/16) CARDIOVASCULAR STRESS TEST (07/24/20) CHEST X-RAY 1 VIEW FRONTAL (07/19/17) CHEST X-RAY 2VW FRONTAL&LATL (04/12/17) CLOSTRIDIUM AG IA (07/10/15) COMP SCREEN MAMMOGRAM ADD-ON (01/21/16) COMPLETE CBC AUTOMATED (09/17/14) COMPLETE CBC W/AUTO DIFF WBC (04/24/20) COMPREHEN METABOLIC PANEL (08/16/20) CRITICAL CARE ADDL 30 MIN (01/12/18) CRITICAL CARE FIRST HOUR (01/12/18) CRYPTOSPORIDIUM AG IA (11/23/18) CT ABD & PELV 1/> REGNS (12/30/14) CT ABD & PELV W/CONTRAST (04/14/14) CT ABD & PELVIS W/O CONTRAST (04/04/17) CT ANGIOGRAPHY HEAD (08/16/20) CT ANGIOGRAPHY NECK (08/16/20) CT CHEST SPINE W/O DYE (04/14/14) CT HEAD/BRAIN W/O DYE (08/16/20) CT LUMBAR SPINE W/O DYE (11/05/19) CT NECK SPINE W/O DYE (11/05/19) CT THORAX DX C+ (04/14/14) DIAGNOSTIC COLONOSCOPY (07/17/15) DRUG TEST PRSMV CHEM ANLYZR (08/16/20) DRUG TEST PRSMV DIR OPT OBS (04/24/20) ECHO EXAM OF ABDOMEN (03/20/19) EEG AWAKE AND DROWSY (09/03/20) ELECTROCARDIOGRAM TRACING (08/16/20) EMERGENCY DEPT VISIT (08/16/20) EMERGENCY DEPT VISIT (11/05/19) EMERGENCY DEPT VISIT (10/24/19) EMERGENCY DEPT VISIT (03/08/19) EMERGENCY DEPT VISIT (01/23/19) EMERGENCY DEPT VISIT (06/05/18) EMERGENCY DEPT VISIT (01/07/18) EMERGENCY DEPT VISIT (07/19/17) EMERGENCY DEPT VISIT (04/01/17) EMERGENCY DEPT VISIT (06/10/16) EMERGENCY DEPT VISIT (06/07/16) EMERGENCY DEPT VISIT (02/15/16) EMERGENCY DEPT VISIT (01/11/16) EMERGENCY DEPT VISIT (11/21/15) EMERGENCY DEPT VISIT (11/16/15) EMERGENCY DEPT VISIT (11/05/15) EMERGENCY DEPT VISIT (04/01/15) EMERGENCY DEPT VISIT (03/25/15) EMERGENCY DEPT VISIT (03/22/15) EMERGENCY DEPT VISIT (01/31/15) EMERGENCY DEPT VISIT (11/28/14) EMERGENCY DEPT VISIT (10/28/14) EMERGENCY DEPT VISIT (10/07/14) EMERGENCY DEPT VISIT (10/07/14) EMERGENCY DEPT VISIT (10/04/14) EMERGENCY DEPT VISIT (10/04/14) EMERGENCY DEPT VISIT (09/13/14) EMERGENCY DEPT VISIT (07/27/14) EMERGENCY DEPT VISIT (06/23/14) EMERGENCY DEPT VISIT (06/17/14) EMERGENCY DEPT VISIT (04/14/14) EMERGENCY DEPT VISIT (03/22/14) EMERGENCY DEPT VISIT (01/17/14) EMERGENCY DEPT VISIT (01/17/14) EVALUATE PT USE OF INHALER (04/01/17) EVALUATION OF WHEEZING (11/25/15) EXTRACRANIAL BILAT STUDY (04/08/15) FIBRIN DEGRADATION QUANT (11/28/14) FLUORESCENT ANTIBODY SCREEN (02/26/16) FLUORESCENT ANTIBODY TITER (02/26/16) FREE ASSAY (FT-3) (09/17/14) GIARDIA AG IA (11/23/18) GLUCOSE BLOOD TEST (08/16/20) GLYCOSYLATED HEMOGLOBIN TEST (04/24/20) HEPATIC FUNCTION PANEL (03/16/19) HOT OR COLD PACKS THERAPY (02/07/17) HT MUSCLE IMAGE SPECT MULT (07/24/20) HT MUSCLE IMAGE SPECT SING (01/06/17) HYDRATE IV INFUSION ADD-ON (09/28/18) HYDRATION IV INFUSION INIT (09/28/18) INFLUENZA ASSAY W/OPTIC (11/28/14) INJ TRIGGER POINT 1/2 MUSCL (10/29/15) INJECT SPINE LUMBAR/SACRAL (10/14/15) INSERT EMERGENCY AIRWAY (10/24/19) INSERT TEMP BLADDER CATH (03/08/19) IRON BINDING TEST (08/19/15) LACTOFERRIN FECAL (QUAL) (11/23/18) LIPID PANEL (04/24/20) MANUAL THERAPY 1/> REGIONS (02/07/17) MEDICAL NUTRITION INDIV IN (04/08/15) METABOLIC PANEL TOTAL CA (10/15/20) MRI BRAIN STEM W/O & W/DYE (07/03/15) MRI BRAIN STEM W/O DYE (08/22/20) MRI LUMBAR SPINE W/O DYE (07/07/17) MRI NECK SPINE W/O DYE (04/08/16) OFFICE O/P EST LOW 20-29 MIN (04/15/20) OFFICE O/P EST MINIMAL PROB (06/05/20) OFFICE O/P EST MOD 30-39 MIN (11/19/19) OFFICE O/P EST SF 10-19 MIN (02/19/14) OFFICE O/P NEW HI 60-74 MIN (06/24/15) OFFICE O/P NEW LOW 30-44 MIN (06/30/15) OFFICE O/P NEW MOD 45-59 MIN (02/14/14) OFFICE O/P NEW SF 15-29 MIN (01/22/16) PROTEIN E-PHORESIS SERUM (08/19/15) PROTHROMBIN TIME (04/24/20) PSYCH DIAG EVAL W/MED SRVCS (04/26/14) PT EVAL LOW COMPLEX 20 MIN (11/20/19) PT EVALUATION (05/10/16) RBC SED RATE AUTOMATED (06/10/16) REMOVE IMPACTED EAR WAX UNI (01/22/16) RHEUMATOID FACTOR TEST QUAL (02/26/16) ROUTINE VENIPUNCTURE (10/15/20) KAMILLA VIPER VENOM DILUTED (06/09/16) SARS-COV-2 COVID-19 AMP PRB (04/24/20) SCR MAMMO BI INCL CAD (07/24/19) SMEAR WET [place] SALINE/INK (01/15/15) STOOL CULTR AEROBIC BACT EA (11/23/18) THER/PROPH/DIAG INJ IV PUSH (07/19/17) THER/PROPH/DIAG INJ SC/IM (04/21/17) THER/PROPH/DIAG IV INF ADDON (06/10/16) THER/PROPH/DIAG IV INF INIT (06/10/16) THERAPEUTIC EXERCISES (02/07/17) THROMBOPLASTIN TIME PARTIAL (04/24/20) TOTAL CORTISOL (06/10/16) TTE W/DOPPLER COMPLETE (08/22/20) TX/PRO/DX INJ NEW DRUG ADDON (06/10/16) TX/PRO/DX INJ SAME DRUG ICD 9 CODER (06/23/14) UPR/L XTREMITY ART 2 LEVELS (12/07/16) UR ALBUMIN SEMIQUANTITATIVE (03/01/19) URINALYSIS AUTO W/O SCOPE (04/24/20) URINALYSIS AUTO W/SCOPE (10/24/19) URINE BACTERIA CULTURE (12/25/14) URINE CULTURE/COLONY COUNT (01/12/18) US EXAM ABDO BACK WALL [place] (12/20/14) VITAMIN B-12 (08/19/15) WITHDRAWAL OF ARTERIAL BLOOD (01/12/18) X-RAY EXAM CHEST 1 VIEW (08/16/20) X-RAY EXAM CHEST 2 VIEWS (06/21/19) X-RAY EXAM L-S SPINE 2/3 VWS (06/22/17) X-RAY EXAM OF ABDOMEN (03/30/17) X-RAY EXAM OF FOOT (11/06/19) X-RAY EXAM OF HAND (06/10/15) X-RAY EXAM OF PELVIS (10/07/14) Problem List Initiated/Reviewed/Updated: Yes Plan: Assessment and Plan: 1. S/P port-A-cath placement POD#0: - Management per primary team. 2. Diabetes mellitus type 2: - Recommend ADA Diet, Novolog SSI and accuchecks TIDAC. 3. Past medical history of HTN, CHF, COPD, MS, chronic pain and TIA: - Continue home medications. - Will hold aspirin and plavix for now as patient noted to have bleeding from surgical site intraoperatively. 4. DVT prophylaxis: - Per primary team.
--- NOTE | 2020-11-19 15:18 | PCM.SURGPN ---
- General Info Date of Service: 11/19/20 Date of Surgery/Procedure: 11/19/20 POD#: 0 Functional Status: Reports: Pain Controlled, Tolerating Diet, Ambulating, Urinating, Incentive Spirometry. Denies: New Symptoms - Review of Systems General: Reports: No Symptoms HEENT: Reports: No Symptoms Pulmonary: Reports: No Symptoms Cardiovascular: Reports: No Symptoms Neurological: Reports: Other (tenderness over left anterior chest wall ) - Patient Data Vitals - Most Recent: Last Vital Signs Temp 36.1 C 11/19/20 13:45 Pulse 76 11/19/20 13:45 Resp 15 11/19/20 13:45 BP 142/63 H 11/19/20 13:45 Pulse Ox 96 11/19/20 13:45 Weight - Most Recent: 81.647 kg I&O - Last 24 Hours: Intake & Output 11/19/20 11/19/20 11/19/20 06:59 14:59 22:59 Intake Total 1500 Balance 1500 Lab Results Last 24 Hrs: Laboratory Results - last 24 hr 11/19/20 Range/Units 06:43 POC Glucose 159 H (60-110) mg/dL Med Orders - Current: Current Medications Acetaminophen (Tylenol) 650 mg PO Q6H PRN PRN Reason: Pain (mild 1-3) Ketorolac Tromethamine (Toradol) 10 mg PO Q6H PRN PRN Reason: Pain Stop: 11/24/20 11:07 Last Admin: 11/19/20 13:28 Dose: 10 mg Documented by: Sodium Chloride (Normal Saline) 10 ml IV ASDIRECTED PRN PRN Reason: IV Use Sodium Chloride (Saline Flush) 2.5 ml FLUSH ASDIRECTED PRN PRN Reason: Keep Vein Open Discontinued Medications Albuterol (Proventil Hfa) Confirm Administered Dose 6.7 gm INH .STK-MED ONE Stop: 11/19/20 08:17 Albuterol (Proventil Neb Soln) 2.5 mg NEB Q6HRRT SHARIFA Bupivacaine HCl (Sensorcaine-Mpf 0.5%) Confirm Administered Dose 10 ml .ROUTE .STK-MED ONE Stop: 11/19/20 07:43 Dexamethasone (Dexamethasone) Confirm Administered Dose 20 mg .ROUTE .STK-MED ONE Stop: 11/19/20 08:21 Fentanyl (Sublimaze) Confirm Administered Dose 100 mcg .ROUTE .STK-MED ONE Stop: 11/19/20 06:15 Fentanyl (Sublimaze) 50 mcg IVPUSH Q5M PRN PRN Reason: Pain (severe 7-10) Stop: 11/20/20 08:30 Glycopyrrolate (Robinul) Confirm Administered Dose 0.2 mg .ROUTE .STK-MED ONE Stop: 11/19/20 08:46 Heparin Sodium (Porcine) (Heparin Lock Flush 100 Units/Ml) Confirm Administered Dose 600 unit .ROUTE .STK-MED ONE Stop: 11/19/20 07:43 Cefazolin Sodium/Dextrose 2 gm (/ Premix) 50 mls @ 100 mls/hr IV ONETIME ONE Stop: 11/17/20 09:42 Lactated Ringer's (Ringers, Lactated) 1,000 mls @ 125 mls/hr IV ASDIRECTED SHARIFA Last Admin: 11/19/20 06:55 Dose: 125 mls/hr Documented by: Cefazolin Sodium/Dextrose (Ancef 2 Gm/50 Ml) Confirm Administered Dose 50 mls @ as directed .ROUTE .STK-MED ONE Stop: 11/19/20 06:11 Lidocaine (Xylocaine-Mpf 2%) Confirm Administered Dose 5 ml .ROUTE .STK-MED ONE Stop: 11/19/20 06:12 Lidocaine HCl (Xylocaine 1%) Confirm Administered Dose 20 ml .ROUTE .STK-MED ONE Stop: 11/19/20 07:43 Midazolam HCl (Versed 1 Mg/Ml) Confirm Administered Dose 2 mg .ROUTE .STK-MED ONE Stop: 11/19/20 06:18 Morphine Sulfate (Duramorph Pf) Confirm Administered Dose 0 mg .ROUTE .STK-MED ONE Stop: 11/19/20 09:56 Octyl Cyanoacrylate (Dermabond Advance) Confirm Administered Dose 1 applic .ROUTE .STK-MED ONE Stop: 11/19/20 07:43 Ondansetron HCl (Zofran) Confirm Administered Dose 0 mg .ROUTE .STK-MED ONE Stop: 11/19/20 06:12 Ondansetron HCl (Zofran) Confirm Administered Dose 4 mg .ROUTE .STK-MED ONE Stop: 11/19/20 09:56 Oxytocin (Pitocin) Confirm Administered Dose 0 unit .ROUTE .STK-MED ONE Stop: 11/19/20 09:59 Propofol (Diprivan 20 Ml) Confirm Administered Dose 0 mg .ROUTE .STK-MED ONE Stop: 11/19/20 06:18 Propofol (Diprivan 20 Ml) Confirm Administered Dose 600 mg .ROUTE .STK-MED ONE Stop: 11/19/20 07:29 Propofol (Diprivan 20 Ml) Confirm Administered Dose 200 mg .ROUTE .STK-MED ONE Stop: 11/19/20 09:39 Propofol (Diprivan 20 Ml) Confirm Administered Dose 200 mg .ROUTE .STK-MED ONE Stop: 11/19/20 10:23 Rocuronium [place] (Rocuronium [place]) Confirm Administered Dose 50 mg .ROUTE .STK-MED ONE Stop: 11/19/20 08:17 Sugammadex Sodium (Bridion) Confirm Administered Dose 200 mg .ROUTE .STK-MED ONE Stop: 11/19/20 10:02 - Exam Wound/Incisions: Dressing Dry and Intact, No Drainage General: Alert, Oriented HEENT: Pupils Equal, Pupils Reactive Lungs: Normal Respiratory Effort Cardiovascular: Regular Rate Skin: Warm, Dry, Intact Sepsis Event Note - Evaluation Sepsis Screening Result: No Definite Risk - Focused Exam Vital Signs: Vital Signs Temp Pulse Resp BP Pulse Ox 11/19/20 13:45 36.1 C 76 15 142/63 H 96 11/19/20 13:15 76 14 115/78 95 11/19/20 12:45 82 14 121/72 96 11/19/20 12:30 72 13 149/67 H 95 11/19/20 12:15 68 14 129/60 96 11/19/20 12:00 36.3 C 71 14 133/56 L 96 11/19/20 11:45 36.3 C 72 13 138/59 L 96 11/19/20 11:15 66 14 118/50 L 96 11/19/20 11:10 67 15 124/63 95 11/19/20 11:05 67 15 129/59 L 96 11/19/20 11:00 69 17 128/59 L 95 11/19/20 10:55 69 17 130/51 L 94 L 11/19/20 10:50 69 19 128/47 L 94 L 11/19/20 10:45 36.4 C 70 12 125/46 L 97 11/19/20 06:48 36.1 C 78 16 134/65 96 - Problem List & Annotations (1) Poor venous access SNOMED Code(s): 794092722 Code(s): I87.8 - OTHER SPECIFIED DISORDERS OF VEINS Status: Acute Current Visit: Yes (2) Port-A-Cath in place SNOMED Code(s): 908082959 Code(s): Z95.828 - PRESENCE OF OTHER VASCULAR IMPLANTS AND GRAFTS Status: Acute Current Visit: Yes - Problem List Review Problem List Initiated/Reviewed/Updated: Yes - My Orders Last 24 Hours: Active Orders 24 hr Category Date Time Status Bradycardia-Neuroaxis [employer] [RC] ROUTINE Care 11/19/20 08:29 Active Hypertension-Neuroaxis [employer] [RC] ROUTINE Care 11/19/20 08:29 Active Hypotension-Neuroaxis [employer] [RC] ROUTINE Care 11/19/20 08:29 Active Intake and Output [RC] Q12H Care 11/19/20 11:04 Active Notify Provider Consults [RC] ASDIRECTED Care 11/19/20 15:03 Active Oxygen Therapy [RC] ASDIRECTED Care 11/19/20 08:29 Active Oxygen Therapy [RC] PRN Care 11/19/20 11:04 Active Pulse Oximetry [RC] CONTINUOUS Care 11/19/20 11:04 Active RT Incentive Spirometry [RC] ASDIRECTED Care 11/19/20 11:03 Active Up ad Nisha [RC] ASDIRECTED Care 11/19/20 11:03 Active Vital Signs [RC] PER UNIT ROUTINE Care 11/19/20 11:04 Active Consult to Physician [CONS] Routine Cons 11/19/20 15:03 Active Regular Diet [DIET] Diet 11/19/20 Lunch Active Fluoro>1Hr [CR] Routine Exams 11/19/20 10:11 Taken Acetaminophen [TylenoL] Med 11/19/20 11:03 Active 650 mg PO Q6H PRN Ketorolac [Toradol] Med 11/19/20 11:06 Active 10 mg PO Q6H PRN Medication Orders Acetaminophen (Tylenol) 650 mg PO Q6H PRN PRN Reason: Pain (mild 1-3) Ketorolac Tromethamine (Toradol) 10 mg PO Q6H PRN PRN Reason: Pain Stop: 11/24/20 11:07 Last Admin: 11/19/20 13:28 Dose: 10 mg Documented by: RICKEY Sodium Chloride (Normal Saline) 10 ml IV ASDIRECTED PRN PRN Reason: IV Use Sodium Chloride (Saline Flush) 2.5 ml FLUSH ASDIRECTED PRN PRN Reason: Keep Vein Open - Plan Plan (Free Text/Narrative):: Patient underwent a difficult port a cath placement this morning. Given that I accessed her RIJ and dilated her LIJ with final placement into the L subclavian I want to be sure she remains stable overnight with no bleeding complications. Will recheck a CXR in the am. Consulted hospitalist to manage outpatient medicat ions and conditions. She can eat. Will hold asa and clopidogrel. Monitor for alteration in vital signs.
--- NOTE | 2020-11-19 16:03 | OR ---
SURGEON: ANETA MANZO MD DATE OF PROCEDURE: 11/19/2020 PREOPERATIVE DIAGNOSIS: Poor venous access. POSTOPERATIVE DIAGNOSIS: Poor venous access. PROCEDURE PERFORMED: Left subclavian Port-A-Cath placement. PRIMARY SURGEON: Aneta Manzo MD ANESTHESIA: General endotracheal anesthesia. FLUIDS: 750 mL of crystalloid. ESTIMATED BLOOD LOSS: 40 mL. FINDINGS: Unable to place catheter in right subclavian vein, right IJ vein, or left IJ vein. Able to obtain vascular access through left subclavian vein. COMPLICATIONS: Unable to place port in right subclavian vein, right IJ vein due to small diameter, unable to pass catheter into the left internal jugular vein. INDICATIONS: The patient is a 70-year-old female with especially difficult venous access. She has CHF and will need multiple procedures and lab draws in the future. The decision was made to proceed with Port-A-Cath placement. The patient's past medical history is significant for skin grafts to the neck and upper chest. She has scar contractures over the right anterior neck. I explained to the patient that this may be a difficult case given her previous skin grafts and scar contractures. We discussed the possible placement of the catheter in either the right or left subclavian vein or the right or left internal jugular vein. I explained the procedures as well as the risks including bleeding, infection, or damage to surrounding structures. She verbalized understanding and wished to proceed. Her guardian was present with her during this and verbalized understanding and agreement as well. PROCEDURE IN DETAIL: The patient was brought into the OR and placed on the OR table in supine position. The patient had a flexion contracture of the neck. Her head was supported with pillows. Her feet were placed in a bent position due to chronic back pain. A time-out was completed verifying the patient's name, age, date of , allergies, and procedure to be performed. General endotracheal anesthesia was induced. A small shoulder roll was placed under the patient's shoulders, and we tucked the patient's arms at her sides. The right and left neck as well as right and left anterior chest wall were prepped and draped in usual standard fashion. I made the decision to attempt access into the right subclavian vein. The patient was placed into Trendelenburg position. I anesthetized the skin two fingerbreadths below the lateral right clavicle with 0.5% Marcaine and 1% lidocaine mixed in a 1:1 mixture. This was carried down to the level of the clavicle. The patient had a thickened skin due to her previous skin grafts. I attempted to pass the needle through this, but given how thick the skin was, I had trouble angling my needle. Instead, I decided to use a 15 blade to make an incision overlying the area. A 3 cm incision was made where I would place my Port-A-Cath. By doing this, I was then able to pass my needle through the subcutaneous fat tissues to the clavicle without difficulty and with a better tactile sense. I made multiple attempts to obtain venous access, but was unable to do so. The decision was made to use an ultrasound to try to gain access into the right internal jugular vein instead. Ultrasound was called into the room. Using an ultrasound probe, I was able to identify the right carotid artery as well as the right internal jugular vein. Using a guide needle, I was able to then guide a needle into the right internal jugular vein. Good venous return was noted. I attempted to pass a guidewire down the guide into the vein under fluoroscopic guidance. However, at first the guidewire migrated superiorly. I attempted on multiple passes to get it to travel down into the chest, but was unable to do so. The guide needle was removed, and I attempted to obtain venous access again under ultrasound guidance. I was able to do it, however, again the catheter would not pass. The guide needle and guidewire were pulled out and pressure was held on the right side of the neck. Using ultrasound, I looked at the vascular anatomy of the left side of the neck and the left internal jugular vein appeared larger and more accessible. The decision was made to attempt vascular access on the left side through the left internal jugular vein. I was able to pass my guide needle into the vein without difficulty. This was done under ultrasound guidance. A good return of venous blood was noted. The guidewire was placed into the chest under fluoroscopic guidance, and I was able to place it into the superior vena cava. The guidewire was secured to the drapes, and I turned my attention to the left chest wall. Using a 15 blade, I made an incision again along a similar area on the right side of the chest. The catheter tubing was then tunneled from the catheter site on the chest to the base of the neck. The patient had a sharp turn at this area, so a counter incision was made, and I tunneled the catheter then up to where the guidewire was in place. Once the catheter tubing was tunneled up to the appropriate area, a vascular sheath and dilator were placed over the guidewire. Under fluoroscopic guidance, I attempted to dilate the vascular tract. I was able to get to the junction of the subclavian and internal jugular vein. However, the vascular sheath and dilator would go no further. I pulled out the guidewire and dilator and attempted to pass the catheter tubing into the chest. I was able to get the catheter tubing into the subclavian vein. However, there was no return of venous blood. Multiple images and adjustments were made via fluoroscopy, but despite multiple attempts and even advancing the tubing over a longer guide wire, I could not get the catheter tubing to return venous blood. The decision was made to abort trying access in this area. I removed the catheter tubing and pressure was held on the left side of the neck for 10 minutes. The area was inspected and there was no evidence of ongoing bleeding or large hematoma along the left side of the neck. Prior to attempting anything on the left side, x-rays were taken of the base of the right side of the lung and the right apex, which showed no pneumothorax. Given my difficulty with the left side, x-rays were taken again, which again did not show any evidence of hemothorax or pneumothorax on the left side. I decided to attempt access through the left subclavian vein. I extended my incision medially and was able to gain vascular access immediately under the left clavicle. A good return of venous blood was noted. The guidewire passed easily into the chest down to the SVC. A vascular sheath and dilator were placed over the guidewire, and I dilated my vascular tract without difficulty. The guidewire and vascular dilator were removed. The catheter tubing was placed down in through the vascular sheath into the superior vena cava using fluoroscopy. The vascular sheath was peeled away. The catheter tubing was then pulled back into the SVC. I accessed the catheter tubing and a good return of venous blood was noted. The catheter tubing was then trimmed and placed onto the Port-A-Cath device. It was then placed in the chest wall pocket and secured on either side using 2-0 Prolene sutures. I accessed the port using a Palafox needle, and I obtained a good return of venous blood. It was flushed with injectable saline, then locked with 4 mL of heparinized saline. The subcutaneous fat layer in the Port-A-Cath site was closed with interrupted 3-0 Vicryl sutures. The skin was closed with a running 4-0 Monocryl stitch. My incision sites on the left side of the neck were closed with interrupted 4-0 Monocryl. The right-sided incision was closed with interrupted 3-0 Vicryl in the subcutaneous fat layer and the skin was closed with a running 4-0 Monocryl stitch. Dermabond and sterile dressings were applied to all areas. The patient was extubated and taken to PACU in stable condition. The post operative CXR in PACU showed good placement of my port and no evidence of any pneumothorax or hemothorax. The patient will be monitored overnight for pain control and respiratory monitoring. KRISTINA ORTIZ /[id number] MTDD
[2020-11-19] MEDS ORDERED: 50% Dextrose in Water 50 ML Syringe IV PRN (16:05)
[2020-11-19] MEDS ORDERED: Glucagon,Human Recombinant 1 MG Vial IM PRN (16:05)
[2020-11-19] MEDS: Insulin Aspart 100 Units/ML 3 ML Pen SUBCUT SCH (16:36)
[2020-11-19] MEDS ORDERED: tiZANidine 4 MG Tab PO PRN (17:00)
[2020-11-19] MEDS ORDERED: traZODone 50 MG Tab PO SCH (21:00)
[2020-11-19] MEDS ORDERED: Pravastatin 40 MG Tab PO SCH (21:00)
[2020-11-19] MEDS ORDERED: OLANZapine 5 MG Tab PO SCH (21:00)
[2020-11-19] MEDS ORDERED: Mirtazapine 15 MG Tab PO SCH (21:00)
[2020-11-19] MEDS ORDERED: PALIPERIDONE 9 MG PO SCH (21:00)
[2020-11-19] MEDS ORDERED: Losartan 50 MG Tab PO SCH (21:00)
--- NOTE | 2020-11-19 21:00 | CR ---
INDICATION: Port-A-Cath placement. TECHNIQUE: Intraoperative C-arm fluoroscopy. IMPRESSION: Intraoperative C-arm fluoroscopy was provided. Fluoroscopy time 1226 seconds. 22 images were captured. Dictated by Alexandro Garcia MD @ Nov 19 2020 8:58PM Signed by Dr. Alexandro Garcia @ Nov 19 2020 8:58PM
[2020-11-19] MEDS: Propranolol 20 MG Tab PO SCH (21:03)
[2020-11-19] MEDS: Topiramate 50 MG Tab PO SCH (21:06)
[2020-11-19] MEDS: Dorzolamide/Timolol 2%-0.5% Ophth Soln 10 ML Bottle EYEBOTH SCH (21:42)
[2020-11-20] MEDS: Insulin Aspart 100 Units/ML 3 ML Pen SUBCUT SCH (06:41)
--- NOTE | 2020-11-20 07:48 | PCM.PN ---
<Adarsh Rollins - Last Filed: 11/20/20 09:31> - General Info Date of Service: 11/20/20 Functional Status: Reports: Pain Controlled, Tolerating Diet, Ambulating, Urinating, Incentive Spirometry - Review of Systems General: Reports: No Symptoms Pulmonary: Reports: Shortness of Breath Cardiovascular: Reports: Chest Pain - Patient Data Vitals - Most Recent: Last Vital Signs Temp 96.4 F L 11/20/20 04:53 Pulse 94 11/20/20 04:53 Resp 18 11/20/20 04:53 BP 193/79 H 11/20/20 04:53 Pulse Ox 99 11/20/20 04:53 Weight - Most Recent: 81.647 kg I&O - Last 24 Hours: Intake & Output 11/19/20 11/20/20 11/20/20 22:59 06:59 14:59 Intake Total 480 1630 Output Total 500 400 Balance -20 1230 Lab Results Last 24 Hours: Laboratory Results - last 24 hr 11/19/20 11/19/20 11/20/20 Range/Units 06:43 16:35 06:36 POC Glucose 159 H 188 H 193 H (60-110) mg/dL Med Orders - Current: Current Medications Acetaminophen (Tylenol) 650 mg PO Q6H PRN PRN Reason: Pain (mild 1-3) Last Admin: 11/20/20 03:12 Dose: 650 mg Documented by: Amlodipine Besylate (Norvasc) 10 mg PO DAILY [facility] Dextrose/Water (Dextrose 50% In Water) 50 ml IV ASDIRECTED PRN PRN Reason: Hypoglycemia Duloxetine HCl (Cymbalta) 120 mg PO DAILY [facility] Furosemide (Lasix) 40 mg PO DAILY [facility] Gabapentin (Neurontin) 600 mg PO QID [facility] Glucagon (Glucagen) 1 mg IM ASDIRECTED PRN PRN Reason: Hypoglycemia Imipramine HCl (Imipramine Hcl) 75 mg PO BEDTIME [facility] Last Admin: 11/19/20 21:42 Dose: Not Given Documented by: Insulin Aspart (Novolog) 0 unit SUBCUT TIDAC [facility]; Protocol Last Admin: 11/20/20 06:41 Dose: 1 unit Documented by: Ketorolac Tromethamine (Toradol) 10 mg PO Q6H PRN PRN Reason: Pain Stop: 11/24/20 11:07 Last Admin: 11/19/20 19:05 Dose: 10 mg Documented by: Losartan Potassium (Cozaar) 25 mg PO DAILY [facility] Losartan Potassium (Cozaar) 50 mg PO BEDTIME [facility] Last Admin: 11/19/20 21:02 Dose: 50 mg Documented by: Mirtazapine (Remeron) 7.5 mg PO BEDTIME [facility] Last Admin: 11/19/20 21:03 Dose: 7.5 mg Documented by: Olanzapine (Zyprexa) 10 mg PO BEDTIME [facility] Last Admin: 11/19/20 21:05 Dose: 10 mg Documented by: Dorzolamide/Timolol 2%-0.5% Ophth Soln 10 Ml Bottle 1 each EYEBOTH BID [facility] Last Admin: 11/19/20 21:42 Dose: Not Given Documented by: Isosorbide (Mononitrate 20 Mg) 1 each PO BEDTIME [facility] Last Admin: 11/19/20 21:42 Dose: Not Given Documented by: Paliperidone [Invega (] 9 Mg) 1 each PO BEDTIME [facility] Last Admin: 11/19/20 21:43 Dose: Not Given Documented by: Pravastatin Sodium (Pravachol) 40 mg PO BEDTIME [facility] Last Admin: 11/19/20 21:05 Dose: 40 mg Documented by: Propranolol HCl (Inderal) 40 mg PO BID [facility] Last Admin: 11/19/20 21:03 Dose: 40 mg Documented by: Sodium Chloride (Normal Saline) 10 ml IV ASDIRECTED PRN PRN Reason: IV Use Sodium Chloride (Saline Flush) 2.5 ml FLUSH ASDIRECTED PRN PRN Reason: Keep Vein Open Tizanidine HCl (Zanaflex) 8 mg PO Q8H PRN PRN Reason: Pain Topiramate (Topamax) 50 mg PO BID [facility] Last Admin: 11/19/20 21:06 Dose: 50 mg Documented by: Trazodone HCl (Trazodone) 100 mg PO BEDTIME [facility] Last Admin: 11/19/20 21:05 Dose: 100 mg Documented by: Discontinued Medications Albuterol (Proventil Hfa) Confirm Administered Dose 6.7 gm INH .STK-MED ONE Stop: 11/19/20 08:17 Albuterol (Proventil Neb Soln) 2.5 mg NEB Q6HRRT [facility] Bupivacaine HCl (Sensorcaine-Mpf 0.5%) Confirm Administered Dose 10 ml .ROUTE .STK-MED ONE Stop: 11/19/20 07:43 Dexamethasone (Dexamethasone) Confirm Administered Dose 20 mg .ROUTE .STK-MED ONE Stop: 11/19/20 08:21 Fentanyl (Sublimaze) Confirm Administered Dose 100 mcg .ROUTE .STK-MED ONE Stop: 11/19/20 06:15 Fentanyl (Sublimaze) 50 mcg IVPUSH Q5M PRN PRN Reason: Pain (severe 7-10) Stop: 11/20/20 08:30 Glycopyrrolate (Robinul) Confirm Administered Dose 0.2 mg .ROUTE .STK-MED ONE Stop: 11/19/20 08:46 Heparin Sodium (Porcine) (Heparin Lock Flush 100 Units/Ml) Confirm Administered Dose 600 unit .ROUTE .STK-MED ONE Stop: 11/19/20 07:43 Cefazolin Sodium/Dextrose 2 gm (/ Premix) 50 mls @ 100 mls/hr IV ONETIME ONE Stop: 11/17/20 09:42 Lactated Ringer's (Ringers, Lactated) 1,000 mls @ 125 mls/hr IV ASDIRECTED [facility] Last Admin: 11/19/20 06:55 Dose: 125 mls/hr Documented by: Cefazolin Sodium/Dextrose (Ancef 2 Gm/50 Ml) Confirm Administered Dose 50 mls @ as directed .ROUTE .STK-MED ONE Stop: 11/19/20 06:11 Lidocaine (Xylocaine-Mpf 2%) Confirm Administered Dose 5 ml .ROUTE .STK-MED ONE Stop: 11/19/20 06:12 Lidocaine HCl (Xylocaine 1%) Confirm Administered Dose 20 ml .ROUTE .STK-MED ONE Stop: 11/19/20 07:43 Midazolam HCl (Versed 1 Mg/Ml) Confirm Administered Dose 2 mg .ROUTE .STK-MED ONE Stop: 11/19/20 06:18 Morphine Sulfate (Duramorph Pf) Confirm Administered Dose 0 mg .ROUTE .STK-MED ONE Stop: 11/19/20 09:56 Octyl Cyanoacrylate (Dermabond Advance) Confirm Administered Dose 1 applic .ROUTE .STK-MED ONE Stop: 11/19/20 07:43 Ondansetron HCl (Zofran) Confirm Administered Dose 0 mg .ROUTE .STK-MED ONE Stop: 11/19/20 06:12 Ondansetron HCl (Zofran) Confirm Administered Dose 4 mg .ROUTE .STK-MED ONE Stop: 11/19/20 09:56 Oxytocin (Pitocin) Confirm Administered Dose 0 unit .ROUTE .STK-MED ONE Stop: 11/19/20 09:59 Propofol (Diprivan 20 Ml) Confirm Administered Dose 0 mg .ROUTE .STK-MED ONE Stop: 11/19/20 06:18 Propofol (Diprivan 20 Ml) Confirm Administered Dose 600 mg .ROUTE .STK-MED ONE Stop: 11/19/20 07:29 Propofol (Diprivan 20 Ml) Confirm Administered Dose 200 mg .ROUTE .STK-MED ONE Stop: 11/19/20 09:39 Propofol (Diprivan 20 Ml) Confirm Administered Dose 200 mg .ROUTE .STK-MED ONE Stop: 11/19/20 10:23 Rocuronium [place] (Rocuronium [place]) Confirm Administered Dose 50 mg .ROUTE .STK-MED ONE Stop: 11/19/20 08:17 Sugammadex Sodium (Bridion) Confirm Administered Dose 200 mg .ROUTE .STK-MED ONE Stop: 11/19/20 10:02 - Exam General: Alert, Oriented, No Acute Distress Lungs: Clear to Auscultation, Normal Respiratory Effort GI/Abdominal Exam: Soft, Non-Tender, No Distention - Patient Data Lab Results Last 24 hrs: Laboratory Results - last 24 hr 11/19/20 11/19/20 11/20/20 Range/Units 06:43 16:35 06:36 POC Glucose 159 H 188 H 193 H (60-110) mg/dL Sepsis Event Note - Evaluation Sepsis Screening Result: No Definite Risk - Focused Exam Vital Signs: Vital Signs Temp Pulse Resp BP BP Pulse Ox 11/20/20 04:53 96.4 F L 94 18 193/79 H 99 11/20/20 00:23 97.7 F 88 16 164/59 H 98 11/19/20 21:02 156/61 H 11/19/20 19:47 98.0 F 90 18 156/67 H 96 - Assessment Assessment:: 70 year old female s/p POD 1 left subclavian port a cath placement. Admitted to overnight observation due to difficult case, multiple venous access attempts and dilation of left IJ. No issues overnight. Hemodynamically stable. Awaiting AM CXR. Doing well overall. Pulling 1000 cc on IS. - Plan Plan:: Hopeful discharge to home pending AM CXR. <Aneta Manzo - Last Filed: 11/20/20 10:07> - General Info Subjective Update: Patient has no complaints this morning. Her vitals remainded stable overnight. Slightly sore along left side of neck and chest, but otherwise feeling fine. She is tolerating a diet. - Review of Systems General: Reports: No Symptoms Pulmonary: Reports: No Symptoms. Denies: Shortness of Breath, Pleuritic Chest Pain, Cough Cardiovascular: Reports: Chest Pain (Sore over area of port placement on left anterior chest wall. ) Musculoskeletal: Reports: No Symptoms Skin: Reports: No Symptoms - Patient Data Vitals - Most Recent: Last Vital Signs Temp 36.2 C 11/20/20 07:49 Pulse 104 H 11/20/20 07:49 Resp 14 11/20/20 07:49 BP 153/71 H 11/20/20 08:07 Pulse Ox 97 11/20/20 08:45 I&O - Last 24 Hours: Intake & Output 11/19/20 11/20/20 11/20/20 22:59 06:59 14:59 Intake Total 480 1630 Output Total 500 400 Balance -20 1230 Lab Results Last 24 Hours: Laboratory Results - last 24 hr 11/19/20 11/19/20 11/20/20 Range/Units 06:43 16:35 06:36 POC Glucose 159 H 188 H 193 H (60-110) mg/dL Med Orders - Current: Current Medications Acetaminophen (Tylenol) 650 mg PO Q6H PRN PRN Reason: Pain (mild 1-3) Last Admin: 11/20/20 03:12 Dose: 650 mg Documented by: Amlodipine Besylate (Norvasc) 10 mg PO DAILY [facility] Last Admin: 11/20/20 08:07 Dose: 10 mg Documented by: Dextrose/Water (Dextrose 50% In Water) 50 ml IV ASDIRECTED PRN PRN Reason: Hypoglycemia Duloxetine HCl (Cymbalta) 120 mg PO DAILY [facility] Last Admin: 11/20/20 08:05 Dose: 120 mg Documented by: Furosemide (Lasix) 40 mg PO DAILY [facility] Last Admin: 11/20/20 08:07 Dose: 40 mg Documented by: Gabapentin (Neurontin) 600 mg PO QID [facility] Last Admin: 11/20/20 08:12 Dose: 600 mg Documented by: Glucagon (Glucagen) 1 mg IM ASDIRECTED PRN PRN Reason: Hypoglycemia Imipramine HCl (Imipramine Hcl) 75 mg PO BEDTIME [facility] Last Admin: 11/19/20 21:42 Dose: Not Given Documented by: Insulin Aspart (Novolog) 0 unit SUBCUT TIDAC [facility]; Protocol Last Admin: 11/20/20 06:41 Dose: 1 unit Documented by: Ketorolac Tromethamine (Toradol) 10 mg PO Q6H PRN PRN Reason: Pain Stop: 11/24/20 11:07 Last Admin: 11/20/20 08:51 Dose: 10 mg Documented by: Losartan Potassium (Cozaar) 25 mg PO DAILY [facility] Last Admin: 11/20/20 08:04 Dose: 25 mg Documented by: Losartan Potassium (Cozaar) 50 mg PO BEDTIME [facility] Last Admin: 11/19/20 21:02 Dose: 50 mg Documented by: Mirtazapine (Remeron) 7.5 mg PO BEDTIME [facility] Last Admin: 11/19/20 21:03 Dose: 7.5 mg Documented by: Olanzapine (Zyprexa) 10 mg PO BEDTIME [facility] Last Admin: 11/19/20 21:05 Dose: 10 mg Documented by: Dorzolamide/Timolol 2%-0.5% Ophth Soln 10 Ml Bottle 1 each EYEBOTH BID [facility] Last Admin: 11/20/20 08:21 Dose: Not Given Documented by: Isosorbide (Mononitrate 20 Mg) 1 each PO BEDTIME [facility] Last Admin: 11/19/20 21:42 Dose: Not Given Documented by: Paliperidone [Invega (] 9 Mg) 1 each PO BEDTIME [facility] Last Admin: 11/19/20 21:43 Dose: Not Given Documented by: Pravastatin Sodium (Pravachol) 40 mg PO BEDTIME [facility] Last Admin: 11/19/20 21:05 Dose: 40 mg Documented by: Propranolol HCl (Inderal) 40 mg PO BID [facility] Last Admin: 11/20/20 08:06 Dose: 40 mg Documented by: Sodium Chloride (Normal Saline) 10 ml IV ASDIRECTED PRN PRN Reason: IV Use Sodium Chloride (Saline Flush) 2.5 ml FLUSH ASDIRECTED PRN PRN Reason: Keep Vein Open Tizanidine HCl (Zanaflex) 8 mg PO Q8H PRN PRN Reason: Pain Topiramate (Topamax) 50 mg PO BID [facility] Last Admin: 11/20/20 08:08 Dose: 50 mg Documented by: Trazodone HCl (Trazodone) 100 mg PO BEDTIME [facility] Last Admin: 11/19/20 21:05 Dose: 100 mg Documented by: Discontinued Medications Albuterol (Proventil Hfa) Confirm Administered Dose 6.7 gm INH .STK-MED ONE Stop: 11/19/20 08:17 Albuterol (Proventil Neb Soln) 2.5 mg NEB Q6HRRT [facility] Bupivacaine HCl (Sensorcaine-Mpf 0.5%) Confirm Administered Dose 10 ml .ROUTE .STK-MED ONE Stop: 11/19/20 07:43 Dexamethasone (Dexamethasone) Confirm Administered Dose 20 mg .ROUTE .STK-MED ONE Stop: 11/19/20 08:21 Fentanyl (Sublimaze) Confirm Administered Dose 100 mcg .ROUTE .STK-MED ONE Stop: 11/19/20 06:15 Fentanyl (Sublimaze) 50 mcg IVPUSH Q5M PRN PRN Reason: Pain (severe 7-10) Stop: 11/20/20 08:30 Glycopyrrolate (Robinul) Confirm Administered Dose 0.2 mg .ROUTE .STK-MED ONE Stop: 11/19/20 08:46 Heparin Sodium (Porcine) (Heparin Lock Flush 100 Units/Ml) Confirm Administered Dose 600 unit .ROUTE .STK-MED ONE Stop: 11/19/20 07:43 Cefazolin Sodium/Dextrose 2 gm (/ Premix) 50 mls @ 100 mls/hr IV ONETIME ONE Stop: 11/17/20 09:42 Lactated Ringer's (Ringers, Lactated) 1,000 mls @ 125 mls/hr IV ASDIRECTED [facility] Last Admin: 11/19/20 06:55 Dose: 125 mls/hr Documented by: Cefazolin Sodium/Dextrose (Ancef 2 Gm/50 Ml) Confirm Administered Dose 50 mls @ as directed .ROUTE .STK-MED ONE Stop: 11/19/20 06:11 Lidocaine (Xylocaine-Mpf 2%) Confirm Administered Dose 5 ml .ROUTE .STK-MED ONE Stop: 11/19/20 06:12 Lidocaine HCl (Xylocaine 1%) Confirm Administered Dose 20 ml .ROUTE .STK-MED ONE Stop: 11/19/20 07:43 Midazolam HCl (Versed 1 Mg/Ml) Confirm Administered Dose 2 mg .ROUTE .STK-MED ONE Stop: 11/19/20 06:18 Morphine Sulfate (Duramorph Pf) Confirm Administered Dose 0 mg .ROUTE .STK-MED ONE Stop: 11/19/20 09:56 Octyl Cyanoacrylate (Dermabond Advance) Confirm Administered Dose 1 applic .ROUTE .STK-MED ONE Stop: 11/19/20 07:43 Ondansetron HCl (Zofran) Confirm Administered Dose 0 mg .ROUTE .STK-MED ONE Stop: 11/19/20 06:12 Ondansetron HCl (Zofran) Confirm Administered Dose 4 mg .ROUTE .ST-MED ONE Stop: 11/19/20 09:56 Oxytocin (Pitocin) Confirm Administered Dose 0 unit .ROUTE .ST-MED ONE Stop: 11/19/20 09:59 Propofol (Diprivan 20 Ml) Confirm Administered Dose 0 mg .ROUTE .ST-MED ONE Stop: 11/19/20 06:18 Propofol (Diprivan 20 Ml) Confirm Administered Dose 600 mg .ROUTE .STK-MED ONE Stop: 11/19/20 07:29 Propofol (Diprivan 20 Ml) Confirm Administered Dose 200 mg .ROUTE .STK-MED ONE Stop: 11/19/20 09:39 Propofol (Diprivan 20 Ml) Confirm Administered Dose 200 mg .ROUTE .ST-MED ONE Stop: 11/19/20 10:23 Rocuronium [place] (Rocuronium [place]) Confirm Administered Dose 50 mg .ROUTE .STK-MED ONE Stop: 11/19/20 08:17 Sugammadex Sodium (Bridion) Confirm Administered Dose 200 mg .ROUTE .STK-MED ONE Stop: 11/19/20 10:02 - Exam General: Alert, Oriented, No Acute Distress HEENT: Pupils Equal, Pupils Reactive Lungs: Clear to Auscultation, Normal Respiratory Effort Cardiovascular: Regular Rate, Regular Rhythm GI/Abdominal Exam: Soft, Non-Tender, No Distention - Patient Data Lab Results Last 24 hrs: Laboratory Results - last 24 hr 11/19/20 11/19/20 11/20/20 Range/Units 06:43 16:35 06:36 POC Glucose 159 H 188 H 193 H (60-110) mg/dL Sepsis Event Note - Focused Exam Vital Signs: Vital Signs Temp Pulse Resp BP BP Pulse Ox 11/20/20 08:45 97 11/20/20 08:07 153/71 H 11/20/20 08:04 153/71 H 11/20/20 07:49 36.2 C 104 H 14 153/71 H 98 11/20/20 04:53 35.8 C L 94 18 193/79 H 99 11/20/20 00:23 36.5 C 88 16 164/59 H 98 - Problem List & Annotations (1) Poor venous access SNOMED Code(s): 156144339 Code(s): I87.8 - OTHER SPECIFIED DISORDERS OF VEINS Status: Acute Current Visit: Yes (2) Port-A-Cath in place SNOMED Code(s): 216821062 Code(s): Z95.828 - PRESENCE OF OTHER VASCULAR IMPLANTS AND GRAFTS Status: Acute Current Visit: Yes - Problem List Review Problem List Initiated/Reviewed/Updated: Yes - My Orders Last 24 Hours: My Active Orders 11/19/20 Lunch Regular Diet [DIET] 11/19/20 11:03 RT Incentive Spirometry [RC] ASDIRECTED Up ad Nisha [RC] ASDIRECTED Acetaminophen [TylenoL] 650 mg PO Q6H PRN 11/19/20 11:04 Intake and Output [RC] Q12H Oxygen Therapy [RC] PRN Pulse Oximetry [RC] CONTINUOUS Vital Signs [RC] PER UNIT ROUTINE 11/19/20 11:06 Ketorolac [Toradol] 10 mg PO Q6H PRN 11/19/20 15:03 Notify Provider Consults [RC] ASDIRECTED Consult to Physician [CONS] Routine 11/20/20 09:59 Ready for Discharge [RC] PER UNIT ROUTINE - Plan Plan:: CXR this am is unchanged and shows no signs of hemothorax or pneumothorax. Port is in good position. Patient cleared for discharge.
[2020-11-20 07:50] VITALS: BP 153/71; PULSE 104
[2020-11-20] MEDS: Propranolol 20 MG Tab PO SCH (08:06)
[2020-11-20] MEDS: Topiramate 50 MG Tab PO SCH (08:08)
[2020-11-20] MEDS: Dorzolamide/Timolol 2%-0.5% Ophth Soln 10 ML Bottle EYEBOTH SCH (08:21)
[2020-11-20] MEDS: Ketorolac 10 MG Tab PO PRN (08:51)
--- NOTE | 2020-11-20 08:53 | CR ---
HISTORY: Port placement. TECHNIQUE: Portable frontal view the chest. COMPARISON: Chest x-ray 11/19/2020. FINDINGS: Left subclavian port with catheter tip at the cavoatrial junction. No airspace consolidation. No pleural effusion. No pneumothorax. Pulmonary vasculature and cardiomediastinal silhouette are within normal limits. Ryan and hook fixation hardware throughout the thoracic spine. IMPRESSION: No significant change from 11/19/2020. Left port catheter tip at the cavoatrial junction. Dictated by Lorenzo Villarreal MD @ Nov 20 2020 8:48AM Signed by Dr. Lorenzo Villarreal @ Nov 20 2020 8:52AM
[2020-11-20] MEDS ORDERED: Furosemide 40 MG Tab PO SCH (09:00)
[2020-11-20] MEDS ORDERED: amLODIPine 5 MG Tab PO SCH (09:00)
[2020-11-20] MEDS ORDERED: DULoxetine 60 MG Cap PO SCH (09:00)
[2020-11-20] MEDS ORDERED: Losartan 50 MG Tab PO SCH (09:00)
--- NOTE | 2020-11-20 13:21 | PCM.CONSN ---
- General Info Date of Service: 11/20/20 Admission Dx/Problem (Free Text): Poor venous access Subjective Update: Reports she is feeling well today. No chest pain or shortness of breath no pain at surgical port incision site. Very eager to go home. Functional Status: Reports: Pain Controlled, Tolerating Diet, Ambulating - Review of Systems General: Reports: No Symptoms. Denies: Weakness, Fatigue HEENT: Reports: No Symptoms. Denies: Headaches, Sore Throat Pulmonary: Reports: No Symptoms. Denies: Shortness of Breath Cardiovascular: Reports: No Symptoms. Denies: Chest Pain Gastrointestinal: Reports: No Symptoms. Denies: Abdominal Pain, Nausea, Vomiting Genitourinary: Reports: No Symptoms. Denies: Dysuria, Frequency, Burning Musculoskeletal: Reports: No Symptoms Skin: Reports: No Symptoms. Denies: Bruising, Rash Neurological: Reports: No Symptoms Psychiatric: Reports: No Symptoms - Patient Data Vitals - Most Recent: Last Vital Signs Temp 97.2 F 11/20/20 07:49 Pulse 104 H 11/20/20 07:49 Resp 14 11/20/20 07:49 BP 153/71 H 11/20/20 08:07 Pulse Ox 97 11/20/20 08:45 Weight - Most Recent: 81.647 kg I&O - Last 24 Hours: Intake & Output 11/19/20 11/20/20 11/20/20 22:59 06:59 14:59 Intake Total 480 1630 240 Output Total 500 400 500 Balance -20 1230 -260 Lab Results Last 24 Hours: Laboratory Results - last 24 hr 11/19/20 11/19/20 11/20/20 Range/Units 06:43 16:35 06:36 POC Glucose 159 H 188 H 193 H (60-110) mg/dL Med Orders - Current: Current Medications Discontinued Medications Acetaminophen (Tylenol) 650 mg PO Q6H PRN PRN Reason: Pain (mild 1-3) Last Admin: 11/20/20 03:12 Dose: 650 mg Documented by: Albuterol (Proventil Hfa) Confirm Administered Dose 6.7 gm INH .STK-MED ONE Stop: 11/19/20 08:17 Albuterol (Proventil Neb Soln) 2.5 mg NEB Q6HRRT [facility] Amlodipine Besylate (Norvasc) 10 mg PO DAILY [facility] Last Admin: 11/20/20 08:07 Dose: 10 mg Documented by: Bupivacaine HCl (Sensorcaine-Mpf 0.5%) Confirm Administered Dose 10 ml .ROUTE .STK-MED ONE Stop: 11/19/20 07:43 Dexamethasone (Dexamethasone) Confirm Administered Dose 20 mg .ROUTE .STK-MED ONE Stop: 11/19/20 08:21 Dextrose/Water (Dextrose 50% In Water) 50 ml IV ASDIRECTED PRN PRN Reason: Hypoglycemia Duloxetine HCl (Cymbalta) 120 mg PO DAILY [facility] Last Admin: 11/20/20 08:05 Dose: 120 mg Documented by: Fentanyl (Sublimaze) Confirm Administered Dose 100 mcg .ROUTE .STK-MED ONE Stop: 11/19/20 06:15 Fentanyl (Sublimaze) 50 mcg IVPUSH Q5M PRN PRN Reason: Pain (severe 7-10) Stop: 11/20/20 08:30 Furosemide (Lasix) 40 mg PO DAILY [facility] Last Admin: 11/20/20 08:07 Dose: 40 mg Documented by: Gabapentin (Neurontin) 600 mg PO QID [facility] Last Admin: 11/20/20 08:12 Dose: 600 mg Documented by: Glucagon (Glucagen) 1 mg IM ASDIRECTED PRN PRN Reason: Hypoglycemia Glycopyrrolate (Robinul) Confirm Administered Dose 0.2 mg .ROUTE .STK-MED ONE Stop: 11/19/20 08:46 Heparin Sodium (Porcine) (Heparin Lock Flush 100 Units/Ml) Confirm Administered Dose 600 unit .ROUTE .STK-MED ONE Stop: 11/19/20 07:43 Cefazolin Sodium/Dextrose 2 gm (/ Premix) 50 mls @ 100 mls/hr IV ONETIME ONE Stop: 11/17/20 09:42 Lactated Ringer's (Ringers, Lactated) 1,000 mls @ 125 mls/hr IV ASDIRECTED [facility] Last Admin: 11/19/20 06:55 Dose: 125 mls/hr Documented by: Cefazolin Sodium/Dextrose (Ancef 2 Gm/50 Ml) Confirm Administered Dose 50 mls @ as directed .ROUTE .STK-MED ONE Stop: 11/19/20 06:11 Imipramine HCl (Imipramine Hcl) 75 mg PO BEDTIME [facility] Last Admin: 11/19/20 21:42 Dose: Not Given Documented by: Insulin Aspart (Novolog) 0 unit SUBCUT TIDAC [facility]; Protocol Last Admin: 11/20/20 06:41 Dose: 1 unit Documented by: Ketorolac Tromethamine (Toradol) 10 mg PO Q6H PRN PRN Reason: Pain Stop: 11/24/20 11:07 Last Admin: 11/20/20 08:51 Dose: 10 mg Documented by: Lidocaine (Xylocaine-Mpf 2%) Confirm Administered Dose 5 ml .ROUTE .STK-MED ONE Stop: 11/19/20 06:12 Lidocaine HCl (Xylocaine 1%) Confirm Administered Dose 20 ml .ROUTE .STK-MED ONE Stop: 11/19/20 07:43 Losartan Potassium (Cozaar) 25 mg PO DAILY [facility] Last Admin: 11/20/20 08:04 Dose: 25 mg Documented by: Losartan Potassium (Cozaar) 50 mg PO BEDTIME [facility] Last Admin: 11/19/20 21:02 Dose: 50 mg Documented by: Midazolam HCl (Versed 1 Mg/Ml) Confirm Administered Dose 2 mg .ROUTE .STK-MED ONE Stop: 11/19/20 06:18 Mirtazapine (Remeron) 7.5 mg PO BEDTIME [facility] Last Admin: 11/19/20 21:03 Dose: 7.5 mg Documented by: Morphine Sulfate (Duramorph Pf) Confirm Administered Dose 0 mg .ROUTE .STK-MED ONE Stop: 11/19/20 09:56 Octyl Cyanoacrylate (Dermabond Advance) Confirm Administered Dose 1 applic .ROUTE .STK-MED ONE Stop: 11/19/20 07:43 Olanzapine (Zyprexa) 10 mg PO BEDTIME [facility] Last Admin: 11/19/20 21:05 Dose: 10 mg Documented by: Ondansetron HCl (Zofran) Confirm Administered Dose 0 mg .ROUTE .STK-MED ONE Stop: 11/19/20 06:12 Ondansetron HCl (Zofran) Confirm Administered Dose 4 mg .ROUTE .STK-MED ONE Stop: 11/19/20 09:56 Oxytocin (Pitocin) Confirm Administered Dose 0 unit .ROUTE .STK-MED ONE Stop: 11/19/20 09:59 Dorzolamide/Timolol 2%-0.5% Ophth Soln 10 Ml Bottle 1 each EYEBOTH BID [facility] Last Admin: 11/20/20 08:21 Dose: Not Given Documented by: Isosorbide (Mononitrate 20 Mg) 1 each PO BEDTIME [facility] Last Admin: 11/19/20 21:42 Dose: Not Given Documented by: Paliperidone [Invega (] 9 Mg) 1 each PO BEDTIME [facility] Last Admin: 11/19/20 21:43 Dose: Not Given Documented by: Pravastatin Sodium (Pravachol) 40 mg PO BEDTIME [facility] Last Admin: 11/19/20 21:05 Dose: 40 mg Documented by: Propofol (Diprivan 20 Ml) Confirm Administered Dose 0 mg .ROUTE .STK-MED ONE Stop: 11/19/20 06:18 Propofol (Diprivan 20 Ml) Confirm Administered Dose 600 mg .ROUTE .STK-MED ONE Stop: 11/19/20 07:29 Propofol (Diprivan 20 Ml) Confirm Administered Dose 200 mg .ROUTE .STK-MED ONE Stop: 11/19/20 09:39 Propofol (Diprivan 20 Ml) Confirm Administered Dose 200 mg .ROUTE .STK-MED ONE Stop: 11/19/20 10:23 Propranolol HCl (Inderal) 40 mg PO BID [facility] Last Admin: 11/20/20 08:06 Dose: 40 mg Documented by: Rocuronium Ogema (Rocuronium Ogema) Confirm Administered Dose 50 mg .ROUTE .STK-MED ONE Stop: 11/19/20 08:17 Sodium Chloride (Normal Saline) 10 ml IV ASDIRECTED PRN PRN Reason: IV Use Sodium Chloride (Saline Flush) 2.5 ml FLUSH ASDIRECTED PRN PRN Reason: Keep Vein Open Sugammadex Sodium (Bridion) Confirm Administered Dose 200 mg .ROUTE .STK-MED ONE Stop: 11/19/20 10:02 Tizanidine HCl (Zanaflex) 8 mg PO Q8H PRN PRN Reason: Pain Topiramate (Topamax) 50 mg PO BID [facility] Last Admin: 11/20/20 08:08 Dose: 50 mg Documented by: Trazodone HCl (Trazodone) 100 mg PO BEDTIME [facility] Last Admin: 11/19/20 21:05 Dose: 100 mg Documented by: - Exam Quality Assessment: No: Supplemental Oxygen General: Alert, Oriented, Cooperative Lungs: Clear to Auscultation, Normal Respiratory Effort Cardiovascular: Regular Rate, Regular Rhythm GI/Abdominal Exam: Normal Bowel Sounds, Soft, Non-Tender Extremities: Normal Inspection, Normal Range of Motion, Non-Tender, No Pedal Edema Wound/Incisions: Dressing Dry and Intact (Left chest port), No Drainage. No: Erythema Neurological: No New Focal Deficit Psy/Mental Status: Alert, Normal Affect, Normal Mood Sepsis Event Note - Evaluation Sepsis Screening Result: No Definite Risk - Focused Exam Vital Signs: Vital Signs Temp Pulse Resp BP BP Pulse Ox 11/20/20 08:45 97 11/20/20 08:07 153/71 H 11/20/20 08:04 153/71 H 11/20/20 07:49 97.2 F 104 H 14 153/71 H 98 11/20/20 04:53 96.4 F L 94 18 193/79 H 99 Consult PN Assessment/Plan POD#: 1 Procedures: Procedures ACUTE HEPATITIS PANEL (03/16/19) AGENT NOS ASSAY W/OPTIC (11/23/18) AIRWAY INHALATION TREATMENT (11/03/15) ASSAY CARBOXYHB QUANT (06/10/16) ASSAY GLUCOSE BLOOD QUANT (11/19/19) ASSAY OF AMMONIA (06/10/16) ASSAY OF AMYLASE (07/19/17) ASSAY OF CK (CPK) (11/21/15) ASSAY OF ETHANOL (01/17/14) ASSAY OF FREE THYROXINE (04/21/17) ASSAY OF LACTIC ACID (01/12/18) ASSAY OF LIPASE (07/19/17) ASSAY OF MAGNESIUM (06/10/16) ASSAY OF NATRIURETIC PEPTIDE (06/21/19) ASSAY OF TOTAL THYROXINE (09/17/14) ASSAY OF TROPONIN QUANT (08/16/20) ASSAY THYROID STIM HORMONE (08/16/20) BEHAV CHNG SMOKING > 10 MIN (01/11/17) BLOOD CULTURE FOR BACTERIA (07/19/17) BLOOD GASES ANY COMBINATION (01/12/18) BREAST TOMOSYNTHESIS BI (07/20/18) C-REACTIVE PROTEIN (06/10/16) CARDIOLIPIN ANTIBODY EA IG (02/26/16) CARDIOVASCULAR STRESS TEST (07/24/20) CHEST X-RAY 1 VIEW FRONTAL (07/19/17) CHEST X-RAY 2VW FRONTAL&LATL (04/12/17) CLOSTRIDIUM AG IA (07/10/15) COMP SCREEN MAMMOGRAM ADD-ON (01/21/16) COMPLETE CBC AUTOMATED (09/17/14) COMPLETE CBC W/AUTO DIFF WBC (04/24/20) COMPREHEN METABOLIC PANEL (08/16/20) CRITICAL CARE ADDL 30 MIN (01/12/18) CRITICAL CARE FIRST HOUR (01/12/18) CRYPTOSPORIDIUM AG IA (11/23/18) CT ABD & PELV 1/> REGNS (12/30/14) CT ABD & PELV W/CONTRAST (04/14/14) CT ABD & PELVIS W/O CONTRAST (04/04/17) CT ANGIOGRAPHY HEAD (08/16/20) CT ANGIOGRAPHY NECK (08/16/20) CT CHEST SPINE W/O DYE (04/14/14) CT HEAD/BRAIN W/O DYE (08/16/20) CT LUMBAR SPINE W/O DYE (11/05/19) CT NECK SPINE W/O DYE (11/05/19) CT THORAX DX C+ (04/14/14) DIAGNOSTIC COLONOSCOPY (07/17/15) DRUG TEST PRSMV CHEM ANLYZR (08/16/20) DRUG TEST PRSMV DIR OPT OBS (04/24/20) ECHO EXAM OF ABDOMEN (03/20/19) EEG AWAKE AND DROWSY (09/03/20) ELECTROCARDIOGRAM TRACING (08/16/20) EMERGENCY DEPT VISIT (08/16/20) EMERGENCY DEPT VISIT (11/05/19) EMERGENCY DEPT VISIT (10/24/19) EMERGENCY DEPT VISIT (03/08/19) EMERGENCY DEPT VISIT (01/23/19) EMERGENCY DEPT VISIT (06/05/18) EMERGENCY DEPT VISIT (01/07/18) EMERGENCY DEPT VISIT (07/19/17) EMERGENCY DEPT VISIT (04/01/17) EMERGENCY DEPT VISIT (06/10/16) EMERGENCY DEPT VISIT (06/07/16) EMERGENCY DEPT VISIT (02/15/16) EMERGENCY DEPT VISIT (01/11/16) EMERGENCY DEPT VISIT (11/21/15) EMERGENCY DEPT VISIT (11/16/15) EMERGENCY DEPT VISIT (11/05/15) EMERGENCY DEPT VISIT (04/01/15) EMERGENCY DEPT VISIT (03/25/15) EMERGENCY DEPT VISIT (03/22/15) EMERGENCY DEPT VISIT (01/31/15) EMERGENCY DEPT VISIT (11/28/14) EMERGENCY DEPT VISIT (10/28/14) EMERGENCY DEPT VISIT (10/07/14) EMERGENCY DEPT VISIT (10/07/14) EMERGENCY DEPT VISIT (10/04/14) EMERGENCY DEPT VISIT (10/04/14) EMERGENCY DEPT VISIT (09/13/14) EMERGENCY DEPT VISIT (07/27/14) EMERGENCY DEPT VISIT (06/23/14) EMERGENCY DEPT VISIT (06/17/14) EMERGENCY DEPT VISIT (04/14/14) EMERGENCY DEPT VISIT (03/22/14) EMERGENCY DEPT VISIT (01/17/14) EMERGENCY DEPT VISIT (01/17/14) EVALUATE PT USE OF INHALER (04/01/17) EVALUATION OF WHEEZING (11/25/15) EXTRACRANIAL BILAT STUDY (04/08/15) FIBRIN DEGRADATION QUANT (11/28/14) FLUORESCENT ANTIBODY SCREEN (02/26/16) FLUORESCENT ANTIBODY TITER (02/26/16) FREE ASSAY (FT-3) (09/17/14) GIARDIA AG IA (11/23/18) GLUCOSE BLOOD TEST (08/16/20) GLYCOSYLATED HEMOGLOBIN TEST (04/24/20) HEPATIC FUNCTION PANEL (03/16/19) HOT OR COLD PACKS THERAPY (02/07/17) HT MUSCLE IMAGE SPECT MULT (07/24/20) HT MUSCLE IMAGE SPECT SING (01/06/17) HYDRATE IV INFUSION ADD-ON (09/28/18) HYDRATION IV INFUSION INIT (09/28/18) INFLUENZA ASSAY W/OPTIC (11/28/14) INJ TRIGGER POINT 1/2 MUSCL (10/29/15) INJECT SPINE LUMBAR/SACRAL (10/14/15) INSERT EMERGENCY AIRWAY (10/24/19) INSERT TEMP BLADDER CATH (03/08/19) IRON BINDING TEST (08/19/15) LACTOFERRIN FECAL (QUAL) (11/23/18) LIPID PANEL (04/24/20) MANUAL THERAPY 1/> REGIONS (02/07/17) MEDICAL NUTRITION INDIV IN (04/08/15) METABOLIC PANEL TOTAL CA (10/15/20) MRI BRAIN STEM W/O & W/DYE (07/03/15) MRI BRAIN STEM W/O DYE (08/22/20) MRI LUMBAR SPINE W/O DYE (07/07/17) MRI NECK SPINE W/O DYE (04/08/16) OFFICE O/P EST LOW 20-29 MIN (04/15/20) OFFICE O/P EST MINIMAL PROB (06/05/20) OFFICE O/P EST MOD 30-39 MIN (11/19/19) OFFICE O/P EST SF 10-19 MIN (02/19/14) OFFICE O/P NEW HI 60-74 MIN (06/24/15) OFFICE O/P NEW LOW 30-44 MIN (06/30/15) OFFICE O/P NEW MOD 45-59 MIN (02/14/14) OFFICE O/P NEW SF 15-29 MIN (01/22/16) PROTEIN E-PHORESIS SERUM (08/19/15) PROTHROMBIN TIME (04/24/20) PSYCH DIAG EVAL W/MED SRVCS (04/26/14) PT EVAL LOW COMPLEX 20 MIN (11/20/19) PT EVALUATION (05/10/16) RBC SED RATE AUTOMATED (06/10/16) REMOVE IMPACTED EAR WAX UNI (01/22/16) RHEUMATOID FACTOR TEST QUAL (02/26/16) ROUTINE VENIPUNCTURE (10/15/20) KAMILLA VIPER VENOM DILUTED (06/09/16) SARS-COV-2 COVID-19 AMP PRB (04/24/20) SCR MAMMO BI INCL CAD (07/24/19) SMEAR WET [place] SALINE/INK (01/15/15) STOOL CULTR AEROBIC BACT EA (11/23/18) THER/PROPH/DIAG INJ IV PUSH (07/19/17) THER/PROPH/DIAG INJ SC/IM (04/21/17) THER/PROPH/DIAG IV INF ADDON (06/10/16) THER/PROPH/DIAG IV INF INIT (06/10/16) THERAPEUTIC EXERCISES (02/07/17) THROMBOPLASTIN TIME PARTIAL (04/24/20) TOTAL CORTISOL (06/10/16) TTE W/DOPPLER COMPLETE (08/22/20) TX/PRO/DX INJ NEW DRUG ADDON (06/10/16) TX/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) UPR/L XTREMITY ART 2 LEVELS (12/07/16) UR ALBUMIN SEMIQUANTITATIVE (03/01/19) URINALYSIS AUTO W/O SCOPE (04/24/20) URINALYSIS AUTO W/SCOPE (10/24/19) URINE BACTERIA CULTURE (12/25/14) URINE CULTURE/COLONY COUNT (01/12/18) US EXAM ABDO BACK [place] (12/20/14) VITAMIN B-12 (08/19/15) WITHDRAWAL OF ARTERIAL BLOOD (01/12/18) X-RAY EXAM CHEST 1 VIEW (08/16/20) X-RAY EXAM CHEST 2 VIEWS (06/21/19) X-RAY EXAM L-S SPINE 2/3 VWS (06/22/17) X-RAY EXAM OF ABDOMEN (03/30/17) X-RAY EXAM OF FOOT (11/06/19) X-RAY EXAM OF HAND (06/10/15) X-RAY EXAM OF PELVIS (10/07/14) Problem List Initiated/Reviewed/Updated: Yes Plan: This 70-year-old female admitted for Port-A-Cath placement hospitalist consult placed for management of comorbidities. 1. S/P port-A-cath placement POD#0: - Management per primary team. 2. Diabetes mellitus type 2: - Recommend ADA Diet, Novolog SSI and accuchecks TIDAC. 3. Past medical history of HTN, CHF, COPD, MS, chronic pain and TIA: - Continue home medications. - Will hold aspirin and plavix for now as patient noted to have bleeding from surgical site intraoperatively. Dispo: Okay to discharge home today restart home medications.
== END 2020-11-20 10:30 | disposition home or self-care (01) ==
LOC: MW.SDS 06:17 → MW.MS 11:49 → MW.SDS 11-20 10:30
PROVIDERS: ATTEND Surgery
DX: Z45.2 Encounter for adjustment and management of vascular access device (principal); I11.0 Hypertensive heart disease with heart failure; I50.20 Unspecified systolic (congestive) heart failure; J44.9 Chronic obstructive pulmonary disease, unspecified; E78.00 Pure hypercholesterolemia, unspecified; G89.29 Other chronic pain; E66.9 Obesity, unspecified; E11.40 Type 2 diabetes mellitus with diabetic neuropathy, unspecified; Z87.891 Personal history of nicotine dependence; Z88.8 Allergy status to other drugs, medicaments and biological substances; Z79.899 Other long term (current) drug therapy; Z79.84 Long term (current) use of oral hypoglycemic drugs; Z98.890 Other specified postprocedural states; Z86.73 Personal history of transient ischemic attack (TIA), and cerebral infarction without residual deficits; Z79.82 Long term (current) use of aspirin
CPT/HCPCS: 36561; 71045; 82962; A9270; C1769; J0330; J0690; J1100; J1642; J1815; J2250; J2405; J2704; J3490; J7120; 99202; 99212; J2270; J2590; J3010

== ENCOUNTER 2021-04-01 13:03 | Emergency (ER) | payer MEDICARE, MEDICAID ==
[2021-04-01] MEDS ORDERED: Sodium Chloride 0.9% 10 ML Syringe FLUSH PRN (13:09)
[2021-04-01] MEDS ORDERED: Sodium Chloride 0.9% 2.5 ML Syringe FLUSH PRN (13:09)
--- NOTE | 2021-04-01 13:15 | EDM.PDOC ---
ED HPI GENERAL MEDICAL PROBLEM - General Chief Complaint: General Stated Complaint: DIZZINESS Time Seen by Provider: 04/01/21 13:08 - History of Present Illness INITIAL COMMENTS - FREE TEXT/NARRATIVE: History of present illness: [] The patient said she was dizzy when she got up this morning and she has been dizzy all day. She says her heart was measured at a rate of 10 bpm. EMS found her with a heart rate of 56 and gave her atropine. It did not really change anything. They found her in the sinus with first-degree block. Her blood pressure was 60. The patient does not have any other specific symptoms and has no chest pain or shortness of breath. Review of systems: As per history of present illness and below otherwise all systems reviewed and negative. Past medical history: As per history of present illness and as reviewed below otherwise noncontributory. Surgical history: As per history of present illness and as reviewed below otherwise noncontributory. Social history: No reported history of drug or alcohol abuse. Family history: As per history of present illness and as reviewed below otherwise noncontributory. Physical exam: Constitutional - well developed, well-nourished and in no acute distress HEENT - normocephalic, no evidence of trauma - external nose and mouth normal - no mass in neck and no JVD - mucosae moist EYES - full EOM, PERRL, no icterus - no evidence of inflammation, injection, or drainage Respiratory - no respiratory distress, equal bilateral expansion, lungs clear to auscultation and no abnormal lung sounds Cardiovascular - Regular Rhythm with S1 and S2 appreciated and no murmur, gallop or rub. GI - abdomen soft without distension or organomegaly - normal bowel sounds - no guard or rebound Musculoskeletal no gross deformity of long bones or joints - no tenderness, swelling or edema Neurologic - Alert and oriented times four - CN II-XII grossly intact - motor sensory and coordination symmetrically normal Psychiatric - appropriate mood and affect with normal thought content Hematologic - No petechiae or purpura - mucosa appropriate color and sclera not pale - normal nail bed color and refill Integument - no rash or evidence of trauma - normal turgor Diagnostics: [] Therapeutics: [] Impression: [] Plan: [] Definitive disposition and diagnosis as appropriate pending reevaluation and review of above. back Pain Score (Numeric/FACES): 9 - Related Data Allergies Allergy/AdvReac Type Severity Reaction Status Date / Time cyclobenzaprine HCl Allergy Stomach Verified 04/01/21 13:13 [From Flexeril] Upset tramadol Allergy Stomach Verified 04/01/21 13:13 Upset Home Meds: Home Meds DULoxetine [Cymbalta] 120 mg PO DAILY 06/07/16 [History] Furosemide [Lasix] 40 mg PO DAILY 01/07/18 [History] Propranolol [Inderal] 40 mg PO BID 01/07/18 [History] Gabapentin [Neurontin] 600 mg PO QID 09/28/18 [History] Mirtazapine 7.5 mg PO BEDTIME 09/28/18 [History] Potassium Chloride [Klor-Con M20] 20 meq PO DAILY 09/28/18 [History] Aspirin 81 mg PO DAILY 30 Days #30 tab.chew 04/25/20 [Rx] Pravastatin [Pravachol] 40 mg PO BEDTIME 30 Days #30 tablet 04/25/20 [Rx] Clopidogrel Bisulfate [Clopidogrel] 75 mg PO DAILY #30 tablet 08/16/20 [Rx] Imipramine HCl [Imipramine] 75 mg PO BEDTIME 08/16/20 [History] amLODIPine [Norvasc] 10 mg PO DAILY 08/16/20 [History] glipiZIDE [Glipizide ER] 2.5 mg PO DAILY 08/16/20 [History] tiZANidine [Zanaflex] 8 mg PO Q8H PRN 08/16/20 [History] Albuterol Sulfate [Proair Hfa] 1 - 2 puff INH ASDIRECTED PRN 11/13/20 [History] Budesonide/Formoterol Fumarate [Symbicort 160-4.5 Mcg Inhaler] 2 puff INH BID 11/13/20 [History] Losartan Potassium 50 mg PO BEDTIME 11/13/20 [History] Nitroglycerin 0.4 mg SL ASDIRECTED PRN 11/13/20 [History] OLANZapine [ZyPREXA] 10 mg PO BEDTIME 11/13/20 [History] Topiramate [Topiramate ER] 50 mg PO BID 11/13/20 [History] traZODone HCl [Trazodone HCl] 100 mg PO BEDTIME 11/13/20 [History] Dorzolamide HCl/Timolol Maleat [Dorzolamide-Timolol Eye Drops] 1 drop EYEBOTH BID 11/19/20 [History] Isosorbide Mononitrate 20 mg PO BEDTIME 11/19/20 [History] Losartan [Cozaar] 25 mg PO DAILY 11/19/20 [History] Paliperidone [Invega] 9 mg PO BEDTIME 11/19/20 [History] Past Medical History - Past Health History Medical/Surgical History: Denies Medical/Surgical History HEENT History: Reports: Allergic Rhinitis, Cataract, Glaucoma, Hard of Hearing, Macular Degeneration, Other (See Below) Other HEENT History: wears glasses, top and bottom denture, dry eyes, "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" Cardiovascular History: Reports: Angina, Heart Failure, High Cholesterol, Hypertension, Other (See Below) Other Cardiovascular History: Mitral Valve Prolapse, ECHO 12/03 EF 60-65% Respiratory History: Reports: Bronchitis, Recurrent, COPD, TB Other Respiratory History: hx TB at 19 yrs old, was on tx for this for 1 year, getting sleep study done on January 04 Gastrointestinal History: Reports: Chronic Constipation, GERD, Hiatal Hernia Other Gastrointestinal History: fatty liver Genitourinary History: Reports: UTI, Recurrent, Other (See Below) Other Genitourinary History: occasional urinary incontinence [employer] History: Musculoskeletal History: Reports: Arthritis, Back Pain, Chronic Other Musculoskeletal History: DDD Neurological History: Reports: Neuropathy, Peripheral Psychiatric History: Reports: Anxiety, Bipolar, Suicidal Ideation Endocrine/Metabolic History: Reports: Diabetes, Type II, Obesity/BMI 30+ Hematologic History: Reports: Blood Transfusion(s), Other (See Below) Other Hematologic History: states had blood transfusion after back surgery Immunologic History: Reports: None Oncologic (Cancer) History: Reports: Cervix Other Oncologic History: had hysterectomy for cervix CA Dermatologic History: Reports: None - Infectious Disease History Infectious Disease History: Reports: Chicken Pox, Measles, Mumps, TB - Past Surgical History Head Surgeries/Procedures: Reports: None HEENT Surgical History: Reports: Tonsillectomy, Other (See Below) Other HEENT Surgeries/Procedures: Stapendectomy Cardiovascular Surgical History: Reports: None Respiratory Surgical History: Reports: None GI Surgical History: Reports: Appendectomy, Cholecystectomy, Colonoscopy, Other (See Below) Female Surgical History: Reports: Breast Biopsy, Hysterectomy Endocrine Surgical History: Reports: None Neurological Surgical History: Reports: Spinal Fusion Other Neurological Surgeries/Procedures: 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 Musculoskeletal Surgical History: Reports: Other (See Below) Other Musculoskeletal Surgeries/Procedures:: rt rib resection for bone grafing Oncologic Surgical History: Reports: None Dermatological Surgical History: Reports: Skin Graft Social & Family History - Family History Family Medical History: No Pertinent Family History HEENT: Reports: Macular Degeneration Cardiac: Reports: None Respiratory: Reports: Asthma, COPD GI: Reports: None : Reports: None Musculoskeletal: Reports: Back pain, Chronic Neurological: Reports: None Oncologic: Reports: Breast, Lung Other Oncologic Family History: parents both had Cancer - Caffeine Use Caffeine Use: Reports: Coffee ED ROS GENERAL - Review of Systems Review Of Systems: Comprehensive ROS is negative, except as noted in HPI. ED EXAM, GENERAL - Physical Exam Exam: See Below Free Text/Narrative:: My physical exam is in the HPI #1 Interpretation EKG Interpretation Comments: EKG shows a sinus rhythm with a HI interval of 235 and a rate of 52. QRS duration 106 QT duration 411 axis -1 the EKG is compared to 08/16/2020 and the rate is different but otherwise EKG is not different. Impression prolonged HI interval and bradycardia with no acute injury. Course - Vital Signs Text/Narrative:: 1420 2 PM patient came back to normal with time and IV fluids. She admits she took too many of her muscle relaxers. Counseled not to do that because of her underlying bradycardia and borderline pressure. Last Recorded V/S: Last Vital Signs Temp 35.9 C L 04/01/21 13:08 Pulse 57 L 04/01/21 14:10 Resp 20 04/01/21 14:10 BP 105/40 L 04/01/21 14:10 Pulse Ox 95 04/01/21 14:10 - Orders/Labs/Meds Orders: Active Orders 24 hr Category Date Time Status EKG Documentation Completion [RC] AM Care 04/01/21 13:09 Active UA W/HEIDI RFLX IF INDICATED [URIN] Stat Lab 04/01/21 13:10 Ordered Sodium Chloride 0.9% [Saline Flush] Med 04/01/21 13:09 Active 10 ml FLUSH ASDIRECTED PRN Sodium Chloride 0.9% [Saline Flush] Med 04/01/21 13:09 Active 2.5 ml FLUSH ASDIRECTED PRN Saline Lock Insert [OM.PC] Stat Oth 04/01/21 13:09 Ordered Medication Orders Sodium Chloride (Sodium Chloride 0.9% 10 Ml Syringe) 10 ml FLUSH ASDIRECTED PRN PRN Reason: Keep Vein Open Last Admin: 04/01/21 13:33 Dose: 10 ml Documented by: MARISOL Sodium Chloride (Sodium Chloride 0.9% 2.5 Ml Syringe) 2.5 ml FLUSH ASDIRECTED PRN PRN Reason: Keep Vein Open Last Admin: 04/01/21 13:33 Dose: 2.5 ml Documented by: MARISOL Labs: Laboratory Tests 04/01/21 04/01/21 Range/Units 13:25 13:25 WBC 6.74 (4.0-11.0) K/uL RBC 3.83 L (4.30-5.90) M/uL Hgb 11.8 L (12.0-16.0) g/dL Hct 34.5 L (36.0-46.0) % MCV 90.1 (80.0-98.0) fL MCH 30.8 (27.0-32.0) pg MCHC 34.2 (31.0-37.0) g/dL RDW Std Deviation 43.9 (28.0-62.0) fl RDW Coeff of Jannette 13 (11.0-15.0) % Plt Count 250 (150-400) K/uL MPV 11.30 (7.40-12.00) fL Neut % (Auto) 67.1 (48.0-80.0) % Lymph % (Auto) 22.0 (16.0-40.0) % Lyman % (Auto) 10.2 (0.0-15.0) % Eos % (Auto) 0.3 (0.0-7.0) % Baso % (Auto) 0.4 (0.0-1.5) % Neut # (Auto) 4.5 (1.4-5.7) K/uL Lymph # (Auto) 1.5 (0.6-2.4) K/uL Lyman # (Auto) 0.7 (0.0-0.8) K/uL Eos # (Auto) 0.0 (0.0-0.7) K/uL Baso # (Auto) 0.0 (0.0-0.1) K/uL Nucleated RBC % 0.0 /100WBC Nucleated RBCs # 0 K/uL Sodium 138 (136-145) mmol/L Potassium 4.4 (3.5-5.1) mmol/L Chloride 104 (98-107) mmol/L Carbon Dioxide 26.6 (21.0-32.0) mmol/L BUN 20 H (7.0-18.0) mg/dL Creatinine 1.1 H (0.6-1.0) mg/dL Est Cr Clr Drug Dosing 39.37 mL/min Estimated GFR (MDRD) 49.1 ml/min Glucose 159 H (74-106) mg/dL Calcium 8.8 (8.5-10.1) mg/dL Magnesium 1.9 (1.8-2.4) mg/dL Total Bilirubin 0.4 (0.2-1.0) mg/dL AST 38 H (15-37) IU/L ALT 76 H (14-63) IU/L Alkaline Phosphatase 207 H (46-116) U/L Troponin I < 0.050 (0.000-0.056) ng/mL Total Protein 5.9 L (6.4-8.2) g/dL Albumin 2.6 L (3.4-5.0) g/dL Globulin 3.3 (2.6-4.0) g/dL Albumin/Globulin Ratio 0.8 L (0.9-1.6) TSH 3rd Generation 2.47 (0.36-3.74) uIU/mL Meds: Medications Generic Name Dose Route Start Last Admin Trade Name Freq PRN Reason Stop Dose Admin Sodium Chloride 10 ml 04/01/21 13:04/01/21 13:33 Sodium Chloride 0.9% 10 Ml Syringe FLUSH 10 ml ASDIRECTED PRN Administration Keep Vein Open Sodium Chloride 2.5 ml 04/01/21 13:09 04/01/21 13:33 Sodium Chloride 0.9% 2.5 Ml Syringe FLUSH 2.5 ml ASDIRECTED PRN Administration Keep Vein Open Discontinued Medications Generic Name Dose Route Start Last Admin Trade Name Freq PRN Reason Stop Dose Admin Sodium Chloride 1,000 mls @ 1,000 mls/hr 04/01/21 13:18 04/01/21 13:38 Normal Saline IV 04/01/21 14:17 1,000 mls/hr .Bolus ONE Administration Departure - Departure Time of Disposition: 14:22 Disposition: Home, Self-Care 01 Condition: Good Clinical Impression: Bradycardia, Medication reaction Hypotension Qualifiers: Hypotension type: unspecified hypotension type Qualified Code(s): I95.9 - Hypotension, unspecified - Discharge Information Instructions: Hypotension, [id number], Accidental Drug Poisoning, Adult Referrals: PCP,None [Ordering Only Provider] - Forms: ED Department Discharge Additional Instructions: Be very careful not to take too many of any of her medications. With the underlying low heart rate this could be devastating. [facility] [address] [place] [id number] [facility] [address] [place] [id number] The following information is given to patients seen in the emergency department who are being discharged to home. This information is to outline your options for follow-up care. We provide all patients seen in our emergency department with a follow-up referral. The need for follow-up, as well as the timing and circumstances, are variable depending upon the specifics of your emergency department visit. If you don't have a primary care physician on staff, we will provide you with a referral. We always advise you to contact your personal physician following an emergency department visit to inform them of the circumstance of the visit and for follow-up with them and/or the need for any referrals to a consulting specialist. The emergency department will also refer you to a specialist when appropriate. This referral assures that you have the opportunity for follow-up care with a specialist. All of these measure are taken in an effort to provide you with optimal care, which includes your follow-up. Under all circumstances we always encourage you to contact your private physician who remains a resource for coordinating your care. When calling for follow-up care, please make the office aware that this follow-up is from your recent emergency room visit. If for any reason you are refused follow-up, please contact the [facility] Emergency Department at and asked to speak to the emergency department charge nurse. Sepsis Event Note (ED) - Evaluation Sepsis Screening Result: No Definite Risk - Focused Exam Vital Signs: Vital Signs Temp Pulse Resp BP BP Pulse Ox 04/01/21 14:10 57 L 20 105/40 L 95 04/01/21 13:38 97/32 L 04/01/21 13:08 35.9 C L 53 L 16 59/35 L 68/26 L 96 - My Orders Last 24 Hours: My Active Orders 04/01/21 13:09 EKG Documentation Completion [RC] AM Sodium Chloride 0.9% [Saline Flush] 10 ml FLUSH ASDIRECTED PRN Sodium Chloride 0.9% [Saline Flush] 2.5 ml FLUSH ASDIRECTED PRN Saline Lock Insert [OM.PC] Stat 04/01/21 13:10 UA W/HEIDI RFLX IF INDICATED [URIN] Stat - Assessment/Plan Last 24 Hours: My Active Orders 04/01/21 13:09 EKG Documentation Completion [RC] AM Sodium Chloride 0.9% [Saline Flush] 10 ml FLUSH ASDIRECTED PRN Sodium Chloride 0.9% [Saline Flush] 2.5 ml FLUSH ASDIRECTED PRN Saline Lock Insert [OM.PC] Stat 04/01/21 13:10 UA W/HEIDI RFLX IF INDICATED [URIN] Stat
[2021-04-01] MEDS ORDERED: Sodium Chloride 0.9% 1,000 ML IV ONE (13:18)
[2021-04-01 14:18] LABS: BLOOD UREA NITROGEN,BUN 20 mg/dL (7.0-18.0); CARBON DIOXIDE,CO2 26.6 mmol/L (21.0-32.0); CHLORIDE,CL 104 mmol/L (98-107); GLUCOSE RANDOM 159 mg/dL (74-106); POTASSIUM,K 4.4 mmol/L (3.5-5.1); SODIUM,NA 138 mmol/L (136-145)
--- NOTE | 2021-04-01 14:20 | CR ---
HISTORY: Dizziness. TECHNIQUE: Portable frontal view the chest. COMPARISON: Chest x-ray 11/27/2020. FINDINGS: Left port is unchanged. No airspace consolidation. No pleural effusion or pneumothorax. Pulmonary vasculature and cardiomediastinal silhouette are within normal limits. Unchanged stabilization hardware in the thoracic spine with bilateral laminar hooks and rods. Unchanged fracture of the left-sided alayna distally. IMPRESSION: No acute cardiopulmonary abnormality. No change from 11/27/2020. Dictated by Lorenzo Villarreal MD @ 04/01/2021 2:18:[address] Lorenzo Villarreal @ Apr 01 2021 2:18PM
[2021-04-01 15:10] VITALS: BP 109/45; PULSE 52
== END 2021-04-01 15:11 | disposition home or self-care (01) ==
LOC: MW.ED 13:03
DX: I95.9 Hypotension, unspecified (principal); R00.1 Bradycardia, unspecified; T44.3X5A Adverse effect of other parasympatholytics [anticholinergics and antimuscarinics] and spasmolytics, initial encounter; I11.0 Hypertensive heart disease with heart failure; I50.9 Heart failure, unspecified; E78.00 Pure hypercholesterolemia, unspecified; J44.9 Chronic obstructive pulmonary disease, unspecified; K21.9 Gastro-esophageal reflux disease without esophagitis; M19.90 Unspecified osteoarthritis, unspecified site; E11.42 Type 2 diabetes mellitus with diabetic polyneuropathy; E66.9 Obesity, unspecified; Z68.31 Body mass index [BMI] 31.0-31.9, adult; Z88.5 Allergy status to narcotic agent; Z88.8 Allergy status to other drugs, medicaments and biological substances; Z79.82 Long term (current) use of aspirin; Z79.02 Long term (current) use of antithrombotics/antiplatelets; Z79.84 Long term (current) use of oral hypoglycemic drugs; Z79.899 Other long term (current) drug therapy
CPT/HCPCS: 36415; 71045; 80053; 83735; 84443; 84484; 85025; 93005; 99285; J7030; 93010; 99284

== ENCOUNTER 2022-05-31 07:37 | Day surgery (SDC) | payer MEDICARE, MEDICAID ==
[~2022-05-31 07:37] MED LIST changes: -Lidocaine 2% 5 ML SDV ONE; -Midazolam 1 MG/ML 2 ML SDV ONE; -Ondansetron 4 MG/2 ML SDV ONE; -Propofol 200 MG/20 ML SDV ONE; -Sodium Chloride 0.9% 10 ML SDV IV PRN; -Sodium Chloride 0.9% 10 ML Syringe FLUSH PRN; -Sodium Chloride 0.9% 2.5 ML Syringe FLUSH PRN; -Succinylcholine/Sod PF 100 MG/5 ML SYRINGE IV ONE; -ceFAZolin 2 GM in Premix Bag 1 BAG IV ONE; -fentaNYL 100 MCG/2 ML SDV ONE
[2022-05-31] MEDS ORDERED: Propofol 200 MG/20 ML SDV ONE (07:53)
[2022-05-31] MEDS ORDERED: Lactated Ringers 1,000 ML IV SCH (09:30)
[2022-05-31 09:47] VITALS: BP 139/62; PULSE 84
== END 2022-05-31 10:00 | disposition home or self-care (01) ==
LOC: MW.SDS 07:37
PROVIDERS: ATTEND Surgery
DX: K29.50 Unspecified chronic gastritis without bleeding (principal); K29.00 Acute gastritis without bleeding; K31.89 Other diseases of stomach and duodenum; E11.42 Type 2 diabetes mellitus with diabetic polyneuropathy; I11.0 Hypertensive heart disease with heart failure; I50.9 Heart failure, unspecified; F17.210 Nicotine dependence, cigarettes, uncomplicated; F31.9 Bipolar disorder, unspecified; F41.9 Anxiety disorder, unspecified; J44.1 Chronic obstructive pulmonary disease with (acute) exacerbation; K21.9 Gastro-esophageal reflux disease without esophagitis; E78.00 Pure hypercholesterolemia, unspecified; K58.9 Irritable bowel syndrome, unspecified; E66.9 Obesity, unspecified; G60.9 Hereditary and idiopathic neuropathy, unspecified; G47.00 Insomnia, unspecified; Z79.899 Other long term (current) drug therapy; Z98.890 Other specified postprocedural states; Z90.49 Acquired absence of other specified parts of digestive tract; Z68.33 Body mass index [BMI] 33.0-33.9, adult; Z88.5 Allergy status to narcotic agent; Z88.2 Allergy status to sulfonamides; Z79.82 Long term (current) use of aspirin
CPT/HCPCS: 43239; 82947; J2704; J7120; 00731; 99100

== ENCOUNTER 2022-07-08 14:29 | Emergency (ER) | payer MEDICARE, MEDICAID ==
[2022-07-08] MEDS ORDERED: Lactated Ringers 1,000 ML IV STA (14:36)
[2022-07-08 15:09] LABS: BLOOD UREA NITROGEN,BUN 14 mg/dL (7.0-18.0); CARBON DIOXIDE,CO2 28.2 mmol/L (21.0-32.0); CHLORIDE,CL 104 mmol/L (98-107); GLUCOSE RANDOM 216 mg/dL (74-106); POTASSIUM,K 4.5 mmol/L (3.5-5.1); SODIUM,NA 140 mmol/L (136-145)
[2022-07-08 15:17] LABS: ESTIMATED GFR 48 mL/min (>60)
[2022-07-08] MEDS ORDERED: Iopamidol 755 MG/ML 500 ML Multipack Bottle IVPUSH STA (16:16)
[2022-07-08 18:47] VITALS: BP 106/50; PULSE 51
== END 2022-07-08 19:05 | disposition home or self-care (01) ==
LOC: MW.ED 14:29
DX: I95.9 Hypotension, unspecified (principal); R00.1 Bradycardia, unspecified; E78.00 Pure hypercholesterolemia, unspecified; J44.9 Chronic obstructive pulmonary disease, unspecified; E11.9 Type 2 diabetes mellitus without complications; Z79.899 Other long term (current) drug therapy; Z20.822 Contact with and (suspected) exposure to COVID-19
CPT/HCPCS: 36415; 70450; 70496; 70498; 71045; 80053; 80307; 82550; 83605; 83735; 84443; 84484; 85025; 85610; 93005; 96360; 96523; 99291; J1642; J3490; J7120; Q9967; U0002

== ENCOUNTER 2022-09-03 15:59 | Emergency (ER) | payer MEDICARE, MEDICAID ==
[2022-09-03 16:05] VITALS: BP 149/67; PULSE 101
[2022-09-03 17:00] LABS: POTASSIUM,K 3.2 mmol/L (3.5-5.1)
== END 2022-09-03 18:11 | disposition home or self-care (01) ==
LOC: MW.ED 15:59
DX: R13.10 Dysphagia, unspecified (principal); R63.4 Abnormal weight loss; E78.00 Pure hypercholesterolemia, unspecified; I10 Essential (primary) hypertension; J44.9 Chronic obstructive pulmonary disease, unspecified; E11.9 Type 2 diabetes mellitus without complications; K21.9 Gastro-esophageal reflux disease without esophagitis; E66.9 Obesity, unspecified; Z79.82 Long term (current) use of aspirin; Z88.5 Allergy status to narcotic agent; Z88.8 Allergy status to other drugs, medicaments and biological substances; Z79.899 Other long term (current) drug therapy; Z68.26 Body mass index [BMI] 26.0-26.9, adult
CPT/HCPCS: 36415; 80053; 83690; 85025; 99284

== ENCOUNTER 2023-09-16 16:33 | Observation (INO) | payer MEDICARE, MEDICAID ==
[2023-09-16] MEDS ORDERED: Sodium Chloride 0.9% 10 ML Syringe FLUSH PRN (16:36)
[2023-09-16] MEDS ORDERED: Sodium Chloride 0.9% 2.5 ML Syringe FLUSH PRN (16:36)
[2023-09-16] MEDS ORDERED: Lactated Ringers 1,000 ML IV SCH (16:45)
[2023-09-16] MEDS ORDERED: Albuterol/Ipratropium 3.0-0.5 MG/3 ML Neb Soln NEB ONE (16:45)
[2023-09-16 16:50] LABS: BASOPHILS ABSOLUTE AUTO 0.02 K/uL (0.00-0.20); BASOPHILS PERCENT AUTO 0.2 % (0.0-1.0); EOSINOPHILS ABSOLUTE AUTO 0.01 K/uL (0.00-0.45); EOSINOPHILS PERCENT AUTO 0.1 % (0.0-6.0); HEMOGLOBIN 11.7 g/dL (12.0-16.0); IMMATURE GRAN ABSOLUTE AUTO 0.03 K/uL (0.00-0.05); IMMATURE GRAN PERCENT AUTO 0.4 % (0.0-0.4); LYMPHOCYTES ABSOLUTE AUTO 1.42 K/uL (1.00-4.80); LYMPHOCYTES PERCENT AUTO 16.6 % (24.0-44.0); MEAN CORPUSCULAR HEMOGLOBIN 29.9 pg (28.0-32.0); MEAN CORPUSCULAR HGB CONC 34.4 g/dL (32.0-36.0); MEAN PLATELET VOLUME 10.2 fL (9.4-12.3); MONOCYTES ABSOLUTE AUTO 0.58 K/uL (0.00-0.80); MONOCYTES PERCENT AUTO 6.8 % (0.0-8.0); NEUTROPHILS PERCENT AUTO 75.9 % (41.0-71.0); PLATELET COUNT,PLT 224 K/uL (150-400); RED BLOOD CELL COUNT 3.91 M/uL (4.10-5.30); WHITE BLOOD CELL COUNT,WBC 8.56 K/uL (3.9-11.3)
[2023-09-16 17:14] LABS: LACTIC ACID 1.2 mmol/L (0.4-2.0)
[2023-09-16 17:20] LABS: ALANINE AMINOTRANSFERASE,ALT 15 IU/L (14-63); ALBUMIN 3.1 g/dL (3.4-5.0); ALKALINE PHOSPHATASE 123 U/L (46-116); ASPARTATE AMNIOTRANSFERASE,AST 15 IU/L (15-37); BILIRUBIN TOTAL 0.3 mg/dL (0.2-1.0); BLOOD UREA NITROGEN,BUN 40 mg/dL (7.0-18.0); CALCIUM 8.4 mg/dL (8.5-10.1); CARBON DIOXIDE,CO2 25.8 mmol/L (21.0-32.0); CHLORIDE,CL 106 mmol/L (98-107); CREATININE 1.9 mg/dL (0.6-1.0); GLUCOSE RANDOM 115 mg/dL (74-106); LIPASE 23 U/L (16-77); MAGNESIUM 1.9 mg/dL (1.8-2.4); POTASSIUM,K 4.9 mmol/L (3.5-5.1); PROTEIN TOTAL,TP 6.1 g/dL (6.4-8.2); SODIUM,NA 140 mmol/L (136-145)
[2023-09-16 17:21] LABS: ESTIMATED GFR 28 mL/min (>60)
[2023-09-16 17:56] LABS: CORONAVIRUS COVID-19 NAA NEGATIVE (NEGATIVE); INFLUENZA A NAA NEGATIVE (NEGATIVE); INFLUENZA B NAA NEGATIVE (NEGATIVE); RESPIRATORY SYNCYTIAL VIR NAA NEGATIVE (NEGATIVE)
[2023-09-16] MEDS ORDERED: Lactated Ringers 500 ML IV SCH (18:15)
[2023-09-16 19:10] LABS: APPEARANCE,URINE SLT CLOUDY; BILIRUBIN,URINE NEGATIVE (NEGATIVE); GLUCOSE,URINE NEGATIVE (NEGATIVE); KETONES,URINE TRACE mg/dL (NEGATIVE); LEUKOCYTE ESTERASE,URINE NEGATIVE (NEGATIVE); NITRITE,URINE NEGATIVE (NEGATIVE); OCCULT BLOOD,URINE NEGATIVE (NEGATIVE); PH,URINE 5.5 (5.0-8.0); PROTEIN,URINE NEGATIVE (NEGATIVE); UROBILINOGEN,URINE 0.2 EU/dL (<2.0)
[2023-09-16 19:14] LABS: COLOR,URINE DARK YELLOW
[2023-09-16] MEDS ORDERED: Sodium Chloride 0.9% 1,000 ML IV SCH (23:00)
[2023-09-17] MEDS ORDERED: Melatonin 3 MG Tab PO PRN (00:34)
[2023-09-17 06:00] LABS: HEMATOCRIT 34.6 % (37.0-47.0); HEMOGLOBIN 12.3 g/dL (12.0-16.0); MEAN CORPUSCULAR HEMOGLOBIN 30.4 pg (28.0-32.0); MEAN CORPUSCULAR HGB CONC 35.5 g/dL (32.0-36.0); MEAN CORPUSCULAR VOLUME 85.4 fL (83.0-99.0); MEAN PLATELET VOLUME 10.2 fL (9.4-12.3); PLATELET COUNT,PLT 191 K/uL (150-400); RED BLOOD CELL COUNT 4.05 M/uL (4.10-5.30); WHITE BLOOD CELL COUNT,WBC 5.67 K/uL (3.9-11.3)
[2023-09-17 06:32] LABS: CALCIUM 8.5 mg/dL (8.5-10.1); CARBON DIOXIDE,CO2 26.8 mmol/L (21.0-32.0); EST CRCL DRUG DOSING (CG) 41.45 mL/min; POTASSIUM,K 3.8 mmol/L (3.5-5.1)
[2023-09-17 11:18] VITALS: PULSE 72
[2023-09-17 11:40] VITALS: BP 154/54
== END 2023-09-17 11:30 | disposition home or self-care (01) ==
LOC: MW.ED 16:33 → MW.MS 20:01
PROVIDERS: ADMIT Internal Medicine; ATTEND Internal Medicine
DX: R53.1 Weakness (principal); E86.0 Dehydration; N17.9 Acute kidney failure, unspecified; F17.200 Nicotine dependence, unspecified, uncomplicated; I95.9 Hypotension, unspecified; Z88.8 Allergy status to other drugs, medicaments and biological substances; Z88.5 Allergy status to narcotic agent; Z79.899 Other long term (current) drug therapy; Z20.822 Contact with and (suspected) exposure to COVID-19
CPT/HCPCS: 0241U; 36415; 70450; 71045; 80048; 80053; 81003; 82947; 83605; 83690; 83735; 83880; 84443; 84484; 85025; 85027; 93005; 96360; 99285; A9270; J3490; J7030; J7120; G0378; J7620-GY

== ENCOUNTER 2023-09-21 00:54 | Emergency (ER) | payer MEDICARE, MEDICAID ==
[2023-09-21] MEDS ORDERED: Sodium Chloride 0.9% 10 ML Syringe FLUSH PRN (01:15)
[2023-09-21] MEDS ORDERED: Sodium Chloride 0.9% 2.5 ML Syringe FLUSH PRN (01:15)
[2023-09-21] MEDS ORDERED: Sodium Chloride 0.9% 500 ML IV SCH (01:15)
[2023-09-21 01:23] LABS: BASOPHILS ABSOLUTE AUTO 0.03 K/uL (0.00-0.20); BASOPHILS PERCENT AUTO 0.4 % (0.0-1.0); EOSINOPHILS ABSOLUTE AUTO 0.01 K/uL (0.00-0.45); EOSINOPHILS PERCENT AUTO 0.1 % (0.0-6.0); HEMATOCRIT 35.6 % (37.0-47.0); HEMOGLOBIN 12.1 g/dL (12.0-16.0); IMMATURE GRAN ABSOLUTE AUTO 0.03 K/uL (0.00-0.05); IMMATURE GRAN PERCENT AUTO 0.4 % (0.0-0.4); LYMPHOCYTES ABSOLUTE AUTO 1.21 K/uL (1.00-4.80); LYMPHOCYTES PERCENT AUTO 14.3 % (24.0-44.0); MEAN CORPUSCULAR VOLUME 88.1 fL (83.0-99.0); MEAN PLATELET VOLUME 10.5 fL (9.4-12.3); MONOCYTES ABSOLUTE AUTO 0.77 K/uL (0.00-0.80); MONOCYTES PERCENT AUTO 9.1 % (0.0-8.0); NEUTROPHILS ABSOLUTE AUTO 6.39 K/uL (1.80-7.70); NEUTROPHILS PERCENT AUTO 75.7 % (41.0-71.0); RED BLOOD CELL COUNT 4.04 M/uL (4.10-5.30); WHITE BLOOD CELL COUNT,WBC 8.44 K/uL (3.9-11.3)
[2023-09-21 01:41] LABS: ALBUMIN 3.2 g/dL (3.4-5.0); BILIRUBIN TOTAL 0.3 mg/dL (0.2-1.0); CALCIUM 8.5 mg/dL (8.5-10.1); CARBON DIOXIDE,CO2 24.2 mmol/L (21.0-32.0); CREATININE 2.5 mg/dL (0.6-1.0); EST CRCL DRUG DOSING (CG) 15.85 mL/min; POTASSIUM,K 4.5 mmol/L (3.5-5.1); PROTEIN TOTAL,TP 6.3 g/dL (6.4-8.2)
[2023-09-21 01:42] LABS: PLATELET COUNT,PLT 214 K/uL (150-400)
[2023-09-21 01:53] LABS: APPEARANCE,URINE CLOUDY; COLOR,URINE YELLOW; GLUCOSE,URINE NEGATIVE (NEGATIVE); KETONES,URINE 15 mg/dL (NEGATIVE); LEUKOCYTE ESTERASE,URINE SMALL (NEGATIVE); NITRITE,URINE NEGATIVE (NEGATIVE); OCCULT BLOOD,URINE NEGATIVE (NEGATIVE); PROTEIN,URINE NEGATIVE (NEGATIVE); UROBILINOGEN,URINE 0.2 EU/dL (<2.0)
[2023-09-21 01:55] LABS: BILIRUBIN,URINE SMALL (NEGATIVE)
[2023-09-21 02:05] LABS: BACTERIA,URINE 2+ (NEGATIVE); EPITHELIAL CELLS,URINE MANY (NONE-FEW); MUCUS,URINE LIGHT (NONE-MOD); RBC,URINE 0-2 (0-2/HPF)
[2023-09-21] MEDS ORDERED: Sodium Chloride 0.9% 1,000 ML IV ONE (02:59)
[2023-09-21] MEDS ORDERED: cefTRIAXone 1 GM in Sodium Chloride 0.9% 50 ML IV ONE (02:59)
[2023-09-21] MEDS ORDERED: Acetaminophen 325 MG Tab PO ONE (03:47)
[2023-09-21 04:48] VITALS: BP 113/41; PULSE 65
== END 2023-09-21 04:47 | disposition home or self-care (01) ==
LOC: MW.ED 00:54
DX: N39.0 Urinary tract infection, site not specified (principal); E86.0 Dehydration; R74.8 Abnormal levels of other serum enzymes; J44.9 Chronic obstructive pulmonary disease, unspecified; K21.9 Gastro-esophageal reflux disease without esophagitis; E78.5 Hyperlipidemia, unspecified; I11.0 Hypertensive heart disease with heart failure; I50.9 Heart failure, unspecified; E11.21 Type 2 diabetes mellitus with diabetic nephropathy; Z72.0 Tobacco use; Z79.82 Long term (current) use of aspirin; Z88.5 Allergy status to narcotic agent
CPT/HCPCS: 36415; 80053; 81001; 85025; 87086; 93005; 96361; 96365; 99285; A9270; J0696; J3490; J7030; J7040

== ENCOUNTER 2023-09-21 07:39 | Observation (INO) | payer MEDICARE, MEDICAID ==
[2023-09-21] MEDS ORDERED: Sodium Chloride 0.9% 10 ML Syringe FLUSH PRN ×2 (07:49→11:22)
[2023-09-21] MEDS ORDERED: Sodium Chloride 0.9% 2.5 ML Syringe FLUSH PRN ×2 (07:49→11:22)
[2023-09-21] MEDS ORDERED: cefTRIAXone 1 GM in Sodium Chloride 0.9% 50 ML IV ONE (07:51)
[2023-09-21] MEDS ORDERED: Sodium Chloride 0.9% 500 ML IV SCH (08:00)
[2023-09-21 08:50] LABS: BASOPHILS ABSOLUTE AUTO 0.03 K/uL (0.00-0.20); BASOPHILS PERCENT AUTO 0.3 % (0.0-1.0); HEMATOCRIT 35.5 % (37.0-47.0); HEMOGLOBIN 12.2 g/dL (12.0-16.0); IMMATURE GRAN ABSOLUTE AUTO 0.02 K/uL (0.00-0.05); IMMATURE GRAN PERCENT AUTO 0.2 % (0.0-0.4); LYMPHOCYTES ABSOLUTE AUTO 0.72 K/uL (1.00-4.80); MEAN CORPUSCULAR HGB CONC 34.4 g/dL (32.0-36.0); MEAN CORPUSCULAR VOLUME 87.4 fL (83.0-99.0); MEAN PLATELET VOLUME 10.6 fL (9.4-12.3); MONOCYTES ABSOLUTE AUTO 0.76 K/uL (0.00-0.80); MONOCYTES PERCENT AUTO 7.4 % (0.0-8.0); NEUTROPHILS ABSOLUTE AUTO 8.76 K/uL (1.80-7.70); NEUTROPHILS PERCENT AUTO 85.1 % (41.0-71.0); PLATELET COUNT,PLT 231 K/uL (150-400); RED BLOOD CELL COUNT 4.06 M/uL (4.10-5.30); WHITE BLOOD CELL COUNT,WBC 10.29 K/uL (3.9-11.3)
[2023-09-21 09:01] LABS: INR 1.02 (0.86-1.11)
[2023-09-21 09:26] LABS: ALBUMIN 3.3 g/dL (3.4-5.0); BILIRUBIN TOTAL 0.2 mg/dL (0.2-1.0); CALCIUM 8.4 mg/dL (8.5-10.1); CARBON DIOXIDE,CO2 26.1 mmol/L (21.0-32.0); CREATININE 1.8 mg/dL (0.6-1.0); EST CRCL DRUG DOSING (CG) 23.03 mL/min; POTASSIUM,K 4.3 mmol/L (3.5-5.1); PROTEIN TOTAL,TP 6.6 g/dL (6.4-8.2)
[2023-09-21 10:27] LABS: APPEARANCE,URINE CLEAR; BILIRUBIN,URINE NEGATIVE (NEGATIVE); COLOR,URINE YELLOW; GLUCOSE,URINE 250 mg/dL (NEGATIVE); KETONES,URINE NEGATIVE (NEGATIVE); LEUKOCYTE ESTERASE,URINE TRACE (NEGATIVE); NITRITE,URINE NEGATIVE (NEGATIVE); OCCULT BLOOD,URINE TRACE-INTACT (NEGATIVE); PH,URINE 5.5 (5.0-8.0); PROTEIN,URINE NEGATIVE (NEGATIVE); UROBILINOGEN,URINE 0.2 EU/dL (<2.0)
[2023-09-21 10:41] LABS: RBC,URINE 0-1 (0-2/HPF)
[2023-09-21 10:42] LABS: BACTERIA,URINE FEW (NEGATIVE); EPITHELIAL CELLS,URINE MODERATE (NONE-FEW)
[2023-09-21] MEDS ORDERED: Acetaminophen 325 MG Tab PO PRN (11:22)
[2023-09-21] MEDS ORDERED: Ondansetron 4 MG/2 ML SDV IVPUSH PRN (11:22)
[2023-09-21] MEDS ORDERED: TOPIRAMATE 50 MG PO SCH (11:30)
[2023-09-21] MEDS ORDERED: [UNRECOGNIZED DRUG - OTHER] PO SCH (11:30)
[2023-09-21] MEDS ORDERED: DULoxetine 30 MG Cap PO SCH (11:30)
[2023-09-21] MEDS ORDERED: Sodium Chloride 0.9% 1,000 ML IV SCH (11:30)
[2023-09-21] MEDS ORDERED: Sucralfate 1 GM Tab PO SCH (12:30)
[2023-09-21] MEDS: Gabapentin 100 MG Cap PO SCH ×2 (14:25→18:02)
[2023-09-21] MEDS: Gabapentin 300 MG Cap PO SCH ×2 (14:25→18:02)
[2023-09-21] MEDS: tiZANidine 4 MG Tab PO PRN ×2 (14:44→22:48)
[2023-09-21 17:38] LABS: AMPHETAMINES SCREEN, URINE NEGATIVE (CUTOFF=500); BARBITURATE SCREEN,URINE NEGATIVE (CUTOFF=200); BENZODIAZEPINES SCREEN,URINE NEGATIVE (CUTOFF=150); BUPRENORPHINE SCREEN,URINE NEGATIVE (CUTOFF=10); METHADONE SCREEN, URINE NEGATIVE (CUTOFF=200); METHAMPHETAMINES SCREEN, URINE NEGATIVE (CUTOFF=500); OXYCODONE SCREEN,URINE NEGATIVE (CUT0FF=100); PCP SCREEN,URINE NEGATIVE (CUTOFF=25); THC SCREEN,URINE 20 NG/ML NEGATIVE (CUTOFF=50)
[2023-09-21] MEDS ORDERED: Carvedilol 6.25 MG Tab PO SCH (21:00)
[2023-09-21] MEDS ORDERED: Pravastatin 40 MG Tab PO SCH (21:00)
[2023-09-21] MEDS ORDERED: Mirtazapine 15 MG Tab PO SCH (21:00)
[2023-09-21] MEDS: Carvedilol 12.5 MG Tab PO SCH (21:09)
[2023-09-22] MEDS: Gabapentin 300 MG Cap PO SCH ×3 (00:12→11:40)
[2023-09-22] MEDS: Gabapentin 100 MG Cap PO SCH ×3 (00:12→11:40)
[2023-09-22 06:16] LABS: BASOPHILS ABSOLUTE AUTO 0.03 K/uL (0.00-0.20); BASOPHILS PERCENT AUTO 0.5 % (0.0-1.0); EOSINOPHILS ABSOLUTE AUTO 0.01 K/uL (0.00-0.45); EOSINOPHILS PERCENT AUTO 0.2 % (0.0-6.0); HEMATOCRIT 33.1 % (37.0-47.0); HEMOGLOBIN 11.2 g/dL (12.0-16.0); IMMATURE GRAN ABSOLUTE AUTO 0.01 K/uL (0.00-0.05); IMMATURE GRAN PERCENT AUTO 0.2 % (0.0-0.4); LYMPHOCYTES ABSOLUTE AUTO 1.41 K/uL (1.00-4.80); LYMPHOCYTES PERCENT AUTO 23.9 % (24.0-44.0); MEAN CORPUSCULAR HEMOGLOBIN 30.2 pg (28.0-32.0); MEAN CORPUSCULAR HGB CONC 33.8 g/dL (32.0-36.0); MEAN CORPUSCULAR VOLUME 89.2 fL (83.0-99.0); MEAN PLATELET VOLUME 11.1 fL (9.4-12.3); MONOCYTES ABSOLUTE AUTO 0.75 K/uL (0.00-0.80); MONOCYTES PERCENT AUTO 12.7 % (0.0-8.0); NEUTROPHILS ABSOLUTE AUTO 3.68 K/uL (1.80-7.70); NEUTROPHILS PERCENT AUTO 62.5 % (41.0-71.0); PLATELET COUNT,PLT 195 K/uL (150-400); RED BLOOD CELL COUNT 3.71 M/uL (4.10-5.30); WHITE BLOOD CELL COUNT,WBC 5.89 K/uL (3.9-11.3)
[2023-09-22 06:34] LABS: CALCIUM 8.1 mg/dL (8.5-10.1); CARBON DIOXIDE,CO2 24.7 mmol/L (21.0-32.0); CREATININE 1.2 mg/dL (0.6-1.0); EST CRCL DRUG DOSING (CG) 34.54 mL/min; POTASSIUM,K 4.1 mmol/L (3.5-5.1)
[2023-09-22 06:37] LABS: HEMOGLOBIN A1C 5.9 %
[2023-09-22] MEDS ORDERED: Pantoprazole 40 MG Tab.CR PO SCH (07:30)
[2023-09-22] MEDS: tiZANidine 4 MG Tab PO PRN (07:33)
[2023-09-22] MEDS ORDERED: cefTRIAXone 1 GM in Sodium Chloride 0.9% 50 ML IV SCH (08:00)
[2023-09-22] MEDS ORDERED: Clopidogrel 75 MG Tab PO SCH (09:00)
[2023-09-22] MEDS ORDERED: Aspirin 81 MG Tab.Chew PO SCH (09:00)
[2023-09-22] MEDS: Carvedilol 12.5 MG Tab PO SCH (09:16)
[2023-09-22 13:27] VITALS: BP 107/51; PULSE 56
== END 2023-09-22 13:45 | disposition home health service (06) ==
LOC: MW.ED 07:39 → MW.MS 10:54
PROVIDERS: ADMIT Family Medicine; ATTEND Family Medicine
DX: N17.1 Acute kidney failure with acute cortical necrosis (principal); E86.0 Dehydration; N39.0 Urinary tract infection, site not specified; M54.9 Dorsalgia, unspecified; M54.50 Low back pain, unspecified; M54.2 Cervicalgia; I10 Essential (primary) hypertension; J44.9 Chronic obstructive pulmonary disease, unspecified; F31.9 Bipolar disorder, unspecified; F41.9 Anxiety disorder, unspecified; Z20.822 Contact with and (suspected) exposure to COVID-19; W19.XXXA Unspecified fall, initial encounter; Z88.5 Allergy status to narcotic agent; Z88.8 Allergy status to other drugs, medicaments and biological substances; Z86.73 Personal history of transient ischemic attack (TIA), and cerebral infarction without residual deficits; Z79.899 Other long term (current) drug therapy
CPT/HCPCS: 36415; 70450; 71045; 73562; 73590; 80048; 80053; 80305; 81001; 83036; 83605; 83735; 83880; 84484; 85025; 85610; 87040; 93005; 96365; 97162; 97530; 99284; A9270; J0696; J1642; J3490; J7030; J7040; U0002

== ENCOUNTER 2024-03-07 20:10 | Inpatient (IN) | payer MEDICARE, MEDICAID ==
[2024-03-07] MEDS: Sodium Chloride 0.9% 1,000 ML IV ONE (20:48)
[2024-03-07 21:03] LABS: BASOPHILS ABSOLUTE AUTO 0.04 K/uL (0.00-0.20); BASOPHILS PERCENT AUTO 0.8 % (0.0-1.0); EOSINOPHILS ABSOLUTE AUTO 0.01 K/uL (0.00-0.45); EOSINOPHILS PERCENT AUTO 0.2 % (0.0-6.0); HEMATOCRIT 31.9 % (37.0-47.0); HEMOGLOBIN 10.5 g/dL (12.0-16.0); IMMATURE GRAN ABSOLUTE AUTO 0.01 K/uL (0.00-0.05); IMMATURE GRAN PERCENT AUTO 0.2 % (0.0-0.4); LYMPHOCYTES ABSOLUTE AUTO 1.54 K/uL (1.00-4.80); LYMPHOCYTES PERCENT AUTO 31.1 % (24.0-44.0); MEAN CORPUSCULAR HEMOGLOBIN 30.1 pg (28.0-32.0); MEAN CORPUSCULAR HGB CONC 32.9 g/dL (32.0-36.0); MEAN CORPUSCULAR VOLUME 91.4 fL (83.0-99.0); MEAN PLATELET VOLUME 10.5 fL (9.4-12.3); MONOCYTES ABSOLUTE AUTO 0.63 K/uL (0.00-0.80); MONOCYTES PERCENT AUTO 12.7 % (0.0-8.0); NEUTROPHILS ABSOLUTE AUTO 2.72 K/uL (1.80-7.70); PLATELET COUNT,PLT 199 K/uL (150-400); RED BLOOD CELL COUNT 3.49 M/uL (4.10-5.30); WHITE BLOOD CELL COUNT,WBC 4.95 K/uL (3.9-11.3)
[2024-03-07 21:19] LABS: INR 1.07 (0.86-1.11); PTT,PARTIAL THROMBOPLSTIN TIME 33.1 SEC (23.9-30.7)
[2024-03-07 21:35] LABS: LACTIC ACID 0.5 mmol/L (0.4-2.0)
[2024-03-07 22:02] LABS: A/G RATIO 0.9 (0.9-1.6); ALANINE AMINOTRANSFERASE,ALT 14 IU/L (14-63); ALBUMIN 3.1 g/dL (3.4-5.0); ALKALINE PHOSPHATASE 105 U/L (46-116); ASPARTATE AMNIOTRANSFERASE,AST 13 IU/L (15-37); BILIRUBIN TOTAL 0.2 mg/dL (0.2-1.0); BLOOD UREA NITROGEN,BUN 58 mg/dL (7.0-18.0); CALCIUM 8.2 mg/dL (8.5-10.1); CARBON DIOXIDE,CO2 24.1 mmol/L (21.0-32.0); CHLORIDE,CL 105 mmol/L (98-107); CREATININE 3.1 mg/dL (0.6-1.0); EST CRCL DRUG DOSING (CG) 13.37 mL/min; GLUCOSE RANDOM 99 mg/dL (74-106); MAGNESIUM 2.2 mg/dL (1.8-2.4); POTASSIUM,K 4.7 mmol/L (3.5-5.1); PROTEIN TOTAL,TP 6.4 g/dL (6.4-8.2); SODIUM,NA 140 mmol/L (136-145); TSH ULTRASENSITIVE 1.09 uIU/mL (0.36-3.74)
[2024-03-07 22:04] LABS: ESTIMATED GFR 15 mL/min (>60); ETHANOL BLOOD MEDICAL < 3.0 mg/dL
[2024-03-07 22:59] LABS: CORONAVIRUS COVID-19 NAA NEGATIVE (NEGATIVE); INFLUENZA A NAA NEGATIVE (NEGATIVE); INFLUENZA B NAA NEGATIVE (NEGATIVE)
[2024-03-08 01:16] LABS: APPEARANCE,URINE CLEAR; BILIRUBIN,URINE NEGATIVE (NEGATIVE); COLOR,URINE YELLOW; GLUCOSE,URINE NEGATIVE (NEGATIVE); KETONES,URINE NEGATIVE (NEGATIVE); LEUKOCYTE ESTERASE,URINE NEGATIVE (NEGATIVE); NITRITE,URINE NEGATIVE (NEGATIVE); OCCULT BLOOD,URINE NEGATIVE (NEGATIVE); PROTEIN,URINE NEGATIVE (NEGATIVE); UROBILINOGEN,URINE 0.2 EU/dL (<2.0)
[2024-03-08 01:26] LABS: AMPHETAMINES SCREEN, URINE NEGATIVE (CUTOFF=500); BARBITURATE SCREEN,URINE NEGATIVE (CUTOFF=200); BENZODIAZEPINES SCREEN,URINE NEGATIVE (CUTOFF=150); BUPRENORPHINE SCREEN,URINE NEGATIVE (CUTOFF=10); METHADONE SCREEN, URINE NEGATIVE (CUTOFF=200); METHAMPHETAMINES SCREEN, URINE NEGATIVE (CUTOFF=500); OXYCODONE SCREEN,URINE NEGATIVE (CUT0FF=100); PCP SCREEN,URINE NEGATIVE (CUTOFF=25); THC SCREEN,URINE 20 NG/ML NEGATIVE (CUTOFF=50)
[2024-03-08] MEDS ORDERED: Ondansetron 4 MG/2 ML SDV IVPUSH PRN (02:00)
[2024-03-08] MEDS: Albuterol/Ipratropium 3.0-0.5 MG/3 ML Neb Soln NEB PRN (02:56)
[2024-03-08] MEDS: Acetaminophen 325 MG Tab PO PRN (02:58)
[2024-03-08] MEDS: Sodium Chloride 0.9% 1,000 ML IV SCH (02:59)
[2024-03-08] MEDS: Heparin Sodium 5,000 Units/ML Vial SUBCUT SCH (05:48)
[2024-03-08 06:44] LABS: BASOPHILS ABSOLUTE AUTO 0.03 K/uL (0.00-0.20); BASOPHILS PERCENT AUTO 0.5 % (0.0-1.0); HEMATOCRIT 36.7 % (37.0-47.0); HEMOGLOBIN 12.2 g/dL (12.0-16.0); IMMATURE GRAN ABSOLUTE AUTO 0.01 K/uL (0.00-0.05); IMMATURE GRAN PERCENT AUTO 0.2 % (0.0-0.4); LYMPHOCYTES ABSOLUTE AUTO 1.01 K/uL (1.00-4.80); MEAN CORPUSCULAR HEMOGLOBIN 29.9 pg (28.0-32.0); MEAN CORPUSCULAR HGB CONC 33.2 g/dL (32.0-36.0); MEAN PLATELET VOLUME 10.5 fL (9.4-12.3); MONOCYTES ABSOLUTE AUTO 0.71 K/uL (0.00-0.80); MONOCYTES PERCENT AUTO 11.2 % (0.0-8.0); NEUTROPHILS ABSOLUTE AUTO 4.57 K/uL (1.80-7.70); NEUTROPHILS PERCENT AUTO 72.1 % (41.0-71.0); PLATELET COUNT,PLT 197 K/uL (150-400); RED BLOOD CELL COUNT 4.08 M/uL (4.10-5.30); WHITE BLOOD CELL COUNT,WBC 6.33 K/uL (3.9-11.3)
[2024-03-08 06:51] LABS: BASE EXCESS VENOUS -3.9 (-2.0-3.0); PH,VENOUS 7.28 (7.31-7.41)
[2024-03-08 07:02] LABS: CALCIUM 8.6 mg/dL (8.5-10.1); CARBON DIOXIDE,CO2 24.8 mmol/L (21.0-32.0); CREATININE 2.5 mg/dL (0.6-1.0); EST CRCL DRUG DOSING (CG) 16.58 mL/min; POTASSIUM,K 4.2 mmol/L (3.5-5.1)
[2024-03-08] MEDS: Clopidogrel 75 MG Tab PO SCH (08:52)
[2024-03-08] MEDS: Gabapentin 300 MG Cap PO SCH (08:53)
[2024-03-08] MEDS ORDERED: Sodium Chloride 0.9% 10 ML Syringe FLUSH PRN (10:24)
[2024-03-08] MEDS ORDERED: Sodium Chloride 0.9% 2.5 ML Syringe FLUSH PRN (10:24)
[2024-03-08 11:52] LABS: CREATININE,URINE RAND 35.9 mg/dL
[2024-03-08] MEDS: tiZANidine 4 MG Tab PO PRN (15:29)
[2024-03-08] MEDS: Pravastatin 40 MG Tab PO SCH (20:24)
[2024-03-08] MEDS: OLANZAPINE PO SCH (20:26)
[2024-03-08] MEDS: SAMIDORPHAN MALATE PO SCH (20:26)
[2024-03-08] MEDS: PALIPERIDONE 9 MG PO SCH (20:26)
[2024-03-08] MEDS ORDERED: Pravastatin 40 MG Tab PO SCH (21:00)
[2024-03-09] MEDS: Benzocaine/Cetylpyridinium/Menthol Lozenge MUCMEM PRN (01:45)
[2024-03-09 06:15] LABS: BASOPHILS ABSOLUTE AUTO 0.04 K/uL (0.00-0.20); HEMOGLOBIN 10.4 g/dL (12.0-16.0); IMMATURE GRAN ABSOLUTE AUTO 0.01 K/uL (0.00-0.05); IMMATURE GRAN PERCENT AUTO 0.2 % (0.0-0.4); LYMPHOCYTES ABSOLUTE AUTO 1.02 K/uL (1.00-4.80); LYMPHOCYTES PERCENT AUTO 25.1 % (24.0-44.0); MEAN CORPUSCULAR HEMOGLOBIN 30.1 pg (28.0-32.0); MEAN CORPUSCULAR HGB CONC 33.5 g/dL (32.0-36.0); MEAN CORPUSCULAR VOLUME 89.9 fL (83.0-99.0); MONOCYTES PERCENT AUTO 17.2 % (0.0-8.0); NEUTROPHILS ABSOLUTE AUTO 2.29 K/uL (1.80-7.70); NEUTROPHILS PERCENT AUTO 56.5 % (41.0-71.0); PLATELET COUNT,PLT 193 K/uL (150-400); RED BLOOD CELL COUNT 3.45 M/uL (4.10-5.30); WHITE BLOOD CELL COUNT,WBC 4.06 K/uL (3.9-11.3)
[2024-03-09 06:42] LABS: CALCIUM 8.2 mg/dL (8.5-10.1); CARBON DIOXIDE,CO2 24.1 mmol/L (21.0-32.0); CREATININE 1.3 mg/dL (0.6-1.0); EST CRCL DRUG DOSING (CG) 31.88 mL/min; POTASSIUM,K 4.2 mmol/L (3.5-5.1)
[2024-03-09] MEDS: Aspirin 81 MG Tab.Chew PO SCH (09:22)
[2024-03-09] MEDS: Pantoprazole 40 MG Tab.CR PO SCH (09:26)
[2024-03-09] MEDS: Gabapentin 100 MG Cap PO SCH (09:27)
[2024-03-09] MEDS: Isosorbide Mononitrate 30 MG Tab.ER PO SCH (09:35)
[2024-03-09] MEDS: VILAZODONE HCL 20 MG PO SCH (11:34)
[2024-03-09 11:58] VITALS: BP 110/54; PULSE 63
== END 2024-03-09 13:00 | disposition home health service (06) | DRG 684 ==
LOC: MW.ED 20:10 → MW.MS 22:17 → UNDOADMIN 22:35 → UNDODISIN 03-09 13:00
PROVIDERS: ADMIT Internal Medicine; ATTEND Internal Medicine
DX: N17.9 Acute kidney failure, unspecified (principal); E78.00 Pure hypercholesterolemia, unspecified; I10 Essential (primary) hypertension; E78.5 Hyperlipidemia, unspecified; E86.0 Dehydration; F41.9 Anxiety disorder, unspecified; F31.9 Bipolar disorder, unspecified; G62.9 Polyneuropathy, unspecified; J44.9 Chronic obstructive pulmonary disease, unspecified; K21.9 Gastro-esophageal reflux disease without esophagitis; G89.29 Other chronic pain; M54.2 Cervicalgia; R06.02 Shortness of breath; Z88.5 Allergy status to narcotic agent; Z88.8 Allergy status to other drugs, medicaments and biological substances; Z79.82 Long term (current) use of aspirin; Z79.899 Other long term (current) drug therapy; Z90.89 Acquired absence of other organs; Z90.49 Acquired absence of other specified parts of digestive tract; Z98.890 Other specified postprocedural states; Z86.73 Personal history of transient ischemic attack (TIA), and cerebral infarction without residual deficits; Z79.01 Long term (current) use of anticoagulants; Z90.710 Acquired absence of both cervix and uterus
CPT/HCPCS: 0240U; 36415; 70450; 71045; 76770; 80048; 80053; 80305; 80307; 81003; 82570; 82803; 83605; 83735; 83880; 84300; 84443; 84484; 85025; 85610; 85730; 87040; 93005; 94640; 96360; 97162; 99285; 93010; 99222; 99238; A9270-GY; J1642; J1644; J7030; J7620-GY

== ENCOUNTER 2024-03-12 15:00 | Emergency (ER) | payer MEDICARE, MEDICAID ==
[2024-03-12 17:58] LABS: BASOPHILS ABSOLUTE AUTO 0.03 K/uL (0.00-0.20); BASOPHILS PERCENT AUTO 0.7 % (0.0-1.0); HEMATOCRIT 33.4 % (37.0-47.0); HEMOGLOBIN 11.3 g/dL (12.0-16.0); IMMATURE GRAN ABSOLUTE AUTO 0.03 K/uL (0.00-0.05); IMMATURE GRAN PERCENT AUTO 0.7 % (0.0-0.4); LYMPHOCYTES ABSOLUTE AUTO 1.64 K/uL (1.00-4.80); MEAN CORPUSCULAR HEMOGLOBIN 30.5 pg (28.0-32.0); MEAN CORPUSCULAR HGB CONC 33.8 g/dL (32.0-36.0); MEAN PLATELET VOLUME 10.3 fL (9.4-12.3); MONOCYTES PERCENT AUTO 8.8 % (0.0-8.0); NEUTROPHILS ABSOLUTE AUTO 2.45 K/uL (1.80-7.70); NEUTROPHILS PERCENT AUTO 53.8 % (41.0-71.0); PLATELET COUNT,PLT 214 K/uL (150-400); RED BLOOD CELL COUNT 3.71 M/uL (4.10-5.30); WHITE BLOOD CELL COUNT,WBC 4.55 K/uL (3.9-11.3)
[2024-03-12 18:13] LABS: INR 1.04 (0.86-1.11)
[2024-03-12 18:25] LABS: A/G RATIO 0.8 (0.9-1.6); ALBUMIN 3.2 g/dL (3.4-5.0); BILIRUBIN TOTAL 0.3 mg/dL (0.2-1.0); CALCIUM 8.9 mg/dL (8.5-10.1); CREATININE 1.4 mg/dL (0.6-1.0); EST CRCL DRUG DOSING (CG) 29.6 mL/min; POTASSIUM,K 4.2 mmol/L (3.5-5.1)
[2024-03-12 18:49] VITALS: BP 179/63; PULSE 54
== END 2024-03-13 19:10 | disposition home or self-care (01) ==
LOC: MW.ED 15:00
DX: R07.89 Other chest pain (principal); I10 Essential (primary) hypertension; E78.00 Pure hypercholesterolemia, unspecified; J44.9 Chronic obstructive pulmonary disease, unspecified; K21.9 Gastro-esophageal reflux disease without esophagitis; Z75.8 Other problems related to medical facilities and other health care; Z88.5 Allergy status to narcotic agent; Z88.8 Allergy status to other drugs, medicaments and biological substances; Z79.82 Long term (current) use of aspirin; Z79.899 Other long term (current) drug therapy; Z79.84 Long term (current) use of oral hypoglycemic drugs; Z90.49 Acquired absence of other specified parts of digestive tract; Z90.710 Acquired absence of both cervix and uterus
CPT/HCPCS: 36415; 71045; 71045-26; 80053; 83690; 84484; 85025; 85610; 93005; 99283; 99285

== ENCOUNTER 2024-09-15 22:14 | Emergency (ER) | payer MEDICARE, MEDICAID, OTHER ==
[2024-09-15 23:44] LABS: BASOPHILS ABSOLUTE AUTO 0.03 K/uL (0.00-0.20); BASOPHILS PERCENT AUTO 0.4 % (0.0-1.0); HEMATOCRIT 26.5 % (37.0-47.0); HEMOGLOBIN 8.4 g/dL (12.0-16.0); IMMATURE GRAN ABSOLUTE AUTO 0.03 K/uL (0.00-0.05); IMMATURE GRAN PERCENT AUTO 0.4 % (0.0-0.4); LYMPHOCYTES ABSOLUTE AUTO 1.38 K/uL (1.00-4.80); LYMPHOCYTES PERCENT AUTO 16.2 % (24.0-44.0); MEAN CORPUSCULAR HEMOGLOBIN 29.8 pg (28.0-32.0); MEAN CORPUSCULAR HGB CONC 31.7 g/dL (32.0-36.0); MEAN PLATELET VOLUME 10.2 fL (9.4-12.3); MONOCYTES ABSOLUTE AUTO 0.86 K/uL (0.00-0.80); MONOCYTES PERCENT AUTO 10.1 % (0.0-8.0); NEUTROPHILS ABSOLUTE AUTO 6.22 K/uL (1.80-7.70); NEUTROPHILS PERCENT AUTO 72.9 % (41.0-71.0); PLATELET COUNT,PLT 186 K/uL (150-400); RED BLOOD CELL COUNT 2.82 M/uL (4.10-5.30); WHITE BLOOD CELL COUNT,WBC 8.52 K/uL (3.9-11.3)
[2024-09-15] MEDS: Sodium Chloride 0.9% 1,000 ML IV ONE (23:56)
[2024-09-15] MEDS: Albuterol/Ipratropium 3.0-0.5 MG/3 ML Neb Soln NEB ONE (23:56)
[2024-09-15] MEDS: methylPREDNISolone Sodium Succinate 40 MG/1 ML SDV IVPUSH ONE (23:56)
[2024-09-16 00:06] LABS: CALCIUM 8.3 mg/dL (8.5-10.1); CARBON DIOXIDE,CO2 27.7 mmol/L (21.0-32.0); CREATININE 1.8 mg/dL (0.6-1.0); EST CRCL DRUG DOSING (CG) 22.68 mL/min
[2024-09-16] MEDS: Heparin Sodium 10 Units/ML 5 ML Syringe FLUSH PRN (02:20)
[2024-09-16 06:58] VITALS: BP 126/54; PULSE 65
== END 2024-09-16 01:45 | disposition home or self-care (01) ==
LOC: MW.ED 22:14
DX: J40 Bronchitis, not specified as acute or chronic (principal); L89.322 Pressure ulcer of left buttock, stage 2; I10 Essential (primary) hypertension; E78.00 Pure hypercholesterolemia, unspecified; J44.9 Chronic obstructive pulmonary disease, unspecified; K21.9 Gastro-esophageal reflux disease without esophagitis; Z90.49 Acquired absence of other specified parts of digestive tract; Z90.710 Acquired absence of both cervix and uterus; Z79.899 Other long term (current) drug therapy; Z88.5 Allergy status to narcotic agent; Z88.8 Allergy status to other drugs, medicaments and biological substances
CPT/HCPCS: 36415; 71045; 80048; 85025; 87428; 96361; 96374; 99285; J1642; J2919; J7030; J7620-GY

== ENCOUNTER 2024-09-23 09:02 | Emergency (ER) | payer MEDICARE, MEDICAID, OTHER ==
[2024-09-23] MEDS: Sodium Chloride 0.9% 10 ML Syringe FLUSH PRN (09:24)
[2024-09-23] MEDS: Ondansetron 4 MG/2 ML SDV IVPUSH ONE (09:24)
[2024-09-23] MEDS: Sodium Chloride 0.9% 1,000 ML IV ONE (09:24)
[2024-09-23 09:28] LABS: BASOPHILS ABSOLUTE AUTO 0.05 K/uL (0.00-0.20); BASOPHILS PERCENT AUTO 0.5 % (0.0-1.0); EOSINOPHILS ABSOLUTE AUTO 0.01 K/uL (0.00-0.45); EOSINOPHILS PERCENT AUTO 0.1 % (0.0-6.0); HEMATOCRIT 28.6 % (37.0-47.0); HEMOGLOBIN 9.3 g/dL (12.0-16.0); IMMATURE GRAN ABSOLUTE AUTO 0.24 K/uL (0.00-0.05); IMMATURE GRAN PERCENT AUTO 2.3 % (0.0-0.4); LYMPHOCYTES ABSOLUTE AUTO 2.22 K/uL (1.00-4.80); LYMPHOCYTES PERCENT AUTO 21.3 % (24.0-44.0); MEAN CORPUSCULAR HEMOGLOBIN 30.3 pg (28.0-32.0); MEAN CORPUSCULAR HGB CONC 32.5 g/dL (32.0-36.0); MEAN CORPUSCULAR VOLUME 93.2 fL (83.0-99.0); MEAN PLATELET VOLUME 10.3 fL (9.4-12.3); MONOCYTES ABSOLUTE AUTO 1.05 K/uL (0.00-0.80); MONOCYTES PERCENT AUTO 10.1 % (0.0-8.0); NEUTROPHILS ABSOLUTE AUTO 6.85 K/uL (1.80-7.70); NEUTROPHILS PERCENT AUTO 65.7 % (41.0-71.0); PLATELET COUNT,PLT 235 K/uL (150-400); RED BLOOD CELL COUNT 3.07 M/uL (4.10-5.30); WHITE BLOOD CELL COUNT,WBC 10.42 K/uL (3.9-11.3)
[2024-09-23] MEDS: Ondansetron 4 MG/2 ML SDV ONE (09:28)
[2024-09-23] MEDS: Albuterol/Ipratropium 3.0-0.5 MG/3 ML Neb Soln NEB ONE ×2 (09:28→12:40)
[2024-09-23] MEDS: methylPREDNISolone Sodium Succinate 125 MG/2 ML SDV IVPUSH ONE (09:28)
[2024-09-23 09:32] LABS: PH,VENOUS 7.3 (7.31-7.41)
[2024-09-23 10:03] LABS: TSH ULTRASENSITIVE 2.62 uIU/mL (0.36-3.74)
[2024-09-23 10:04] LABS: A/G RATIO 1.1 (0.9-1.6); ALANINE AMINOTRANSFERASE,ALT 18 IU/L (14-63); ALKALINE PHOSPHATASE 98 U/L (46-116); ASPARTATE AMNIOTRANSFERASE,AST 13 IU/L (15-37); BILIRUBIN TOTAL 0.2 mg/dL (0.2-1.0); BLOOD UREA NITROGEN,BUN 43 mg/dL (7.0-18.0); CALCIUM 8.3 mg/dL (8.5-10.1); CARBON DIOXIDE,CO2 30.6 mmol/L (21.0-32.0); CHLORIDE,CL 106 mmol/L (98-107); CREATININE 1.9 mg/dL (0.6-1.0); ESTIMATED GFR 27 mL/min (>60); GLUCOSE RANDOM 196 mg/dL (74-106); MAGNESIUM 2.1 mg/dL (1.8-2.4); POTASSIUM,K 5.7 mmol/L (3.5-5.1); PRO B-TYPE NATRIUR PEPT,BNPPRO 339 pg/mL (0-125); PROTEIN TOTAL,TP 5.8 g/dL (6.4-8.2); SODIUM,NA 140 mmol/L (136-145)
[2024-09-23] MEDS: Acetaminophen 500 MG Tab PO ONE (10:19)
[2024-09-23 10:33] LABS: CORONAVIRUS COVID-19 NAA NEGATIVE (NEGATIVE); INFLUENZA A NAA NEGATIVE (NEGATIVE); INFLUENZA B NAA NEGATIVE (NEGATIVE); RESPIRATORY SYNCYTIAL VIR NAA NEGATIVE (NEGATIVE)
[2024-09-23 11:36] LABS: BILIRUBIN,URINE NEGATIVE (NEGATIVE); COLOR,URINE YELLOW; GLUCOSE,URINE NEGATIVE (NEGATIVE); KETONES,URINE NEGATIVE (NEGATIVE); LEUKOCYTE ESTERASE,URINE TRACE (NEGATIVE); NITRITE,URINE NEGATIVE (NEGATIVE); OCCULT BLOOD,URINE NEGATIVE (NEGATIVE); PH,URINE 5.5 (5.0-8.0); PROTEIN,URINE NEGATIVE (NEGATIVE); UROBILINOGEN,URINE 0.2 EU/dL (<2.0)
[2024-09-23 11:38] LABS: APPEARANCE,URINE HAZY
[2024-09-23 11:49] LABS: PH,VENOUS 7.31 (7.31-7.41)
[2024-09-23 11:51] LABS: BACTERIA,URINE FEW (NEGATIVE); EPITHELIAL CELLS,URINE MODERATE (NONE-FEW); MUCUS,URINE LIGHT (NONE-MOD); RBC,URINE 0-2 (0-2/HPF)
[2024-09-23 12:06] LABS: BLOOD UREA NITROGEN,BUN 47 mg/dL (7.0-18.0); CALCIUM 8.7 mg/dL (8.5-10.1); CARBON DIOXIDE,CO2 29.6 mmol/L (21.0-32.0); CHLORIDE,CL 106 mmol/L (98-107); CREATININE 1.8 mg/dL (0.6-1.0); GLUCOSE RANDOM 191 mg/dL (74-106); POTASSIUM,K 5.7 mmol/L (3.5-5.1); SODIUM,NA 141 mmol/L (136-145)
[2024-09-23 12:16] VITALS: BP 132/50
[2024-09-23 12:16] LABS: ESTIMATED GFR 29 mL/min (>60)
[2024-09-23] MEDS: oxyCODONE 5 MG Tab PO ONE (12:27)
[2024-09-23 12:50] VITALS: PULSE 58
== END 2024-09-23 13:56 | disposition home or self-care (01) ==
LOC: MW.ED 09:02
DX: E86.1 Hypovolemia (principal); I95.89 Other hypotension; J44.1 Chronic obstructive pulmonary disease with (acute) exacerbation; E86.0 Dehydration; I11.0 Hypertensive heart disease with heart failure; I50.9 Heart failure, unspecified; E78.00 Pure hypercholesterolemia, unspecified; K21.9 Gastro-esophageal reflux disease without esophagitis; Z86.73 Personal history of transient ischemic attack (TIA), and cerebral infarction without residual deficits; Z90.710 Acquired absence of both cervix and uterus; Z79.82 Long term (current) use of aspirin; Z79.899 Other long term (current) drug therapy; Z79.84 Long term (current) use of oral hypoglycemic drugs; Z88.5 Allergy status to narcotic agent; Z88.8 Allergy status to other drugs, medicaments and biological substances
CPT/HCPCS: 0241U; 36415; 70450; 71045; 80048; 80053; 81001; 82803; 83735; 83880; 84443; 85025; 93005; 96361; 96374; 96375; 99285; A9270; J1642; J2405; J2919; J7030; J7620-GY

== ENCOUNTER 2024-11-16 10:30 | Inpatient (IN) | payer MEDICARE, MEDICAID ==
[2024-11-16] MEDS ORDERED: Sodium Chloride 0.9% 2.5 ML Syringe FLUSH PRN (10:43)
[2024-11-16] MEDS ORDERED: Sodium Chloride 0.9% 10 ML Syringe FLUSH PRN (10:43)
[2024-11-16 10:50] LABS: BASOPHILS ABSOLUTE AUTO 0.05 K/uL (0.00-0.20); BASOPHILS PERCENT AUTO 0.8 % (0.0-1.0); EOSINOPHILS ABSOLUTE AUTO 0.01 K/uL (0.00-0.45); EOSINOPHILS PERCENT AUTO 0.2 % (0.0-6.0); HEMATOCRIT 30.7 % (37.0-47.0); HEMOGLOBIN 10.4 g/dL (12.0-16.0); IMMATURE GRAN ABSOLUTE AUTO 0.01 K/uL (0.00-0.05); IMMATURE GRAN PERCENT AUTO 0.2 % (0.0-0.4); LYMPHOCYTES ABSOLUTE AUTO 1.83 K/uL (1.00-4.80); LYMPHOCYTES PERCENT AUTO 27.6 % (24.0-44.0); MEAN CORPUSCULAR HEMOGLOBIN 30.7 pg (28.0-32.0); MEAN CORPUSCULAR HGB CONC 33.9 g/dL (32.0-36.0); MEAN CORPUSCULAR VOLUME 90.6 fL (83.0-99.0); MEAN PLATELET VOLUME 10.5 fL (9.4-12.3); MONOCYTES ABSOLUTE AUTO 0.53 K/uL (0.00-0.80); NEUTROPHILS PERCENT AUTO 63.2 % (41.0-71.0); PLATELET COUNT,PLT 184 K/uL (150-400); RED BLOOD CELL COUNT 3.39 M/uL (4.10-5.30); WHITE BLOOD CELL COUNT,WBC 6.63 K/uL (3.9-11.3)
[2024-11-16 11:16] LABS: BILIRUBIN,URINE NEGATIVE (NEGATIVE); COLOR,URINE YELLOW; GLUCOSE,URINE NEGATIVE (NEGATIVE); KETONES,URINE NEGATIVE (NEGATIVE); LEUKOCYTE ESTERASE,URINE MODERATE (NEGATIVE); NITRITE,URINE POSITIVE (NEGATIVE); OCCULT BLOOD,URINE TRACE-INTACT (NEGATIVE); PH,URINE 5.5 (5.0-8.0); PROTEIN,URINE NEGATIVE (NEGATIVE); UROBILINOGEN,URINE 0.2 EU/dL (<2.0)
[2024-11-16 11:17] LABS: APPEARANCE,URINE SLT CLOUDY
[2024-11-16 11:25] LABS: ALBUMIN 3.1 g/dL (3.4-5.0); BILIRUBIN TOTAL 0.2 mg/dL (0.2-1.0); CALCIUM 8.7 mg/dL (8.5-10.1); CREATININE 1.5 mg/dL (0.6-1.0); EST CRCL DRUG DOSING (CG) 30.8 mL/min; MAGNESIUM 2.2 mg/dL (1.8-2.4); POTASSIUM,K 4.6 mmol/L (3.5-5.1); PROTEIN TOTAL,TP 6.1 g/dL (6.4-8.2)
[2024-11-16 11:26] LABS: BACTERIA,URINE 3+ (NEGATIVE); EPITHELIAL CELLS,URINE FEW (NONE-FEW); MUCUS,URINE LIGHT (NONE-MOD); WBC,URINE 60-70 (0-5/HPF)
[2024-11-16] MEDS: Sodium Chloride 0.9% 1,000 ML IV SCH ×2 (11:34→16:03)
[2024-11-16] MEDS: cefTRIAXone 1 GM in Sodium Chloride 0.9% 50 ML IV ONE (13:34)
[2024-11-16] MEDS ORDERED: cefTRIAXone 1 GM in Sodium Chloride 0.9% 50 ML IV SCH (14:15)
[2024-11-16] MEDS: Heparin Sodium 5,000 Units/ML Vial SUBCUT SCH (16:03)
[2024-11-16] MEDS: tiZANidine 4 MG Tab PO PRN (22:04)
[2024-11-17] MEDS: Acetaminophen 325 MG Tab PO PRN (05:32)
[2024-11-17 06:47] LABS: BASOPHILS ABSOLUTE AUTO 0.03 K/uL (0.00-0.20); BASOPHILS PERCENT AUTO 0.5 % (0.0-1.0); HEMATOCRIT 31.2 % (37.0-47.0); HEMOGLOBIN 10.4 g/dL (12.0-16.0); LYMPHOCYTES ABSOLUTE AUTO 1.79 K/uL (1.00-4.80); LYMPHOCYTES PERCENT AUTO 32.1 % (24.0-44.0); MEAN CORPUSCULAR HEMOGLOBIN 30.6 pg (28.0-32.0); MEAN CORPUSCULAR HGB CONC 33.3 g/dL (32.0-36.0); MEAN CORPUSCULAR VOLUME 91.8 fL (83.0-99.0); MEAN PLATELET VOLUME 10.5 fL (9.4-12.3); MONOCYTES ABSOLUTE AUTO 0.51 K/uL (0.00-0.80); MONOCYTES PERCENT AUTO 9.1 % (0.0-8.0); NEUTROPHILS ABSOLUTE AUTO 3.25 K/uL (1.80-7.70); NEUTROPHILS PERCENT AUTO 58.3 % (41.0-71.0); PLATELET COUNT,PLT 189 K/uL (150-400); WHITE BLOOD CELL COUNT,WBC 5.58 K/uL (3.9-11.3)
[2024-11-17 07:11] LABS: CALCIUM 8.7 mg/dL (8.5-10.1); CARBON DIOXIDE,CO2 26.4 mmol/L (21.0-32.0); CREATININE 1.2 mg/dL (0.6-1.0); EST CRCL DRUG DOSING (CG) 34.02 mL/min; POTASSIUM,K 4.2 mmol/L (3.5-5.1)
[2024-11-17] MEDS: Clopidogrel 75 MG Tab PO SCH (08:13)
[2024-11-17] MEDS: cefTRIAXone 1 GM in Sodium Chloride 0.9% 50 ML IV SCH (13:57)
[2024-11-17] MEDS: SAMIDORPHAN PO SCH (20:28)
[2024-11-17] MEDS: OLANZAPINE PO SCH (20:28)
[2024-11-17] MEDS: PALIPERIDONE 9 MG PO SCH (20:28)
[2024-11-17] MEDS ORDERED: OLANZAPINE PO SCH (21:00)
[2024-11-17] MEDS ORDERED: PALIPERIDONE 9 MG PO SCH (21:00)
[2024-11-17] MEDS ORDERED: SAMIDORPHAN PO SCH (21:00)
[2024-11-18 07:03] LABS: BASOPHILS ABSOLUTE AUTO 0.03 K/uL (0.00-0.20); BASOPHILS PERCENT AUTO 0.5 % (0.0-1.0); HEMATOCRIT 30.6 % (37.0-47.0); HEMOGLOBIN 10.2 g/dL (12.0-16.0); IMMATURE GRAN ABSOLUTE AUTO 0.01 K/uL (0.00-0.05); IMMATURE GRAN PERCENT AUTO 0.2 % (0.0-0.4); LYMPHOCYTES ABSOLUTE AUTO 1.93 K/uL (1.00-4.80); LYMPHOCYTES PERCENT AUTO 31.9 % (24.0-44.0); MEAN CORPUSCULAR HEMOGLOBIN 30.2 pg (28.0-32.0); MEAN CORPUSCULAR HGB CONC 33.3 g/dL (32.0-36.0); MEAN CORPUSCULAR VOLUME 90.5 fL (83.0-99.0); MEAN PLATELET VOLUME 10.4 fL (9.4-12.3); MONOCYTES ABSOLUTE AUTO 0.61 K/uL (0.00-0.80); MONOCYTES PERCENT AUTO 10.1 % (0.0-8.0); NEUTROPHILS ABSOLUTE AUTO 3.47 K/uL (1.80-7.70); NEUTROPHILS PERCENT AUTO 57.3 % (41.0-71.0); PLATELET COUNT,PLT 202 K/uL (150-400); RED BLOOD CELL COUNT 3.38 M/uL (4.10-5.30); WHITE BLOOD CELL COUNT,WBC 6.05 K/uL (3.9-11.3)
[2024-11-18 07:44] LABS: CALCIUM 9.2 mg/dL (8.5-10.1); CARBON DIOXIDE,CO2 26.2 mmol/L (21.0-32.0); EST CRCL DRUG DOSING (CG) 40.83 mL/min; POTASSIUM,K 3.8 mmol/L (3.5-5.1)
[2024-11-18] MEDS: Carvedilol 6.25 MG Tab PO SCH (10:19)
[2024-11-18] MEDS: Aspirin 81 MG Tab.Chew PO SCH (10:19)
[2024-11-18] MEDS: Isosorbide Mononitrate 30 MG Tab.ER PO SCH (10:19)
[2024-11-19] MEDS ORDERED: Acetaminophen 325 MG Tab PO PRN (06:22)
[2024-11-19 11:54] VITALS: BP 119/58; PULSE 84
== END 2024-11-19 16:30 | DRG 690 ==
LOC: MW.ED 10:30 → MW.MS 13:30 → OBSVTOIN 11-18 09:25 → MW.MS 11-18 14:57
PROVIDERS: ADMIT Internal Medicine; ATTEND Internal Medicine
DX: N30.01 Acute cystitis with hematuria (principal); E86.0 Dehydration; F31.9 Bipolar disorder, unspecified; F41.9 Anxiety disorder, unspecified; G62.9 Polyneuropathy, unspecified; J44.9 Chronic obstructive pulmonary disease, unspecified; Z88.5 Allergy status to narcotic agent; H91.90 Unspecified hearing loss, unspecified ear; H26.9 Unspecified cataract; H40.9 Unspecified glaucoma; E78.00 Pure hypercholesterolemia, unspecified; I11.0 Hypertensive heart disease with heart failure; I50.9 Heart failure, unspecified; K21.9 Gastro-esophageal reflux disease without esophagitis; E87.70 Fluid overload, unspecified; I95.9 Hypotension, unspecified; K44.9 Diaphragmatic hernia without obstruction or gangrene; B96.29 Other Escherichia coli [E. coli] as the cause of diseases classified elsewhere; G89.29 Other chronic pain; Z90.89 Acquired absence of other organs; Z90.49 Acquired absence of other specified parts of digestive tract; Z98.890 Other specified postprocedural states; Z99.3 Dependence on wheelchair; Z86.73 Personal history of transient ischemic attack (TIA), and cerebral infarction without residual deficits; Z88.8 Allergy status to other drugs, medicaments and biological substances; Z79.82 Long term (current) use of aspirin; Z79.899 Other long term (current) drug therapy; Z79.1 Long term (current) use of non-steroidal anti-inflammatories (NSAID); Z79.02 Long term (current) use of antithrombotics/antiplatelets; Z90.710 Acquired absence of both cervix and uterus; Z98.1 Arthrodesis status
CPT/HCPCS: 36415 ×3; 71045; 74176; 80048 ×2; 80053; 81001; 82947 ×2; 83605; 83735; 83880; 84484; 85025 ×3; 87086; 87428; 93005 ×2; 96361; 96365; 99285; A9270 ×8; J0696 ×2; J1644 ×4; J3490 ×2; J7030 ×2; 96366; 96372; G0378

== ENCOUNTER 2025-06-25 13:09 | Inpatient (IN) | payer MEDICARE, MEDICAID ==
[2025-06-25] MEDS ORDERED: Sodium Chloride 0.9% 10 ML Syringe FLUSH PRN ×2 (13:37→20:58)
[2025-06-25] MEDS ORDERED: Sodium Chloride 0.9% 2.5 ML Syringe FLUSH PRN ×2 (13:37→20:58)
[2025-06-25] MEDS: cefTRIAXone 2 GM in Water For Injection, Sterile 20 ML IVPUSH ONE (14:23)
[2025-06-25 14:30] LABS: BASOPHILS ABSOLUTE AUTO 0.03 K/uL (0.00-0.20); BASOPHILS PERCENT AUTO 0.2 % (0.0-1.0); EOSINOPHILS ABSOLUTE AUTO 0.00 K/uL (0.00-0.45); EOSINOPHILS PERCENT AUTO 0.0 % (0.0-6.0); IMMATURE GRAN ABSOLUTE AUTO 0.06 K/uL (0.00-0.05); IMMATURE GRAN PERCENT AUTO 0.5 % (0.0-0.4); LYMPHOCYTES ABSOLUTE AUTO 1.30 K/uL (1.00-4.80); LYMPHOCYTES PERCENT AUTO 10.4 % (24.0-44.0); MEAN PLATELET VOLUME 10.7 fL (9.4-12.3); MONOCYTES ABSOLUTE AUTO 1.00 K/uL (0.00-0.80); MONOCYTES PERCENT AUTO 8.0 % (0.0-8.0); NEUTROPHILS ABSOLUTE AUTO 10.13 K/uL (1.80-7.70); NEUTROPHILS PERCENT AUTO 80.9 % (41.0-71.0); NRBC ABSOLUTE 0.00 K/uL (0.00-0.02); NRBC PERCENT 0.0 /100WBC (0.0-0.2); PLATELET COUNT,PLT 194 K/uL (150-400); RED BLOOD CELL COUNT 3.95 M/uL (4.10-5.30); WHITE BLOOD CELL COUNT,WBC 12.52 K/uL (3.9-11.3)
[2025-06-25 14:58] LABS: A/G RATIO 1.0 (0.9-1.6); ALANINE AMINOTRANSFERASE,ALT 11 IU/L (14-63); ASPARTATE AMNIOTRANSFERASE,AST 17 IU/L (15-37); BILIRUBIN TOTAL 0.4 mg/dL (0.2-1.0); BLOOD UREA NITROGEN,BUN 40 mg/dL (7.0-18.0); CARBON DIOXIDE,CO2 24.8 mmol/L (21.0-32.0); CHLORIDE,CL 109 mmol/L (98-107); CREATININE 1.3 mg/dL (0.6-1.0); GLUCOSE RANDOM 170 mg/dL (74-106); POTASSIUM,K 4.1 mmol/L (3.5-5.1); PROTEIN TOTAL,TP 6.3 g/dL (6.4-8.2); SODIUM,NA 143 mmol/L (136-145)
[2025-06-25 14:59] LABS: ESTIMATED GFR 43 mL/min (>60); ETHANOL BLOOD MEDICAL < 3.0 mg/dL
[2025-06-25] MEDS: Iopamidol 755 MG/ML 500 ML Multipack Bottle IVPUSH STA (15:21)
[2025-06-25 21:16] LABS: APPEARANCE,URINE CLEAR; GLUCOSE,URINE NEGATIVE (NEGATIVE); OCCULT BLOOD,URINE NEGATIVE (NEGATIVE)
[2025-06-26 06:48] LABS: MEAN PLATELET VOLUME 10.9 fL (9.4-12.3); NRBC ABSOLUTE 0.00 K/uL (0.00-0.02); NRBC PERCENT 0.0 /100WBC (0.0-0.2); PLATELET COUNT,PLT 202 K/uL (150-400); RED BLOOD CELL COUNT 4.09 M/uL (4.10-5.30); WHITE BLOOD CELL COUNT,WBC 18.62 K/uL (3.9-11.3)
[2025-06-26 07:29] LABS: A/G RATIO 1.0 (0.9-1.6); ALANINE AMINOTRANSFERASE,ALT 13.0 IU/L (14-63); ASPARTATE AMNIOTRANSFERASE,AST 23.0 IU/L (15-37); BILIRUBIN TOTAL 0.5 mg/dL (0.2-1.0); BLOOD UREA NITROGEN,BUN 28.0 mg/dL (7.0-18.0); CARBON DIOXIDE,CO2 21.6 mmol/L (21.0-32.0); CHLORIDE,CL 104.0 mmol/L (98-107); CREATININE 0.9 mg/dL (0.6-1.0); EST CRCL DRUG DOSING (CG) 44.68 mL/min; GLUCOSE RANDOM 129.0 mg/dL (74-106); POTASSIUM,K 3.1 mmol/L (3.5-5.1); PROTEIN TOTAL,TP 6.5 g/dL (6.4-8.2); SODIUM,NA 134.0 mmol/L (136-145)
[2025-06-26 07:38] LABS: ESTIMATED GFR 67.0 mL/min (>60)
[2025-06-26 08:24] LABS: LYMPHOCYTES ABSOLUTE MAN 0.93 K/uL (1.00-4.80); LYMPHOCYTES PERCENT MAN 5 % (24-44); MONOCYTES ABSOLUTE MAN 1.49 K/uL (0.00-0.80); MONOCYTES PERCENT MAN 8 % (0-8); SEG NEUTROPHILS ABSOLUTE MAN 16.20 K/uL (1.80-7.70); SEG NEUTROPHILS PERCENT MAN 87 % (41-71)
[2025-06-26] MEDS: Potassium Chloride 20 MEQ Tab.ER PO ONE ×2 (09:33→16:58)
[2025-06-26 11:00] LABS: LACTIC ACID 1.0 mmol/L (0.4-2.0)
[2025-06-26 11:09] LABS: CHOLESTEROL HDL 29.0 mg/dL (40-60); CHOLESTEROL LDL CALCULATED 34.0 mg/dL (60-180); CHOLESTEROL TOTAL 74.0 mg/dL (50-200); VLDL CHOLESTEROL 11.0 mg/dL (5-55)
[2025-06-26] MEDS: Nystatin Topical Powder 15 GM Bottle TOP SCH (12:05)
[2025-06-26] MEDS: cefTRIAXone 2 GM in Water For Injection, Sterile 20 ML IVPUSH SCH (12:11)
[2025-06-26] MEDS: Magnesium Sulfate 2 GM/50 mL 2 GM in Premix Bag 1 BAG IV ONE (12:12)
[2025-06-26] MEDS: VILAZODONE HCL 10 MG PO SCH (12:12)
[2025-06-26] MEDS: NS with KCl 40mEq 1,000 ML IV SCH (12:45)
[2025-06-26] MEDS: Ondansetron 4 MG/2 ML SDV IVPUSH PRN (16:59)
[2025-06-26] MEDS: Timolol Maleate 0.5% Ophth Soln 5 ML Bottle EYEBOTH SCH (20:49)
[2025-06-26] MEDS: Formoterol/Mometasone 200-5 MCG 8.8 GM Inhaler INH SCH (20:54)
[2025-06-26 23:20] LABS: BASOPHILS ABSOLUTE AUTO 0.05 K/uL (0.00-0.20); BASOPHILS PERCENT AUTO 0.3 % (0.0-1.0); EOSINOPHILS ABSOLUTE AUTO 0.00 K/uL (0.00-0.45); EOSINOPHILS PERCENT AUTO 0.0 % (0.0-6.0); IMMATURE GRAN ABSOLUTE AUTO 0.13 K/uL (0.00-0.05); IMMATURE GRAN PERCENT AUTO 0.8 % (0.0-0.4); LYMPHOCYTES ABSOLUTE AUTO 1.36 K/uL (1.00-4.80); LYMPHOCYTES PERCENT AUTO 8.4 % (24.0-44.0); MEAN PLATELET VOLUME 10.8 fL (9.4-12.3); MONOCYTES ABSOLUTE AUTO 1.32 K/uL (0.00-0.80); MONOCYTES PERCENT AUTO 8.2 % (0.0-8.0); NEUTROPHILS ABSOLUTE AUTO 13.25 K/uL (1.80-7.70); NEUTROPHILS PERCENT AUTO 82.3 % (41.0-71.0); NRBC ABSOLUTE 0.00 K/uL (0.00-0.02); NRBC PERCENT 0.0 /100WBC (0.0-0.2); PLATELET COUNT,PLT 236 K/uL (150-400); RED BLOOD CELL COUNT 4.15 M/uL (4.10-5.30); WHITE BLOOD CELL COUNT,WBC 16.11 K/uL (3.9-11.3)
[2025-06-26 23:43] LABS: BLOOD UREA NITROGEN,BUN 33.0 mg/dL (7.0-18.0); CARBON DIOXIDE,CO2 21.4 mmol/L (21.0-32.0); CHLORIDE,CL 114.0 mmol/L (98-107); CREATININE 1.0 mg/dL (0.6-1.0); EST CRCL DRUG DOSING (CG) 40.21 mL/min; GLUCOSE RANDOM 169.0 mg/dL (74-106); POTASSIUM,K 3.9 mmol/L (3.5-5.1); SODIUM,NA 148.0 mmol/L (136-145)
[2025-06-26 23:44] LABS: ESTIMATED GFR 59.0 mL/min (>60)
[2025-06-27 06:54] LABS: BASOPHILS ABSOLUTE AUTO 0.05 K/uL (0.00-0.20); BASOPHILS PERCENT AUTO 0.4 % (0.0-1.0); EOSINOPHILS ABSOLUTE AUTO 0.00 K/uL (0.00-0.45); EOSINOPHILS PERCENT AUTO 0.0 % (0.0-6.0); IMMATURE GRAN ABSOLUTE AUTO 0.07 K/uL (0.00-0.05); IMMATURE GRAN PERCENT AUTO 0.5 % (0.0-0.4); LYMPHOCYTES ABSOLUTE AUTO 1.39 K/uL (1.00-4.80); LYMPHOCYTES PERCENT AUTO 9.8 % (24.0-44.0); MEAN PLATELET VOLUME 10.5 fL (9.4-12.3); MONOCYTES ABSOLUTE AUTO 1.23 K/uL (0.00-0.80); MONOCYTES PERCENT AUTO 8.7 % (0.0-8.0); NEUTROPHILS ABSOLUTE AUTO 11.41 K/uL (1.80-7.70); NEUTROPHILS PERCENT AUTO 80.6 % (41.0-71.0); NRBC ABSOLUTE 0.00 K/uL (0.00-0.02); NRBC PERCENT 0.0 /100WBC (0.0-0.2); PLATELET COUNT,PLT 216 K/uL (150-400); RED BLOOD CELL COUNT 3.70 M/uL (4.10-5.30); WHITE BLOOD CELL COUNT,WBC 14.15 K/uL (3.9-11.3)
[2025-06-27 07:15] LABS: A/G RATIO 0.9 (0.9-1.6); ALANINE AMINOTRANSFERASE,ALT 26.0 IU/L (14-63); ASPARTATE AMNIOTRANSFERASE,AST 30.0 IU/L (15-37); BILIRUBIN TOTAL 0.4 mg/dL (0.2-1.0); BLOOD UREA NITROGEN,BUN 29.0 mg/dL (7.0-18.0); CARBON DIOXIDE,CO2 24.1 mmol/L (21.0-32.0); CHLORIDE,CL 113.0 mmol/L (98-107); CREATININE 0.9 mg/dL (0.6-1.0); EST CRCL DRUG DOSING (CG) 44.68 mL/min; GLUCOSE RANDOM 153.0 mg/dL (74-106); PHOSPHORUS 1.8 mg/dL (2.6-4.7); POTASSIUM,K 3.7 mmol/L (3.5-5.1); PROTEIN TOTAL,TP 6.2 g/dL (6.4-8.2); SODIUM,NA 147.0 mmol/L (136-145)
[2025-06-27 07:35] LABS: ESTIMATED GFR 67.0 mL/min (>60)
[2025-06-27] MEDS: Phosphorus #1 250 MG Tab PO SCH (13:34)
[2025-06-28 06:09] LABS: BASOPHILS ABSOLUTE AUTO 0.04 K/uL (0.00-0.20); BASOPHILS PERCENT AUTO 0.4 % (0.0-1.0); EOSINOPHILS ABSOLUTE AUTO 0.01 K/uL (0.00-0.45); EOSINOPHILS PERCENT AUTO 0.1 % (0.0-6.0); IMMATURE GRAN ABSOLUTE AUTO 0.03 K/uL (0.00-0.05); IMMATURE GRAN PERCENT AUTO 0.3 % (0.0-0.4); LYMPHOCYTES ABSOLUTE AUTO 1.46 K/uL (1.00-4.80); LYMPHOCYTES PERCENT AUTO 13.7 % (24.0-44.0); MEAN PLATELET VOLUME 10.5 fL (9.4-12.3); MONOCYTES ABSOLUTE AUTO 1.00 K/uL (0.00-0.80); MONOCYTES PERCENT AUTO 9.4 % (0.0-8.0); NEUTROPHILS ABSOLUTE AUTO 8.08 K/uL (1.80-7.70); NEUTROPHILS PERCENT AUTO 76.1 % (41.0-71.0); NRBC ABSOLUTE 0.00 K/uL (0.00-0.02); NRBC PERCENT 0.0 /100WBC (0.0-0.2); PLATELET COUNT,PLT 216 K/uL (150-400); RED BLOOD CELL COUNT 3.69 M/uL (4.10-5.30); WHITE BLOOD CELL COUNT,WBC 10.62 K/uL (3.9-11.3)
[2025-06-28 06:37] LABS: BLOOD UREA NITROGEN,BUN 26.0 mg/dL (7.0-18.0); CARBON DIOXIDE,CO2 21.6 mmol/L (21.0-32.0); CHLORIDE,CL 112.0 mmol/L (98-107); CREATININE 0.8 mg/dL (0.6-1.0); EST CRCL DRUG DOSING (CG) 50.26 mL/min; GLUCOSE RANDOM 125.0 mg/dL (74-106); PHOSPHORUS 2.1 mg/dL (2.6-4.7); POTASSIUM,K 3.4 mmol/L (3.5-5.1); SODIUM,NA 146.0 mmol/L (136-145)
[2025-06-28 06:41] LABS: ESTIMATED GFR 77.0 mL/min (>60)
[2025-06-28 09:36] VITALS: BP 154/68
[2025-06-28 10:56] VITALS: PULSE 77
== END 2025-06-28 11:00 | DRG 439 ==
LOC: MW.ED 13:09 → MW.ICU 16:53 → MW.MS 06-26 13:11
PROVIDERS: ADMIT Internal Medicine; ATTEND Internal Medicine
DX: K85.90 Acute pancreatitis without necrosis or infection, unspecified (principal); N17.9 Acute kidney failure, unspecified; E86.0 Dehydration; M54.9 Dorsalgia, unspecified; F31.9 Bipolar disorder, unspecified; J44.9 Chronic obstructive pulmonary disease, unspecified; G89.29 Other chronic pain; I50.9 Heart failure, unspecified; I11.0 Hypertensive heart disease with heart failure; E87.6 Hypokalemia; H91.90 Unspecified hearing loss, unspecified ear; K59.00 Constipation, unspecified; L30.4 Erythema intertrigo; M54.2 Cervicalgia; I25.10 Atherosclerotic heart disease of native coronary artery without angina pectoris; D72.829 Elevated white blood cell count, unspecified; E78.5 Hyperlipidemia, unspecified; Z79.899 Other long term (current) drug therapy; Z79.82 Long term (current) use of aspirin; Z98.49 Cataract extraction status, unspecified eye; Z90.49 Acquired absence of other specified parts of digestive tract; Z90.710 Acquired absence of both cervix and uterus; Z95.828 Presence of other vascular implants and grafts; Z98.890 Other specified postprocedural states; Z86.73 Personal history of transient ischemic attack (TIA), and cerebral infarction without residual deficits; Z88.8 Allergy status to other drugs, medicaments and biological substances
CPT/HCPCS: 36415; 71045; 74177; 80053; 80307; 83605; 83690; 84484; 85025; 87040 ×2; 93005 ×2; A4216; J0696; J7030; Q9967; 80048; 80061; 81003; 83735; 84100; 93010; 99222; 99232; 99238; 99285; A9270-GY; J1642; J2405; J3475; J3480